=== PATIENT | female | born 1975 | race Caucasian/White ===

== ENCOUNTER 2023-04-20 07:28 | Outpatient (REF) | payer OTHER, SELFPAY ==
[2023-04-25 05:42] LABS: Vitamin B1 27 nmol/L (8-30)
== END 2023-04-20 07:29 | disposition home or self-care (01) ==
LOC: HO.LAB 07:28
PROVIDERS: Visit Provider Nurse Practitioner Family
DX: Z13.29 Encounter for screening for other suspected endocrine disorder (principal); Z13.21 Encounter for screening for nutritional disorder; Z13.220 Encounter for screening for lipoid disorders; E53.9 Vitamin B deficiency, unspecified; D50.9 Iron deficiency anemia, unspecified; E11.9 Type 2 diabetes mellitus without complications; I10 Essential (primary) hypertension
CPT/HCPCS: 36415; 80053; 80061; 82306; 82607; 83036; 83540; 84425; 84443; 85025

== ENCOUNTER 2023-08-03 07:49 | Outpatient (REF) | payer OTHER, SELFPAY ==
[2023-08-03 09:06] LABS: Alanine Aminotransferase 20 U/L (0-31); Alkaline Phosphatase 68 U/L (39-117); Anion Gap 15 (12-20); Aspartate Amino Transferase 15 U/L (5-31); Bilirubin Total 0.4 mg/dL (0.0-1.0); Blood Urea Nitrogen 11 mg/dL (9-16); Calcium 9.5 mg/dL (8.4-10.2); Carbon Dioxide 26 mmol/L (22-29); Chloride 102 mmol/L (96-108); Cholesterol 189 mg/dL (<200); Estimated Glomerular Filt Rate > 60; Glucose Fasting 90 mg/dL (60-99); HDL Cholesterol 45 mg/dL (>40); LDL Cholesterol Calculated 124 mg/dL (<100); Potassium 3.8 mmol/L (3.3-5.1); Sodium 139 mmol/L (135-145); Total Protein 7.7 g/dL (6.5-8.0); Triglycerides 102 mg/dL (<150)
== END 2023-08-03 07:50 | disposition home or self-care (01) ==
LOC: HO.LAB 07:49
PROVIDERS: Visit Provider Nurse Practitioner Family
DX: E78.5 Hyperlipidemia, unspecified (principal); I10 Essential (primary) hypertension
CPT/HCPCS: 36415; 80053; 80061

== ENCOUNTER 2023-10-19 17:13 | Outpatient (AMB) | payer OTHER, SELFPAY ==
[2023-10-19 17:14] VITALS: BP 120/76; PULSE 94; O2SAT 96; BMI 43.2
--- NOTE | 2023-10-19 17:14 | A.OFFPC_ITS ---
Vital Signs 10/19/23 17:14 Height 4 ft 11 in Weight 214 lb 2 oz BMI 43.2 BP 120/76 Blood Pressure Location Lt brachial Position Sitting Pulse 94 Pulse Source Pulse Oximeter Pulse Oximetry (%) 96 Oxygen Delivery Method Room Air Intake Visit Reasons: physical exam; DM, anxiety,BILL Neurourologist Required: No Accompanied by: Self / Same As Patient Allergies Seasonal Allergies Allergy (Mild, Verified 10/19/23 17:42) Sneezing sertraline [From Zoloft] Allergy (Mild, Verified 10/19/23 17:42) Insomnia Medication List - Last Reconciled 10/19/23 by David Pinedo MD citalopram 40 mg PO DAILY dulaglutide (Trulicity) 1.5 mg (0.5 mL) subcut QWEEK famotidine 20 mg PO BID ferrous gluconate (Ferate) 240 mg PO DAILY hydrochlorothiazide 25 mg PO DAILY multivitamin 1 tab PO DAILY pravastatin 10 mg PO BEDTIME vitamin B complex (B Complex-Vitamin B12 tablet) 1 tab PO DAILY Tobacco use date assessed: 10/19/23 Dental Screening Dental Screen Date: 10/19/23 Did you have a dental visit in the last 12 months?: No Did you have a dental problem in the last 6 months where you did not have access to dental care?: No Was dental information given to patient?: Patient has dentist HPI physical exam; DM, anxiety,BILL HPI Details Patient comes in today for her annual physical examination and to establish care - is a new patient to the practice Her previous PCP was in [place] States that she currently feels okay except for some recurrent eye pain / discomfort lately Denies any blurring of vision States that she has not seen an eye doctor for any eye exam in a few years now even though she is a diabetic She denies any headaches or dizziness Denies any chest pains, no SOB No nausea/vomiting, no abdominal pain No change in bowel habits noted Denies any acute urinary symptoms Had her annual mammogram done at [facility] back on 10/28/2022 and she will be due for her annual mammogram in a couple of weeks Had her screening colonoscopy done back in September 2023 at [facility] - was reportedly told that her colonoscopy came out normal and she is recommended to get a repeat colonoscopy in 10 yrs [facility] Medical History (Updated 10/20/23 @ 02:53 by David Pinedo MD) Morbid obesity with BMI of 40.0-44.9, adult GERD without esophagitis Pure hypercholesterolemia Essential hypertension Diabetes mellitus Iron deficiency anemia Surgical History (Updated 10/19/23 @ 19:45 by David Pinedo MD) History of appendectomy Status post left foot surgery Hx of hernia repair History of partial hysterectomy (~2000) Family History Father COPD (chronic obstructive pulmonary disease) Mother Hyperthyroidism Alcohol abuse Social History Household Members: Spouse Housing: House Alcohol intake: current Alcohol intake frequency: holidays/special occasions only Alcohol type: beer and wine Patient Tobacco Use Status: Former Tobacco user e-Cigarette/Vaping Use: Never Used service: No Current occupational status: employed Current occupation: [employer] Current occupational exposures/hazards: No Cognitive needs: No Hearing needs: No Vision needs: Yes Questionnaire PHQ-9 Over the last 2 weeks, how often have you been bothered by any of the following problems? 1. Little interest or pleasure in doing things: not at all 2. Feeling down, depressed, or hopeless: not at all 3. Trouble falling or staying asleep, or sleeping too much: not at all 4. Feeling tired or having little energy: not at all 5. Poor appetite or overeating: not at all 6. Feeling bad about yourself - or that you are a failure or have let yourself or your family down: not at all 7. Trouble concentrating on things, such as reading the newspaper or watching television: not at all 8. Moving or speaking so slowly that other people could have noticed. Or the opposite - being so fidgety or restless that you have been moving around a lot more than usual: not at all 9. Thoughts that you would be better off or of hurting yourself in some way: not at all Total score: 0 Depression Screening Interpretation: Negative Depression Screening Done: Yes 93762 - PHQ-9 Billing: Yes Source: Developed by Drs. Cyril Cortes, Arabella Morin, Cedric Garcia and colleagues, with an educational dari from [employer]. Thrive Questionnaire Date Thrive assessed: 10/19/23 I am a: Patient What is your living situation today?: I have a steady place to live Within the past 12 months, did the food you bought not last and you didn't have the money to get more?: Never true Within the past 12 months, did you worry whether your food would run out before you got money to buy more?: Never true Do you have trouble paying for medicines?: No Do you have trouble getting transportation to medical appointments?: No Do you have trouble paying your heating and electricity bill?: No Do you have trouble taking care of your child, family member or friend?: No Do you have trouble with day-to-day activities such as bathing, preparing meals, shopping, managing finances, etc.?: No Are you currently unemployed and looking for a job?: No Are you interested in more education?: No Please select the resources that you would like help with: None Currently or been in a relationship where the following occur: no concerns reported AUDIT C Alcohol Use Questionnaire (AUDIT-C) 1. How often do you have a drink containing alcohol?: Never 3. How often do you have six or more drinks on one occasion?: Never Total Score: 0 Score Reviewed/Action Taken: Yes LETTY-7 AMB Questionnaire LETTY-7 Date LETTY - 7 assessed: 10/19/23 Feeling nervous, anxious, or on edge: 1 = Several days Not being able to stop or control worryin = More than half the days Worrying too much about different things: 3 = Nearly every day Trouble relaxin = Several days Being so restless that it is hard to sit still: 0 = Not at all Becoming easily annoyed or irritable: 0 = Not at all Feeling afraid as if something awful might happen: 0 = Not at all Total LETTY-7 score (0-4 normal; 5-9 mild; 10-14 moderate; 15-21 severe): 7 Source: Developed by Drs. Cyril Cortes, Arabella Morin, Cedric Garcia and colleagues, with an educational dari from [employer]. LETTY-7 Assessment Billing LETTY-7 Assessment Tool: LETTY-7 Assessment 35281 Review of Systems Const Denies chills, Denies fatigue, Denies fever(s), Denies headache(s) and Denies malaise Eyes Denies blurry vision, Denies change in vision, Denies irritation, Denies itchy eyes and Reports eye pain (on and off, in both eyes) ENT Denies dysphagia, Denies dizziness, Denies otalgia, Denies headache(s), Denies nasal congestion, Denies neck pain, Denies odynophagia, Denies sinus pain and Denies sore throat Card Denies chest pain, Denies rapid heart rate, Denies irregular heart rhythm, Den ies palpitations and Denies dyspnea Resp Denies chest congestion, Denies cough, Denies dyspnea and Denies wheezing GI Denies abdominal pain, Denies bloating, Denies constipation, Denies dysphagia, Denies heartburn, Denies diarrhea, Denies nausea, Denies odynophagia and Denies vomiting Denies hematuria, Denies urinary frequency, Denies dysuria, Denies urinary incontinence and Denies urinary urgency Musc Denies back pain, Denies arthralgias, Denies joint swelling, Denies muscle weakness and Denies neck pain Skin/Breast Denies breast pain, Denies breast mass, Denies change in pigmentation, Denies lesions, Denies rash and Denies unusual bruising Neuro Denies dizziness, Denies headache(s) and Denies paresthesias Psych Denies anxiety and Denies depression Endo Denies fatigue and Denies palpitations Lavell/Lymph Denies easy bruising Aller/Immun Denies itchy eyes and Denies wheezing Physical exam (Primary Care) Vital Signs: Last Vital Signs Pulse 94 10/19/23 17:14 BP 120/76 10/19/23 17:14 Pulse Ox 96 10/19/23 17:14 Oxygen Delivery Method Room Air 10/19/23 17:14 BMI result Body Mass Index 43.2 Tobacco/Smoking Status: Tobacco use Status Tobacco use date assessed 10/19/23 10/19/23 17:20 Patient Tobacco Use Status Former Tobacco user 10/19/23 17:20 e-Cigarette/Vaping Use Never Used 10/19/23 17:20 PHQ-9: PHQ-9 Score PHQ-9: Total score 0 10/19/23 19:47 Depression Screening Interpretation: Negative Thrive Assessment: Date of Thrive Assessment Date Thrive assessed 10/19/23 10/19/23 17:20 Currently or been in a relationship where the following occur: no concerns reported Const General: no acute distress, alert and awake Orientation/consciousness: patient oriented x3 HENMT Head: Yes normocephalic and Yes atraumatic Ears: external ears normal, TM's normal bilaterally and EAC's normal General nose exam: No nasal discharge present Face and sinus: Yes normal facial exam and Yes sinuses nontender Teeth and gingiva: dentition normal Throat: Yes posterior oropharynx normal and Yes tonsils normal (no TP congestion) Eyes Eyelids: Yes eyelids normal Conjunctivae: conjunctivae normal Pupils: Equal, round and reactive pupils present EOM: EOMs intact bilaterally Neck Neck: Yes no lymphadenopathy and Yes supple Thyroid: Thyroid normal Resp Auscultation: clear to auscultation bilaterally, no rales and no wheezes Cardio Rate: regular rate Rhythm: regular rhythm Heart sounds: no murmurs GI Palpation (GI): Soft to palpation, nontender and No hepatosplenomegaly present Auscultation: normal bowel sounds General: Yes no CVA tenderness Back/Spine/Pelvis Back: no CVA tenderness Thoracic/Lumbar Spine: thoracic and lumbar spine normal to inspection Skin Lesions: no lesions Rashes: no rashes Neuro General: patient oriented x3, moves all extremities, no focal motor deficits and CN's II-XI intact bilaterally Cranial nerves: Yes Equal, round and reactive pupils present Cognition (Neuro): normal cognition Gait exam (Neuro): Normal gait present Extrem General: Yes no clubbing, cyanosis or edema Assessment and Plan Assessment & Plan (1) Annual physical exam: Code(s): Z00.00 - Encounter for general adult medical examination without abnormal findings Plan: Results of her labs done over the past few months reviewed and discussed with patient She is up-to-date with her cancer screenings although her annual mammogram will be due again in a couple of weeks (2) Diabetes mellitus: Code(s): E11.9 - Type 2 diabetes mellitus without complications Qualifiers: Diabetes mellitus complication status: without complication Diabetes mellitus prison insulin use: without ocean transportation intermediary use Diabetes mellitus type: type 2 Qualified Code(s): E11.9 - Type 2 diabetes mellitus without complications Plan: Her HgbA1c was at 5.2% when last checked in April 2023 Reinforced diabetic diet Continue Trulicity 1.5 mg SQ once a week (3) Eye pain: Code(s): H57.10 - Ocular pain, unspecified eye Qualifiers: Laterality: unspecified laterality Qualified Code(s): H57.10 - Ocular pain, unspecified eye Plan: Due to her symptoms and with her being a diabetic, will refer her to ophthalmology for further evaluation and management AND for her diabetic eye mp zamudio (4) Pure hypercholesterolemia: Code(s): E78.00 - Pure hypercholesterolemia, unspecified Plan: Reinforced low cholesterol diet Continue Pravastatin 10 mg QD for now Will recheck her labs and fasting lipids in 3 months for follow up - is advised that her LDL should at least be <100 mg/dl and preferably be at 70 mg/dl or less due to her comorbidities and that we will need to increase the dose of her statin if her numbers do not improve significantly over the next few months Will recheck her fasting lipids in 3 months for follow up (5) Essential hypertension: Code(s): I10 - Essential (primary) hypertension Plan: Reinforced low sodium diet - goal is systolic BP of at least 120 mm or less Continue HCTZ 25 mg QD Will consider starting her on low dose BRANDON or ARB in the future if tolerated for renoprotection (6) DANILO on CPAP: Code(s): G47.33 - Obstructive sleep apnea (adult) (pediatric) Plan: States that her CPAP device is very old and worn out and will likely need to be replaced but [facility] is charging her for every single replacement parts when she orders them Reports that it has been over 10 years since she last had her sleep study done Will refer her to Sleep Medicine for follow up and further management (7) GERD without esophagitis: Code(s): K21.9 - Gastro-esophageal reflux disease without esophagitis Plan: Dietary restrictions reinforced Continue Famotidine 20 mg BID (8) Iron deficiency anemia: Code(s): D50.9 - Iron deficiency anemia, unspecified Qualifiers: Iron deficiency anemia type: unspecified iron deficiency Qualified Code(s): D50.9 - Iron deficiency anemia, unspecified Plan: Continue Ferrous gluconate 240 mg QD Will recheck her CBC in 3 months for follow up (9) Anxiety: Code(s): F41.9 - Anxiety disorder, unspecified Plan: Continue Citalopram 40 mg QD (10) Morbid obesity with BMI of 40.0-44.9, adult: Code(s): E66.01 - Morbid (severe) obesity due to excess calories; Z68.41 - Body mass index [BMI] 40.0-44.9, adult Plan: Reinforced diet/exercise as tolerated/lose weight Plan Follow up in 3 months Orders: Orders Complete Blood Count Auto Diff 3 Months I10 - Essential (primary) hypertension Comprehensive [place]. Panel Fast 3 Months E78.00 - Pure hypercholesterolemia, unspecified Microalbumin, Random (w Creat) 3 Months E11.9 - Type 2 diabetes mellitus without complications Lipid Panel 3 Months E78.00 - Pure hypercholesterolemia, unspecified TSH reflex Free T4 3 Months E78.00 - Pure hypercholesterolemia, unspecified Hemoglobin A1c 3 Months E11.9 - Type 2 diabetes mellitus without complications UA CC w/rflx Micro + Cult 3 Months R30.0 - Dysuria Vitamin D 25-OH Total 3 Months E55.9 - Vitamin D deficiency, unspecified IRON PROFILE 3 Months D50.9 - Iron deficiency anemia, unspecified Referrals Ophthalmology Referral E11.9 - Type 2 diabetes mellitus without complications Sleep Medicine Referral G47.33 - Obstructive sleep apnea (adult) (pediatric) Coding Level of Care Code New Pt Prev Care 40-64y(91122) Diagnoses Annual physical exam Z00.00 Type 2 diabetes mellitus without complication, without long-term current use of insulin E11.9 Diabetes mellitus complication status: without complication Diabetes mellitus ocean transportation intermediary insulin use: without prison use Diabetes mellitus type: type 2 Pain in eye, unspecified laterality H57.10 Laterality: unspecified laterality Pure hypercholesterolemia E78.00 Essential hypertension I10 DANILO on CPAP G47.33 GERD without esophagitis K21.9 Iron deficiency anemia, unspecified iron deficiency anemia type D50.9 Iron deficiency anemia type: unspecified iron deficiency Anxiety F41.9 Morbid obesity with BMI of 40.0-44.9, adult E66.01; Z68.41 Additional Codes LETTY-7 Assessment Billing - LETTY-7 Assessment Tool: LETTY-7 Assessment 46890 ([id number])
== END 2023-10-19 17:59 | disposition home or self-care (01) ==
LOC: HO.HMGH 17:13
PROVIDERS: PCP Internal Medicine; Visit Provider Internal Medicine
DX: Z00.00 Encounter for general adult medical examination without abnormal findings (principal); E11.9 Type 2 diabetes mellitus without complications; E66.01 Morbid (severe) obesity due to excess calories; Z68.41 Body mass index [BMI] 40.0-44.9, adult; I10 Essential (primary) hypertension; G47.33 Obstructive sleep apnea (adult) (pediatric); K21.9 Gastro-esophageal reflux disease without esophagitis; D50.9 Iron deficiency anemia, unspecified; F41.9 Anxiety disorder, unspecified
CPT/HCPCS: 99396

== ENCOUNTER 2023-10-26 08:28 | Outpatient (AMB) | payer OTHER, SELFPAY ==
--- NOTE | 2023-10-26 08:31 | A.OFFVIS_ITS ---
Intake Vital Signs 10/26/23 08:33 Height 4 ft 11 in Weight 218 lb BMI 44.0 BP 112/70 Blood Pressure Location Lt brachial Position Sitting Pulse 55 Pulse Source Pulse Oximeter Pulse Oximetry (%) 96 Oxygen Delivery Method Room Air Intake Visit Reasons: [id number] Intake Note: Patient presents for DANILO Allergies Seasonal Allergies Allergy (Mild, Verified 10/26/23 08:37) Sneezing sertraline [From Zoloft] Allergy (Mild, Verified 10/26/23 08:37) Insomnia HPI HPI Comments History of Present Illness Details 48 y/o female patient presents for new i n-person visit to manage sleep apnea. Pt reports that she was diagnosed with DANILO many years ago, and has been using CPAP. Her home care company is [employer]. She has been getting supplies regularly, but now she needs to pay for supplies. And her CPAP is more than 5 years old. She sleeps much better with CPAP, rested and daytime sleepiness has improved. Sleep questionnaire: Have you ever been diagnosed with a sleep disorder? DANILO. Have you ever had a sleep study in the past? Yes. Have you ever been treated for a sleep disorder? Yes, CPAP. Do you take medications for a sleep disorder? No. Do you snore? Yes, but CPAP helped to reduce with CPAP. Do you wake up gasping at night? No. Do you have episodes of apneas? Yes. If yes, are they witnessed? Yes. Do you have episodes of nocturnal chest pain or dyspnea? No. Do you have difficulty initiating sleep? Yes, sometimes. Do you have difficulty maintaining sleep? Yes, sometimes. Do you wake up tired? No. Do you have headaches upon awakening? No. Do you wake up with dry mouth or throat? Yes. Do you have GERD? No. Do you have nocturia? Yes, at least 3-4 times. Do you have nocturnal leg cramps? No. Do you have symptoms of restless legs? No. Do you act out your dreams? No. Sleep hygiene questionnaire: What is your usual sleep routine? Usual bedtime is at 11 pm ; Usual wake up time is at 6:40 am. Do you take naps? No. Is your sleep environment cool, dark, and quiet? Yes. Do you exercise? Yes, bike and walking. Do you take caffeine or other stimulants? Coffee in the morning. Do you use electronics in bed? Yes. What is your work schedule? 8 am to 8:30 pm. Hypersomnolence questionnaire: Do you have daytime tiredness or fatigue? Not that much. Do you easily fall asleep when inactive? No. Have you ever had episodes of sudden weakness? No. Have you ever had episodes of sudden weakness associated with strong emotions? No. PFSH Medical History (Updated 10/20/23 @ 02:53 by David Pinedo MD) Morbid obesity with BMI of 40.0-44.9, adult GERD without esophagitis Pure hypercholesterolemia Essential hypertension Diabetes mellitus Iron deficiency anemia Surgical History History of appendectomy Status post left foot surgery Hx of hernia repair History of partial hysterectomy (~2000) Family History Father COPD (chronic obstructive pulmonary disease) Mother Hyperthyroidism Alcohol abuse Social History Household Members: Spouse Housing: House Alcohol intake: current Alcohol intake frequency: holidays/special occasions only Alcohol type: beer and wine Patient Tobacco Use Status: Former Tobacco user e-Cigarette/Vaping Use: Never Used service: No Current occupational status: employed 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 Current occupational exposures/hazards: No Cognitive needs: No Hearing needs: No Vision needs: Yes Review of Systems Const All systems reviewed & are unremarkable except as noted in HPI and below Physical Exam Vital Signs: Last Vital Signs Pulse 55 10/26/23 08:33 BP 112/70 10/26/23 08:33 Pulse Ox 96 10/26/23 08:33 Oxygen Delivery Method Room Air 10/26/23 08:33 BMI result Body Mass Index 44.0 Const General: cooperative Nutritional Appearance: obese Orientation/consciousness: patient oriented x3 Neck Neck: Yes full ROM and Yes supple Resp Effort & Inspection: normal respiratory effort and able to speak in complete sentences Neuro General: patient oriented x3 Cognition (Neuro): normal cognition Gait exam (Neuro): Normal gait present Motor exam (neuro): 5/5 motor strength present throughout Psych Appearance: grossly normal Mental Status: mental status grossly normal Speech and movement: Normal speech and movement present Affect: normal affect Attitude: cooperative Assessment & Plan Assessment & Plan (1) DANILO on CPAP: Code(s): G47.33 - Obstructive sleep apnea (adult) (pediatric) Plan Pt is advised to undergo in lab sleep study to assess for sleep apnea. Will f/u with pt after study to discuss results and appropriate treatment options. Continue to use current CPAP until she gets new CPAP. Wt reduction advised. Pt to call with any worsening concerns or questions. Orders: Orders RT PSG in-lab sleep study Today E66.01 - Morbid (severe) obesity due to excess calories, G47.33 - Obstructive sleep apnea (adult) (pediatric), I10 - Essential (primary) hypertension, Z68.41 - Body mass index [BMI] 40.0-44.9, adult Coding Level of Care Code New Pt Level 3 (31383) Diagnoses DANILO on CPAP G47.33
[2023-10-26 08:33] VITALS: BP 112/70; PULSE 55; O2SAT 96; BMI 44.0
== END 2023-10-26 09:08 | disposition home or self-care (01) ==
PROVIDERS: PCP Internal Medicine; Visit Provider Nurse Practitioner Family
DX: G47.33 Obstructive sleep apnea (adult) (pediatric) (principal)
CPT/HCPCS: 99203

== ENCOUNTER → 2023-10-26 08:28 | Outpatient (BNVA) | payer OTHER, SELFPAY | PROVIDERS: PCP Internal Medicine; Visit Provider Nurse Practitioner Family | DX: G47.33 Obstructive sleep apnea (adult) (pediatric) (principal) | CPT/HCPCS: 99202 ==

== ENCOUNTER → 2023-11-12 20:30 | Outpatient (REF) | payer OTHER, SELFPAY | LOC: HO.SL 20:30 | PROVIDERS: PCP Internal Medicine; Visit Provider Nurse Practitioner Family | DX: G47.33 Obstructive sleep apnea (adult) (pediatric) (principal); E66.01 Morbid (severe) obesity due to excess calories; Z68.41 Body mass index [BMI] 40.0-44.9, adult | CPT/HCPCS: 95810 ==

== ENCOUNTER → 2023-11-13 00:06 | Outpatient (BNV) | payer OTHER, SELFPAY | PROVIDERS: PCP Internal Medicine; Visit Provider Internal Medicine | DX: G47.33 Obstructive sleep apnea (adult) (pediatric) (principal) | CPT/HCPCS: 95810 ==

== ENCOUNTER 2023-12-03 11:59 | Outpatient (AMB) | payer OTHER, SELFPAY ==
[2023-12-03 12:09] VITALS: BP 122/80; PULSE 80; TEMP 36.9; O2SAT 97; BMI 44.0
--- NOTE | 2023-12-03 12:09 | AM.OFFWIN_ITS ---
Intake Vital Signs 12/03/23 12:09 Height 4 ft 11 in Weight 218 lb BMI 44.0 BP 122/80 Blood Pressure Location Lt brachial Position Sitting Pulse 80 Pulse Source Pulse Oximeter Temp 98.4 F Temp Source Oral Pulse Oximetry (%) 97 Oxygen Delivery Method Room Air Intake Visit Reasons: EP dry cough back pain congestion Intake Note: pt is here for cough, congestion, back pain Patient Tobacco Use Status: Former Tobacco user Allergies Seasonal Allergies Allergy (Mild, Verified 12/03/23 12:09) Sneezing sertraline [From Zoloft] Allergy (Mild, Verified 12/03/23 12:09) Insomnia Do you need a note to return to daycare/school/sports/work: Yes HPI EP dry cough back pain congestion HPI Details This is a 48-year-old female patient who presents today with a 2 day history of cough, nasal congestion, and throat pain. States that her cough feels wet, however she can not bring anything up. Has been using [id number] Robitussin. Denies known exposure to sick contacts. COVID home test was negative. Denies fever or chills. Denies shortness of breath or GI symptoms. [facility] Medical History Morbid obesity with BMI of 40.0-44.9, adult GERD without esophagitis Pure hypercholesterolemia Essential hypertension Diabetes mellitus Iron deficiency anemia Surgical History History of appendectomy Status post left foot surgery Hx of hernia repair History of partial hysterectomy (~2000) Family History Father COPD (chronic obstructive pulmonary disease) Mother Hyperthyroidism Alcohol abuse Social History Household Members: Spouse Housing: House Alcohol intake: current Alcohol intake frequency: holidays/special occasions only Alcohol type: beer and wine Patient Tobacco Use Status: Former Tobacco user e-Cigarette/Vaping Use: Never Used service: No Current occupational status: employed 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 [employer] Current occupational exposures/hazards: No Cognitive needs: No Hearing needs: No Vision needs: Yes Review of Systems Const All systems reviewed & are unremarkable except as noted in HPI and below Physical Exam Vital Signs: Last Vital Signs Temp 98.4 F 12/03/23 12:09 Pulse 80 12/03/23 12:09 BP 122/80 12/03/23 12:09 Pulse Ox 97 12/03/23 12:09 Oxygen Delivery Method Room Air 12/03/23 12:09 BMI result Body Mass Index 44.0 Const General: cooperative and no acute distress HEENT Head: Yes normal to inspection Ears: hearing grossly normal bilaterally General nose exam: Normal external nose present and Normal nasal mucous membranes and turbinates present Face and sinus: Yes normal facial exam Throat: Yes posterior oropharynx abnormal (erythema) Neck Neck: Yes no lymphadenopathy Resp Effort & Inspection: normal respiratory effort Auscultation: clear to auscultation bilaterally Cardio Palpation: normal PMI Rate: regular rate Rhythm: regular rhythm Skin General skin exam: no rashes or lesions noted Extrem General: Yes capillary refill normal and Yes no clubbing, cyanosis or edema Psych Appearance: grossly normal Mental Status: mental status grossly normal Speech and movement: Normal speech and movement present Results AMB Rapid Strep AMB Rapid Strep Negative Last Edit by Jethro Hartmann CMA on 12/03/23 13 :01 Assessment & Plan Assessment & Plan (1) Upper respiratory infection: Code(s): J06.9 - Acute upper respiratory infection, unspecified Qualifiers: URI type: unspecified viral URI Qualified Code(s): J06.9 - Acute upper respiratory infection, unspecified Plan: Symptoms are consistent with viral illness. Rapid strep was negative. Covid/flu/RSV swab obtained and she will be notified of these results once they are available. Advised conservative treatment with adequate hydration and rest, may continue to take Tylenol [id number] for any pain/fever. I will prescribe benzonatate for the cough. We reviewed indications, use, possible side effects of this. If she does not improve with time and conservative measures, she can return to the clinic for further evaluation. She verbalizes understanding and agrees to plan. Orders: Orders AMB Rapid Strep Screen Today Z13.9 - Encounter for screening, unspecified SARS-CoV2/FLU/RSV Today J06.9 - Acute upper respiratory infection, unspecified Medications: New benzonatate 100 mg PO BID PRN 14 caps 0RF cough 7 days R05.9 - Cough, unspecified Coding Level of Care Code Est Pt Level 3 (33091) Diagnoses Viral upper respiratory tract infection J06.9 URI type: unspecified viral URI
== END 2023-12-03 13:08 | disposition home or self-care (01) ==
PROVIDERS: PCP Internal Medicine; Visit Provider Nurse Practitioner Family
DX: J06.9 Acute upper respiratory infection, unspecified (principal); J02.9 Acute pharyngitis, unspecified
CPT/HCPCS: 87880; 99213

== ENCOUNTER 2023-12-03 12:44 | Outpatient (REF) | payer OTHER, SELFPAY ==
[2023-12-03 17:39] LABS: Influenza A PCR POSITIVE (Negative); Influenza B PCR NEGATIVE (Negative); Resp Syncy Virus RNA Qual PCR NEGATIVE (Negative); SARS COV2 PCR INHOUSE NEGATIVE (Negative)
== END 2023-12-03 12:45 | disposition home or self-care (01) ==
LOC: HO.LAB 12:44
PROVIDERS: Visit Provider Nurse Practitioner Family
DX: Z11.52 Encounter for screening for COVID-19 (principal); Z20.822 Contact with and (suspected) exposure to COVID-19; J06.9 Acute upper respiratory infection, unspecified
CPT/HCPCS: 0241U

== ENCOUNTER 2024-01-25 16:50 | Outpatient (AMB) | payer OTHER, SELFPAY ==
--- NOTE | 2024-01-25 17:15 | MHC.PC.OV ---
Vital Signs 01/25/24 17:19 Height 4 ft 11 in Weight 211 lb BMI 42.6 BP 120/70 Blood Pressure Location Lt brachial Position Sitting Intake Visit Reasons: hyperlipidemia, DM, HTN Intake Note: Patient here for a follow up Hyperlipidemia, DM, HTN Fire Management Specialist Required: No Accompanied by: Spouse Allergies Seasonal Allergies Allergy (Mild, Verified 01/25/24 17:25) Sneezing sertraline [From Zoloft] Allergy (Mild, Verified 01/25/24 17:25) Insomnia Medication List - Last Reconciled 01/25/24 by David Pinedo MD citalopram 40 mg PO DAILY dulaglutide (Trulicity) 1.5 mg (0.5 mL) subcut QWEEK famotidine 20 mg PO BID ferrous gluconate (Ferate) 240 mg PO DAILY hydrochlorothiazide 25 mg PO DAILY multivitamin 1 tab PO DAILY oseltamivir 75 mg PO BID 5 days pravastatin 10 mg PO BEDTIME tirzepatide (Mounjaro) 5 mg (0.5 mL) subcut QWEEK vitamin B complex (B Complex-Vitamin B12 tablet) 1 tab PO DAILY Tobacco use date assessed: 10/19/23 Dental Screening Dental Screen Date: 10/19/23 HPI hyperlipidemia, DM, HTN HPI Details Patient comes in today for her follow up visit States that she feels okay States that she has been doing well on Mounjaro lately (was switched from Trulicity as it was not available at the pharmacy) although she appears to be breaking out in a mild transient rash wherever she injects herself with Mounjaro States though that she has lost more weight while on Mounjaro that she did before on Trulicity - will need her Mounjaro Rx refilled today She denies any headaches or dizziness Denies any chest pains, no SOB No nausea/vomiting, no abdominal pain No change in bowel habits noted She was not able to get her follow up labs done prior to her appointment today - states that she can go and get them done tomorrow morning [facility] Medical History (Updated 01/25/24 @ 19:34 by David Pinedo MD) Impaired fasting glucose Morbid obesity with BMI of 40.0-44.9, adult GERD without esophagitis Pure hypercholesterolemia Essential hypertension Diabetes mellitus Iron deficiency anemia Surgical History History of appendectomy Status post left foot surgery Hx of hernia repair History of partial hysterectomy (~2000) Family History Father COPD (chronic obstructive pulmonary disease) Mother Hyperthyroidism Alcohol abuse Social History Household Members: Spouse Housing: House Alcohol intake: current Alcohol intake frequency: holidays/special occasions only Alcohol type: beer and wine Patient Tobacco Use Status: Former Tobacco user e-Cigarette/Vaping Use: Never Used service: No Current occupational status: employed 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 Cyril Cortes, Arabella Morin, Cedric Garcia and colleagues, with an educational dari from [employer]. Review of Systems Const Denies chills, Denies fatigue, Denies fever(s) and Denies headache(s) ENT Denies dysphagia, Denies dizziness, Denies otalgia, Denies headache(s), Denies neck pain, Denies odynophagia and Denies sore throat Card Denies chest pain, Denies rapid heart rate, Denies irregular heart rhythm, Denies palpitations and Denies dyspnea Resp Denies chest congestion, Denies cough, Denies dyspnea and Denies wheezing GI Denies abdominal pain, Denies constipation, Denies dysphagia, Denies heartburn, Denies diarrhea, Denies nausea, Denies odynophagia and Denies vomiting Denies hematuria, Denies urinary frequency, Denies dysuria and Denies urinary incontinence Musc Denies back pain, Denies arthralgias and Denies neck pain Skin/Breast Denies rash Neuro Denies dizziness, Denies headache(s) and Denies paresthesias Psych Denies anxiety and Denies depression Endo Denies fatigue and Denies palpitations Lavell/Lymph Denies easy bruising Aller/Immun Denies wheezing Physical exam (Primary Care) Vital Signs: Last Vital Signs BP 120/70 01/25/24 17:19 BMI result Body Mass Index 42.6 Tobacco/Smoking Status: Tobacco use Status Tobacco use date assessed 10/19/23 01/25/24 17:15 Patient Tobacco Use Status Former Tobacco user 01/25/24 17:15 e-Cigarette/Vaping Use Never Used 01/25/24 17:15 Thrive Assessment: Date of Thrive Assessment Date Thrive assessed 10/19/23 01/25/24 17:15 Const General: no acute distress and alert HENMT Ears: TM's normal bilaterally and EAC's normal Throat: Yes posterior oropharynx normal and Yes tonsils normal (no TP congestion) Neck Neck: Yes no lymphadenopathy and Yes supple Thyroid: Thyroid normal Resp Auscultation: clear to auscultation bilaterally, no rales and no wheezes Cardio Rate: regular rate Rhythm: regular rhythm Heart sounds: no murmurs GI Palpation (GI): Soft to palpation and nontender Auscultation: normal bowel sounds General: Yes no CVA tenderness Back/Spine/Pelvis Back: no CVA tenderness Skin Rashes: no rashes Extrem General: Yes no clubbing, cyanosis or edema Results AMB Hemoglobin A1c AMB Hemoglobin A1c 5.7 % Last Edit by BLAKE Alonso on 01/25/24 17:25 Results Reviewed Results Reviewed: Laboratory Last Values Hgb A1c (Clinic) 5.7 % (4.0-6.0) 01/25/24 17:16 Assessment and Plan Assessment & Plan (1) Impaired fasting glucose: Code(s): R73.01 - Impaired fasting glucose Plan: In-office HgbA1c done today is at 5.7%; HgbA1c was at 5.2% when last checked in April 2023 Reinforced low calorie/low carb diet She has been on Trulicity 1.5 mg SQ once a week (started by her previous PCP) but has not been able to get her Rx lately due to unavailability She was switched alternatively over to Mounjaro 5 mg SQ once a week a few weeks ago - states that she has been doing okay and has actually lost more weight on Mounjaro than while she was on Trulicity although she seems to be breaking out in a mild transient rash wherever she would inject hersekf with Mounjaro but she would like to stay on the Rx for now (Rx refilled, per request) (2) Pure hypercholesterolemia: Code(s): E78.00 - Pure hypercholesterolemia, unspecified Plan: Patient is advised to get her follow up labs done [facility] - states that she will try to get them done tomorrow morning Reinforced low cholesterol diet - goal is LDL cholesterol of at least <100 mg/dl and preferably < 70 mg/dl due to her comorbidities Continue Pravastatin 10 mg QD for now Will recheck her labs and fasting lipids again in 4 months for follow up (3) Essential hypertension: Code(s): I10 - Essential (primary) hypertension Plan: Reinforced low sodium diet - goal is systolic BP of at least 120 mm or less Continue HCTZ 25 mg QD (4) DANILO on CPAP: Code(s): G47.33 - Obstructive sleep apnea (adult) (pediatric) Plan: States that her CPAP device is very old and worn out and will likely need to be replaced but [facility] is charging her for every single replacement parts when she orders them Reports that it has been over 10 years since she last had her sleep study done We referred her previously to Sleep Medicine for follow up and further management of these issues (5) GERD without esophagitis: Code(s): K21.9 - Gastro-esophageal reflux disease without esophagitis Plan: Dietary restrictions reinforced Continue Famotidine 20 mg BID (6) Iron deficiency anemia: Code(s): D50.9 - Iron deficiency anemia, unspecified Qualifiers: Iron deficiency anemia type: unspecified iron deficiency Qualified Code(s): D50.9 - Iron deficiency anemia, unspecified Plan: Continue Ferrous gluconate 240 mg QD Will recheck her CBC in 3 months for follow up (7) Anxiety: Code(s): F41.9 - Anxiety disorder, unspecified Plan: Continue Citalopram 40 mg QD (8) Morbid obesity with BMI of 40.0-44.9, adult: Code(s): E66.01 - Morbid (severe) obesity due to excess calories; Z68.41 - Body mass index [BMI] 40.0-44.9, adult Plan: Reinforced diet/exercise as tolerated/lose weight Plan Follow up in 4 months Orders: Orders Lipid Panel 4 Months E78.00 - Pure hypercholesterolemia, unspecified TSH reflex Free T4 4 Months E78.00 - Pure hypercholesterolemia, unspecified AMB Hemoglobin A1c Today E11.9 - Type 2 diabetes mellitus without complications Comprehensive [place]. Panel Fast 4 Months E78.00 - Pure hypercholesterolemia, unspecified Complete Blood Count Auto Diff 4 Months D64.9 - Anemia, unspecified UA CC w/rflx Micro + Cult 4 Months R30.0 - Dysuria Vitamin D 25-OH Total 4 Months E55.9 - Vitamin D deficiency, unspecified Medications: Refilled tirzepatide (Mounjaro) 5 mg (0.5 mL) subcut QWEEK 2 mL 3RF E11.9 - Type 2 diabetes mellitus without complications Discontinued dulaglutide (Trulicity) Discontinued Reason: Insurance Denied 1.5 mg (0.5 mL) subcut QWEEK 2 mL 0RF E11.9 - Type 2 diabetes mellitus without complications Coding Level of Care Code Est Pt Level 4 (57523) Diagnoses Impaired fasting glucose R73.01 Pure hypercholesterolemia E78.00 Essential hypertension I10 DANILO on CPAP G47.33 GERD without esophagitis K21.9 Iron deficiency anemia, unspecified iron deficiency anemia type D50.9 Iron deficiency anemia type: unspecified iron deficiency Anxiety F41.9 Morbid obesity with BMI of 40.0-44.9, adult E66.01; Z68.41
[2024-01-25 17:19] VITALS: BP 120/70; BMI 42.6
== END 2024-01-25 17:49 | disposition home or self-care (01) ==
PROVIDERS: PCP Internal Medicine; Visit Provider Internal Medicine
DX: R73.01 Impaired fasting glucose (principal); E66.01 Morbid (severe) obesity due to excess calories; Z68.41 Body mass index [BMI] 40.0-44.9, adult; E11.9 Type 2 diabetes mellitus without complications; E78.00 Pure hypercholesterolemia, unspecified; I10 Essential (primary) hypertension; G47.33 Obstructive sleep apnea (adult) (pediatric); K21.9 Gastro-esophageal reflux disease without esophagitis; D50.9 Iron deficiency anemia, unspecified; F41.9 Anxiety disorder, unspecified
CPT/HCPCS: 83036; 99214

== ENCOUNTER 2024-01-26 07:52 | Outpatient (REF) | payer OTHER, SELFPAY ==
[2024-01-26 08:16] LABS: MANUAL DIFF FLAG NO
[2024-01-26 09:06] LABS: Appearance Urine Cloudy; Color Urine Yellow; Glucose Urine UA Negative (Negative); Leukocyte Esterase Urine Negative (Negative); Nitrite Urine Negative (Negative); Urine Blood Negative (Negative); Urine Ketones Negative (Negative); Urine Protein Negative (Neg-Trace)
[2024-01-26 09:07] LABS: Basophils Absolute Auto 0.1 X10*3/uL (0.0-0.2); Basophils Percent Auto 0.9 % (0-2); Eosinophils Absolute Auto 0.4 X10*3/uL (0.0-0.4); Eosinophils Percent Auto 3.4 % (0-4); Hematocrit 36.8 % (37.0-47.0); Hemoglobin 12.5 g/dl (12.0-16.0); Imm Gran Abs Auto 0.03 X10*3/uL (0.00-0.03); Imm Gran Pct Auto 0.3 % (0.0-0.4); Lymphocytes Absolute Auto 3.3 X10*3/uL (1.2-4.9); Mean Corpuscular Hemoglobin 29.5 pg (27.0-33.0); Mean Corpuscular Volume 86.8 fL (80.0-98.0); Mean Platelet Volume 9.7 fL (9.4-12.3); Monocytes Absolute Auto 0.6 X10*3/uL (0.1-1.2); Monocytes Percent Auto 5.3 % (2-11); Neutrophils Absolute Auto 7.2 x10*3/uL (2.0-8.3); Neutrophils Percent Auto 62.1 % (45-73); Platelet Count 335 X10*3/uL (160-400); Red Blood Count 4.24 X10*6/uL (4.20-5.50); Red Cell Distribution Width 13.5 % (11.0-16.0); White Blood Count 11.6 X10*3/uL (4.8-10.8)
[2024-01-26 09:09] LABS: Estimated Average Glucose 111 mg/dL; Hemoglobin A1c % 5.5 % (<6.0)
[2024-01-26 09:53] LABS: Creatinine Urine 122.23 mg/dL; Microalbum/Creatinine Ratio Ur 6.5 ug/mg cr (<30)
[2024-01-26 10:11] LABS: Alanine Aminotransferase 17 U/L (0-31); Alkaline Phosphatase 68 U/L (39-117); Anion Gap 12 (12-20); Aspartate Amino Transferase 15 U/L (5-31); Bilirubin Total 0.4 mg/dL (0.0-1.0); Blood Urea Nitrogen 14 mg/dL (9-16); Calcium 9.1 mg/dL (8.4-10.2); Carbon Dioxide 26 mmol/L (22-29); Chloride 102 mmol/L (96-108); Cholesterol 178 mg/dL (<200); Estimated Glomerular Filt Rate > 60; Glucose Fasting 94 mg/dL (60-99); HDL Cholesterol 46 mg/dL (>40); Iron 73 mcg/dL (30-160); LDL Cholesterol Calculated 107 mg/dL (<100); Percent Iron Saturation 32 % (15-50); Potassium 3.3 mmol/L (3.3-5.1); Sodium 137 mmol/L (135-145); Total Iron Binding Capacity 225 mcg/dL (228-428); Total Protein 7.4 g/dL (6.5-8.0); Triglycerides 129 mg/dL (<150); Unsaturated Iron Binding 152 ug/dL
[2024-01-26 10:18] LABS: Vitamin D 25-OH Total 33.1 ng/mL (>30)
== END 2024-01-26 07:53 | disposition home or self-care (01) ==
LOC: HO.LAB 07:52
PROVIDERS: PCP Internal Medicine; Visit Provider Internal Medicine
DX: E78.00 Pure hypercholesterolemia, unspecified (principal); E11.9 Type 2 diabetes mellitus without complications; R30.0 Dysuria; E55.9 Vitamin D deficiency, unspecified; D50.9 Iron deficiency anemia, unspecified; I10 Essential (primary) hypertension
CPT/HCPCS: 36415; 80053; 80061; 81003; 82043; 82306; 82570; 83036; 83540; 84443; 85025

== ENCOUNTER 2024-07-19 07:37 | Outpatient (REF) | payer OTHER, SELFPAY ==
[2024-07-19 07:54] LABS: MANUAL DIFF FLAG NO
[2024-07-19 08:27] LABS: Basophils Absolute Auto 0.1 X10*3/uL (0.0-0.2); Basophils Percent Auto 0.7 % (0-2); Eosinophils Absolute Auto 0.2 X10*3/uL (0.0-0.4); Eosinophils Percent Auto 1.9 % (0-4); Hematocrit 37.3 % (37.0-47.0); Hemoglobin 12.8 g/dl (12.0-16.0); Imm Gran Abs Auto 0.03 X10*3/uL (0.00-0.03); Imm Gran Pct Auto 0.3 % (0.0-0.4); Lymphocytes Absolute Auto 3.5 X10*3/uL (1.2-4.9); Lymphocytes Percent Auto 29.9 % (20-40); Mean Corpuscular HGB Conc 34.3 g/dl (31.0-35.0); Mean Corpuscular Hemoglobin 29.8 pg (27.0-33.0); Mean Corpuscular Volume 86.9 fL (80.0-98.0); Mean Platelet Volume 9.3 fL (9.4-12.3); Monocytes Absolute Auto 0.6 X10*3/uL (0.1-1.2); Monocytes Percent Auto 5.1 % (2-11); Neutrophils Absolute Auto 7.2 x10*3/uL (2.0-8.3); Neutrophils Percent Auto 62.1 % (45-73); Platelet Count 344 X10*3/uL (160-400); Red Blood Count 4.29 X10*6/uL (4.20-5.50); Red Cell Distribution Width 13.4 % (11.0-16.0); White Blood Count 11.5 X10*3/uL (4.8-10.8)
[2024-07-19 08:30] LABS: Appearance Urine Cloudy; Color Urine Yellow; Glucose Urine UA Negative (Negative); Leukocyte Esterase Urine Negative (Negative); Nitrite Urine Negative (Negative); Urine Blood Negative (Negative); Urine Ketones Negative (Negative); Urine Protein Negative (Neg-Trace)
[2024-07-19 09:10] LABS: Alanine Aminotransferase 14 U/L (0-31); Alkaline Phosphatase 65 U/L (39-117); Anion Gap 13 (12-20); Aspartate Amino Transferase 12 U/L (5-31); Bilirubin Total 0.3 mg/dL (0.0-1.0); Blood Urea Nitrogen 13 mg/dL (9-16); Calcium 9.1 mg/dL (8.4-10.2); Carbon Dioxide 27 mmol/L (22-29); Chloride 103 mmol/L (96-108); Cholesterol 193 mg/dL (<200); Estimated Glomerular Filt Rate > 60; Glucose Fasting 93 mg/dL (60-99); HDL Cholesterol 55 mg/dL (>40); LDL Cholesterol Calculated 116 mg/dL (<100); Potassium 3.6 mmol/L (3.3-5.1); Sodium 139 mmol/L (135-145); Total Protein 7.2 g/dL (6.5-8.0); Triglycerides 113 mg/dL (<150)
[2024-07-19 09:27] LABS: TSH reflex Free T4 1.95 uIU/mL (0.32-4.0); Vitamin D 25-OH Total 38.4 ng/mL (>30)
== END 2024-07-19 07:38 | disposition home or self-care (01) ==
LOC: HO.LAB 07:37
PROVIDERS: PCP Internal Medicine; Visit Provider Internal Medicine
DX: E78.00 Pure hypercholesterolemia, unspecified (principal); D64.9 Anemia, unspecified; R30.0 Dysuria; E55.9 Vitamin D deficiency, unspecified
CPT/HCPCS: 36415; 80053; 80061; 81003; 82306; 84443; 85025

== ENCOUNTER 2024-08-15 10:36 | Outpatient (AMB) | payer OTHER, SELFPAY ==
[2024-08-15 10:59] VITALS: BP 110/68; PULSE 60; O2SAT 97; BMI 40.6
--- NOTE | 2024-08-15 10:59 | MHC.PC.OV ---
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 Required: No Accompanied by: Self / Same As Patient Allergies Seasonal Allergies Allergy (Mild, Verified 08/15/24 11:30) Sneezing sertraline [From Zoloft] Allergy (Mild, Verified 08/15/24 11:30) Insomnia Medication List - Last Reconciled 08/15/24 by David Pinedo MD citalopram 40 mg PO DAILY famotidine 20 mg PO BID ferrous gluconate (Ferate) 240 mg PO DAILY hydrochlorothiazide 25 mg PO DAILY 30 days multivitamin 1 tab PO DAILY pravastatin 10 mg PO BEDTIME tirzepatide 10 mg (0.5 mL) subcut QWEEK 4 weeks vitamin B complex (B Complex-Vitamin B12 tablet) 1 tab PO DAILY Tobacco use date assessed: 08/15/24 Dental Screening Dental Screen Date: 08/15/24 Did you have a dental visit in the last 12 months?: No Did you have a dental problem in the last 6 months where you did not have access to dental care?: No Was dental information given to patient?: Patient has dentist HPI hyperlipidemia, IFG HPI Details Patient comes in today for her follow up visit States that she has been experiencing increasing pain in both of her knees lately, especially in her right knee States that she's had her knee pains for a while now but feels that they have been getting worse lately - thinks that she may have arthritis of her knees She relates that she has fallen a few times recently (reportedly keeps tripping on something) on her knees, which has made her knees feel worse States that she feels okay otherwise She denies any headaches or dizziness Denies any chest pains, no increased SOB No nausea/vomiting, no abdominal pain No change in bowel habits noted She had her follow up labs done a few weeks ago - to discuss her results She would also like to get her flu shot today [facility] Medical History (Updated 08/15/24 @ 11:53 by David Pinedo MD) Bilateral knee pain Impaired fasting glucose Morbid obesity with BMI of 40.0-44.9, adult GERD without esophagitis Pure hypercholesterolemia Essential hypertension Diabetes mellitus Iron deficiency anemia Surgical History History of appendectomy Status post left foot surgery Hx of hernia repair History of partial hysterectomy (~2000) Family History Father COPD (chronic obstructive pulmonary disease) Mother Hyperthyroidism Alcohol abuse Social History Household Members: Spouse Housing: House Alcohol intake: current Alcohol intake frequency: holidays/special occasions only Alcohol type: beer and wine Patient Tobacco Use Status: Former Tobacco user e-Cigarette/Vaping Use: Never Used service: No Current occupational status: employed 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 1. Little interest or pleasure in doing things: not at all 2. Feeling down, depressed, or hopeless: not at all 3. Trouble falling or staying asleep, or sleeping too much: not at all 4. Feeling tired or having little energy: not at all 5. Poor appetite or overeating: not at all 6. Feeling bad about yourself - or that you are a failure or have let yourself or your family down: not at all 7. Trouble concentrating on things, such as reading the newspaper or watching television: not at all 8. Moving or speaking so slowly that other people could have noticed. Or the opposite - being so fidgety or restless that you have been moving around a lot more than usual: not at all 9. Thoughts that you would be better off or of hurting yourself in some way: not at all Total score: 0 Depression Screening Interpretation: Negative Depression Screening Done: Yes 92600 - PHQ-9 Billing: Yes Source: Developed by Drs. Cyril Cortes, Arabella Morin, Cedric Garcia and colleagues, with an educational dari from [employer]. Thrive Questionnaire Date Thrive assessed: 08/15/24 I am a: Patient What is your living situation today?: I have a steady place to live Within the past 12 months, did the food you bought not last and you didn't have the money to get more?: Never true Within the past 12 months, did you worry whether your food would run out before you got money to buy more?: Never true Do you have trouble paying for medicines?: No Do you have trouble getting transportation to medical appointments?: No Do you have trouble paying your heating and electricity bill?: No Do you have trouble taking care of your child, family member or friend?: No Do you have trouble with day-to-day activities such as bathing, preparing meals, shopping, managing finances, etc.?: No Are you currently unemployed and looking for a job?: No Are you interested in more education?: No Please select the resources that you would like help with: None Currently or been in a relationship where the following occur: No concerns reported THRIVE Score: 0 AUDIT C Alcohol Use Questionnaire (AUDIT-C) 1. How often do you have a drink containing alcohol?: Never 3. How often do you have six or more drinks on one occasion?: Never Total Score: 0 Score Reviewed/Action Taken: Yes LETTY-7 AMB Questionnaire LETTY-7 Date LETTY - 7 assessed: 08/15/24 Feeling nervous, anxious, or on edge: 0 = Not at all Not being able to stop or control worryin = Not at all Worrying too much about different things: 0 = Not at all Trouble relaxin = Not at all Being so restless that it is hard to sit still: 0 = Not at all Becoming easily annoyed or irritable: 0 = Not at all Feeling afraid as if something awful might happen: 0 = Not at all Total LETTY-7 score (0-4 normal; 5-9 mild; 10-14 moderate; 15-21 severe): 0 Source: Developed by Drs. Cyril Cortes, Arabella Morin, Cedric Garcia and colleagues, with an educational dari from [employer]. Review of Systems Const Denies chills, Denies fatigue, Denies fever(s) and Denies headache(s) ENT Denies dysphagia, Denies dizziness, Denies otalgia, Denies headache(s), Denies neck pain, Denies odynophagia and Denies sore throat Card Denies chest pain, Denies rapid heart rate, Denies irregular heart rhythm, Denies palpitations and Denies dyspnea Resp Denies chest congestion, Denies cough, Denies dyspnea and Denies wheezing GI Denies abdominal pain, Denies constipation, Denies dysphagia, Denies heartburn, Denies diarrhea, Denies nausea, Denies odynophagia and Denies vomiting Denies hematuria, Denies urinary frequency, Denies dysuria and Denies urinary incontinence Musc Denies back pain, Reports arthralgias (in both knees, increasing lately; R>L) and Denies neck pain Skin/Breast Denies rash Neuro Denies dizziness, Denies headache(s) and Denies paresthesias Psych Denies anxiety and Denies depression Endo Denies fatigue and Denies palpitations Lavell/Lymph Denies easy bruising Aller/Immun Denies wheezing Physical exam (Primary Care) Vital Signs: Last Vital Signs Pulse 60 08/15/24 10:59 BP 110/68 08/15/24 10:59 Pulse Ox 97 08/15/24 10:59 Oxygen Delivery Method Room Air 08/15/24 10:59 BMI result Body Mass Index 40.6 Tobacco/Smoking Status: Tobacco use Status Tobacco use date assessed 08/15/24 08/15/24 11:05 Patient Tobacco Use Status Former Tobacco user 08/15/24 11:05 e-Cigarette/Vaping Use Never Used 08/15/24 11:05 PHQ-9: PHQ-9 Score PHQ-9: Total score 0 08/15/24 11:36 Depression Screening Interpretation: Negative Thrive Assessment: Date of Thrive Assessment Date Thrive assessed 08/15/24 08/15/24 11:05 Currently or been in a relationship where the following occur: No concerns reported Const General: no acute distress and alert HENMT Ears: TM's normal bilaterally and EAC's normal Throat: Yes posterior oropharynx normal and Yes tonsils normal (no TP congestion) Neck Neck: Yes no lymphadenopathy and Yes supple Thyroid: Thyroid normal Resp Auscultation: clear to auscultation bilaterally, no rales and no wheezes Cardio Rate: regular rate Rhythm: regular rhythm Heart sounds: no murmurs GI Palpation (GI): Soft to palpation and nontender Auscultation: normal bowel sounds General: Yes no CVA tenderness Back/Spine/Pelvis Back: no CVA tenderness Skin Rashes: no rashes Extrem General: Yes no clubbing, cyanosis or edema Right lower extremity: knee Details: tenderness Location: of the pre-patellar area and of the infrapatellar area; no swelling Left lower extremity: knee Details: tenderness Location: of the pre-patellar area and of the infrapatellar area; no swelling Office Procedures Flu Questionnaire Does the patient have a severe egg allergy?: No Does the patient have severe life threatening allergies?: No Does the patient have a fever or illness today?: No Has the patient ever had Guillain-Beckwourth Syndrome?: No Has the patient ever had any past reaction to a flu shot?: No Immunizations Fluarix Triv 9503-2759 (PF) 45 mcg (15 mcg x 3)/0.5 mL IM syringe Performing Provider: David Pinedo MD Performing Location: [facility] Administered by: BLAKE Wong on 08/15/24 11:48 Dose Route Admin Location Dispensed Lot Number Expiration Date [facility] 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 0.5 mL IM Left Deltoid 0.5 mL [id number] 04/10/25 [id number] [employer] VIS Given Date VIS Provided VIS Publication Date 08/15/24 Single Vaccine 21 Eligibility Eligibility Date Funding Source Not [facility] Eligible 08/15/24 Private Results Reviewed Results Reviewed: Laboratory Tests 04/20/23 08/03/23 07/19/24 07:42 07:58 07:45 WBC Hgb Hct Plt Count Sodium 139 Potassium 3.8 Creatinine 0.66 Estimated GFR > 60 Fasting Glucose 90 Hemoglobin A1c % 5.2 Calcium 9.5 Iron 54 TIBC 220 L % Saturation 25 AST 15 ALT 20 Triglycerides 102 Cholesterol 189 LDL Cholesterol, Calc 124 H HDL Cholesterol 45 Vitamin B1 27 Vitamin B12 689 25-OH Vitamin D Total 41.7 TSH 2.35 Ur Specific [place] 1.020 Urine Protein Negative Urine Glucose (UA) Negative Urine Blood Negative Urine Nitrite Negative Ur Leukocyte Esterase Negative 07/19/24 07:48 WBC 11.5 H Hgb 12.8 Hct 37.3 Plt Count 344 Sodium 139 Potassium 3.6 Creatinine 0.65 Estimated GFR > 60 Fasting Glucose 93 Hemoglobin A1c % Calcium 9.1 Iron TIBC % Saturation AST 12 ALT 14 Triglycerides 113 Cholesterol 193 LDL Cholesterol, Calc 116 H HDL Cholesterol 55 Vitamin B1 Vitamin B12 25-OH Vitamin D Total 38.4 TSH 1.95 Ur Specific [place] Urine Protein Urine Glucose (UA) Urine Blood Urine Nitrite Ur Leukocyte Esterase Coding Level of Care Code Est Pt Level 4 (68922) Diagnoses Pure hypercholesterolemia E78.00 Impaired fasting glucose R73.01 Essential hypertension I10 DANILO on CPAP G47.33 GERD without esophagitis K21.9 Iron deficiency anemia, unspecified iron deficiency anemia type D50.9 Iron deficiency anemia type: unspecified iron deficiency Pain in both knees, unspecified chronicity M25.561; M25.562 Chronicity: unspecified Anxiety F41.9 Morbid obesity with BMI of 40.0-44.9, adult E66.01; Z68.41 Assessment & Plan Assessment & Plan (1) Pure hypercholesterolemia: Code(s): E78.00 - Pure hypercholesterolemia, unspecified Category: Medical Plan: Results of her labs done a few weeks ago reviewed and discussed with patient - she is advised that her cholesterol levels have increased slightly from previous Reinforced low cholesterol diet - goal is LDL cholesterol of at least <100 mg/dl and preferably < 70 mg/dl due to her comorbidities Continue Pravastatin 10 mg QD for now but advised that we may need to increase/adjust her dose if her numbers do not improve over the next few months Will recheck her labs and fasting lipids in 4 months for follow up (2) Impaired fasting glucose: Code(s): R73.01 - Impaired fasting glucose Category: Medical Plan: Her in-office HgbA1c was at 5.7% a few months ago; HgbA1c was at 5.2% back in April 2023 Reinforced low calorie/low carb diet She is currently on Mounjaro 5 mg SQ once a week and seems to be doing well on the medication with no apparent side effects - to continue on current Rx for now She was previously on Trulicity 1.5 mg SQ once a week but was able to get it for months due to its unavailability at the pharmacy (3) Essential hypertension: Code(s): I10 - Essential (primary) hypertension Category: Medical Plan: Reinforced low sodium diet - goal is systolic BP of at least 120 mm or less Continue HCTZ 25 mg QD (4) DANILO on CPAP: Code(s): G47.33 - Obstructive sleep apnea (adult) (pediatric) Category: Medical Plan: She was previously referred to Sleep Medicine for reassessment as she needed to get a new CPAP device as her old unit is worn down Follow up with Sleep Medicine as scheduled (5) GERD without esophagitis: Code(s): K21.9 - Gastro-esophageal reflux disease without esophagitis Category: Medical Plan: Dietary restrictions reinforced Continue Famotidine 20 mg BID (6) Iron deficiency anemia: Code(s): D50.9 - Iron deficiency anemia, unspecified Category: Medical Qualifiers: Iron deficiency anemia type: unspecified iron deficiency Qualified Code(s): D50.9 - Iron deficiency anemia, unspecified Plan: Corrected Continue Ferrous gluconate 240 mg QD Will recheck her CBC in 4 months for follow up (7) Bilateral knee pain: Code(s): M25.561 - Pain in right knee; M25.562 - Pain in left knee Category: Medical Qualifiers: Chronicity: unspecified Qualified Code(s): M25.561 - Pain in right knee; M25.562 - Pain in left knee Plan: Will send her for x-rays of both knees for further evaluation (8) Anxiety: Code(s): F41.9 - Anxiety disorder, unspecified Category: Medical Plan: Continue Citalopram 40 mg QD (9) Morbid obesity with BMI of 40.0-44.9, adult: Code(s): E66.01 - Morbid (severe) obesity due to excess calories; Z68.41 - Body mass index [BMI] 40.0-44.9, adult Category: Medical Plan: Reinforced diet/exercise as tolerated/lose weight She appears to have lost about 10 pounds again since her last visit, likely a result or effect of her Mounjaro Plan As requested, flu vaccine given to the patient today Follow up in 4 months Orders: Orders XR knee LT 4V Today M25.562 - Pain in left knee XR knee RT 4V Today M25.561 - Pain in right knee Complete Blood Count Auto Diff 4 Months D64.9 - Anemia, unspecified TSH reflex Free T4 4 Months E78.00 - Pure hypercholesterolemia, unspecified Comprehensive Jarrell. Panel Fast 4 Months E78.00 - Pure hypercholesterolemia, unspecified Lipid Panel 4 Months E78.00 - Pure hypercholesterolemia, unspecified Influenza [id number] Immunization Today Z23 - Encounter for immunization Hemoglobin A1c 4 Months R73.01 - Impaired fasting glucose UA CC w/rflx Micro + Cult 4 Months R30.0 - Dysuria Vitamin D 25-OH Total 4 Months E55.9 - Vitamin D deficiency, unspecified
== END 2024-08-15 11:48 | disposition home or self-care (01) ==
LOC: HO.HMCH 10:37
PROVIDERS: PCP Internal Medicine; Visit Provider Internal Medicine
DX: E78.00 Pure hypercholesterolemia, unspecified (principal); R73.01 Impaired fasting glucose; E66.01 Morbid (severe) obesity due to excess calories; Z68.41 Body mass index [BMI] 40.0-44.9, adult; I10 Essential (primary) hypertension; G47.33 Obstructive sleep apnea (adult) (pediatric); K21.9 Gastro-esophageal reflux disease without esophagitis; D50.9 Iron deficiency anemia, unspecified; M25.561 Pain in right knee; M25.562 Pain in left knee; F41.9 Anxiety disorder, unspecified

== ENCOUNTER → 2024-08-15 10:36 | Outpatient (BNVA) | payer OTHER, SELFPAY | PROVIDERS: PCP Internal Medicine; Visit Provider Internal Medicine | DX: Z23 Encounter for immunization (principal); R73.01 Impaired fasting glucose; E78.00 Pure hypercholesterolemia, unspecified; I10 Essential (primary) hypertension; G47.33 Obstructive sleep apnea (adult) (pediatric); K21.9 Gastro-esophageal reflux disease without esophagitis; D50.9 Iron deficiency anemia, unspecified; M25.561 Pain in right knee; M25.562 Pain in left knee; F41.9 Anxiety disorder, unspecified; E66.01 Morbid (severe) obesity due to excess calories; Z68.41 Body mass index [BMI] 40.0-44.9, adult; Z71.3 Dietary counseling and surveillance | CPT/HCPCS: 90471; 90656; 99212 ==

== ENCOUNTER 2024-12-29 12:36 | Outpatient (REF) | payer OTHER, SELFPAY ==
--- NOTE | ~2024-12-29 | XR_ITS ---
EXAMINATION: XR CERVICAL SPINE CLINICAL INFORMATION: M54.2 - Cervicalgia COMPARISON: None available. TECHNIQUE: 4 views of the cervical spine, were obtained. FINDINGS: The vertebral alignment is normal. No intrinsic bony abnormality. The disc heights and neural foramina are well maintained. The endplates and posterior elements are normal. No fracture or subluxation. There is mild narrowing of right C5-6 neural foramina from facet joint arthropathy and/or spurring. The prevertebral and paravertebral soft tissues are normal. XR/XR cervical spine 4V IMPRESSION: Mild to moderate narrowing of right C5-6 neural foramina from facet joint arthropathy and/ or spurring Electronically signed by: Faisal Baxter MD 12/29/2024 01:53 PM EDT
--- OUTSIDE RECORDS SUMMARY | 2024-12-29 15:30 | XMS_ITS | Clinical Summary ---
Author Organization [address] [facility] Address [address] [place] [address] Phone Care Team Providers Care Medical Collections Representative Name Role Phone David iPnedo MD Primary Care Provider Encounters Date Type Department Care Team Description 11/24/2024 3:15 PM EST Consult Orthopedic Surgery [facility] [address] [phone] Dedrick Bland, DPM Plantar fascial [...] Final Result from Last 3 Months Insurance [facility] MEDICAID - [place] Care Teams Medical Collections Representative Relationship Specialty Start Date End Date David Pinedo MD [address] [place] [address] [address] YULY Osorio PCP - General Internal Medicine 09/28/24
--- OUTSIDE RECORDS SUMMARY | 2024-12-29 15:30 | XMS_ITS | Data Portability ---
Author Organization [facility], , [facility] Address [address] [place] [address] Care Team Providers Care Library Services Assistant Name Role Phone MERRICK RAYO OTHER RUSTY ABBOTT Primary Care Provide r WON ESPARZA Primary Care Provider [phone] ZARIA LEONE Bartenders Unavailable Assessment No assessment recorded. Plan of Treatment Reminders Order Date Submit Date Provider Last Modified By Organization Details Last Modified Time Details Appointments None recorded. Lab TSH, serum or plasma 2015 016 [id number] [facility], [address] [place] [address], [address], 6 04:09:36 BMP, serum or plasma 2015 016 [id number] [facility], [address] [place] [address], [address], 6 04:04:49 Referral None recorded. Procedures None recorded. Surgeries None recorded. Imaging None recorded. Medication Orders famotidine 20 mg tablet 2015 016 [id number], [address] [place], [address], 6 14:24:02 Patient TargetsNo targets recorded. Patient Instructions Encounter Date Encounter Id Patient Instructions Last Modified By Organization Details Last Modified Time 02/11/2016 [id number] Well Visit, Ages 18 to 65: Care Instructions [email or web address] Not available 02/11/2016 17:36:29 With the omeprazole,, wean off it to every other day, while on the famotidine. after 2 wks see if can stop the omeprazole.. REturn in 3 months- Have a plan for volunteer work with or without Rene.? Hopreully more active, less eating, less weight. Good luck with the feet inserts for incereasing exercise. Throid checked and normal 10 months ago. carmelina Not available 02/11/2016 14:24:03 Counseling done {{# Patient not ready to quit Contemplatin g quitting Tapering Cigarettes signed up for support prescript ion for stop smoking medication given}} {{# Patient not ready to quit Contemplatin g quitting Tapering Cigarettes signed up for support prescript ion for stop smoking medication given}} Goal for follow up visit {{# adding exercise regular meals stress management improv ing sleep [facility]}} {{# adding exercise regular meals stress management improv ing sleep therapist [facility]}} {{# adding exercise regular meals stress management improv ing sleep therapist i [facility]}}My Health To Do List {{# go to The Other Guys or call si gn up for shahab text 2 quit or other stop smoking shahab contact [employer]}} {{# go to [employer] Other Gu[employer] or call si gn up for shahab text 2 quit or other stop smoking shahab contact [employer]}} {{# go to [employer] Other Gu[employer] or call si gn up for shahab text 2 quit or other stop smoking shahab contact [employer]}} [email or web address] Not available 02/11/2016 13:51:19 04/16/2016 [id number] how to read a food label to limit sodium: care instructions [id number] [id number] Not available 09/27/2016 04:02:42 low sodium diet (2,000 milligram): care instructions [id number] Not available 09/27/2016 04:02:32 05/19/2016 [id number] More fruits and vegetables Aim for 5-9 /day. Blueberries. Fruit sald check sugar fasting given the weight gain. [facility] Not available 05/19/2016 11:37:48 08/25/2016 [id number] Lost weight. Discussed low carb diet. wt watchers, con't exercise. HIgher protein, vegetables. F/U 3 months [facility] Not available 08/25/2016 14:01:05 10/29/2016 [id number] This looks likea cold. Rest, stress reduction,Reduced dairy may reduce congestion in some people. Call in a week or so if it looks like the cold has invaded the sinuses and wont leave ( more than 3-5 days), or you have fever that persists for a few days. discussed Eustacian tube issue. [facility] Not available 10/29/2016 11:33:57 Reason for Referral None Reported. Results Created Date Observation Date Name Description Value Unit Range Abnormal Flag Note LastModifiedBy Organization Detail LastModifiedTime 02/04/20 16 02/04/2016 CBC WBC 12.1 K/? ? ?L 4.0-10 .0 high Not Available [address], [address], 02/04/2016 14:59:42 02/04/20 16 02/04/2016 CBC RBC 4.28 M/? ? ?L 3.93-5 .22 Not Available [address], [address], 02/04/2016 14:59:42 02/04/20 16 02/04/2016 CBC HGB 11.9 g/dL 11.2-1 5.7 Not Available [address], [address], 02/04/2016 14:59:42 02/04/20 16 02/04/2016 CBC HCT 36.1 % 34.1-4 4.9 Not Available [address], [address], 02/04/2016 14:59:42 02/04/20 16 02/04/2016 CBC MCV 84.3 ? ? ?L 79.4-9 4.8 Not Available [address], [address], 02/04/2016 14:59:42 02/04/20 16 02/04/2016 CBC MCH 27.8 pg 25.6-3 2.2 Not Available [address], [address], 02/04/2016 14:59:42 02/04/20 16 02/04/2016 CBC MCHC 33.0 g/dL 32.2-3 5.5 Not Available [address], [address], 02/04/2016 14:59:42 02/04/20 16 02/04/2016 CBC plt 389.0 K/? ? ?L 182.0- 369.0 high Not Available [address], [address], 02/04/2016 14:59:42 02/04/20 16 02/04/2016 CBC MPV 10.1 9.4-12 .3 Not Available [address], [address], 02/04/2016 14:59:42 02/04/20 16 02/04/2016 CBC neut% 70.4 % 34.0-7 1.1 Not Available [address], [address], 02/04/2016 14:59:42 02/04/20 16 02/04/2016 CBC neut# 8.5 1.6-6. 1 high Not Available [address], [address], 02/04/2016 14:59:42 02/04/20 16 02/04/2016 CBC lymph % 22.4 % 19.3-5 1.7 Not Available [address], [address], 02/04/2016 14:59:42 02/04/20 16 02/04/2016 CBC lymph # 2.7 K/? ? ?L 1.2-3. 7 Not Available [address] [place], [address], 02/04/2016 14:59:42 02/04/20 16 02/04/2016 CBC mono% 5.0 % 4.7-12 .5 Not Available [address], [address], 02/04/2016 14:59:42 02/04/20 16 02/04/2016 CBC mono# 0.6 0.2-0. 6 high Not Available [address], [address], 02/04/2016 14:59:42 02/04/20 16 02/04/2016 CBC eo% 1.7 % 0.7-5. 8 Not Available [address], [address], 02/04/2016 14:59:42 02/04/20 16 02/04/2016 CBC eo# 0.2 0.0-0. 4 Not Available [address], [address], 02/04/2016 14:59:42 02/04/20 16 02/04/2016 CBC baso% 0.5 % 0.1-1. 2 Not Available [address], [address], 02/04/2016 14:59:42 02/04/20 16 02/04/2016 CBC baso# 0.1 0.0-0. 1 high Not Available [address], [address], 02/04/2016 14:59:42 02/04/20 16 02/04/2016 CBC RDW-CV 15.1 % 11.7-1 4.4 high Not Available [address], [address], 02/04/2016 14:59:42 02/04/20 16 02/04/2016 lipid panel , serum cholesterol 228 mg/dL <200 mg/dl Calderon able 200-2 39 mg/dl Jana gamingine High >240 mg/dl High Not Available [address], [address], 02/04/2016 16:13:55 02/04/20 16 02/04/2016 lipid panel , serum triglyceride s 88 mg/dL <150 mg/dL Chaya l 150-1 99 mg/dL Borde rline High 200-4 99 mg/dL High >500 mg/dL Very High Not Available [address], [address], 02/04/2016 16:13:55 02/04/20 16 02/04/2016 lipid panel , serum direct HDL 49 mg/dL Not Available [address], [address], 02/04/2016 16:13:55 02/04/20 16 02/04/2016 LDL, direc t, serum direct LDL 168 mg/dL RISK CATEG ORY LDL GOAL _ CHD or CHD Risk Equiv alent s <100 mg/dl (10-y ear risk >20%) 2+ Risk Facto rs <130 mg/dl (10-y ear risk <= 20%) 0-1 Risk Facto r? <160 mg/dl ? Almos t all peopl e with 0-1 risk facto r have a 10 year risk <10%, thus 10 year risk asses ment in peopl e with 0-1 risk facto r is not neces noemí. Not Available [address], [address], 02/04/2016 16:13:56 08/20/20 16 08/20/2016 BMP, serum or plasm a glucose 81 mg/dL 70-100 Not Available [address], [address], 08/20/2016 11:39:55 08/20/20 16 08/20/2016 BMP, serum or plasm a BUN 11 mg/dL 7-18 Not Available [address], [address], 08/20/2016 11:39:55 08/20/20 16 08/20/2016 BMP, serum or plasm a creatinine 0.5 mg/dL 0.8-1. 3 low Not Available [address], [address], 08/20/2016 11:39:55 08/20/20 16 08/20/2016 BMP, serum or plasm a B/C 22.0 ratio Not Available [address], [address], 08/20/2016 11:39:55 08/20/20 16 08/20/2016 BMP, serum or plasm a GFR -non 151.6 mL/mi n Recom priti d GFR by the Natio nal Kidne y Found ation >60 mL/mi n/1.7 3m2 - Chaya l <60 mL/mi n/1.7 3m2 - Chron ic Kidne y Disea se <15 mL/mi n/1.7 3m2 - Kidne y Failu re Not Available [address], [address], 08/20/2016 11:39:55 08/20/20 16 08/20/2016 BMP, serum or plasm a GFR - if 174.3 mL/mi n For Afric an Ameri can patie nts: Resul ts Multi plied by 1.21 Not Available [address], [address], 08/20/2016 11:39:55 08/20/20 16 08/20/2016 BMP, serum or plasm a sodium 139 mmol/ L 136-14 5 Not Available [address], [address], 08/20/2016 11:39:55 08/20/20 16 08/20/2016 BMP, serum or plasm a potassium 4.4 mmol/ L 3.5-5. 1 Not Available [address], [address], 08/20/2016 11:39:55 08/20/20 16 08/20/2016 BMP, serum or plasm a chloride 101 mmol/ L 96-107 Not Available [address], [address], 08/20/2016 11:39:55 08/20/20 16 08/20/2016 BMP, serum or plasm a anion gap 10.3 5.0-15 .0 Not Available [address], [address], 08/20/2016 11:39:55 08/20/20 16 08/20/2016 BMP, serum or plasm a CO2 28 mmol/ L 21-32 Not Available [address], [address], 08/20/2016 11:39:55 08/20/20 16 08/20/2016 BMP, serum or plasm a calcium 8.9 mg/dL 8.5-10 .3 Not Available [address], [address], 08/20/2016 11:39:55 08/20/20 16 08/26/2016 TSH, serum or plasm a TSH 1.83 uIU/m L 0.50-6 .00 The Ameri can Colle ge of Endoc rinol ogy and Ameri can Thyro id Assoc iatio n recom mend goal TSH value s betwe en 0.4-4 .0 mIU/m L. Not Available [address], [address], 08/26/2016 10:40:35 Result Notes None recorded. Problems Name Problem SNOMED Code Status Onset Date Resolution Date Notes Provider Name and Address Organization Details Recorded Time Common cold 43842443 Completed 01/24/2015 Andre Kumar DPM [address] [place] [address] [place], [address] [place] [address] 6 10:57:11 Impacted cerumen 13798381 Completed 01/24/2015 Andre Kumar DPM [address] [place], [address], [facility] 6 10:57:11 Essential hypertensio n 87093135 Completed 08/03/2015 Andre Kumar DPM [address] [place], [address], [facility] 6 10:57:11 Hearing loss 00309381 Active 2014 Andre Kumar DPM [address] [place], [address], [facility] 6 10:57:11 Female pelvic inflammator y disease 583347035 Completed 200005/06/2013 Andre Kumar DPM [address] [place], [address], [facility] 6 10:57:11 Open wound of finger 178179612 Completed 200005/06/2013 Andre Kumar DPM [address] [place], [address], [facility] 6 10:57:11 Vitamin K deficiency 45463179 Completed 200005/06/2013 Andre Kumar DPM [address] [place], [address], [facility] 6 10:57:11 Acute cystitis 83555214 Completed 200105/06/2013 Andre Kumar DPM [address] [place], [address], [facility] 6 10:57:11 Neck pain 24194937 Completed 200105/06/2013 Andre Kumar DPM [address] [place], [address], [facility] 6 10:57:11 Influenza 8298157 Completed 05/06/2013 Andre Kumar DPM [address] [place], [address], [facility] 6 10:57:11 Left lower quadrant pain 644814140 Completed 200605/06/2013 Andre Kumar DPM [address] [place], [address], [facility] 6 10:57:11 Allergic rhinitis 01701836 Active 2006 Andre Kumar DPM [address] [place], [address], [facility] 6 10:57:11 Complicatio n of medical care 57615758 Completed 200805/06/2013 Andre Kumar DPM [address] [place], [address], [facility] 6 10:57:11 Acute suppurative otitis media without spontaneous rupture of ear drum 59403435 Completed 200605/06/2013 Andre Kumar DPM [address] [place], [address], [facility] 6 10:57:11 Sciatica 85374197 Active 2003 Andre Kumar DPM [address] [place], [address], [facility] 6 10:57:11 Hypermetrop ia 29071880 Active 2008 Andre Kumar DPM [address] [place], [address], [facility] 6 10:57:11 Acute conjunctivi tis 36323720 Completed 200105/06/2013 Andre Kumar DPM [address] [place], [address], [facility] 6 10:57:11 Acute maxillary sinusitis 57292019 Completed 200105/06/2013 Andre Kumar DPM [address] [place], [address], [facility] 6 10:57:11 Sprain of knee and leg Completed 200305/06/2013 Andre Kumar DPM [address] [place], [address], [facility] 6 10:57:11 Backache 169773596 Completed 200108/31/2013 Andre Kumar DPM [address] [place], [address], [facility] 6 10:57:11 Acute bronchitis 38193752 Completed 200605/06/2013 Andre Kumar DPM [address] [place], [address], [facility] 6 10:57:11 Cyst of ovary 65444620 Completed 200805/06/2013 Andre Kumar DPM [address] [place], [address], [facility] 6 10:57:11 Malaise and fatigue 297747733 Completed 200105/06/2013 Andre Kumar DPM [address] [place], [address], [facility] 6 10:57:11 Left upper quadrant pain 011735753 Completed 200805/06/2013 Andre Kumar DPM [address] [place], [address], [facility] 6 10:57:11 Headache 40560636 Completed 200105/06/2013 Andre Kumar DPM [address] [place], [address], [facility] 6 10:57:11 Cough 73900058 Completed 200505/06/2013 Andre Kumar DPM [address] [place], [address], [facility] 6 10:57:11 Right lower quadrant pain 612355421 Completed 200205/06/2013 Andre Kumar DPM [address] [place], [address], [facility] 6 10:57:11 Astigmatism 23001630 Completed 200806/07/2014 Andre Kumar DPM [address] [place], [address], [facility] 6 10:57:11 Tobacco user 697800485 Active 2007 Andre Kumar DPM [address] [place], [address], [facility] 6 10:57:11 Impacted cerumen 57989315 Completed 200605/06/2013 Andre Kumar DPM [address] [place], [address], [facility] 6 10:57:11 Joint pain in ankle and foot Completed 05/06/2013 Andre Kumar DPM [address] [place], [address], [facility] 6 10:57:11 Acute swimmer's ear Completed 200405/06/2013 Andre Kumar DPM [address] [place], [address], [facility] 6 10:57:11 Primary malignant neoplasm of oral cavity 505265927 Completed 200105/06/2013 Andre Kumar DPM [address] [place], [address], [facility] 6 10:57:11 Acute upper respiratory infection 47666367 Completed 05/06/2013 Andre Kumar DPM [address] [place], [address], [facility] 6 10:57:11 Common cold 92847424 Completed 200105/06/2013 Andre Kumar DPM [address] [place], [address], [facility] 6 10:57:11 Abdominal pain 72405292 Completed 200605/06/2013 Andre Kumar DPM [address] [place], [address], [facility] 6 10:57:11 On examination - a rash Completed 200005/06/2013 Andre Kumar DPM [address] [place], [address], [facility] 6 10:57:11 Chronic pain 84836075 Completed 06/07/2014 Andre Kumar DPM [address] [place], [address], [facility] 6 10:57:11 Disorder of lung 61154609 Completed 200605/06/2013 Andre Kumar DPM [address] [place], [address], [facility] 6 10:57:11 Female genital organ symptoms 385857082 Completed 200205/06/2013 Andre Kumar DPM [address] [place], [address], [facility] 6 10:57:11 Low back pain 228835602 Completed 200105/06/2013 Andre Kumar DPM [address] [place], [address], [facility] 6 10:57:11 Asthma 904309510 Active 2007 (rare issue since radha matthews). Andre Kumar DPM [address] [place], [address], [facility] 6 10:57:11 Viral upper respiratory tract infection 942731886 Completed 200705/06/2013 Andre Kumar DPM [address] [place], [address], [facility] 6 10:57:11 Vaginitis and vulvovagini tis Completed 200605/06/2013 Andre Kumar DPM [address] [place], [address], [facility] 6 10:57:11 Problem Notes None recorded. Procedures Surgical History Date Name Laterality Status Provider Name and Address Organization Details Recorded Time 02/11/20 16 Asthma Control Test (12 + years old) completed Ramila Rubio [facility] 02/11/2016 13:51:20 08/03/20 15 Asthma Control Test (12 + years old) completed Kayy Killian [facility] 08/03/2015 08:18:50 01/25/20 15 Smoking cessation counseling completed Won Esparza MD [address] [place] [address], [address], [facility] 01/24/2015 13:03:31 01/25/20 15 Asthma Control Test (12 + years old) completed Kayy Killian [facility] 01/24/2015 11:51:50 06/07/20 14 Smoking cessation counseling completed Kayy Killian [facility] 06/07/2014 11:35:02 01/10/20 14 Cerumen Removal completed Mara Ramos [facility] 01/09/2014 11:43:43 08/05/20 13 Smoking cessation counseling completed Won Esparza MD [address] [place] [address], [address], [facility] 08/06/2013 15:59:58 05/06/20 13 Smoking cessation counseling completed Won Esparza MD [address] [place] [address], [address], [facility] 05/06/2013 10:59:48 09/27/20 12 Asthma Control Test (12 + years old) completed Ivy Mcintyre [facility] 09/27/2012 11:26:38 11/26/19 12 Smoking cessation counseling completed Pearl Yepez ASSET SPECIALIST [facility] 11/26/2011 09:10:21 04/28/20 11 Cerumen Removal completed Janie Powell LPN [facility] 04/28/2011 10:15:17 01/18/20 10 Treatment and Advice completed Dedrick Malik [facility] 01/17/2010 10:28:51 04/12/20 09 Treatment and Advice completed Lynsey Balbuena, PT [address] [place], [address], [facility] 04/12/2009 14:20:11 04/02/20 09 Treatment and Advice completed Lynsey Balbuena, PT [address] [place], [address], [facility] 04/02/2009 15:02:05 Total Hysterectomy completed Not Available [facility] 08/28/2011 06:06:16 Hernia Repair completed Not Available [facility] 08/28/2011 06:06:16 Other (specify) completed Not Available [facility] 08/28/2011 06:06:16 Imaging Results None recorded. Procedure Notes None recorded. Medical Equipment None Reported. Allergies Allergen ID Allergen Name Allergen Category Reaction Reaction Severity Criticality Documentation Date Start Date Code Code System Note Provider Name and Address Organization Details Recorded Time 155547 Zoloft medicatio n Not available Not available Not available 04/06/2015 44171 RxNorm insom quin. Won Esparza MD [address] [place], [address], [facility] 16:00:55 Medications Name Sig Start Date Stop Date Status Note LastModified by Organization Details LastModified Time prednison e 10 mg tablet Four tablets for 4 days, 3 tablets for 3 days, two tablets for two days, one tablet for one day 2010 active Not Available Not Available Not Avai lable naproxen 375 mg tablet TAKE 1 TABLET BY MOUTH TWICE A DAY active Not Available Not Available No t Available trazodone 50 mg tablet TAKE 1 TABLET BY MOUTH EVERY DAY NEEDED active Not Available Not Available No t Available citalopra m 10 mg tablet TAKE 1 TABLET BY MOUTH EVERY DAY active Not Available Not Available No t Available hydrocodo ne 5 mg-acetam inophen 325 mg tablet Take 1 tablet every day by oral route in the evening as needed for 28 days. for 28 days. 02/21 completed Not Available Not Available Not Available sertralin e 100 mg tablet TAKE 1/2 TABLET BY MOUTH EVERY DAY FOR 1 WEEK THEN INCREASE TO 1 TAB DAILY active Not Available Not Available No t Available permethri n 5 % topical cream apply then rinse after 10 min active Not Available Not Available No t Available Roxicet 5 mg-325 mg tablet Take 1 tablet as needed by oral route at bedtime. 2008 active Not Available Not Available Not Avai lable amoxicill in 500 mg tablet Take 1 tablet every 8 hours by oral route for 10 days. 10/05 completed Not Available Not Available Not Available amoxicill in 875 mg tablet Take 1 tablet every 12 hours by oral route for 7 days. 01/09 completed Not Available Not Available Not Available citalopra m 20 mg tablet active Not Available Not Available Not Available famotidin e 20 mg tablet TAKE 1 TABLET TWICE A DAY 2016 active Not Available Not Available Not Avai lable Claritin- D 24 Hour 10 mg-240 mg tablet,ex tended release 2007 active Take 1.00 tabs daily Not Available Not Available Not Available ranitidin e 150 mg tablet Take 1 tablet twice a day by oral route for 30 days. active Not Available Not Available No t Available lisinopri l 10 mg tablet active Not Available Not Available Not Available Anaprox DS 550 mg tablet Take 1 tablet every 12 hours by oral route as needed for 30 days. 2009 active Not Available Not Available Not Avai lable Aerochamb er with Flowsigna l 2007 active Take 1.00 ea as directed Not Available Not Available Not Available diclofena c potassium 50 mg tablet TAKE 1 TABLET BY MOUTH 3 TIMES A DAY WITH MEALS active not required . Not Available Not Available Not Available omeprazol e 20 mg capsule,d elayed release TAKE ONE CAPSULE BY MOUTH EVERY DAY 02/19 completed Not Available Not Available Not Available hydrocodo ne 5 mg-acetam inophen 500 mg tablet Take 1 tablet every day by oral route in the evening as needed for 28 days. 11/29 completed NOT AVAILABL E-DOSAGE CHANGED BY JF Not Available Not Available Not Available codeine 10 mg-guaife nesin 100 mg/5 mL oral liquid Take 10 mL every 4 hours by oral route. 2010 active Not Available Not Available Not Avai lable lisinopri l 5 mg tablet TAKE 1 TABLET BY MOUTH EVERY DAY active quit smoking and BP lower Not Available Not Available Not Available gabapenti n 100 mg capsule Take 1 cap on day 1; take 1 cap bid on day 2; take 1 cap tid on day 3 and then take 1 cap tid daily 2009 active Not Available Not Available Not Avai lable lorazepam 1 mg tablet Take 1 tablet(s ) daily as needed. Max 5 days / week. active Not Available Not Available No t Available piroxicam 20 mg capsule Take 1 capsule every day by oral route for 30 days. 2009 active Not Available Not Available Not Avai lable fluticaso ne propionat e 50 mcg/actua tion nasal spray,kirsten pension INHALE 1 SPRAY IN EACH NOSTRIL ONCE DAILY active Not Available Not Available No t Available loratadin e 10 mg tablet Take 1 tablet every day by oral route. 2009 active Not Available Not Available Not Avai lable naproxen 500 mg tablet Take 1 tablet twice a day by oral route with meals. 2008 active Not Available Not Available Not Avai lable amoxicill in 875 mg-potass ium clavulana te 125 mg tablet active Not Available Not Available Not Available Flexeril 10 mg tablet Take 1 tablet 3 times a day by oral route. 2008 active Not Available Not Available Not Avai lable DentaGel 1.1 % 05/19 completed Not Available Not Available Not Available Darvocet A500 100 mg-500 mg tablet Take 1 tablet as needed by oral route at bedtime. 2009 active NO MORE REFILLS, WILL SEE PAIN MGT-SCRI PT CHANGED PER KL TO DARVOCET N 100. Not Available Not Available Not Available Flovent HFA 110 mcg/actua tion aerosol inhaler Inhale 2 puffs twice a day by inhalati on route. active Rare use Not Available Not Available No t Available chlorhexi dine gluconate 0.12 % mouthwash 05/19 completed Not Available Not Available Not Available Darvocet- N 100 active TAKE 1 TAB PRN AT BEDTIME Not Available Not Available Not Available ProAir HFA 90 mcg/actua tion aerosol inhaler INHALE 2 PUFFS EVERY 4 HOURS NEEDED active Not Available Not Available No t Available Afluria 5138-6612 (PF) 45 mcg (15 mcg x 3)/0.5 mL intramusc ular syringe TO BE ADMINIST ERED BY [employer] FOR IMMUNIZA TION active Not Available Not Available No t Available Fluarix Quad (PF) 60 mcg (15 mcg x 4)/0.5 mL IM syringe TO BE ADMINIST ERED BY PHARMACI ST FOR IMMUNIZA TION 08/25 completed Not Available Not Available Not Available Vitals Date Recorded Body height Body weight Body mass index (BMI) Heart rate Body temperature Systolic blood pressure Diastolic blood pressure Provider Name and Address Organization Details Last Updated DateTime 7 149.86 cm 77402.1 4 g 41.4 kg/m2 84 /min 98.7 [degF] 132 mm[Hg] 84 mm[Hg] Ramila [facility] 7 11:16:04 Date Recorded Body mass index (BMI) Body height Heart rate Body weight Systolic blood pressure Diastolic blood pressure Provider Name and Address Organization Details Last Updated DateTime 6 40.1 kg/m2 149.86 cm 84 /min 85975.0 96503 g 124 mm[Hg] 64 mm[Hg] Ramila [facility] 6 13:57:14 Date Recorded Body height Body weight Body mass index (BMI) Body temperature Heart rate Systolic blood pressure Diastolic blood pressure Provider Name and Address Organization Details Last Updated DateTime 6 149.86 cm 10679.8 4 g 41.2 kg/m2 97.9 [degF] 64 /min 102 mm[Hg] 70 mm[Hg] Kayy Killian [facility] 6 10:21:35 Date Recorded Body height Body weight Body mass index (BMI) Heart rate Systolic blood pressure Diastolic blood pressure Provider Name and Address Organization Details Last Updated DateTime 6 149.86 cm 72772.4 4 g 41.4 kg/m2 64 /min 106 mm[Hg] 62 mm[Hg] Daniela Penaloza LPN [facility] 6 11:17:16 Date Recorded Body height Body weight Body mass index (BMI) Heart rate Systolic blood pressure Diastolic blood pressure Provider Name and Address Organization Details Last Updated DateTime 6 149.86 cm 50770.6 6 g 40.8 kg/m2 78 /min 122 mm[Hg] 68 mm[Hg] Ramila [facility] 6 13:33:05 Social History Question Answer Notes LastModified by Organizat ion Details LastModified Time Tobacco Smoking Status Former Smoker Quit 7/9/15. And also quit E-cigarett es. Won Esparza MD [address] [place] [address], [id number], [facility] 05/11/2015 08:17:01 Do You Have An Advance Directive? No [email or web address] Information not available 09/27/2012 What Is Your Level Of Alcohol Consumption? Occasional Information not available 01/24/2015 Do You Wear A Helmet When Biking? Yes Information not available 01/24/2015 How Much Tobacco Do You Chew? None Information not available 03/30/2015 What Type Of Diet Are You Following? REGULAR [email or web address] Information not available 02/27/2012 Which Illicit Or Recreational Drugs Have You Used? 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 1-5yearssincel astcigarette Information not available 03/30/2015 How Many Days In The Past Year Have You Had A Heavy Drinking Consumption (4+ Female, 5+ Male)? 0 2 Drinks A Month ( Wine ) Information not available 01/24/2015 Are There Any Guns Present In Your Home? No Information not available 01/24/2015 Live Alone Or With Others? With Others Parents eoles Information not available 04/28/2011 CSRP - Narcotics No Hold Per Weaning Off Them Rosalva C [email or web address] Information not available 03/20/2014 CSRP Contract Signed And Discussed Yes 10/13/10, 10/15/11 Information not available 08/28/2011 Patient Has Health Care Proxy Signed And In Chart Yes Adair [email or web address] Information not available 09/27/2012 Marital Status 12/17/2014. IMANI López Since 01/2015 Information not available 01/24/2015 Mosquito Repellent Used Routinely Yes Information not available 01/24/2015 How Many Children Do You Have? 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 10-19packyears Pack Years 20 Information not available 03/30/2015 Seat Belts Used Routinely Yes Information not available 01/24/2015 Smoke Alarm In Home Yes Information not available 01/24/2015 General Stress Level Low Information not available 01/24/2015 Do You Use Sunscreen Routinely? Yes Information not available 01/24/2015 Sex: Unknown Functional Status None recorded. Mental Status None recorded. Family History Relationship Description Onset Age of this Age Resolved Age Notes LastModified by Organization Details LastModified Time Daughter Problem neurof ibroma tois- pt's husban d too) jerskine Not available 02/07/2016 10:57:11 Mother Hypertensive disorder jerskine Not available 2015 10:57:11 Father Emphysema jerskine Not availabl e 02/07/2016 10:57:11 Paternal Uncle Myocardial infarction jerskine Not available 02/06 10:57:11 Medical History Condition Response ENT Y Asthma Y Chronic Back Pain Y Gynecological HistoryNo gynecological history recorded. Obstetrics History GPAL:G 0 P 0 0 0 0 Immunizations Vaccine Type Date Status Note Provider Nam e and Address Organization Details Recorded Time Influenza, split virus, trivalent, preservative 1 completed Not Available [facility] 10/29/2019 02:30:28 Td(adult) unspecified formulation 4 completed Not Available [facility] 08/27/2011 05:21:07 Influenza, split virus, trivalent, preservative 2 completed Not Available [facility] 10/29/2019 02:18:35 Influenza, split virus, trivalent, PF 3 completed Not Available [facility] 10/29/2019 02:18:59 Tdap 5 completed Not Available [facility] 10/29/2019 02:27:41 Influenza, split virus, quadrivalent, PF 5 completed Not Available [facility] 10/29/2019 02:25:32 influenza, unspecified formulation 4 completed Chloe Hector MA [facility] 07/23/2014 09:41:49 influenza, intradermal, quadrivalent, preservative free 6 completed Not Available [facility] 11/12/2019 02:10:41 Influenza, split virus, quadrivalent, PF 7 completed Not Available [facility] 11/12/2019 02:10:42 influenza, unspecified formulation 7 completed Radha Ye CMA [facility] 07/27/2017 08:09:30 Influenza, split virus, trivalent, preservative 0 completed Not Available [facility] 10/29/2019 02:25:07 Past Encounters Encounter ID Performer Location Encounter Start Date Encounter Closed Date Diagnosis/Indication Diagnosis SNOMED-CT Code Diagnosis ICD10 Code Diagnosis Note [id number] , [facility], OFFICE [address] [place] [address] 11/10/2000 12:00:00 11/01/2008 02:02:[id number] [facility], OFFICE [address] [place] [address] 01/19/2001 11:45:00 11/01/2008 02:02:[id number] [facility], OFFICE [address] [place] [address] 6 01/21/2001 13:45:00 11/01/2008 02:02:29 [id number] , [facility], [address]ICE [address] [place] [address] 02/25/2001 12:15:00 11/01/2008 02:02:29 [id number] [facility] [address] [place] [address] 03/06/2001 09:30:00 11/01/2008 02:02:[id number] [facility], OFFICE [address] [place] [address] 04/21/2001 11:30:00 11/01/2008 02:02:29 [id number] , [facility], OFF[address] [place] [address] 06/11/2001 09:30:00 11/01/2008 02:02:29 [id number] , [facility], OFFICE [address] [place] [address] 6 07/08/2001 11:30:00 11/01/2008 02:02:[id number] [facility], OFFICE [address] [place] [address] 09/07/2001 13:45:00 11/01/2008 02:02:29 [id number] , [facility], OFFICE [address] [facility] [place] [address] 6 10/20/2001 11:45:00 11/01/2008 02:02:29 [id number] Radiology , [facility] [address] [place] [address] 6 10/20/2001 12:15:00 11/01/2008 02:02:29 [id number] Radiology , [facility] [address] [place] [address] 10/20/2001 00:00:00 11/01/2008 02:02:29 [id number] FP, [facility], OFFICE [address] [facility] [place] [address] 6 10/26/2001 10:30:00 11/01/2008 02:02:29 [id number] , [facility], OFFICE [address] [facility] [place] [address] 6 11/24/2001 14:30:00 11/01/2008 02:02:29 [id number] , [facility], OFFICE [address] [facility] [place] [address] 6 12/11/2001 10:15:00 11/01/2008 02:02:29 [id number] FP, [facility], OFFICE [address] [place] [address] 01/10/2002 17:45:00 11/01/2008 02:02:29 [id number] FP, [facility], OFFICE [address] [facility] [place] [address] 6 02/09/2002 14:00:00 11/01/2008 02:02:29 [id number] , [facility], OFFICE [address] [place] [address] 02/16/2002 15:30:00 11/01/2008 02:02:29 [id number] LAB - [facility] [address] [place] [address] 6 02/17/2002 10:30:00 11/01/2008 02:02:29 [id number] FP, [facility], OFFICE [address] [facility] [place] [address] 6 03/20/2002 09:20:12 11/01/2008 02:02:29 [id number] , [facility], OFFICE [address] [facility] [place] [address] 6 05/10/2002 10:44:03 11/01/2008 02:02:29 [id number] FP, [facility], OFFICE [address] [facility] [place] [address] 6 06/22/2002 13:36:02 11/01/2008 02:02:29 [id number] [facility], [address] [address] [place] [address] 07/15/2002 15:34:23 11/01/2008 02:02:29 [id number] [facility], OFFICE [address] [facility] [address] 08/03/2002 15:48:38 11/01/2008 02:02:29 [id number] FP, [facility], OFFICE [address] [facility] [address] 6 02/20/2003 15:30:27 11/01/2008 02:02:29 [id number] [facility], OFFICE [address] [facility] [address] 07/01/2003 10:30:06 07/02/2003 09:28:04 [id number] Radiology , [facility] [address] [facility] [place] [address] 07/03/2003 13:18:29 07/03/2003 14:52:36 [id number] Radiology , [facility] [address] [place] [address] 07/03/2003 00:00:00 11/01/2008 02:02:29 [id number] [facility], OFFICE [address] [facility] [place] [address] 12/28/2003 09:31:06 12/28/2003 11:14:35 [id number] FP, [facility], OFFICE [address] [facility] [place] [address] 04/01/2004 13:22:06 04/09/2004 11:16:30 [id number] FP, [facility], OFFICE [address] [facility] [place] [address] 04/10/2004 11:10:03 04/11/2004 10:43:33 [id number] FP, [facility], OFFICE [address] [facility] [address] 07/15/2004 14:30:03 07/16/2004 10:05:29 [id number] FP, [facility], OFFICE [address] [facility] [address] 08/26/2004 08:59:23 08/26/2004 13:57:08 [id number] [facility] - [facility] 70 [facility] [place] [address] 08/26/2004 16:50:34 08/26/2004 16:50:57 [id number] , [facility], OFFICE [address] [place] [address] 05/10/2005 14:40:19 05/11/2005 08:52:10 [id number] , [facility], OFFICE [address] [facility] [address] 6 11/11/2005 09:43:44 11/11/2005 13:58:16 [id number] FP, [facility], OFFICE [address] [facility] [address] 6 06/22/2006 11:28:40 06/23/2006 09:25:57 [id number] Radiology , [facility] 70 [facility] [place] [address] 6 06/23/2006 12:30:17 11/01/2008 02:02:29 [id number] Radiology , [facility] 70 [facility] [place] [address] 06/23/2006 00:00:00 11/01/2008 02:02:29 [id number] LAB - [facility] 70 [facility] [place] [address] 6 06/23/2006 07:59:06 06/23/2006 07:59:17 [id number] Radiology , [facility] 70 [facility] [place] [address] 10/07/2006 10:48:38 10/08/2006 09:15:07 [id number] Radiology , [facility] 70 [facility] [place] [address] 10/07/2006 00:00:00 11/01/2008 02:02:29 [id number] , [facility], OFFICE [address] [facility] [place] [address] 10/07/2006 09:54:58 10/08/2006 11:47:09 [id number] , [facility], OFFICE [address] [facility] [address] 10/19/2006 09:07:23 10/19/2006 13:25:46 [id number] Radiology , [facility] 70 [facility] [place] [address] 10/19/2006 09:27:54 10/20/2006 09:16:07 [id number] Radiology , [facility] 70 [facility] [place] [address] 6 10/19/2006 00:00:00 11/01/2008 02:02:29 [id number] FP, [facility], OFFICE [address] [facility] [place] [address] 6 11/26/2006 10:37:23 11/26/2006 15:34:46 [id number] LAB - [facility] [address] [place] [address] 12/09/2006 00:00:00 11/01/2008 02:02:[id number] [facility], OFFICE [address] [place] 6 02/23/2007 10:03:37 02/23/2007 15:14:00 [id number] FP, [facility], OFFICE [address] [place] 6 04/16/2007 13:32:24 04/19/2007 09:16:30 [id number] FP, [facility], OFFICE [address] [place] 6 04/28/2007 09:45:20 04/28/2007 16:26:[id number] [facility], OFFICE [address] [place] [address] 6 05/07/2007 16:15:27 05/10/2007 08:38:[id number] [facility], OFFICE [address] [place] [address] 6 05/15/2007 09:44:43 05/15/2007 11:23:[id number] [facility], OFF[address] [place] [address] 6 05/16/2007 09:43:50 05/17/2007 08:54:[id number] [facility], OFFICE [address] [place] [address] 6 05/17/2007 14:17:08 05/17/2007 16:42:58 [id number] FP, [facility], OFFICE [address] [place] [address] 05/25/2007 15:09:36 05/26/2007 11:39:22 [id number] FP, [facility], OFF[address] [place] [address] 6 08/12/2007 09:08:42 11/01/2008 02:02:29 [id number] FP, [facility], OFF[address] [place] [address] 6 09/08/2007 10:08:25 11/01/2008 02:02:29 [id number] FP [facility], OFFICE [address] [place] [address] 6 09/10/2007 09:33:48 11/01/2008 02:02:29 [id number] LAB - [facility] [address] [place] [address] 6 09/08/2007 11:00:17 09/08/2007 11:00:30 [id number] LAB - [facility] [address] [place] [address] 6 09/10/2007 10:34:47 09/10/2007 10:34:55 [id number] Radiology , [facility] [address] [place] [address] 6 09/14/2007 14:53:32 09/15/2007 09:44:39 [id number] Radiology , [facility] [address] [place] [address] 6 09/14/2007 00:00:00 11/01/2008 02:02:29 [id number] FP, [facility], OFFICE [address] [facility] [address] 09/16/2007 10:59:41 11/01/2008 02:02:29 [id number] FP, [facility], OFFICE [address] [facility] [place] [address] 6 11/23/2007 13:17:25 11/01/2008 02:02:29 [id number] FP, [facility], OFFICE [address] [facility] [place] [address] 6 02/17/2008 09:16:22 11/01/2008 02:02:29 [id number] Radiology , [facility] [address] [place] [address] 6 02/22/2008 12:08:25 02/23/2008 09:21:01 [id number] Radiology , [facility] 70 [facility] [place] [address] 02/22/2008 00:00:00 11/01/2008 02:02:29 [id number] FP, [facility], OFFICE [address] [facility] [place] [address] 02/22/2008 11:29:00 11/01/2008 02:02:29 [id number] FP, [facility], OFFICE [address] [facility] [place] [address] 6 05/29/2008 14:29:45 11/01/2008 02:02:29 [id number] FP, [facility], OFFICE [address] [facility] [place] [address] 6 08/16/2008 15:26:31 11/01/2008 02:02:29 [id number] FP[facility] [address] 09/19/2008 13:35:57 11/01/2008 02:02:29 [id number] , [facility], OFFICE 70 [facility] [place] 6 01/12/2009 09:37:03 01/16/2009 15:25:36 [id number] Radiology , [facility] 70 [facility] [place] [address] 01/16/2009 13:43:27 01/18/2009 12:33:30 [id number] , [facility], OFFICE [address] [facility] [place] 6 03/28/2009 10:11:31 03/29/2009 16:05:46 [id number] [address], [address] 04/02/2009 14:14:00 04/03/2009 10:46:29 [id number] Physical Therapy, [address] [place] [address] 04/12/2009 13:29:56 04/16/2009 08:54:[id number] [facility] OFFICE [address] [facility] [address] 05/03/2009 16:26:40 05/07/2009 12:13:00 [id number] [address] Therapy, [address] 6 05/07/2009 12:17:56 05/08/2009 08:40:19 [id number] Radiology , [address] [place] [address] 6 05/24/2009 10:20:23 05/30/2009 10:11:29 [id number] Eye Care, [address] [place] [address] 6 01/10/2009 15:09:04 01/10/2009 16:00:01 [id number] LAB - [address] [place] [address] 6 01/12/2009 10:03:01 01/12/2009 10:03:12 [id number] Radiology , [address] [place] [address] 6 01/16/2009 00:00:00 08/09/2009 02:00:52 [id number] Eye Care, [address] [place] [address] 6 02/16/2009 09:47:41 02/16/2009 11:40:56 [id number] Radiology , [facility] [address] [place] [address] 6 05/24/2009 00:00:00 08/09/2009 02:00:52 [id number] , [facility], OFF[facility] [address] [facility] [place] [address] 11/08/2009 08:56:32 11/14/2009 11:22:25 [id number] Physical Therapy, [facility] [address] [facility] [place] [address] 11/13/2009 09:52:24 11/15/2009 13:44:30 [id number] , [facility], OFFICE [address] [facility] [place] [address] 11/13/2009 10:48:52 11/16/2009 15:16:08 [id number] Radiology , [facility] [address] [facility] [place] [address] 11/13/2009 11:18:47 11/14/2009 11:25:48 [id number] Radiology , [facility] [address] [facility] [place] [place] [address] 11/13/2009 11:47:42 11/14/2009 11:25:55 [id number] Physical Therapy, [facility] [address] [facility] [place] [address] 12/12/2009 09:00:11 12/12/2009 16:16:18 [id number] KENNETH QuiñonezND) HERMES [facility], OFFICE [address] [facility] [place] [place] [address] 12/14/2009 09:24:38 12/19/2009 10:35:44 [id number] Physical Therapy, [facility] [address] [place] [address] 12/21/2009 12:04:46 12/21/2009 15:59:09 [id number] Physical Therapy, [facility] [address] [place] [facility] [place] [address] 12/25/2009 10:20:17 12/25/2009 13:56:49 [id number] KENNETH QuiñonezND) HERMES, [facility], OFFICE [address] [facility] [place] [place] [address] 01/02/2010 16:03:12 2010 14:59:46 [id number] Physical Therapy, [facility] [address] [place] [place] [address] 01/17/2010 10:01:36 01/21/2010 10:12:29 [id number] Won Esparza MD , [facility], OFFICE [address] [place] [address] 01/22/2010 15:10:58 01/24/2010 15:53:38 [id number] MD HERMES Nathan, [facility], OFFICE [address] [place] [address] 6 04/05/2010 09:26:46 04/10/2010 12:40:18 [id number] Won Esparza MD , [facility], OFFICE [address] [place] [address] 6 07/17/2010 09:01:19 07/22/2010 15:44:14 [id number] [facility], OFFICE [address] [place] [address] 6 09/25/2010 08:34:53 09/26/2010 15:33:00 [id number] MD HERMES Nathan, [facility], OFFICE [address] [place] [address] 6 10/21/2010 09:04:15 10/24/2010 14:30:09 [id number] [facility], OFFICE [address] [place] [address] 6 01/22/2011 09:27:16 01/27/2011 15:49:18 [id number] [facility], OFFICE [address] [place] [address] 6 04/28/2011 09:33:10 04/28/2011 10:13:33 [id number] [facility], OFFICE [address] [place] [address] 6 05/28/2011 09:48:29 05/28/2011 10:45:49 [id number] [facility], OFFICE [address] [place] [address] 6 07/16/2011 08:46:11 07/17/2011 10:17:24 [id number] , [facility], OFFICE [address] [place] [address] 6 08/27/2011 11:31:28 08/27/2011 12:05:55 [id number] Radiology , C [address] [place] [place] [address] 6 10/23/2011 16:07:50 10/24/2011 13:32:09 [id number] , [facility], OFFICE [address] [place] [address] 6 10/23/2011 16:12:58 10/23/2011 17:08:57 [id number] , [facility], OFFICE [address] [place] [address] 6 11/26/2011 08:57:18 11/26/2011 09:46:07 [id number] , [facility], OFFICE [address] [place] [address] 6 01/03/2012 10:56:59 01/07/2012 10:36:10 [id number] , [facility], OFFICE [address] [place] [address] 6 01/06/2012 18:26:13 01/07/2012 15:27:21 [id number] , [facility], OFFICE [address] [place] [address] 6 02/27/2012 09:31:18 02/27/2012 10:08:06 [id number] MD HERMES Nathan, [facility], OFFICE [address] [place] [place] [address] 6 06/28/2012 10:43:15 06/28/2012 11:22:19 [id number] Won Esparza MD , [facility], OFFICE [address] [place] [place] [address] 6 09/27/2012 11:12:51 09/27/2012 12:00:23 [id number] Won Esparza MD , [facility], OFFICE [address] [place] [place] [address] 6 12/27/2012 09:56:50 12/27/2012 10:48:21 [id number] Brooke Iqbal , [facility], OFFICE [address] [place] [address] 6 05/06/2013 10:26:35 05/06/2013 11:05:09 [id number] Heidi Daughertycherlloyd jack FP, C, OFFICE [address] [place] [address] 6 08/05/2013 10:59:17 08/05/2013 11:40:38 Chronic pain [id number] Influenza vaccine needed [id number] 106 Tobacco user [id number] Won Esparza MD FP, C, OFFICE [address] [place] [address] 6 11/09/2013 11:37:49 11/09/2013 12:26:13 Low back pain [id number] Essential hypertension [id number] Manuela Muhammad NP FP, C, OFFICE [address] [place] [address] 6 01/09/2014 10:59:30 01/09/2014 11:35:07 Common cold 04611217 Impacted cerumen 46062313 [id number] Won Esparza MD FP, C, OFFICE [address] [place] [address] 6 02/06/2014 11:39:14 02/06/2014 12:32:33 Chronic pain 91476176 Essential hypertension 80182508 [id number] Won Esparza MD FP, C, OFFICE [address] [place] [address] 6 03/08/2014 10:41:53 03/08/2014 11:21:05 Essential hypertension 56075862 Tobacco user [id number] Low back pain 156472926 [id number] Priscilla Rios FP, C, OFFICE [address] [place] [address] 6 06/07/2014 11:26:18 06/07/2014 12:10:22 Asthma 613305190 Essential hypertension 36527067 Tobacco user [id number] Rusty Jade MD FP, C, OFFICE [address] [place] [address] [phone] 10/03/2014 11:43:29 10/03/2014 12:17:44 Upper respiratory infection [id number] MD HERMES Nathan, [facility], OFFICE [address] [place] [address] [phone] 01/24/2015 11:14:01 01/24/2015 12:54:45 Intrinsic asthma [id number] INTERMITTE NT Asthma- Based on history, physical assessment and peak flow the patients asthma is in control. Will continue the present medication s and follow-up in 6 months. The asthma action plan has been discussed. The patient verbalizes understand ing medication use.. The patient is in agreement with this plan. Counseling [id number] Adult [facility] th examination [id number] see Risk Assessment and Lifestyle Change Counseling section above Insomnia [id number] Nicotine dependence [id number] MD HERMES Nathan, [facility], OFFICE [address] [place] [address] [id number] 02/09/2015 11:02:36 02/09/2015 12:18:17 Tight chest [id number] Dizziness and giddiness [id number] Gastroesop hageal reflux disease [id number] MD HERMES Nathan, [facility], OFFICE [address] [place] [address] [phone] 02/14/2015 08:12:16 02/14/2015 09:01:11 Allergic rhinitis 56593732 Insomnia [id number] Asthma [id number] MD HERMES Nathan, [facility], OFFICE [address] [place] [address] [id number] 02/28/2015 13:21:55 02/28/2015 14:53:27 Administration of diphtheria, pertussis, and tetanus vaccine [id number] Neck pain [id number] MD HERMES Nathan, [facility], OFFICE [address] [place] [address] [phone] 02/28/2015 14:05:38 02/28/2015 14:30:22 Asthma [id number] HERMES [facility], OFFICE [address] [place] [address] [phone] 6 03/30/2015 11:47:25 03/30/2015 12:34:16 Neck pain 25187489 Sweating [id number] Insomnia [id number] Won Esparza MD , [facility], OFFICE [address] [place] [phone] 6 04/06/2015 15:18:30 04/06/2015 16:07:52 Anxiety 88096108 Bereavement [id number] Gastroesop hageal reflux disease [id number] , [facility], OFFICE [address] [place] [address] [phone] 6 04/11/2015 16:58:42 04/11/2015 17:50:55 Increased frequency of urination 159157492 some hematuria, no sign of infection. get retested at [facility] 04/23 Allergic rhinitis 77665029 Upper resp iratory infection [id number] Manju Boyd , [facility], OFFICE [address] [place] [address] [phone] 6 05/11/2015 07:53:28 05/11/2015 10:47:13 Anxiety 30745858 Blood in urine 14608796 Eruption [id number] Won Esparza MD , [facility], OFFICE [address] [place] [address] [phone] 6 08/03/2015 08:05:40 08/03/2015 08:49:48 Intrinsic asthma [id number] J45.20 INTERMITTE NT Asthma- Based on history, physical assessment and peak flow the patients asthma is in control. Will continue the present medication s and follow-up in 6 months. The asthma action plan has been discussed. The patient verbalizes understand ing medication use.. The patient is in agreement with this plan. Active or passive immunization [id number] Z23 [id number] Won Esparza MD , [facility], OFFICE [address] [place] [address] [phone] 6 01/21/2016 14:23:18 01/21/2016 15:04:17 Acute upper respiratory infection 13790075 J06.9 Malaise 811263633 R53.81 Foot pain 53914432 M79.6 73 [id number] Andre Kumar DPM Podiatry, [address] [phone] 6 02/07/2016 10:28:06 02/07/2016 10:53:47 Acquired cavus deformity of foot 17678322 M21.6X9 [id number] Kimberlee Frederick , [facility], OFFICE [address] [place] [address] [phone] 6 02/11/2016 13:31:02 02/11/2016 14:26:14 Adult health examination 749620648 Z00.00 see Risk Assessment and Lifestyle Change Counseling section above Counseling 565100227 Z71 .9 Gastroesop hageal reflux disease 871456525 K21.9 Morbid obesity 920098978 E66.01 Sweating 323882884 R61 [id number] Catherine Galaviz MD , [facility], OFFICE [address] [place] [address] [phone] 6 04/16/2016 10:03:42 04/16/2016 11:04:49 Idiopathic edema 32290475 R60.9 You have foot swelling of unknown cause. The medical name for this is idiopathic edema. The treatment is to lower your sodium and salt intake. Basically sodium and salt are the same thing. I have asked the bowling or skating front desk clerk to print out some informatio n for you and I have also given you a list of some of the keys to lowering your salt.I talked about a type of seasoning without salt called Mrs. Swain. I also Gave you a written list of some of the high salt foods which are Seneg[place]e food, pizza, hot dogs, kielbasa, salami, most deli meats, ketchup, pickles, chips, puerto rican fries. Leg elevation can also help the swelling. Vit B complex 50 mg a day also may help the swelling. You should see Dr. Esparza in May for follow-up of your lipids (cholester ol) your leg swelling, and your acid reflux. [id number] Won Esparza MD , [facility], OFFICE [address] [place] [address] 05/19/2016 10:56:43 05/19/2016 11:39:36 Gastroesophageal reflux disease 572532326 K21.9 Morbid obesity 763459830 E66.01 [id number] [facility], OFFICE [address] [place] [address] 08/25/2016 13:00:41 08/25/2016 14:03:51 Fatigue 27559868 R53.83 Morbid obesity 867075696 E66.01 [id number] Won Esparza MD , [facility], OFFICE [address] [place] [address] 10/29/2016 10:55:48 10/29/2016 12:47:35 Acute upper respiratory infection 70197188 J06.9 Educated patient that URI is a viral illness of the upper airways. It is not bacterial and does not benefit from antibiotic s. Dysfunctio n of eustachian tube 42865309 H69.93 Health Concerns Section Related Observation LastModified by Organization Detai ls LastModified Time None Recorded Concern Status LastModified by Organization Details LastModified Time None Recorded Advance Directives Directive N: Payers Encounter Date Sequence Insurance Name Policy Number Policy Kimball Covered Member ID Kimball Member ID Guarantor Name 02/11/2016 1 [facility] NET PLAN (MEDICAID HMO) [id number] Kenyetta Rosalesura [id number] Kenyetta Bruce 04/16/2016 1 [facility] [employer] NET PLAN (MEDICAID HMO) [id number] Kenyetta Elizondo Batura [id number] Kenyetta Bruce 05/19/2016 1 [facility] NET PLAN (MEDICAID HMO) [id number] Kenyetta Elizondo Batura [id number] Kenyetta Bruce 08/25/2016 1 [facility] NET PLAN (MEDICAID HMO) [id number] Kenyetta Elizondo Batura [id number] Kenyetta Bruce 10/29/2016 1 [facility] [employer] NET PLAN (MEDICAID HMO) [id number] Kenyetta Rosalesura [id number] Kenyetta Bruce Notes Date Note Type Note Provider Name and Address Organization Details Recorded Time 02/11/2016 text/html DTR Julieta has 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 Eats a lot of junk food eunice at night. Won Esparza MD [address] [place] [address], [phone], [facility] 02/11/2016 14:24:31 02/11/2016 text/html Physical Exam/FemaleReported bypatient.Notes:Here for physical. lisa 12/2014, , has new S.O.- Rene. Also, wants to lose weight.Risk Assessment and Lifestyle Change Counseling-female 40-49Reported bypatient.Coronary Artery Disease Risk Assessment:No Family history of coronary artery disease; Regular exercise program; Eats a diet low in fats and high in fiber; No personal history of hypertension; Lipids in good range; No personal history of diabetes; No use of tobacco; No history of peripheral vascular disease, AAA, or carotid disease; No personal history of coronary artery disease Breast Cancer Risk Assessment:No family history of breast cancer; No history of breast cancer or dcis; No history of female hormone exposure Colon Cancer Risk Assessment:No family history of colon polyps or cancer; No history of adenomatous colon polyps Cervical Cancer Risk Assessment:No abnormal pap smears; No evidence of HPV infection; Monogamous Lung Cancer Risk Assessment:Has used cigarettes; No asbestos exposure Fracture Risk Assessment:No unexplained fracture; No falls; No use of corticosteroids; No anti-seizure medication; Has adequate calcium intake; Taking Vitamin D supplement; No chronic use of proton pump inhibitors;Uses proton pump inhibitors on a chronic basis Risk for Sexually Transmitted Disease Assessment:No history of sexually transmitted disease; Monogamous relationship Cognitive/Behavioral Risk Assessment:No history of depression; No family history of depression; see phq-9=4 Safety Risk Assessment:Uses helmet for high velocity activities; Uses seat belts; No evidence of abuse/neglecta/VMG-Ast hmaReported bypatient.Duration:chr onic Compliance:compliant with rescue medications; compliant with maintenance medications Self Care:has aerochamber Associated Symptoms:no fever; no fatigue; no irritability; no cough; normal appetite; no changes in productivity Won Esparza MD [address] [place] [address], [phone], [facility] 02/11/2016 14:24:31 04/16/2016 text/html This 41-year-old woman is in because of worsening of foot edema which is a long-standing problem. She could not recall how long she has had this problem. It sounds like more than a year. She made this appointment because now the feet hurt when she walks and also when she presses on the tops. She said the pain with walking is felt on the tops of the feet. She had a physical in February with her PCP, Dr. Esparza. At that time lung and heart exam were normal. She denies chest pain or shortness of breath. She does not watch her salt intake. Catherine Galaviz MD [address] [place] [address], [phone], [facility] 04/16/2016 11:13:09 05/19/2016 text/html For f/u weight. and GERD. famotidine, Eats chips late night. walking alot. Does not each much for lunch or breakfast. but trying to eat eggs. Won Esparza MD [address] [place] [address], [phone], [facility] 05/19/2016 11:38:08 08/25/2016 text/html For f/u weight. and GERD. famotidine, Eats chips late night. walking alot. Does not each much for lunch or breakfast. but trying to eat eggs. . Tossed salads. Doing better w/ portion control. Eating lots of carbs. Doing treadmil 30 min and 30 of the bike. and does this each 2x/d- about 2.5 hours. Won Esparza MD [address] [place] [address], [phone], [facility] 08/25/2016 14:01:21 10/29/2016 text/html VMG URI Flu like SymptomsReported bypatient.Severity:Sym ptoms are persisting Associated Symptoms:No fever/chills; Good oral intake; No sweats; No difficulty swallowing; No swollen glands; No chest pain with deep breath; No abdominal pain; No nausea; No vomiting; No diarrhea; No rash;Headache;Purulent Nasal Discharge;Left maxillary sinus pressure;Right maxillary sinus pressure;frontal sinus pressure;Cough productive of yellow-green, thick sputum;Ear fullness right;Ear pain right;Sore throat; using brayan pot without much benefit Context:No foreign travel; Non-smoker; Sick contacts at homeNotes:Dtr woke up w/ same a day earlier. pt using Netti pot and pseudofed Has had bilat PE tubes Won Esparza MD [address] [place] [address], [phone], [facility] 10/29/2016 11:35:57 OBGyn Episode No OBEpisode recorded.
== END 2024-12-29 12:37 | disposition home or self-care (01) ==
LOC: HO.HMGCX 12:36
PROVIDERS: PCP Internal Medicine; Visit Provider Physician Assistant
DX: M54.2 Cervicalgia (principal)
CPT/HCPCS: 72050

== ENCOUNTER 2024-12-29 12:36 | Outpatient (AMB) | payer OTHER, SELFPAY ==
[2024-12-29 12:43] VITALS: BP 142/100; PULSE 68; O2SAT 97; BMI 43.0
--- NOTE | 2024-12-29 12:43 | MHC.OFFWIV ---
Intake Vital Signs 12/29/24 12:43 Height 4 ft 11 in Weight 213 lb BMI 43.0 BP 142/100 H Blood Pressure Location Lt brachial Position Sitting Pulse 68 Pulse Source Pulse Oximeter Pulse Oximetry (%) 97 Oxygen Delivery Method Room Air Intake Visit Reasons: EP-body ache Intake Note: Patient here for body pain but mainly neck pain that has been present for almost 1 month. Patient Tobacco Use Status: Former Tobacco user Allergies Seasonal Allergies Allergy (Mild, Verified 12/29/24 12:49) Sneezing sertraline [From Zoloft] Allergy (Mild, Verified 12/29/24 12:49) Insomnia Do you need a note to return to daycare/school/sports/work: No HPI HPI Comments History of Present Illness Details HPI Patient is a 49-year-old female complaining of 1 month of worsening body aches. She said most of the pain is in her neck and goes down both sides of her neck and into her arms. She denies any tick bites or being in any areas where tics are currently active. She does take 15 mg of meloxicam nightly for her plantar fasciitis, she states this is helping her foot but it is not helping the rest of her body aches. She denies any fevers chills cough congestion or other upper respiratory type symptoms. She tells me she did have a pinched nerve in her neck. Physical Exam General: Cooperative, healthy appearing, comfortable and no acute distress Orientation/consciousness: Patient oriented x3 Limitations: No limitations Head: Normal to inspection Ears: Hearing grossly normal Nose: Normal external nose present Face and sinus: Normal facial exam Eyes: Appearance normal, both eyes and all related structures Neck: tender to palpation cervical paraspinous muscles, see below Skin: No rashes or lesions noted Neuro: Patient oriented x3 Extremities: Normal to inspection and Yes no clubbing, cyanosis or edema [facility] Medical History (Updated 12/29/24 @ 12:58 by Pearl Hernandez PA-C) Bilateral knee pain Impaired fasting glucose Morbid obesity with BMI of 40.0-44.9, adult GERD without esophagitis Pure hypercholesterolemia Essential hypertension Diabetes mellitus Iron deficiency anemia Surgical History History of appendectomy Status post left foot surgery Hx of hernia repair History of partial hysterectomy (~2000) Family History Father COPD (chronic obstructive pulmonary disease) Mother Hyperthyroidism Alcohol abuse Social History Household Members: Spouse Housing: House Alcohol intake: current Alcohol intake frequency: holidays/special occasions only Alcohol type: beer and wine Patient Tobacco Use Status: Former Tobacco user e-Cigarette/Vaping Use: Never Used service: No Current occupational status: employed 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 Current occupational exposures/hazards: No Cognitive needs: No Hearing needs: No Vision needs: Yes Physical Exam Vital Signs: Last Vital Signs Pulse 68 12/29/24 12:43 BP 142/100 H 12/29/24 12:43 Pulse Ox 97 12/29/24 12:43 Oxygen Delivery Method Room Air 12/29/24 12:43 BMI result Body Mass Index 43.0 Back/Spine/Pelvis Cervical Spine: cervical ROM normal, cervical muscular tenderness (bilat), pain with cervical ROM, No cervical spasm and No Cervical spine tenderness Thoracic/Lumbar Spine: thoracic and lumbar spine normal to inspection, No thoracic spinal tenderness and No lumbar spinal tenderness Assessment & Plan Assessment & Plan (1) Neck pain, acute: Code(s): M54.2 - Cervicalgia Plan: Plan to perform X-ray to evaluate for any acute pathological changes. If results are unremarkable, refer to physical therapy for further management. Continue analgesic therapy with Tylenol. Patient was informed and verbally consented to the use of an ambient scribe for clinic note documentation during this visit Orders: Orders XR cervical spine min 6V Today M54.2 - Cervicalgia Coding Level of Care Code Est Pt Level 4 (92420) Diagnoses Neck pain, acute M54.2
--- OUTSIDE RECORDS SUMMARY | 2024-12-29 14:57 | XMS_ITS | Clinical Summary ---
Author Organization [address] [facility] Address [address] [place] [address] Phone Care Team Providers Care Snuff Box Finisher Name Role Phone David Pinedo MD Primary Care Provider Encounters Date Type Department Care Team Description 11/24/2024 3:15 PM EST Consult Orthopedic Surgery [facility] [address] [id number] Dedrick Bland, DPM Plantar fascial fibromatosis (Primary Dx); Achilles tendinitis, left leg; Tendonitis, Achilles, right; Dermatophytosis of nail; Pain in toe of right foot; Pain in toe of left foot; Difficulty walking from Last 3 Months Social History Tobacco Use Types Packs/Day Years Used Date Smoking Tobacco: Never Assessed Comments Unknown Sex and Gender Information Value Date Recorded Sex Assigned at Not on file Legal Sex Female 1:23 PM EST Gender Identity Not on file Sexual Orientation Not on file Last Filed Vital Signs Vital Sign Reading Time Taken Comments Blood Pressure - - Pulse - - Temperature - - Respiratory Rate - - Oxygen Saturation - - Inhaled Oxygen Concentration - - Weight - - Height 149.9 cm (4' 11 ) 11/24/2024 3:05 PM EST Body Mass Index - - Plan of Treatment Health Maintenance Due Date Last Done Comments Hepatitis B Vaccines (1 of 3 - 19+ 3-dose series) 1993 Cervical Cancer Screening: Pap Smear 1995 Pneumococcal Vaccine: 50+ Years (2 of 2 - PCV) 01/05/2024 09/08/2018 Zoster Vaccines (1 of 2) 01/05/2024 COVID-19 Vaccine ( - season) 2024 09/10/2021, 12/01/2020, 11/10/2020 Colorectal Cancer Screening: Colonoscopy 09/28/2024 Depression Screening 09/28/2024 HIV Screening 09/28/2024 Lung Cancer Screening (Low Dose CT) 09/28/2024 Social Influencers of Health Screening 09/28/2024 Breast Cancer Screening 10/28/2024 10/28/2022 Hypertension/CHF/CAD Annual BMP Blood Test 11/24/2024 10/08/2022, 12/12/2021, 04/01/2021, Additional history exists Cholesterol Screening (Lipid Panel) 06/20/2027 06/20/2022 DTaP,Tdap,and Td Vaccines (5 - Td or Tdap) 10/20/2034 10/20/2024, 09/08/2018, 02/28/2015, Additional history exists Pneumococcal Vaccine: Pediatrics (0 to 5 Years) and At-Risk Patients (6 to 64 Years) Aged Out 09/08/2018 No longer eligible based on patient's age to complete this topic Hepatitis C Screening Completed 04/01/2021 Influenza Vaccine Completed 08/15/2024, , 08/26/2022, Additional history exists HIB Vaccines Aged Out No longer eligi ble based on patient's age to complete this topic HPV Vaccines Aged Out No longer eligi ble based on patient's age to complete this topic Hepatitis A Vaccines Aged Out No long er eligible based on patient's age to complete this topic IPV Vaccines Aged Out No longer eligi ble based on patient's age to complete this topic MMR Vaccines Aged Out No longer eligi ble based on patient's age to complete this topic Meningococcal ACWY Vaccine Aged Out N o longer eligible based on patient's age to complete this topic Meningococcal B Vacine Aged Out No lo nger eligible based on patient's age to complete this topic RSV Immunization Patients Under 20 months Aged Out No longer eligible based on patient's age to complete this topic Varicella Vaccines Aged Out No longer eligible based on patient's age to complete this topic Procedures Procedure Name Priority Date/Time Associated Diagnosis Comments INJECTION TENDON OR LIGAMENT Routine 11/24/2024 3:15 PM EST Plantar fascial fibromatosis from Last 3 Months Results * Injection tendon or ligament (11/24/2024 3:15 PM EST) Narrative Dedrick Bland DPM - 11/24/2024 3:15 PM EST Dedrick Bland DPM ? 11/24/2024 ??4:08 PM Injection tendon or ligament Indications: pain Details: 25 G needle Medications: 0.5 mL lidocaine (PF) 1 %; 20 mg triamcinolone acetonide 40 mg/mL Informed Consent: ??Site: ??Foot ligament tendon Dedrick Bland DPM IN CLINIC/BEDSIDE ORDERAB LES Final Result from Last 3 Months Insurance [facility] MEDICAID - [place] Care Teams Snuff Box Finisher Relationship Specialty Start Date End Date David Pinedo MD [address] [place] [address] [address] YULY Osorio PCP - General Internal Medicine 09/28/24
--- OUTSIDE RECORDS SUMMARY | 2024-12-29 14:57 | XMS_ITS | Continuity of Care Document ---
Author Organization [facility] Address [address] [place] [address]- Care Team Providers Care Manager Safe Name Role Phone Not on Staff, PCP Primary Care Physician Unavail able Encounter [facility] Date(s): 10/31/24 - 11/30/24 [facility] [address] [place] [address]- Attending Physician: Leesa Lagunas Admitting Physician: Admpaco Ar8 Referring Physician: Admtr Ar8 Encounter Type: Triage Patient Care team information Care Team Personnel Name: Not on Staff, PCP Position: S Physician (General Medicine) Member Role: PCP Care Team Related Persons Name: KALEN GUILLEN Insurance Providers Guarantor name: NA Health Plan Information #: 1 Payer: NA Member Number: NA Policy Number: NA Group Number: NA
== END 2024-12-29 14:01 | disposition home or self-care (01) ==
PROVIDERS: PCP Internal Medicine; Visit Provider Physician Assistant
DX: M54.2 Cervicalgia (principal)

== ENCOUNTER → 2024-12-29 13:14 | Outpatient (BNV) | payer OTHER, SELFPAY | PROVIDERS: PCP Internal Medicine; Visit Provider Radiology Diagnostic Radiology | DX: M54.2 Cervicalgia (principal) | CPT/HCPCS: 72050 ==

== ENCOUNTER 2025-01-26 13:13 | Outpatient (REF) | payer OTHER, SELFPAY ==
--- NOTE | ~2025-01-26 | XR_ITS ---
EXAMINATION: XR KNEE AP STANDING CLINICAL INFORMATION: M25.562 - Pain in left knee COMPARISON: None available. TECHNIQUE: AP bilateral standing view of the knees was obtained. FINDINGS: Sclerosis of the articular surface of the medial tibial plateau, bilaterally. Asymmetric joint space narrowing involving mostly the medial compartment. No acute cortical disruption or malalignment. No suprapatellar bursa joint effusion. Well-corticated calcifications in the popliteal regions, bilaterally. No subcutaneous emphysema. No lytic or blastic lesions. XR/XR knee standing BI IMPRESSION: Mild to moderate medial compartment osteoarthrosis, both knees. Electronically signed by: Serjio Menendez MD 01/27/2025 08:06 AM EDT
--- NOTE | ~2025-01-26 | XR_ITS ---
EXAMINATION: X-RAY LUMBAR SPINE 4 VIEWS.. CLINICAL INFORMATION: Spondylosis without myelopathy or radiculopathy, lumbar region. TECHNIQUE: AP, lateral and oblique views, lumbar spine. COMPARISON: None FINDINGS: Multilevel marginal osteophyte formation and syndesmophyte formation, endplate sclerosis subchondral cyst formation and decreased intervertebral disc throughout the lower thoracic and lumbar spine. There is likely Castellvi type I sacralization. No acute cortical disruption or gross malalignment. There is a prominent right transverse process of L5 articulating to S1. Mild levoconvex curvature of the lumbar spine which could be positional. Metallic coil seen in a circumferential fashion overlapping the lower lumbar upper sacral region and likely in the periumbilical/abdominal wall. Degenerative changes in the symphysis pubis. XR/XR lumbar spine 4V min IMPRESSION: Multilevel thoracolumbar spondylosis without acute fracture or listhesis. Electronically signed by: Serjio Menendez MD 01/27/2025 08:09 AM EDT
--- OUTSIDE RECORDS SUMMARY | 2025-01-26 17:05 | XMS_ITS | Clinical Summary ---
Author Organization 175 [facility] Address [address] [place] [address] Phone Care Team Providers Care White Lead Filterer Name Role Phone David Pinedo MD Primary Care Provider Encounters Date Type Department Care Team Description 11/24/2024 3:15 PM EST Consult Orthopedic Surgery [facility] [address] [phone] Dedrick Bland, DPM Plantar fascial [...] Final Result from Last 3 Months Insurance [facility] MEDICAID - [place] Care Teams White Lead Filterer Relationship Specialty Start Date End Date David Pinedo MD [address] [place] [address] [address] YULY Osorio PCP - General Internal Medicine 09/28/24
--- OUTSIDE RECORDS SUMMARY | 2025-01-26 17:06 | XMS_ITS | Data Portability ---
Author Organization [facility], , [facility] Address [address] [place] [address] Care Team Providers Care [facility] Coder Name Role Phone MERRICK RAYO OTHER RUSTY ABBOTT Primary Care Provide r WON ESPARZA Primary Care Provider ZARIA LEONE Cert Occupational Therapy Asst Unavailable Assessment No assessment recorded. Plan of Treatment Reminders Order Date Submit Date Provider Last Modified By Organization Details Last Modified Time Details Appointments None recorded. Lab TSH, serum or plasma 2015 016 [id number] [facility], [address] [place] [address], [address], 6 04:09:36 BMP, serum or plasma 2015 016 [id number] [facility], [address] [place] [address], [address], 6 04:04:49 Referral None recorded. Procedures None recorded. Surgeries None recorded. Imaging None recorded. Medication Orders famotidine 20 mg tablet 2015 [address] [id number], [address] [place], [address], 6 14:24:02 Patient TargetsNo targets recorded. 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 [facility]}} {{# adding exercise regular meals stress management improv ing sleep therapist i [facility]}}My Health To Do List {{# go to [place] Emergency Registry or call si gn up for shahab text 2 quit or other stop smoking shahab contact [facility].gov}} {{# go to [place] Emergency Registry or call si gn up for shahab text 2 quit or other stop smoking shahab contact [facility].gov}} {{# go to [place] Emergency Registry or call si gn up for shahab text 2 quit or other stop smoking shahab contact [facility].gov}} [email or web address] Not available 02/11/2016 13:51:19 04/16/2016 [id number] how to read a food label to limit sodium: care instructions [id number] Not available 09/27/2016 04:02:42 low sodium diet (2,000 milligram): care instructions Not available 09/27/2016 04:02:32 05/19/2016 [id number] More fruits and vegetables Aim for 5-9 /day. Blueberries. Fruit sald check sugar fasting given the weight gain. [facility] Not available 05/19/2016 11:37:48 08/25/2016 [id number] Lost weight. Discussed low carb diet. wt watchers, con't exercise. HIgher protein, vegetables. F/U 3 months [facility] Not available 08/25/2016 14:01:05 10/29/2016 [id number] This looks likea cold. Rest, stress reduction,Reduced dairy may reduce congestion in some people. Call in a week or so if it looks like the cold has invaded the sinuses and wont leave ( more than 3-5 days), or you have fever that persists for a few days. discussed Eustacian tube issue. [facility] Not available 10/29/2016 11:33:57 Reason for Referral None Reported. Results Created Date Observation Date Name Description Value Unit Range Abnormal Flag Note LastModifiedBy Organization Detail LastModifiedTime 02/04/20 16 02/04/2016 CBC WBC 12.1 K/? ? ?L 4.0-10 .0 high Not Available [address], [address], 02/04/2016 14:59:42 02/04/20 16 02/04/2016 CBC RBC 4.28 M/? ? ?L 3.93-5 .22 Not Available [address], [address], 02/04/2016 14:59:42 02/04/20 16 02/04/2016 CBC HGB 11.9 g/dL 11.2-1 5.7 Not Available [address], [address], 02/04/2016 14:59:42 02/04/20 16 02/04/2016 CBC HCT 36.1 % 34.1-4 4.9 Not Available [address], [address], 02/04/2016 14:59:42 02/04/20 16 02/04/2016 CBC MCV 84.3 ? ? ?L 79.4-9 4.8 Not Available [address], [address], 02/04/2016 14:59:42 02/04/20 16 02/04/2016 CBC MCH 27.8 pg 25.6-3 2.2 Not Available [address], [address], 02/04/2016 14:59:42 02/04/20 16 02/04/2016 CBC MCHC 33.0 g/dL 32.2-3 5.5 Not Available [address], [address], 02/04/2016 14:59:42 02/04/20 16 02/04/2016 CBC plt 389.0 K/? ? ?L 182.0- 369.0 high Not Available [address], [address], 02/04/2016 14:59:42 02/04/20 16 02/04/2016 CBC MPV 10.1 9.4-12 .3 Not Available [address], [address], 02/04/2016 14:59:42 02/04/20 16 02/04/2016 CBC neut% 70.4 % 34.0-7 1.1 Not Available [address], [address], 02/04/2016 14:59:42 02/04/20 16 02/04/2016 CBC neut# 8.5 1.6-6. 1 high Not Available [address], [address], 02/04/2016 14:59:42 02/04/20 16 02/04/2016 CBC lymph % 22.4 % 19.3-5 1.7 Not Available [address], [address], 02/04/2016 14:59:42 02/04/20 16 02/04/2016 CBC lymph # 2.7 K/? ? ?L 1.2-3. 7 Not Available [address] [place], [address], 02/04/2016 14:59:42 02/04/20 16 02/04/2016 CBC mono% 5.0 % 4.7-12 .5 Not Available [address], [address], 02/04/2016 14:59:42 02/04/20 16 02/04/2016 CBC mono# 0.6 0.2-0. 6 high Not Available [address], [address], 02/04/2016 14:59:42 02/04/20 16 02/04/2016 CBC eo% 1.7 % 0.7-5. 8 Not Available [address], [address], 02/04/2016 14:59:42 02/04/20 16 02/04/2016 CBC eo# 0.2 0.0-0. 4 Not Available [address], [address], 02/04/2016 14:59:42 02/04/20 16 02/04/2016 CBC baso% 0.5 % 0.1-1. 2 Not Available [address], [address], 02/04/2016 14:59:42 02/04/20 16 02/04/2016 CBC baso# 0.1 0.0-0. 1 high Not Available [address], [address], 02/04/2016 14:59:42 02/04/20 16 02/04/2016 CBC RDW-CV 15.1 % 11.7-1 4.4 high Not Available [address], [address], 02/04/2016 14:59:42 02/04/20 16 02/04/2016 lipid panel , serum cholesterol 228 mg/dL <200 mg/dl Calderon able 200-2 39 mg/dl Jana gamingine High >240 mg/dl High Not Available [address], [address], 02/04/2016 16:13:55 02/04/20 16 02/04/2016 lipid panel , serum triglyceride s 88 mg/dL <150 mg/dL Chaya l 150-1 99 mg/dL Borde rline High 200-4 99 mg/dL High >500 mg/dL Very High Not Available [address], [address], 02/04/2016 16:13:55 02/04/20 16 02/04/2016 lipid panel , serum direct HDL 49 mg/dL Not Available [address], [address], 02/04/2016 16:13:55 02/04/20 16 02/04/2016 LDL, direc [...] r is not neces noemí. Not Available [address], [address], 02/04/2016 16:13:56 08/20/20 16 08/20/2016 BMP, serum or plasm a glucose 81 mg/dL 70-100 Not Available [address], [address], 08/20/2016 11:39:55 08/20/20 16 08/20/2016 BMP, serum or plasm a BUN 11 mg/dL 7-18 Not Available [address], [address], 08/20/2016 11:39:55 08/20/20 16 08/20/2016 BMP, serum or plasm a creatinine 0.5 mg/dL 0.8-1. 3 low Not Available [address], [address], 08/20/2016 11:39:55 08/20/20 16 08/20/2016 BMP, serum or plasm a B/C 22.0 ratio Not Available [address], [address], 08/20/2016 11:39:55 08/20/20 16 08/20/2016 BMP, serum or plasm a GFR -non 151.6 mL/mi n Recom priti d GFR by the Natio nal Kidne y Found ation >60 mL/mi n/1.7 3m2 - Chaya l <60 mL/mi n/1.7 3m2 - Chron ic Kidne y Disea se <15 mL/mi n/1.7 3m2 - Kidne y Failu re Not Available [address], [address], 08/20/2016 11:39:55 08/20/20 16 08/20/2016 BMP, serum or plasm a GFR - if 174.3 mL/mi n For Afric an Ameri can patie nts: Resul ts Multi plied by 1.21 Not Available [address], [address], 08/20/2016 11:39:55 08/20/20 16 08/20/2016 BMP, serum or plasm a sodium 139 mmol/ L 136-14 5 Not Available [address], [address], 08/20/2016 11:39:55 08/20/20 16 08/20/2016 BMP, serum or plasm a potassium 4.4 mmol/ L 3.5-5. 1 Not Available [address], [address], 08/20/2016 11:39:55 08/20/20 16 08/20/2016 BMP, serum or plasm a chloride 101 mmol/ L 96-107 Not Available [address], [address], 08/20/2016 11:39:55 08/20/20 16 08/20/2016 BMP, serum or plasm a anion gap 10.3 5.0-15 .0 Not Available [address], [address], 08/20/2016 11:39:55 08/20/20 16 08/20/2016 BMP, serum or plasm a CO2 28 mmol/ L 21-32 Not Available [address], [address], 08/20/2016 11:39:55 08/20/20 16 08/20/2016 BMP, serum or plasm a calcium 8.9 mg/dL 8.5-10 .3 Not Available [address], [address], 08/20/2016 11:39:55 08/20/20 16 08/26/2016 TSH, serum or plasm a TSH 1.83 uIU/m L 0.50-6 .00 The Ameri can Colle ge of Endoc rinol ogy and Ameri can Thyro id Assoc iatio n recom mend goal TSH value s betwe en 0.4-4 .0 mIU/m L. Not Available [address], [address], 08/26/2016 10:40:35 Result Notes None recorded. Problems Name Problem SNOMED Code Status Onset Date Resolution Date Notes Provider Name and Address Organization Details Recorded Time Common cold 16360645 Completed 01/24/2015 Andre Kumar DPM [address] [place] [address] [place], [address] [place] [address] 6 10:57:11 Impacted cerumen 75124976 Completed 01/24/2015 Andre Kumar DPM [address] [place], [address], [facility] 6 10:57:11 Essential hypertensio n 39534363 Completed 08/03/2015 Andre Kumar DPM [address] [place], [address], [facility] 6 10:57:11 Hearing loss 15917493 Active 2014 Andre Kumar DPM [address] [place], [address], [facility] 6 10:57:11 Female pelvic inflammator y disease 526012065 Completed 200005/06/2013 Andre Kumar DPM [address] [place], [address], [facility] 6 10:57:11 Open wound of finger 201191010 Completed 200005/06/2013 Andre Kumar DPM [address] [place], [address], [facility] 6 10:57:11 Vitamin K deficiency 27736979 Completed 200005/06/2013 Andre Kumar DPM [address] [place], [address], [facility] 6 10:57:11 Acute cystitis 24354352 Completed 200105/06/2013 Andre Kumar DPM [address] [place], [address], [facility] 6 10:57:11 Neck pain 73943407 Completed 200105/06/2013 Andre Kumar DPM [address] [place], [address], [facility] 6 10:57:11 Influenza 9608460 Completed 05/06/2013 Andre Kumar DPM [address] [place], [address], [facility] 6 10:57:11 Left lower quadrant pain 210866037 Completed 200605/06/2013 Andre Kumar DPM [address] [place], [address], [facility] 6 10:57:11 Allergic rhinitis 32276704 Active 2006 Andre Kumar DPM [address] [place], [address], [facility] 6 10:57:11 Complicatio n of medical care 19368708 Completed 200805/06/2013 Andre Kumar DPM [address] [place], [address], [facility] 6 10:57:11 Acute suppurative otitis media without spontaneous rupture of ear drum 56627344 Completed 200605/06/2013 Andre Kumar DPM [address] [place], [address], [facility] 6 10:57:11 Sciatica 35558006 Active 2003 Andre Kumar DPM [address] [place], [address], [facility] 6 10:57:11 Hypermetrop ia 61625173 Active 2008 Andre Kumar DPM [address] [place], [address], [facility] 6 10:57:11 Acute conjunctivi tis 62452690 Completed 200105/06/2013 Andre Kumar DPM [address] [place], [address], [facility] 6 10:57:11 Acute maxillary sinusitis 27231396 Completed 200105/06/2013 Andre Kumar DPM [address] [place], [address], [facility] 6 10:57:11 Sprain of knee and leg Completed 200305/06/2013 Andre Kumar DPM [address] [place], [address], [facility] 6 10:57:11 Backache 964872770 Completed 200108/31/2013 Andre Kumar DPM [address] [place], [address], [facility] 6 10:57:11 Acute bronchitis 01085918 Completed 200605/06/2013 Andre Kumar DPM [address] [place], [address], [facility] 6 10:57:11 Cyst of ovary 53955060 Completed 200805/06/2013 Andre Kumar DPM [address] [place], [address], [facility] 6 10:57:11 Malaise and fatigue 344311307 Completed 200105/06/2013 Andre Kumar DPM [address] [place], [address], [facility] 6 10:57:11 Left upper quadrant pain 580502197 Completed 200805/06/2013 Andre Kumar DPM [address] [place], [address], [facility] 6 10:57:11 Headache 96779928 Completed 200105/06/2013 Andre Kumar DPM [address] [place], [address], [facility] 6 10:57:11 Cough 57915198 Completed 200505/06/2013 Andre Kumar DPM [address] [place], [address], [facility] 6 10:57:11 Right lower quadrant pain 576590618 Completed 200205/06/2013 Andre Kumar DPM [address] [place], [address], [facility] 6 10:57:11 Astigmatism 34412365 Completed 200806/07/2014 Andre Kumar DPM [address] [place], [address], [facility] 6 10:57:11 Tobacco user 951016730 Active 2007 Andre Kumar DPM [address] [place], [address], [facility] 6 10:57:11 Impacted cerumen 04854234 Completed 200605/06/2013 Andre Kumar DPM [address] [place], [address], [facility] 6 10:57:11 Joint pain in ankle and foot Completed 05/06/2013 Andre Kumar DPM [address] [place], [address], [facility] 6 10:57:11 Acute swimmer's ear Completed 200405/06/2013 Andre Kumar DPM [address] [place], [address], [facility] 6 10:57:11 Primary malignant neoplasm of oral cavity 047521956 Completed 200105/06/2013 Andre Kumar DPM [address] [place], [address], [facility] 6 10:57:11 Acute upper respiratory infection 22889832 Completed 05/06/2013 Andre Kumar DPM [address] [place], [address], [facility] 6 10:57:11 Common cold 39081150 Completed 200105/06/2013 Andre Kumar DPM [address] [place], [address], [facility] 6 10:57:11 Abdominal pain 76754406 Completed 200605/06/2013 Andre Kumar DPM [address] [place], [address], [facility] 6 10:57:11 On examination - a rash Completed 200005/06/2013 Andre Kumar DPM [address] [place], [address], [facility] 6 10:57:11 Chronic pain 00831514 Completed 06/07/2014 Andre Kumar DPM [address] [place], [address], [facility] 6 10:57:11 Disorder of lung 99125690 Completed 200605/06/2013 Andre Kumar DPM [address] [place], [address], [facility] 6 10:57:11 Female genital organ symptoms 685013440 Completed 200205/06/2013 Andre Kumar DPM [address] [place], [address], [facility] 6 10:57:11 Low back pain 374248530 Completed 200105/06/2013 Andre Kumar DPM [address] [place], [address], [facility] 6 10:57:11 Asthma 595338669 Active 2007 (rare issue since radha mathtews). Andre Kumar DPM [address] [place], [address], [facility] 6 10:57:11 Viral upper respiratory tract infection 138661832 Completed 200705/06/2013 Andre Kumar DPM [address] [place], [address], [facility] 6 10:57:11 Vaginitis and vulvovagini tis Completed 200605/06/2013 Andre Kumar DPM [address] [place], [address], [facility] 6 10:57:11 Problem Notes None recorded. Procedures Surgical History Date Name Laterality Status Provider Name and Address Organization Details Recorded Time 02/11/20 16 Asthma Control Test (12 + years old) completed Ramila Rubio [facility] 02/11/2016 13:51:20 08/03/20 15 Asthma Control Test (12 + years old) completed Kayy Killian [facility] 08/03/2015 08:18:50 01/25/20 15 Smoking cessation counseling completed Won Esparza MD [address] [place] [address], [address], [facility] 01/24/2015 13:03:31 01/25/20 15 Asthma Control Test (12 + years old) completed Kayy Killian [facility] 01/24/2015 11:51:50 06/07/20 14 Smoking cessation counseling completed Kayy Killian [facility] 06/07/2014 11:35:02 01/10/20 14 Cerumen Removal completed Mara Ramos [facility] 01/09/2014 11:43:43 08/05/20 13 Smoking cessation counseling completed Won Esparza MD [address] [place] [address], [address], [facility] 08/06/2013 15:59:58 05/06/20 13 Smoking cessation counseling completed Won Esparza MD [address] [place] [address], [address], [facility] 05/06/2013 10:59:48 09/27/20 12 Asthma Control Test (12 + years old) completed Ivy Mcintyre [facility] 09/27/2012 11:26:38 11/26/19 12 Smoking cessation counseling completed Pearl Yepez STOCK TRACER [facility] 11/26/2011 09:10:21 04/28/20 11 Cerumen Removal completed Janie Powell LPN [facility] 04/28/2011 10:15:17 01/18/20 10 Treatment and Advice completed Dedrick Malik [facility] 01/17/2010 10:28:51 04/12/20 09 Treatment and Advice completed Lynsey Balbuena, PT [address] [place], [address], [facility] 04/12/2009 14:20:11 04/02/20 09 Treatment and Advice completed Lynsey Balbuena, PT [address] [place], [address], [facility] 04/02/2009 15:02:05 Total Hysterectomy completed Not Available [...] Name and Address Organization Details Recorded Time 789856 Zoloft medicatio n Not available Not available Not available 04/06/2015 46678 RxNorm insom quin. Won Esparza MD [address] [place], [address], [facility] 16:00:55 Medications Name Sig Start Date Stop [...] Available Not Available No t Available Afluria 9867-4337 (PF) 45 mcg (15 mcg x 3)/0.5 mL intramusc ular syringe TO BE ADMINIST ERED BY [employer] FOR IMMUNIZA TION active Not Available Not [...] Details Last Updated DateTime 7 149.86 cm 64086.1 4 g 41.4 kg/m2 84 /min 98.7 [degF] 132 mm[Hg] 84 mm[Hg] Ramila [facility] 7 11:16:04 Date Recorded Body mass index (BMI) Body height Heart rate Body weight Systolic blood pressure Diastolic blood pressure Provider Name and Address Organization Details Last Updated DateTime 6 40.1 kg/m2 149.86 cm 84 /min 33098.0 58997 g 124 mm[Hg] 64 mm[Hg] Ramila [facility] 6 13:57:14 Date Recorded Body height Body weight Body mass index (BMI) Body temperature Heart rate Systolic blood pressure Diastolic blood pressure Provider Name and Address Organization Details Last Updated DateTime 6 149.86 cm 49859.8 4 g 41.2 kg/m2 97.9 [degF] 64 /min 102 mm[Hg] 70 mm[Hg] Kayy Killian [facility] 6 10:21:35 Date Recorded Body height Body weight Body mass index (BMI) Heart rate Systolic blood pressure Diastolic blood pressure Provider Name and Address Organization Details Last Updated DateTime 6 149.86 cm 15998.4 4 g 41.4 kg/m2 64 /min 106 mm[Hg] 62 mm[Hg] Daniela Penaloza LPN [facility] 6 11:17:16 Date Recorded Body height Body weight Body mass index (BMI) Heart rate Systolic blood pressure Diastolic blood pressure Provider Name and Address Organization Details Last Updated DateTime 6 149.86 cm 39479.6 6 g 40.8 kg/m2 78 /min 122 mm[Hg] 68 mm[Hg] Ramila [facility] 6 13:33:05 Social History Question Answer Notes LastModified by Organizat ion Details LastModified Time Tobacco Smoking Status Former Smoker Quit 7/9/15. And also quit E-cigarett es. Won Esparza MD [address] [place] [address], [address], [facility] 05/11/2015 08:17:01 Do You Have An Advance Directive? No [email or web address] Information not available 09/27/2012 What Is Your Level Of Alcohol Consumption? Occasional Information not available 01/24/2015 Do You Wear A Helmet When Biking? Yes Information not available 01/24/2015 How Much Tobacco Do You Chew? None Information not available 03/30/2015 What Type Of Diet Are You Following? REGULAR [email or web address] Information not available 02/27/2012 Which Illicit Or Recreational Drugs Have You Used? 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[employer] Information not available 01/22/2011 When [...] Hold Per Weaning Off Them Rosalva C [email or web address] Information not available 03/20/2014 CSRP Contract Signed [...] virus, trivalent, preservative 1 completed Not Available [facility] 10/29/2019 02:30:28 Td(adult) unspecified formulation 4 completed Not Available [facility] 08/27/2011 05:21:07 Influenza, split virus, trivalent, preservative 2 completed Not Available [facility] 10/29/2019 02:18:35 Influenza, split virus, trivalent, PF 3 completed Not Available [facility] 10/29/2019 02:18:59 Tdap 5 completed Not Available [facility] 10/29/2019 02:27:41 Influenza, split virus, quadrivalent, PF 5 completed Not Available [facility] 10/29/2019 02:25:32 influenza, unspecified formulation 4 completed Chloe Hector MA [facility] 07/23/2014 09:41:49 influenza, intradermal, quadrivalent, preservative free 6 completed Not Available [facility] 11/12/2019 02:10:41 Influenza, split virus, quadrivalent, PF 7 completed Not Available [facility] 11/12/2019 02:10:42 influenza, unspecified formulation 7 completed Radha Ye CMA [facility] 07/27/2017 08:09:30 Influenza, split virus, trivalent, preservative 0 completed Not Available [facility] 10/29/2019 02:25:07 Past Encounters Encounter ID Performer Location Encounter Start Date Encounter Closed Date Diagnosis/Indication Diagnosis SNOMED-CT Code Diagnosis ICD10 Code Diagnosis Note [id number] , [facility], OFFICE [address] [place] [address] 11/10/2000 12:00:00 11/01/2008 02:02:29 [id number] [facility], OFFICE [address] [place] [address] 01/19/2001 11:45:00 11/01/2008 02:02:29 [id number] [facility], OFFICE [address] [place] [address] 01/21/2001 13:45:00 11/01/2008 02:02:29 [id number] , [facility], OFFICE [address] [place] [address] 02/25/2001 12:15:00 11/01/2008 02:02:29 [id number] [facility] [address] [place] [address] 03/06/2001 09:30:00 11/01/2008 02:02:29 [id number] [facility], OFFICE [address] [place] [address] 04/21/2001 11:30:00 11/01/2008 02:02:29 [id number] , [facility], OFFICE [address] [place] [address] 06/11/2001 09:30:00 11/01/2008 02:02:29 [id number] , [facility], OFFICE [address] [place] [address] 07/08/2001 11:30:00 11/01/2008 02:02:29 [id number] [facility], OFFICE [address] [place] [address] 09/07/2001 13:45:00 11/01/2008 02:02:29 [id number] , [facility], OFFICE [address] [facility] [place] [address] 10/20/2001 11:45:00 11/01/2008 02:02:29 [id number] Radiology , [facility] [address] [facility] [place] [address] 10/20/2001 12:15:00 11/01/2008 02:02:29 [id number] Radiology , [facility] [address] [facility] [place] [address] 10/20/2001 00:00:00 11/01/2008 02:02:29 [id number] FP, [facility], OFFICE [address] [facility] [place] [address] 10/26/2001 10:30:00 11/01/2008 02:02:29 [id number] , [facility], OFFICE [address] [facility] [place] [address] 11/24/2001 14:30:00 11/01/2008 02:02:29 [id number] , [facility], OFFICE [address] [facility] [place] [address] 12/11/2001 10:15:00 11/01/2008 02:02:29 [id number] FP, [facility], OFFICE [address] [place] [address] 01/10/2002 17:45:00 11/01/2008 02:02:29 [id number] FP, [facility], OFFICE [address] [facility] [place] [address] 02/09/2002 14:00:00 11/01/2008 02:02:29 [id number] , [facility], OFFICE 70 [place] [address] 6 02/16/2002 15:30:00 11/01/2008 02:02:29 [id number] LAB - [facility] [address] [place] [address] 6 02/17/2002 10:30:00 11/01/2008 02:02:29 [id number] FP, [facility], OFFICE 70 [facility] [place] [address] 6 03/20/2002 09:20:12 11/01/2008 02:02:29 [id number] , [facility], OFFICE 70 [facility] [place] [place] [address] 6 05/10/2002 10:44:03 11/01/2008 02:02:29 [id number] FP, [facility], OFFICE 70 [facility] [place] [address] 6 06/22/2002 13:36:02 11/01/2008 02:02:29 [id number] [facility], OFFICE [address] [place] [address] 6 07/15/2002 15:34:23 11/01/2008 02:02:29 [id number] [facility], OFFICE 70 [facility] [place] [address] 6 08/03/2002 15:48:38 11/01/2008 02:02:29 [id number] FP, [facility], OFFICE [address] [facility] [place] [address] 6 02/20/2003 15:30:27 11/01/2008 02:02:29 [id number] FPONOF[facility], OFFICE 70 [facility] [place] [address] 6 07/01/2003 10:30:06 07/02/2003 09:28:04 [id number] Radiology , [facility] [place] [address] 07/03/2003 13:18:29 07/03/2003 14:52:36 [id number] Radiology , [facility] [address] [place] [address] 07/03/2003 00:00:00 11/01/2008 02:02:29 [id number] FPONOF[facility], OFFICE 70 [facility] [address] 6 12/28/2003 09:31:06 12/28/2003 11:14:35 [id number] FP, [facility], OFFICE [address] [facility] [place] [address] 6 04/01/2004 13:22:06 04/09/2004 11:16:30 [id number] FP, [facility], OFFICE [address] [facility] [place] [address] 6 04/10/2004 11:10:03 04/11/2004 10:43:33 [id number] FP, [facility], OFFICE [address] [facility] [place] [address] 6 07/15/2004 14:30:03 07/16/2004 10:05:29 [id number] FP, ALC, OFFICE [address] [facility] [place] [address] 6 08/26/2004 08:59:23 08/26/2004 13:57:08 [id number] [facility] 70 [facility] [place] [address] 6 08/26/2004 16:50:34 08/26/2004 16:50:57 [id number] , [facility], OFFICE [address] [place] [address] 6 05/10/2005 14:40:19 05/11/2005 08:52:10 [id number] , [facility], OFFICE [address] [facility] [place] [address] 6 11/11/2005 09:43:44 11/11/2005 13:58:16 [id number] FP, [facility], OFFICE [address] [facility] [place] [address] 6 06/22/2006 11:28:40 06/23/2006 09:25:57 [id number] Radiology , [facility] 70 [facility] [place] [address] 6 06/23/2006 12:30:17 11/01/2008 02:02:29 [id number] Radiology , [facility] 70 [facility] [place] [address] 6 06/23/2006 00:00:00 11/01/2008 02:02:29 [id number] LAB - [facility] 70 [facility] [place] [address] 6 06/23/2006 07:59:06 06/23/2006 07:59:17 [id number] Radiology , [facility] 70 [facility] [place] [address] 6 10/07/2006 10:48:38 10/08/2006 09:15:07 [id number] Radiology , [facility] 70 [facility] [place] [address] 10/07/2006 00:00:00 11/01/2008 02:02:29 [id number] , [facility], OFFICE 70 [facility] [place] [address] 6 10/07/2006 09:54:58 10/08/2006 11:47:09 [id number] , [facility], OFFICE [address] [facility] [place] [address] 6 10/19/2006 09:07:23 10/19/2006 13:25:46 [id number] Radiology , [facility] 70 [facility] [place] [address] 6 10/19/2006 09:27:54 10/20/2006 09:16:07 [id number] Radiology , [facility] 70 [facility] [place] [address] 10/19/2006 00:00:00 11/01/2008 02:02:29 [id number] FP, [facility], OFFICE [address] [facility] [place] [address] 6 11/26/2006 10:37:23 11/26/2006 15:34:46 [id number] LAB - [facility] [address] [place] [address] 6 12/09/2006 00:00:00 11/01/2008 02:02:29 [id number] FP [facility], OFFICE 70 [place] 6 02/23/2007 10:03:37 02/23/2007 15:14:00 [id number] FP, [facility], OFFICE 70 [place] 6 04/16/2007 13:32:24 04/19/2007 09:16:30 [id number] FP, [facility], OFFICE 70 [place] 6 04/28/2007 09:45:20 04/28/2007 16:26:10 [id number] HERMES [facility], OFFICE [address] [place] [address] 6 05/07/2007 16:15:27 05/10/2007 08:38:26 [id number] FP [facility], OFFICE [address] [place] [address] 6 05/15/2007 09:44:43 05/15/2007 11:23:32 [id number] FP [facility], OFFICE [address] [place] [address] 6 05/16/2007 09:43:50 05/17/2007 08:54:13 [id number] HERMES [facility], OFFICE [address] [place] [address] 6 05/17/2007 14:17:08 05/17/2007 16:42:58 [id number] FP, [facility], OFFICE [address] [place] [address] 6 05/25/2007 15:09:36 05/26/2007 11:39:22 [id number] FP, ALC, OFFICE [address] [place] [address] 6 08/12/2007 09:08:42 11/01/2008 02:02:29 [id number] FP, ALC, OFFICE [address] [place] [address] 6 09/08/2007 10:08:25 11/01/2008 02:02:29 [id number] FP ALC, OFFICE [address] [place] [address] 6 09/10/2007 09:33:48 11/01/2008 02:02:29 [id number] LAB - [facility] [address] [place] [address] 6 09/08/2007 11:00:17 09/08/2007 11:00:30 [id number] LAB - [facility] [address] [place] [address] 6 09/10/2007 10:34:47 09/10/2007 10:34:55 [id number] Radiology , [facility] [address] [place] [address] 6 09/14/2007 14:53:32 09/15/2007 09:44:39 [id number] Radiology , [facility] [address] [place] [address] 6 09/14/2007 00:00:00 11/01/2008 02:02:29 [id number] FP, [facility], OFFICE [address] [facility] [place] [address] 6 09/16/2007 10:59:41 11/01/2008 02:02:29 [id number] FP, [facility], OFFICE [address] [facility] [address] 6 11/23/2007 13:17:25 11/01/2008 02:02:29 [id number] FP, [facility], OFFICE [address] [facility] [place] [address] 6 02/17/2008 09:16:22 11/01/2008 02:02:29 [id number] Radiology , [facility] [address] [place] [address] 6 02/22/2008 12:08:25 02/23/2008 09:21:01 [id number] Radiology , [facility] 70 [facility] [place] [address] 6 02/22/2008 00:00:00 11/01/2008 02:02:29 [id number] FP, [facility], OFFICE [address] [facility] [place] [address] 6 02/22/2008 11:29:00 11/01/2008 02:02:29 [id number] FP, [facility], OFFICE [address] [facility] [place] [address] 6 05/29/2008 14:29:45 11/01/2008 02:02:29 [id number] FP, ALC, OFFICE 70 [facility] [place] [address] 6 08/16/2008 15:26:31 11/01/2008 02:02:29 [id number] FP, [facility], [facility] [address] 6 09/19/2008 13:35:57 11/01/2008 02:02:29 [id number] , [facility], OFFICE 70 [facility] [place] 6 01/12/2009 09:37:03 01/16/2009 15:25:36 [id number] Radiology , [facility] 70 [facility] [place] [address] 6 01/16/2009 13:43:27 01/18/2009 12:33:30 [id number] , [facility], OFFICE 70 [facility] [place] 6 03/28/2009 10:11:31 03/29/2009 16:05:46 [id number] [address] Therapy, [address] 04/02/2009 14:14:00 04/03/2009 10:46:29 [id number] Physical Therapy, [address] [place] [address] 6 04/12/2009 13:29:56 04/16/2009 08:54:42 [id number] [facility] OFFICE [facility] [address] 6 05/03/2009 16:26:40 05/07/2009 12:13:00 [id number] [address] Therapy, [address] 6 05/07/2009 12:17:56 05/08/2009 08:40:19 [id number] Radiology , [address] [place] [address] 6 05/24/2009 10:20:23 05/30/2009 10:11:29 [id number] Eye Care, [address] [place] [address] 6 01/10/2009 15:09:04 01/10/2009 16:00:01 [id number] LAB - [address] [place] [address] 6 01/12/2009 10:03:01 01/12/2009 10:03:12 [id number] Radiology , [address] [place] [address] 6 01/16/2009 00:00:00 08/09/2009 02:00:52 [id number] Eye Care, [address] [place] [address] 6 02/16/2009 09:47:41 02/16/2009 11:40:56 [id number] Radiology , [facility] 70 [place] [address] 6 05/24/2009 00:00:00 08/09/2009 02:00:[id number] , [facility], OFFICE [address] [facility] [place] [address] 11/08/2009 08:56:32 11/14/2009 11:22:25 [id number] Physical Therapy, [facility] [address] [place] [address] 6 11/13/2009 09:52:24 11/15/2009 13:44:30 [id number] , [facility], OFFICE [address] [place] [address] 6 11/13/2009 10:48:52 11/16/2009 15:16:08 [id number] Radiology , [facility] [address] [place] [address] 6 11/13/2009 11:18:47 11/14/2009 11:25:48 [id number] Radiology , [facility] [address] [place] [address] 6 11/13/2009 11:47:42 11/14/2009 11:25:55 [id number] Physical Therapy, [facility] [address] [place] [address] 6 12/12/2009 09:00:11 12/12/2009 16:16:18 [id number] KENNETH QuiñonezNY) HERMES [facility], OFFICE [address] [place] [address] 6 12/14/2009 09:24:38 12/19/2009 10:35:44 [id number] Physical Therapy, [facility] [address] [place] [address] 6 12/21/2009 12:04:46 12/21/2009 15:59:09 [id number] Physical Therapy, [facility] [address] [place] [address] 6 12/25/2009 10:20:17 12/25/2009 13:56:49 [id number] KENNETH QuiñonezNY) HERMES, [facility], OFFICE [address] [place] [address] 6 01/02/2010 16:03:12 2010 14:59:46 [id number] Physical Therapy, [facility] [address] [place] [address] 6 01/17/2010 10:01:36 01/21/2010 10:12:29 [id number] Won Esparza MD , [facility], OFFICE [address] [place] [address] 6 01/22/2010 15:10:58 01/24/2010 15:53:38 [id number] MD HERMES Nathan, [facility], OFFICE [address] [place] [address] 6 04/05/2010 09:26:46 04/10/2010 12:40:18 [id number] Won Esparza MD , [facility], OFFICE [address] [place] [address] 6 07/17/2010 09:01:19 07/22/2010 15:44:[id number] [facility], OFFICE [address] [place] [address] 6 09/25/2010 08:34:53 09/26/2010 15:33:00 [id number] MD HERMES Nathan, [facility], OFFICE [address] [place] [address] 6 10/21/2010 09:04:15 10/24/2010 14:30:[id number] [facility], OFFICE [address] [place] [address] 6 01/22/2011 09:27:16 01/27/2011 15:49:[id number] [facility], OFFICE [address] [place] [address] 6 04/28/2011 09:33:10 04/28/2011 10:13:[id number] [facility], OFFICE [address] [place] [address] 6 05/28/2011 09:48:29 05/28/2011 10:45:[id number] [facility], OFFICE [address] [place] [address] 6 07/16/2011 08:46:11 07/17/2011 10:17:24 [id number] , [facility], OFFICE [address] [place] [address] 6 08/27/2011 11:31:28 08/27/2011 12:05:55 [id number] Radiology , C [address] [place] [address] 6 10/23/2011 16:07:50 10/24/2011 13:32:09 [id number] , [facility], OFFICE [address] [place] [address] 6 10/23/2011 16:12:58 10/23/2011 17:08:57 [id number] , [facility], OFFICE [address] [place] [address] 6 11/26/2011 08:57:18 11/26/2011 09:46:07 [id number] , [facility], OFFICE [address] [place] [address] 6 01/03/2012 10:56:59 01/07/2012 10:36:10 [id number] , [facility], OFFICE [address] [place] [address] 6 01/06/2012 18:26:13 01/07/2012 15:27:21 [id number] , [facility], OFFICE [address] [place] [address] 6 02/27/2012 09:31:18 02/27/2012 10:08:06 [id number] MD HERMES Nathan, [facility], OFFICE [address] [place] [address] 6 06/28/2012 10:43:15 06/28/2012 11:22:19 [id number] Won Esparza MD , [facility], OFFICE [address] [place] [address] 6 09/27/2012 11:12:51 09/27/2012 12:00:23 [id number] Won Esparza MD , [facility], OFFICE [address] [place] [address] 6 12/27/2012 09:56:50 12/27/2012 10:48:21 [id number] Brooke Iqbal , [facility], OFFICE [address] [place] [address] 6 05/06/2013 10:26:35 05/06/2013 11:05:09 [id number] Heidi Daughertycherlloyd jack FP, C, OFFICE [address] [place] [address] 6 08/05/2013 10:59:17 08/05/2013 11:40:38 Chronic pain 41996132 Influenza vaccine needed [id number] 106 Tobacco user 758080749 [id number] Won Esparza MD FP, C, OFFICE [address] [place] [address] 6 11/09/2013 11:37:49 11/09/2013 12:26:13 Low back pain 180997511 Essential hypertension 93463387 [id number] Manuela Muhammad NP FP, C, OFFICE [address] [place] [address] 6 01/09/2014 10:59:30 01/09/2014 11:35:07 Common cold 57432508 Impacted cerumen 58617743 [id number] Won Esparza MD FP, C, OFFICE [address] [place] [address] 6 02/06/2014 11:39:14 02/06/2014 12:32:33 Chronic pain 83671052 Essential hypertension 83543911 [id number] Won Esparza MD FP, C, OFFICE [address] [place] [address] 6 03/08/2014 10:41:53 03/08/2014 11:21:05 Essential hypertension 84363135 Tobacco user 999360744 Low back pain 518863644 [id number] Priscilla Rios FP, C, OFFICE [address] [place] [address] 6 06/07/2014 11:26:18 06/07/2014 12:10:22 Asthma 907404636 Essential hypertension 89234075 Tobacco user 014229133 [id number] Rusty Jade MD FP, C, OFFICE [address] [place] [address] 6 10/03/2014 11:43:29 10/03/2014 12:17:44 Upper respiratory infection 82108535 [id number] MD HERMES Nathan, [facility], OFFICE [address] [place] [address] 6 01/24/2015 11:14:01 01/24/2015 12:54:45 Intrinsic asthma 488230909 INTERMITTE NT Asthma- Based on history, physical assessment and peak flow the patients asthma is in control. Will continue the present medication s and follow-up in 6 months. The asthma action plan has been discussed. The patient verbalizes understand ing medication use.. The patient is in agreement with this plan. Counseling [id number] Adult [facility] th examination [id number] see Risk Assessment and Lifestyle Change Counseling section above Insomnia 660276961 Nicotine dependence 76646419 [id number] MD HERMES Nathan, [facility], OFFICE [address] [place] [address] 6 02/09/2015 11:02:36 02/09/2015 12:18:17 Tight chest 03907172 Dizziness and giddiness 406532879 Gastroesop hageal reflux disease 682627100 [id number] MD HERMES Nathan, [facility], OFFICE [address] [place] [address] 6 02/14/2015 08:12:16 02/14/2015 09:01:11 Allergic rhinitis 69519397 Insomnia 924854124 Asthma 144469273 [id number] MD HERMES Nathan, [facility], OFFICE [address] [place] [address] 6 02/28/2015 13:21:55 02/28/2015 14:53:27 Administration of diphtheria, pertussis, and tetanus vaccine 502847028 Neck pain 61215029 [id number] MD HERMES Nathan, [facility], OFFICE [address] [place] [address] 6 02/28/2015 14:05:38 02/28/2015 14:30:22 Asthma 607972765 [id number] HERMES [facility], OFFICE [address] [place] [address] 6 03/30/2015 11:47:25 03/30/2015 12:34:16 Neck pain 79267119 Sweating 749560725 Insomnia 142536116 [id number] Won Esparza MD , [facility], OFFICE [address] [place] [address] 6 04/06/2015 15:18:30 04/06/2015 16:07:52 Anxiety 12911393 Bereavement 87414761 Gastroesop hageal reflux disease 002641974 [id number] , [facility], OFFICE [address] [place] [address] 6 04/11/2015 16:58:42 04/11/2015 17:50:55 Increased frequency of urination 733710911 some hematuria, no sign of infection. get retested at ENROLLED NURSE apt 04/23 Allergic rhinitis 62512338 Upper resp iratory infection 63027679 [id number] Manju Boyd , [facility], OFFICE [address] [place] [address] 6 05/11/2015 07:53:28 05/11/2015 10:47:13 Anxiety 58635595 Blood in urine 27214833 Eruption 485118862 [id number] Won Esparza MD , [facility], OFFICE [address] [place] [address] 6 08/03/2015 08:05:40 08/03/2015 08:49:48 Intrinsic asthma 856614491 J45.20 INTERMITTE NT Asthma- Based on history, physical assessment and peak flow the patients asthma is in control. Will continue the present medication s and follow-up in 6 months. The asthma action plan has been discussed. The patient verbalizes understand ing medication use.. The patient is in agreement with this plan. Active or passive immunization 045228355 Z23 [id number] Won Esparza MD , [facility], OFFICE [address] [place] [address] 6 01/21/2016 14:23:18 01/21/2016 15:04:17 Acute upper respiratory infection 38473239 J06.9 Malaise 120114898 R53.81 Foot pain 21137801 M79.6 73 [id number] Andre Kumar DPM Podiatry, [address] [address] 6 02/07/2016 10:28:06 02/07/2016 10:53:47 Acquired cavus deformity of foot 84607011 M21.6X9 [id number] Kimberlee Frederick , [facility], OFFICE [address] [place] [address] 6 02/11/2016 13:31:02 02/11/2016 14:26:14 Adult health examination 618067928 Z00.00 see Risk Assessment and Lifestyle Change Counseling section above Counseling 226285951 Z71 .9 Gastroesop hageal reflux disease 061391462 K21.9 Morbid obesity 694251467 E66.01 Sweating 234372724 R61 [id number] Catherine Galaviz MD , [facility], OFFICE [address] [place] [address] 6 04/16/2016 10:03:42 04/16/2016 11:04:49 Idiopathic edema 26621287 R60.9 You have foot swelling of unknown cause. The medical name for this is idiopathic edema. The treatment is to lower your sodium and salt intake. Basically sodium and salt are the same thing. I have asked the director of front office to print out some informatio n for you and I have also given you a list of some of the keys to lowering your salt.I talked about a type of seasoning without salt called Mrs. Swain. I also Gave you a written list of some of the high salt foods which are Malawian food, pizza, hot dogs, kielbasa, salami, most deli meats, ketchup, pickles, chips, belarusian fries. Leg elevation can also help the swelling. Vit B complex 50 mg a day also may help the swelling. You should see Dr. Esparza in May for follow-up of your lipids (cholester ol) your leg swelling, and your acid reflux. [id number] Won Esparza MD , [facility], OFFICE [address] [place] [address] 05/19/2016 10:56:43 05/19/2016 11:39:36 Gastroesophageal reflux disease 635928658 K21.9 Morbid obesity 213914610 E66.[id number] [facility], OFFICE [address] [place] [address] 6 08/25/2016 13:00:41 08/25/2016 14:03:51 Fatigue 42301747 R53.83 Morbid obesity 326528412 E66.01 [id number] Won Esparza MD , [facility], OFFICE [address] [place] [address] 6 10/29/2016 10:55:48 10/29/2016 12:47:35 Acute upper respiratory infection 90280537 J06.9 Educated patient that URI is a viral illness of the upper airways. It is not bacterial and does not benefit from antibiotic s. Dysfunctio n of eustachian tube 86629618 H69.93 Health Concerns Section Related Observation LastModified by Organization Detai ls LastModified Time None Recorded Concern Status LastModified by Organization Details LastModified Time None Recorded Advance Directives Directive N: Payers Encounter Date Sequence Insurance Name Policy Number Policy Kimball Covered Member ID Kimball Member ID Guarantor Name 02/11/2016 1 [facility] (MEDICAID HMO) [id number] Kenyetta Rosalesura [id number] Kenyetta Brcue 04/16/2016 1 [employer] [facility] [employer] (MEDICAID HMO) [id number] Kenyetta Elizondo Batura [id number] Kenyetta Bruce 05/19/2016 1 [employer] [facility] [employer] (MEDICAID HMO) [id number] Kenyetta Elizondo Batura [id number] Kenyetta Bruce 08/25/2016 1 [employer] [facility] [employer] (MEDICAID HMO) [id number] Kenyetta Elizondo Batura [id number] Kenyetta Bruce 10/29/2016 1 [facility] [employer] (MEDICAID HMO) [id number] Kenyetta Rosalesura [id number] Kenyetta Bruce Notes Date Note Type Note Provider Name and Address Organization Details Recorded Time 02/11/2016 text/html DTR Julieta has 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 Eats a lot of junk food eunice at night. Won Esparza MD [address] [place] [address], [phone], [facility] 02/11/2016 14:24:31 02/11/2016 text/html Physical Exam/FemaleReported bypatient.Notes:Here [...] no changes in productivity Won Esparza MD [address] [place] [address], [phone], [facility] [place] 02/11/2016 14:24:31 04/16/2016 text/html This 41-year-old woman [...] watch her salt intake. Catherine Galaviz MD [address] [place] [address], [phone], [facility] [place] 04/16/2016 11:13:09 05/19/2016 text/html For f/u weight. and GERD. famotidine, Eats chips late night. walking alot. Does not each much for lunch or breakfast. but trying to eat eggs. Won Esparza MD [address] [place] [address], [phone], [facility] [place] 05/19/2016 11:38:08 08/25/2016 text/html For f/u weight. and GERD. famotidine, Eats chips late night. walking alot. Does not each much for lunch or breakfast. but trying to eat eggs. . Tossed salads. Doing better w/ portion control. Eating lots of carbs. Doing treadmil 30 min and 30 of the bike. and does this each 2x/d- about 2.5 hours. Won Esparza MD [address] [place] [address], [phone], [facility] [place] 08/25/2016 14:01:21 10/29/2016 text/html [facility]G URI Flu [...] had bilat PE tubes Won Esparza MD [address] [place] [address], [phone], [facility] [place] 10/29/2016 11:35:57 OBGyn Episode No OBEpisode recorded.
== END 2025-01-26 13:14 | disposition home or self-care (01) ==
LOC: HO.XRAY 13:13
PROVIDERS: Absent Provider Internal Medicine; PCP Internal Medicine; Referring Provider Internal Medicine; Visit Provider Anesthesiology
DX: M47.816 Spondylosis without myelopathy or radiculopathy, lumbar region (principal)
CPT/HCPCS: 72110; 73565

== ENCOUNTER 2025-01-26 13:13 | Outpatient (AMB) | payer OTHER, SELFPAY ==
--- NOTE | 2025-01-26 13:17 | A.OFFVIS_ITS ---
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 She reports that she started to feel this pain in October of 2024. She somehow relates her pain to the medication mountjaro she was taking to treat her diabetes. She reports that her pain is preventing her from sleep normally she can not do activ ities of daily living, she is able to take care of herself and she is able to function normally. She is working full-time. She is self mobile. Weather changes in movements aggravate her pain. Heat applications and oral medications make her pain better. She was placed on tramadol by her primary care physician however she is also on antidepressant SSRI and the tramadol was stopped. In terms of tissue damage he reports her pain as pinching, cramping, crushing, dull, sore, hurting, aching, heavy, tiring, exhausting, spreading, radiating, piercing, tight, squeezing, tearing, burning, aching, pins and needle sensation. She had an x-ray of the cervical spine but Nevro x-ray of the lumbar spine she never had physical therapy [facility] chiropractic manipulation [facility] occupational therapy. No acupuncture. She received steroid injection in her foot by test examiner and this injection was working for her for 6 months. Her past medical history significant for headaches anemia obesity diabetes arthritis and ovarian cysts. Her past surgical history negative. Social history working full-time. Denies smoking cigarettes denies drinking alcohol drinks soda denies recreational drugs. [facility] Medical History (Updated 01/26/25 @ 13:58 by Devendra Sosa MD) Bilateral knee pain Impaired fasting glucose Morbid obesity with BMI of 40.0-44.9, adult GERD without esophagitis Pure hypercholesterolemia Essential hypertension Diabetes mellitus Iron deficiency anemia Surgical History History of appendectomy Status post left foot surgery Hx of hernia repair History of partial hysterectomy (~2000) Family History Father COPD (chronic obstructive pulmonary disease) Mother Hyperthyroidism Alcohol abuse Social History Household Members: Spouse Housing: House Alcohol intake: current Alcohol intake frequency: holidays/special occasions only Alcohol type: beer and wine Patient Tobacco Use Status: Former Tobacco user e-Cigarette/Vaping Use: Never Used service: No Current occupational status: employed Current occupation: [employer] Current occupational exposures/hazards: No Cognitive needs: No Hearing needs: No Vision needs: Yes Review of Systems Const All systems reviewed & are unremarkable except as noted in HPI and below ENT Reports Normal hearing present Neuro Reports Normal hearing present, Denies Abnormal speech present and Denies Sensory deficit (Neuro) Physical Exam Vital Signs: Last Vital Signs Pulse 71 01/26/25 13:24 BP 193/93 H 01/26/25 13:24 Pulse Ox 97 01/26/25 13:24 Oxygen Delivery Method Room Air 01/26/25 13:24 BMI result Body Mass Index 43.5 Const General: no acute distress, alert and Physically active Nutritional Appearance: obese morbidly obese Orientation/consciousness: patient oriented x3 Limitations: no limitations Eyes General: appearance normal, both eyes and all related structures Pupils: Equal, round and reactive pupils present EOM: EOMs intact bilaterally Neck Other: Limited range of motion of the neck movements. Flexing forward does not aggravate her pain but flexing back backwards make her pain more severe. Chest Chest palpation & inspection: normal inspection of the chest Resp Effort & Inspection: normal respiratory effort, able to speak in complete sentences, normal respiratory pattern, no audible wheezes and no cough Cardio Jugular venous distension: no JVD GI Inspection: Yes normal to inspection Back/Spine/Pelvis Other: Able to stand on bilateral tiptoes in bilateral heels without difficulty. The gait is unaffected. There is severe tenderness on palpation in the paraspinal spinal region most lower portion of the lumbar spine. Riley test is negative bilaterally. Loading test is positive bilaterally. Valsalva maneuver does not aggravate her pain. Neuro General: patient oriented x3 and gait normal Cranial nerves: Yes CN's II-XII intact bilaterally, Yes Equal, round and reactive pupils present, Yes Normal hearing present and Yes Ability to bilaterally elevate shoulders present Speech: No Abnormal speech present Gait exam (Neuro): Normal gait present Motor exam (neuro): 5/5 motor strength present throughout Sensory Exam: No Sensory deficit (Neuro) Extrem General: No pedal edema Psych Speech and movement: Normal speech and movement present Affect: normal affect Attitude: cooperative Thought process: Normal thought process present Thought content: Normal thought content present Insight: Good insight present (Psych) Judgement: Good judgement present (Psych) Assessment & Plan Assessment & Plan (1) Spondylosis of lumbar region without myelopathy or radiculopathy: Code(s): M47.816 - Spondylosis without myelopathy or radiculopathy, lumbar region Category: Medical Plan This patient never had physical therapy and I will send her for physical therapy for spondylosis of lumbar spine. I also will schedule her for x-ray of the lumbar spine four views. To help her pain in the lower back I will prescribe her baclofen 10 mg t.i.d.. I will see this patient in 6 weeks when she will complete her physical therapy. Orders: Orders XR lumbar spine 4V min Today M47.816 - Spondylosis without myelopathy or radiculopathy, lumbar region PT Evaluation and Treatment Today M47.816 - Spondylosis without myelopathy or radiculopathy, lumbar region Medications: New baclofen 10 mg PO TID 30 days 90 tabs 6RF Coding Level of Care Code New Pt Level 3 (90923) Diagnoses Spondylosis of lumbar region without myelopathy or radiculopathy M47.816
[2025-01-26 13:24] VITALS: BP 193/93; PULSE 71; O2SAT 97; BMI 43.5
--- OUTSIDE RECORDS SUMMARY | 2025-01-26 16:12 | XMS_ITS | Clinical Summary ---
Author Organization [address] [facility] Address [address] [place] [address] Phone Care Team Providers Care Mixing Place Supervisor Name Role Phone David Pinedo MD Primary Care Provider Encounters Date Type Department Care Team Description 11/24/2024 3:15 PM EST Consult Orthopedic Surgery [facility] [address] [phone] Dedrick Bland, DPM Plantar fascial [...] age to complete this topic Meningococcal B Vaccine Aged Out No l onger eligible based on patient's age to complete [...] Final Result from Last 3 Months Insurance [facility] MEDICAID - [place] Care Teams Mixing Place Supervisor Relationship Specialty Start Date End Date David Pinedo MD [address] [place] [address] [address] YULY Osorio PCP - General Internal Medicine 09/28/24
== END 2025-01-26 13:48 | disposition home or self-care (01) ==
LOC: HO.PMC 13:13
PROVIDERS: PCP Internal Medicine; Referring Provider Internal Medicine; Visit Provider Anesthesiology
DX: M47.816 Spondylosis without myelopathy or radiculopathy, lumbar region (principal)
CPT/HCPCS: 99203

== ENCOUNTER → 2025-01-26 14:07 | Outpatient (BNV) | payer OTHER, SELFPAY | PROVIDERS: Absent Provider Internal Medicine; PCP Internal Medicine; Referring Provider Internal Medicine; Visit Provider Radiology Diagnostic Radiology | DX: M47.816 Spondylosis without myelopathy or radiculopathy, lumbar region (principal); M25.562 Pain in left knee; M17.0 Bilateral primary osteoarthritis of knee | CPT/HCPCS: 72110; 73565 ==

== ENCOUNTER 2025-01-30 07:51 | Outpatient (REF) | payer OTHER, SELFPAY ==
--- OUTSIDE RECORDS SUMMARY | 2025-01-30 07:55 | XMS_ITS | Clinical Summary ---
Author Organization [address] [facility] Address [address] [place] [address] Phone Care Team Providers Care Construction Project Administrator Name Role Phone David Pinedo MD Primary Care Provider [phone] Encounters Date Type Department Care Team Description 11/24/2024 3:15 PM EST Consult Orthopedic Surgery [facility] [address] [address] Dedrick Bland, DPM Plantar fascial [...] Final Result from Last 3 Months Insurance [facility] MEDICAID - [place] Care Teams Construction Project Administrator Relationship Specialty Start Date End Date David Pinedo MD [address] [place] [address] [address] YULY Osorio PCP - General Internal Medicine 09/28/24
[2025-01-30 08:12] LABS: MANUAL DIFF FLAG NO
[2025-01-30 08:24] LABS: Basophils Absolute Auto 0.1 X10*3/uL (0.0-0.2); Basophils Percent Auto 0.9 % (0-2); Eosinophils Absolute Auto 0.3 X10*3/uL (0.0-0.4); Eosinophils Percent Auto 2.4 % (0-4); Hematocrit 36.5 % (37.0-47.0); Hemoglobin 12.1 g/dl (12.0-16.0); Imm Gran Abs Auto 0.05 X10*3/uL (0.00-0.03); Imm Gran Pct Auto 0.5 % (0.0-0.4); Lymphocytes Absolute Auto 2.8 X10*3/uL (1.2-4.9); Lymphocytes Percent Auto 26.6 % (20-40); Mean Corpuscular HGB Conc 33.2 g/dl (31.0-35.0); Mean Corpuscular Hemoglobin 29.2 pg (27.0-33.0); Mean Corpuscular Volume 88.2 fL (80.0-98.0); Mean Platelet Volume 9.4 fL (9.4-12.3); Monocytes Absolute Auto 0.7 X10*3/uL (0.1-1.2); Monocytes Percent Auto 6.9 % (2-11); Neutrophils Absolute Auto 6.6 x10*3/uL (2.0-8.3); Neutrophils Percent Auto 62.7 % (45-73); Platelet Count 327 X10*3/uL (160-400); Red Blood Count 4.14 X10*6/uL (4.20-5.50); Red Cell Distribution Width 13.8 % (11.0-16.0); White Blood Count 10.5 X10*3/uL (4.8-10.8)
[2025-01-30 08:39] LABS: Appearance Urine Clear; Color Urine Yellow; Glucose Urine UA Negative (Negative); Leukocyte Esterase Urine Negative (Negative); Nitrite Urine Negative (Negative); PH 6.5 (5.0-9.0); Specific Gravity - Urine 1.025 (1.005-1.025); Urine Blood Negative (Negative); Urine Ketones Negative (Negative); Urine Protein Trace mg/dL (Neg-Trace)
[2025-01-30 08:44] LABS: Estimated Average Glucose 111 mg/dL; Hemoglobin A1C 118.2258 umol/L; Hemoglobin A1c % 5.5 % (<6.0); Total Hemoglobin (HGBA1C) 3197.4054 umol/L
[2025-01-30 09:07] LABS: Alanine Aminotransferase 18 U/L (0-31); Alkaline Phosphatase 63 U/L (39-117); Anion Gap 13 (12-20); Aspartate Amino Transferase 19 U/L (5-31); Bilirubin Total 0.4 mg/dL (0.0-1.0); Blood Urea Nitrogen 13 mg/dL (9-16); Calcium 9.1 mg/dL (8.4-10.2); Carbon Dioxide 26 mmol/L (22-29); Chloride 106 mmol/L (96-108); Cholesterol 195 mg/dL (<200); Estimated Glomerular Filt Rate > 60; Glucose Fasting 106 mg/dL (60-99); HDL Cholesterol 55 mg/dL (>40); LDL Cholesterol Calculated 125 mg/dL (<100); Potassium 3.7 mmol/L (3.3-5.1); Sodium 141 mmol/L (135-145); Total Protein 7.1 g/dL (6.5-8.0); Triglycerides 76 mg/dL (<150)
[2025-01-30 09:27] LABS: Vitamin D 25-OH Total 33.8 ng/mL (>30)
== END 2025-01-30 07:52 | disposition home or self-care (01) ==
LOC: HO.LAB 07:51
PROVIDERS: PCP Internal Medicine; Visit Provider Internal Medicine
DX: D64.9 Anemia, unspecified (principal); E55.9 Vitamin D deficiency, unspecified; E78.00 Pure hypercholesterolemia, unspecified; R73.01 Impaired fasting glucose; R30.0 Dysuria
CPT/HCPCS: 36415; 80053; 80061; 81003; 82306; 83036; 84443; 85025

== ENCOUNTER 2025-02-20 13:04 | Outpatient (AMB) | payer OTHER, SELFPAY ==
[2025-02-20 13:22] VITALS: BP 126/82; PULSE 67; O2SAT 96; BMI 43.7
--- NOTE | 2025-02-20 13:22 | A.OFFPC_ITS ---
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 Required: No Accompanied by: Self / Same As Patient Allergies Seasonal Allergies Allergy (Mild, Verified 02/20/25 13:58) Sneezing sertraline [From Zoloft] Allergy (Mild, Verified 02/20/25 13:58) Insomnia tramadol Adverse Reaction (Intermediate, Verified 02/20/25 14:04) made blood pressure go up very high Medication List - Last Reconciled 02/20/25 by David Pinedo MD baclofen 10 mg PO TID 30 days citalopram 40 mg PO DAILY famotidine 20 mg PO BID ferrous gluconate (Ferate) 240 mg PO DAILY hydrochlorothiazide 25 mg PO DAILY meloxicam 15 mg PO DAILY multivitamin 1 tab PO DAILY pravastatin 10 mg PO BEDTIME tramadol 50 mg PO BEDTIME PRN vitamin B complex (B Complex-Vitamin B12 tablet) 1 tab PO DAILY Tobacco use date assessed: 02/20/25 Dental Screening Dental Screen Date: 02/20/25 Did you have a dental visit in the last 12 months?: No Did you have a dental problem in the last 6 months where you did not have access to dental care?: No Was dental information given to patient?: Patient has dentist HPI follow up HPI Details Patient comes in today for her follow up visit States that she feels okay She denies any headaches or dizziness Denies any chest pains, no shortness of breath No nausea/vomiting, no abdominal pain No change in bowel habits noted She had her follow up labs done about 2 to 3 weeks ago - to discuss her results [facility] Medical History Bilateral knee pain Impaired fasting glucose Morbid obesity with BMI of 40.0-44.9, adult GERD without esophagitis Pure hypercholesterolemia Essential hypertension Diabetes mellitus Iron deficiency anemia Surgical History History of appendectomy Status post left foot surgery Hx of hernia repair History of partial hysterectomy (~2000) Family History Father COPD (chronic obstructive pulmonary disease) Mother Hyperthyroidism Alcohol abuse Social History Household Members: Spouse Housing: House Alcohol intake: current Alcohol intake frequency: holidays/special occasions only Alcohol type: beer and wine Patient Tobacco Use Status: Former Tobacco user e-Cigarette/Vaping Use: Never Used service: No Current occupational status: employed 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 1. Little interest or pleasure in doing things: not at all 2. Feeling down, depressed, or hopeless: not at all 3. Trouble falling or staying asleep, or sleeping too much: not at all 4. Feeling tired or having little energy: not at all 5. Poor appetite or overeating: not at all 6. Feeling bad about yourself - or that you are a failure or have let yourself or your family down: not at all 7. Trouble concentrating on things, such as reading the newspaper or watching television: not at all 8. Moving or speaking so slowly that other people could have noticed. Or the opposite - being so fidgety or restless that you have been moving around a lot more than usual: not at all 9. Thoughts that you would be better off or of hurting yourself in some way: not at all Total score: 0 Depression Screening Interpretation: Negative Depression Screening Done: Yes 49250 - PHQ-9 Billing: Yes Source: Developed by Drs. Cyril Cortes, Arabella Morin, Cedric Garcia and colleagues, with an educational dari from [employer]. Thrive Questionnaire Date Thrive assessed: 02/20/25 I am a: Patient What is your living situation today?: I have a steady place to live Within the past 12 months, did the food you bought not last and you didn't have the money to get more?: Never true Within the past 12 months, did you worry whether your food would run out before you got money to buy more?: Never true Do you have trouble paying for medicines?: No Do you have trouble getting transportation to medical appointments?: No Do you have trouble paying your heating and electricity bill?: No Do you have trouble taking care of your child, family member or friend?: No Do you have trouble with day-to-day activities such as bathing, preparing meals, shopping, managing finances, etc.?: No Are you currently unemployed and looking for a job?: No Are you interested in more education?: No Please select the resources that you would like help with: None Currently or been in a relationship where the following occur: No concerns reported THRIVE Score: 0 AUDIT C Alcohol Use Questionnaire (AUDIT-C) 1. How often do you have a drink containing alcohol?: Monthly or less 2. How many drinks containing alcohol do you have on a typical day when you are drinking?: 1 or 2 3. How often do you have six or more drinks on one occasion?: Never Total Score: 1 Score Reviewed/Action Taken: Yes LETTY-7 AMB Questionnaire LETTY-7 Date LETTY - 7 assessed: 02/20/25 Feeling nervous, anxious, or on edge: 1 = Several days Not being able to stop or control worryin = Not at all Worrying too much about different things: 0 = Not at all Trouble relaxin = Not at all Being so restless that it is hard to sit still: 0 = Not at all Becoming easily annoyed or irritable: 0 = Not at all Feeling afraid as if something awful might happen: 0 = Not at all Total LETTY-7 score (0-4 normal; 5-9 mild; 10-14 moderate; 15-21 severe): 1 Source: Developed by Drs. Cyril Cortes, Arabella Morin, Cedric Garcia and colleagues, with an educational dari from [employer]. Review of Systems Const Denies chills, Denies fatigue, Denies fever(s) and Denies headache(s) ENT Denies dysphagia, Denies dizziness, Denies otalgia, Denies headache(s), Denies neck pain, Denies odynophagia and Denies sore throat Card Denies chest pain, Denies rapid heart rate, Denies irregular heart rhythm, Denies palpitations and Denies dyspnea Resp Denies chest congestion, Denies cough, Denies dyspnea and Denies wheezing GI Denies abdominal pain, Denies constipation, Denies dysphagia, Denies heartburn, Denies diarrhea, Denies nausea, Denies odynophagia and Denies vomiting Denies hematuria, Denies urinary frequency, Denies dysuria and Denies urinary incontinence Musc Reports back pain (on and off, chronic), Reports arthralgias (in both knees, increasing lately; R>L) and Denies neck pain Skin/Breast Denies rash Neuro Denies dizziness, Denies headache(s) and Denies paresthesias Psych Denies anxiety and Denies depression Endo Denies fatigue and Denies palpitations Lavell/Lymph Denies easy bruising Aller/Immun Denies wheezing Physical exam (Primary Care) Vital Signs: Last Vital Signs Pulse 67 02/20/25 13:22 BP 126/82 02/20/25 13:22 Pulse Ox 96 02/20/25 13:22 Oxygen Delivery Method Room Air 02/20/25 13:22 BMI result Body Mass Index 43.7 Tobacco/Smoking Status: Tobacco use Status Tobacco use date assessed 02/20/25 02/20/25 13:27 Patient Tobacco Use Status Former Tobacco user 02/20/25 13:27 e-Cigarette/Vaping Use Never Used 02/20/25 13:27 PHQ-9: PHQ-9 Score PHQ-9: Total score 0 02/27/25 05:00 Depression Screening Interpretation: Negative Thrive Assessment: Date of Thrive Assessment Date Thrive assessed 02/20/25 02/20/25 13:27 Currently or been in a relationship where the following occur: No concerns reported Const General: no acute distress and alert HENMT Ears: TM's normal bilaterally and EAC's normal Throat: Yes posterior oropharynx normal and Yes tonsils normal (no TP congestion) Neck Neck: Yes supple and No lymphadenopathy Thyroid: Thyroid normal Resp Auscultation: clear to auscultation bilaterally, no rales and no wheezes Cardio Rate: regular rate Rhythm: regular rhythm Heart sounds: no murmurs GI Palpation (GI): Soft to palpation and nontender Auscultation: normal bowel sounds General: Yes no CVA tenderness Back/Spine/Pelvis Back: no CVA tenderness Thoracic/Lumbar Spine: lumbar spinal tenderness Skin Rashes: no rashes Extrem General: Yes no clubbing, cyanosis or edema Right lower extremity: knee Details: tenderness Location: of the pre-patellar area and of the infrapatellar area; no swelling Left lower extremity: knee Details: tenderness Location: of the pre-patellar area and of the infrapatellar area; no swelling Results Reviewed Results Reviewed: Laboratory Tests 01/30/25 01/30/25 08:11 08:15 WBC 10.5 Hgb 12.1 Hct 36.5 L Plt Count 327 Sodium 141 Potassium 3.7 Creatinine 0.60 Estimated GFR > 60 Fasting Glucose 106 H Hemoglobin A1c % 5.5 Calcium 9.1 AST 19 ALT 18 Triglycerides 76 Cholesterol 195 LDL Cholesterol, Calc 125 H HDL Cholesterol 55 25-OH Vitamin D Total 33.8 TSH 1.90 Ur Specific [place] 1.025 Urine Protein Trace Urine Glucose (UA) Negative Urine Blood Negative Urine Nitrite Negative Ur Leukocyte Esterase Negative Coding Level of Care Code Est Pt Level 4 (28826) Complex EM visit Add On G2211 Diagnoses Pure hypercholesterolemia E78.00 Impaired fasting glucose R73.01 Essential hypertension I10 DANILO on CPAP G47.33 GERD without esophagitis K21.9 Iron deficiency anemia, unspecified iron deficiency anemia type D50.9 Iron deficiency anemia type: unspecified iron deficiency Pain in both knees, unspecified chronicity M25.561; M25.562 Chronicity: unspecified Anxiety F41.9 Morbid obesity with BMI of 40.0-44.9, adult E66.01; Z68.41 Additional Codes PHQ-9 - 98812 - PHQ-9 Billing: Yes ([id number]) Assessment & Plan Assessment & Plan (1) Pure hypercholesterolemia: Code(s): E78.00 - Pure hypercholesterolemia, unspecified Category: Medical Plan: Results of her labs done about 2 to 3 weeks ago reviewed and discussed with patient - she is advised that her cholesterol levels have increased again slightly from previous Reinforced low cholesterol diet - goal is LDL cholesterol of at least <100 mg/dl and preferably < 70 mg/dl due to her comorbidities Continue Pravastatin 10 mg QD for now but advised that we may need to increase/adjust her dose if her numbers do not improve over the next few months Will recheck her labs and fasting lipids in 4 months for follow up (2) Impaired fasting glucose: Code(s): R73.01 - Impaired fasting glucose Category: Medical Plan: Her in-office HgbA1c was at 5.7% a few months ago; HgbA1c was at 5.2% back in April 2023 - was at 5.5% on her recent labs Reinforced low calorie/low carb diet She is currently on Mounjaro 5 mg SQ once a week and seems to be doing well on the medication with no apparent side effects - to continue on current Rx for now She was previously on Trulicity 1.5 mg SQ once a week but was able to get it for months due to its unavailability at the pharmacy (3) Essential hypertension: Code(s): I10 - Essential (primary) hypertension Category: Medical Plan: Reinforced low sodium diet - goal is systolic BP of at least 120 mm or less Continue HCTZ 25 mg QD (4) DANILO on CPAP: Code(s): G47.33 - Obstructive sleep apnea (adult) (pediatric) Category: Medical Plan: She was previously referred to Sleep Medicine for reassessment as she needed to get a new CPAP device as her old unit is worn down Follow up with Sleep Medicine as scheduled (5) GERD without esophagitis: Code(s): K21.9 - Gastro-esophageal reflux disease without esophagitis Category: Medical Plan: Dietary restrictions reinforced Continue Famotidine 20 mg BID (6) Iron deficiency anemia: Code(s): D50.9 - Iron deficiency anemia, unspecified Category: Medical Qualifiers: Iron deficiency anemia type: unspecified iron deficiency Qualified Code(s): D50.9 - Iron deficiency anemia, unspecified Plan: Corrected Continue Ferrous gluconate 240 mg QD Will recheck her CBC in 4 months for follow up (7) Bilateral knee pain: Code(s): M25.561 - Pain in right knee; M25.562 - Pain in left knee Category: Medical Qualifiers: Chronicity: unspecified Qualified Code(s): M25.561 - Pain in right knee; M25.562 - Pain in left knee Plan: X-rays of both knees done last month revealed (+) mild to moderate medial compartment osteoarthrosis in both knees Follow up with orthopedics as scheduled (8) Anxiety: Code(s): F41.9 - Anxiety disorder, unspecified Category: Medical Plan: Continue Citalopram 40 mg QD (9) Morbid obesity with BMI of 40.0-44.9, adult: Code(s): E66.01 - Morbid (severe) obesity due to excess calories; Z68.41 - Body mass index [BMI] 40.0-44.9, adult Category: Medical Plan: Reinforced diet/exercise as tolerated/lose weight Plan Follow up in 4 months Orders: Orders Complete Blood Count Auto Diff 4 Months D64.9 - Anemia, unspecified UA CC w/rflx Micro + Cult 4 Months R30.0 - Dysuria Comprehensive [place]. Panel Fast 4 Months E78.00 - Pure hypercholesterolemia, unspecified Lipid Panel 4 Months E78.00 - Pure hypercholesterolemia, unspecified TSH reflex Free T4 4 Months E78.00 - Pure hypercholesterolemia, unspecified Vitamin D 25-OH Total 4 Months E55.9 - Vitamin D deficiency, unspecified Hemoglobin A1c 4 Months R73.01 - Impaired fasting glucose
--- OUTSIDE RECORDS SUMMARY | 2025-02-20 13:23 | XMS_ITS | Data Portability ---
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 Plan of Treatment Reminders Order Date Submit Date Provider Last Modified By Organization Details Last Modified Time Details Appointments None recorded. Lab TSH, serum or plasma 2015 016 [id number] [facility], [address] [place] [address], [address], 6 04:09:36 BMP, serum or plasma 2015 016 [id number] [facility], [address] [place] [address], [address], 6 04:04:49 Referral None recorded. Procedures None recorded. Surgeries None recorded. Imaging None recorded. Medication Orders famotidine 20 mg tablet 2015 016 [facility][id number], [address] [place], [address], 6 14:24:02 Patient TargetsNo targets recorded. Patient Instructions Encounter Date Encounter Id Patient Instructions Last Modified By Organization Details Last Modified Time 02/11/2016 [id number] Well Visit, Ages 18 to 65: Care [...] management improv ing sleep [facility] {{# adding exercise regular meals stress management improv ing sleep therapist [facility]}} {{# adding exercise regular meals stress management improv ing sleep therapist i [employer] [facility]}}My Health To Do List {{# go to [employer] or call si gn up for shahab text 2 quit or other stop smoking shahab contact [place] [employer]}} {{# go to [employer] or call si gn up for shahab text 2 quit or other stop smoking shahab contact [place] [employer]}} {{# go to [employer] or call si gn up for shahab text 2 quit or other stop smoking shahab contact [place] [employer]}} Not available 02/11/2016 13:51:19 04/16/2016 [id number] how to read a food label to limit sodium: care instructions [id number] Not available 09/27/2016 04:02:42 low sodium diet (2,000 milligram): care instructions Not available 09/27/2016 04:02:32 05/19/2016 [id number] More fruits and vegetables Aim for 5-9 /day. Blueberries. Fruit sald check sugar fasting given the weight gain. [facility] Not available 05/19/2016 11:37:48 08/25/2016 [id number] Lost weight. Discussed low carb diet. wt watchers, con't exercise. HIgher protein, vegetables. F/U 3 months [facility] Not available 08/25/2016 14:01:05 10/29/2016 [id number] This looks likea cold. Rest, stress reduction,Reduced dairy may reduce congestion in some people. Call in a week or so if it looks like the cold has invaded the sinuses and wont leave ( more than 3-5 days), or you have fever that persists for a few days. discussed Eustacian tube issue. [facility] Not available 10/29/2016 11:33:57 Reason for Referral None Reported. Results Created Date Observation Date Name Description Value Unit Range Abnormal Flag Note LastModifiedBy Organization Detail LastModifiedTime 02/04/20 16 02/04/2016 CBC WBC 12.1 K/? ? ?L 4.0-10 .0 high Not Available [address], [address], 02/04/2016 14:59:42 02/04/20 16 02/04/2016 CBC RBC 4.28 M/? ? ?L 3.93-5 .22 Not Available [address], [address], 02/04/2016 14:59:42 02/04/20 16 02/04/2016 CBC HGB 11.9 g/dL 11.2-1 5.7 Not Available [address], [address], 02/04/2016 14:59:42 02/04/20 16 02/04/2016 CBC HCT 36.1 % 34.1-4 4.9 Not Available [address], [address], 02/04/2016 14:59:42 02/04/20 16 02/04/2016 CBC MCV 84.3 ? ? ?L 79.4-9 4.8 Not Available [address], [address], 02/04/2016 14:59:42 02/04/20 16 02/04/2016 CBC MCH 27.8 pg 25.6-3 2.2 Not Available [address], [address], 02/04/2016 14:59:42 02/04/20 16 02/04/2016 CBC MCHC 33.0 g/dL 32.2-3 5.5 Not Available [address], [address], 02/04/2016 14:59:42 02/04/20 16 02/04/2016 CBC plt 389.0 K/? ? ?L 182.0- 369.0 high Not Available [address], [address], 02/04/2016 14:59:42 02/04/20 16 02/04/2016 CBC MPV 10.1 9.4-12 .3 Not Available [address], [address], 02/04/2016 14:59:42 02/04/20 16 02/04/2016 CBC neut% 70.4 % 34.0-7 1.1 Not Available [address], [address], 02/04/2016 14:59:42 02/04/20 16 02/04/2016 CBC neut# 8.5 1.6-6. 1 high Not Available [address], [address], 02/04/2016 14:59:42 02/04/20 16 02/04/2016 CBC lymph % 22.4 % 19.3-5 1.7 Not Available [address], [address], 02/04/2016 14:59:42 02/04/20 16 02/04/2016 CBC lymph # 2.7 K/? ? ?L 1.2-3. 7 Not Available [address] [place], [address], 02/04/2016 14:59:42 02/04/20 16 02/04/2016 CBC mono% 5.0 % 4.7-12 .5 Not Available [address], [address], 02/04/2016 14:59:42 02/04/20 16 02/04/2016 CBC mono# 0.6 0.2-0. 6 high Not Available [address], [address], 02/04/2016 14:59:42 02/04/20 16 02/04/2016 CBC eo% 1.7 % 0.7-5. 8 Not Available [address], [address], 02/04/2016 14:59:42 02/04/20 16 02/04/2016 CBC eo# 0.2 0.0-0. 4 Not Available [address], [address], 02/04/2016 14:59:42 02/04/20 16 02/04/2016 CBC baso% 0.5 % 0.1-1. 2 Not Available [address], [address], 02/04/2016 14:59:42 02/04/20 16 02/04/2016 CBC baso# 0.1 0.0-0. 1 high Not Available [address], [address], 02/04/2016 14:59:42 02/04/20 16 02/04/2016 CBC RDW-CV 15.1 % 11.7-1 4.4 high Not Available [address], [address], 02/04/2016 14:59:42 02/04/20 16 02/04/2016 lipid panel , serum cholesterol 228 mg/dL <200 mg/dl Calderon able 200-2 39 mg/dl Jana gamingine High >240 mg/dl High Not Available [address], [address], 02/04/2016 16:13:55 02/04/20 16 02/04/2016 lipid panel , serum triglyceride s 88 mg/dL <150 mg/dL Chaya l 150-1 99 mg/dL Borde rline High 200-4 99 mg/dL High >500 mg/dL Very High Not Available [address], [address], 02/04/2016 16:13:55 02/04/20 16 02/04/2016 lipid panel , serum direct HDL 49 mg/dL Not Available [address], [address], 02/04/2016 16:13:55 02/04/20 16 02/04/2016 LDL, direc [...] r is not neces noemí. Not Available [address], [address], 02/04/2016 16:13:56 08/20/20 16 08/20/2016 BMP, serum or plasm a glucose 81 mg/dL 70-100 Not Available [address], [address], 08/20/2016 11:39:55 08/20/20 16 08/20/2016 BMP, serum or plasm a BUN 11 mg/dL 7-18 Not Available [address], [address], 08/20/2016 11:39:55 08/20/20 16 08/20/2016 BMP, serum or plasm a creatinine 0.5 mg/dL 0.8-1. 3 low Not Available [address], [address], 08/20/2016 11:39:55 08/20/20 16 08/20/2016 BMP, serum or plasm a B/C 22.0 ratio Not Available [address], [address], 08/20/2016 11:39:55 08/20/20 16 08/20/2016 BMP, serum or plasm a GFR -non 151.6 mL/mi n Recom priti d GFR by the Natio nal Kidne y Found ation >60 mL/mi n/1.7 3m2 - Chaya l <60 mL/mi n/1.7 3m2 - Chron ic Kidne y Disea se <15 mL/mi n/1.7 3m2 - Kidne y Failu re Not Available [address], [address], 08/20/2016 11:39:55 08/20/20 16 08/20/2016 BMP, serum or plasm a GFR - if 174.3 mL/mi n For Afric an Ameri can patie nts: Resul ts Multi plied by 1.21 Not Available [address], [address], 08/20/2016 11:39:55 08/20/20 16 08/20/2016 BMP, serum or plasm a sodium 139 mmol/ L 136-14 5 Not Available [address], [address], 08/20/2016 11:39:55 08/20/20 16 08/20/2016 BMP, serum or plasm a potassium 4.4 mmol/ L 3.5-5. 1 Not Available [address], [address], 08/20/2016 11:39:55 08/20/20 16 08/20/2016 BMP, serum or plasm a chloride 101 mmol/ L 96-107 Not Available [address], [address], 08/20/2016 11:39:55 08/20/20 16 08/20/2016 BMP, serum or plasm a anion gap 10.3 5.0-15 .0 Not Available [address], [address], 08/20/2016 11:39:55 08/20/20 16 08/20/2016 BMP, serum or plasm a CO2 28 mmol/ L 21-32 Not Available [address], [address], 08/20/2016 11:39:55 08/20/20 16 08/20/2016 BMP, serum or plasm a calcium 8.9 mg/dL 8.5-10 .3 Not Available [address], [address], 08/20/2016 11:39:55 08/20/20 16 08/26/2016 TSH, serum or plasm a TSH 1.83 uIU/m L 0.50-6 .00 The Ameri can Colle ge of Endoc rinol ogy and Ameri can Thyro id Assoc iatio n recom mend goal TSH value s betwe en 0.4-4 .0 mIU/m L. Not Available [address], [address], 08/26/2016 10:40:35 Result Notes None recorded. Problems Name Problem SNOMED Code Status Onset Date Resolution Date Notes Provider Name and Address Organization Details Recorded Time Common cold 50296571 Completed 01/24/2015 Andre Kumar DPM [address] [place] [address] [place], [address] [place] [address] 6 10:57:11 Impacted cerumen 56023217 Completed 01/24/2015 Andre Kumar DPM [address] [place], [address], [facility] 6 10:57:11 Essential hypertensio n 14056114 Completed 08/03/2015 Andre Kumar DPM [address] [place], [address], [facility] 6 10:57:11 Hearing loss 75158132 Active 2014 Andre Kumar DPM [address] [place], [address], [facility] 6 10:57:11 Female pelvic inflammator y disease 210260121 Completed 200005/06/2013 Andre Kumar DPM [address] [place], [address], [facility] 6 10:57:11 Open wound of finger 558301440 Completed 200005/06/2013 Andre Kumar DPM [address] [place], [address], [facility] 6 10:57:11 Vitamin K deficiency 41775744 Completed 200005/06/2013 Andre Kumar DPM [address] [place], [address], [facility] 6 10:57:11 Acute cystitis 88713201 Completed 200105/06/2013 Andre Kumar DPM [address] [place], [address], [facility] 6 10:57:11 Neck pain 10155380 Completed 200105/06/2013 Andre Kumar DPM [address] [place], [address], [facility] 6 10:57:11 Influenza 7237126 Completed 05/06/2013 Andre Kumar DPM [address] [place], [address], [facility] 6 10:57:11 Left lower quadrant pain 811325386 Completed 200605/06/2013 Andre Kumar DPM [address] [place], [address], [facility] 6 10:57:11 Allergic rhinitis 99111066 Active 2006 Andre Kumar DPM [address] [place], [address], [facility] 6 10:57:11 Complicatio n of medical care 30181202 Completed 200805/06/2013 Andre Kumar DPM [address] [place], [address], [facility] 6 10:57:11 Acute suppurative otitis media without spontaneous rupture of ear drum 06988694 Completed 200605/06/2013 Andre Kumar DPM [address] [place], [address], [facility] 6 10:57:11 Sciatica 18492728 Active 2003 Andre Kumar DPM [address] [place], [address], [facility] 6 10:57:11 Hypermetrop ia 01255099 Active 2008 Andre Kumar DPM [address] [place], [address], [facility] 6 10:57:11 Acute conjunctivi tis 22359117 Completed 200105/06/2013 Andre Kumar DPM [address] [place], [address], [facility] 6 10:57:11 Acute maxillary sinusitis 84298984 Completed 200105/06/2013 Andre Kumar DPM [address] [place], [address], [facility] 6 10:57:11 Sprain of knee and leg Completed 200305/06/2013 Andre Kumar DPM [address] [place], [address], [facility] 6 10:57:11 Backache 313541240 Completed 200108/31/2013 Andre Kumar DPM [address] [place], [address], [facility] 6 10:57:11 Acute bronchitis 14358330 Completed 200605/06/2013 Andre Kumar DPM [address] [place], [address], [facility] 6 10:57:11 Cyst of ovary 11945593 Completed 200805/06/2013 Andre Kumar DPM [address] [place], [address], [facility] 6 10:57:11 Malaise and fatigue 462124571 Completed 200105/06/2013 Andre Kumar DPM [address] [place], [address], [facility] 6 10:57:11 Left upper quadrant pain 833608356 Completed 200805/06/2013 Andre Kumar DPM [address] [place], [address], [facility] 6 10:57:11 Headache 37342565 Completed 200105/06/2013 Andre Kumar DPM [address] [place], [address], [facility] 6 10:57:11 Cough 81565611 Completed 200505/06/2013 Andre Kumar DPM [address] [place], [address], [facility] 6 10:57:11 Right lower quadrant pain 310257182 Completed 200205/06/2013 Andre Kumar DPM [address] [place], [address], [facility] 6 10:57:11 Astigmatism 88353449 Completed 200806/07/2014 Andre Kumar DPM [address] [place], [address], [facility] 6 10:57:11 Tobacco user 245536095 Active 2007 Andre Kumar DPM [address] [place], [address], [facility] 6 10:57:11 Impacted cerumen 31244590 Completed 200605/06/2013 Andre Kumar DPM [address] [place], [address], [facility] 6 10:57:11 Joint pain in ankle and foot Completed 05/06/2013 Andre Kumar DPM [address] [place], [address], [facility] 6 10:57:11 Acute swimmer's ear Completed 200405/06/2013 Andre Kumar DPM [address] [place], [address], [facility] 6 10:57:11 Primary malignant neoplasm of oral cavity 816523425 Completed 200105/06/2013 Andre Kumar DPM [address] [place], [address], [facility] 6 10:57:11 Acute upper respiratory infection 35997292 Completed 05/06/2013 Andre Kumar DPM [address] [place], [address], [facility] 6 10:57:11 Common cold 41103642 Completed 200105/06/2013 Andre Kumar DPM [address] [place], [address], [facility] 6 10:57:11 Abdominal pain 11151160 Completed 200605/06/2013 Andre Kumar DPM [address] [place], [address], [facility] 6 10:57:11 On examination - a rash Completed 200005/06/2013 Andre Kumar DPM [address] [place], [address], [facility] 6 10:57:11 Chronic pain 54129172 Completed 06/07/2014 Andre Kumar DPM [address] [place], [address], [facility] 6 10:57:11 Disorder of lung 56573955 Completed 200605/06/2013 Andre Kumar DPM [address] [place], [address], [facility] 6 10:57:11 Female genital organ symptoms 364590645 Completed 200205/06/2013 Andre Kumar DPM [address] [place], [address], [facility] 6 10:57:11 Low back pain 503957203 Completed 200105/06/2013 Andre Kumar DPM [address] [place], [address], [facility] 6 10:57:11 Asthma 902535551 Active 2007 (rare issue since radha matthews). Andre Kumar DPM [address] [place], [address], [facility] 6 10:57:11 Viral upper respiratory tract infection 078125729 Completed 200705/06/2013 Andre Kumar DPM [address] [place], [address], [facility] 6 10:57:11 Vaginitis and vulvovagini tis Completed 200605/06/2013 Andre Kumar DPM [address] [place], [address], [facility] 6 10:57:11 Problem Notes None recorded. Procedures Surgical History Date Name Laterality Status Provider Name and Address Organization Details Recorded Time 02/11/20 16 Asthma Control Test (12 + years old) completed Ramila Rubio [facility] 02/11/2016 13:51:20 08/03/20 15 Asthma Control Test (12 + years old) completed Kayy Killian [facility] 08/03/2015 08:18:50 01/25/20 15 Smoking cessation counseling completed Won Esparza MD [address] [place] [address], [address], [facility] 01/24/2015 13:03:31 01/25/20 15 Asthma Control Test (12 + years old) completed Kayy Killian [facility] 01/24/2015 11:51:50 06/07/20 14 Smoking cessation counseling completed Kayy Killian [facility] 06/07/2014 11:35:02 01/10/20 14 Cerumen Removal completed Mara Ramos [facility] 01/09/2014 11:43:43 08/05/20 13 Smoking cessation counseling completed Won Esparza MD [address] [place] [address], [address], [facility] 08/06/2013 15:59:58 05/06/20 13 Smoking cessation counseling completed Won Espraza MD [address] [place] [address], [address], [facility] 05/06/2013 10:59:48 09/27/20 12 Asthma Control Test (12 + years old) completed Ivy Mcintyre [facility] 09/27/2012 11:26:38 11/26/19 12 Smoking cessation counseling completed Pearl Yepez ACADEMIC SERVICES COORDINATOR [facility] 11/26/2011 09:10:21 04/28/20 11 Cerumen Removal completed Janie Powell LPN [facility] 04/28/2011 10:15:17 01/18/20 10 Treatment and Advice completed Dedrick Malik [facility] 01/17/2010 10:28:51 04/12/20 09 Treatment and Advice completed Lynsey Balbuena, PT [address] [place], [address], [facility] 04/12/2009 14:20:11 04/02/20 09 Treatment and Advice completed Lynsey Balbuena, PT [address] [place], [address], [facility] 04/02/2009 15:02:05 Total Hysterectomy completed Not Available [...] Name and Address Organization Details Recorded Time 432192 Zoloft medicatio n Not available Not available Not available 04/06/2015 17604 RxNorm insom quin. Won Esparza MD [address] [place], [address], [facility] 16:00:55 Medications Name Sig Start Date Stop [...] Available Not Available No t Available Afluria 3253-0498 (PF) 45 mcg (15 mcg x 3)/0.5 mL intramusc ular syringe TO BE ADMINIST ERED BY [employer] FOR IMMUNIZA TION active Not Available Not [...] Details Last Updated DateTime 7 149.86 cm 27141.1 4 g 41.4 kg/m2 84 /min 98.7 [degF] 132 mm[Hg] 84 mm[Hg] Ramila [facility] 7 11:16:04 Date Recorded Body mass index (BMI) Body height Heart rate Body weight Systolic blood pressure Diastolic blood pressure Provider Name and Address Organization Details Last Updated DateTime 6 40.1 kg/m2 149.86 cm 84 /min 92566.0 45467 g 124 mm[Hg] 64 mm[Hg] Ramila [facility] 6 13:57:14 Date Recorded Body height Body weight Body mass index (BMI) Body temperature Heart rate Systolic blood pressure Diastolic blood pressure Provider Name and Address Organization Details Last Updated DateTime 6 149.86 cm 20834.8 4 g 41.2 kg/m2 97.9 [degF] 64 /min 102 mm[Hg] 70 mm[Hg] Kayy Killian [facility] 6 10:21:35 Date Recorded Body height Body weight Body mass index (BMI) Heart rate Systolic blood pressure Diastolic blood pressure Provider Name and Address Organization Details Last Updated DateTime 6 149.86 cm 62061.4 4 g 41.4 kg/m2 64 /min 106 mm[Hg] 62 mm[Hg] Daniela Penaloza LPN [facility] 6 11:17:16 Date Recorded Body height Body weight Body mass index (BMI) Heart rate Systolic blood pressure Diastolic blood pressure Provider Name and Address Organization Details Last Updated DateTime 6 149.86 cm 73901.6 6 g 40.8 kg/m2 78 /min 122 mm[Hg] 68 mm[Hg] Ramila [facility] 6 13:33:05 Social History Question Answer Notes LastModified by Organizat ion Details LastModified Time Tobacco Smoking Status Former Smoker Quit 7/9/15. And also quit E-cigarette s. Won Esparza MD [address] [place] [address], [address], [facility] 05/11/2015 08:17:01 Do You Have An Advance Directive? No [email or web address] Information not available 09/27/2012 Do You Wear A Helmet When Biking? Yes Information not available 01/24/2015 How Much Tobacco Do You Chew? None Information not available 03/30/2015 What Type Of Diet Are You Following? REGULAR [email or web address] Information not available 02/27/2012 Which Illicit Or Recreational Drugs Have You Used? 0 Information not available 03/30/2015 When Did You Quit Smoking? 1-5yearssin celastcigar ette Information not available 03/30/2015 How Many Days [...] Hold Per Weaning Off Them Rosalva C Information not available 03/20/2014 CSRP Contract Signed And Discussed Yes 10/13/10, 10/15/11 Information not available 08/28/2011 Patient Has Health Care Proxy Signed And In Chart Yes Adair [email or web address] Information not available 09/27/2012 Marital Status 12/17/2014. IMANI López Since 01/2015 [email or web address] Information not available 01/24/2015 Mosquito Repellent Used Routinely Yes Information not available 01/24/2015 How Many Children Do You Have? 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 10-19packye ars Pack Years 20 Information not available 03/30/2015 Seat Belts Used Routinely Yes Information not available 01/24/2015 Smoke Alarm In Home Yes Information not available 01/24/2015 General Stress Level Low Information not available 01/24/2015 Do You Use Sunscreen Routinely? Yes Information not available 01/24/2015 Sex: Unknown Functional Status Question Answer Note LastModified by Organizat ion Details LastModified Time What is your level of alcohol consumption? 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 Family History Relationship [...] virus, trivalent, preservative 1 completed Not Available [facility] 10/29/2019 02:30:28 Td(adult) unspecified formulation 4 completed Not Available [facility] 08/27/2011 05:21:07 Influenza, split virus, trivalent, preservative 2 completed Not Available [facility] 10/29/2019 02:18:35 Influenza, split virus, trivalent, PF 3 completed Not Available [facility] 10/29/2019 02:18:59 Tdap 5 completed Not Available [facility] 10/29/2019 02:27:41 Influenza, split virus, quadrivalent, PF 5 completed Not Available [facility] 10/29/2019 02:25:32 influenza, unspecified formulation 4 [facility] 07/[facility] 09:41:49 influenza, intradermal, quadrivalent, preservative free 6 completed Not Available [facility] 11/12/2019 02:10:41 Influenza, split virus, quadrivalent, PF 7 completed Not Available [facility] 11/12/2019 02:10:42 influenza, unspecified formulation 7 completed RAMOS Mendez, [facility] 07/27/2017 08:09:30 Influenza, split virus, trivalent, preservative 0 completed Not Available [facility] 10/29/2019 02:25:07 Past Encounters Encounter ID Performer Location Encounter Start Date Encounter Closed Date Diagnosis/Indication Diagnosis SNOMED-CT Code Diagnosis ICD10 Code Diagnosis Note [id number] TRISTIAN Childress , [facility], [address] [place] [address] 11/10/2000 12:00:00 11/01/2008 02:02:29 [id number] FP TREATMENT NURSE [facility], [facility], [address] [place] [address] 01/19/2001 11:45:00 11/01/2008 02:02:29 [id number] FP TREATMENT NURSE [facility], [facility], [address] [place] [address] 01/21/2001 13:45:00 11/01/2008 02:02:29 [id number] TRISTIAN Childress , [facility], [address] [place] [address] 02/25/2001 12:15:00 11/01/2008 02:02:29 [id number] Sumaya Kaye MD [facility] [address] [place] [address] 03/06/2001 09:30:00 11/01/2008 02:02:29 [id number] TRISTIAN Childress, [facility], [address] [place] [address] 04/21/2001 11:30:00 11/01/2008 02:02:29 [id number] FP TREATMENT NURSE [facility], [facility], [address] [place] [address] 06/11/2001 09:30:00 11/01/2008 02:02:29 [id number] Bambi Saleh NP , [facility], [address] [place] [address] 07/08/2001 11:30:00 11/01/2008 02:02:29 [id number] FP TREATMENT NURSE [facility] FP, [facility], [address] [place] [address] 09/07/2001 13:45:00 11/01/2008 02:02:29 [id number] Bambi Saleh NP FP, [facility], [address] [place] [address] 6 10/20/2001 11:45:00 11/01/2008 02:02:29 [id number] [facility] RADIOLOG[facility] [employer] [facility] , [facility] [address] [place] [address] 10/20/2001 12:15:00 11/01/2008 02:02:29 [id number] [facility] [employer] , [facility] [address] [place] [address] 6 10/20/2001 00:00:00 11/01/2008 02:02:29 [id number] TRISTIAN Leavitt FP, [facility], OFFICE [address] [place] [address] 6 10/26/2001 10:30:00 11/01/2008 02:02:29 [id number] FP TREATMENT NURSE [facility] FP, [facility], [address] [place] [address] 6 11/24/2001 14:30:00 11/01/2008 02:02:29 [id number] Torin Langley MD FP, [facility], [address] [place] [address] 6 12/11/2001 10:15:00 11/01/2008 02:02:29 [id number] Radha Ferraro MD , [facility], [address] [place] [address] 6 01/10/2002 17:45:00 11/01/2008 02:02:29 [id number] Bambi Saleh NP FP, [facility], [address]ICE [address] [place] [address] 6 02/09/2002 14:00:00 11/01/2008 02:02:29 [id number] FP TREATMENT NURSE [facility] FP, [facility], [address] [place] [address] 6 02/16/2002 15:30:00 11/01/2008 02:02:29 [id number] [facility] - [facility] [address] [place] [address] 6 02/17/2002 10:30:00 11/01/2008 02:02:29 [id number] Misha Solano FP, [facility], OFFICE [address] [place] [address] 6 03/20/2002 09:20:12 11/01/2008 02:02:29 [id number] FP TREATMENT NURSE [facility] FP, [facility], [address] [place] [address] 6 05/10/2002 10:44:03 11/01/2008 02:02:29 [id number] Misha Solano FP, [facility], [address] [place] [address] 6 06/22/2002 13:36:02 11/01/2008 02:02:29 [id number] Radha Quarles NP , [facility], [address]ICE [address] [place] [address] 6 07/15/2002 15:34:23 11/01/2008 02:02:29 [id number] FP TREATMENT NURSE [facility] FP, [facility], [address] [place] [address] 6 08/03/2002 15:48:38 11/01/2008 02:02:29 [id number] Bambi Saleh NP FP, [facility], [address]ICE [address] [place] [address] 6 02/20/2003 15:30:27 11/01/2008 02:02:29 [id number] Sumaya Kaye MD , [facility], [address]ICE [address] [place] [address] 6 07/01/2003 10:30:06 07/02/2003 09:28:04 [id number] Vinnie Monaco MD Radiology , [address] [address] 07/03/2003 13:18:29 07/03/2003 14:52:36 [id number] [facility] Technolog[facility] st Radiology , [address] [address] 07/03/2003 00:00:00 11/01/2008 02:02:29 [id number] ANAHI Egan, [facility], OFFICE [address] [place] [address] 6 12/28/2003 09:31:06 12/28/2003 11:14:35 [id number] Bambi Saleh NP FP, [facility], [address] [place] [address] 6 04/01/2004 13:22:06 04/09/2004 11:16:30 [id number] Bambi Saleh NP FP, [facility], [address] [place] [address] 6 04/10/2004 11:10:03 04/11/2004 10:43:33 [id number] Bambi Saleh NP FP, [facility], [address] [place] [address] 6 07/15/2004 14:30:03 07/16/2004 10:05:29 [id number] Bambi Saleh NP FP, [facility], [address]ICE [address] [place] [address] 6 08/26/2004 08:59:23 08/26/2004 13:57:08 [id number] [facility] - [address] [address] 08/26/2004 16:50:34 08/26/2004 16:50:57 [id number] Dontrell Lyons MD , [facility], [address]ICE [address] [place] [address] 6 05/10/2005 14:40:19 05/11/2005 08:52:10 [id number] TRISTIAN Childress, [facility], [address] [place] [address] 6 11/11/2005 09:43:44 11/11/2005 13:58:16 [id number] TRISTIAN Childress, [facility], [address]ICE [address] [place] [address] 6 06/22/2006 11:28:40 06/23/2006 09:25:57 [id number] [facility] ASSISTANT CONSTRUCTION SUPERINTENDENT Radiology , [address] [address] 6 06/23/2006 12:30:17 11/01/2008 02:02:29 [id number] [facility] ASSISTANT CONSTRUCTION SUPERINTENDENT Radiology , [address] [address] 6 06/23/2006 00:00:00 11/01/2008 02:02:29 [id number] [facility] [employer] [facility] - [address] [address] 6 06/23/2006 07:59:06 06/23/2006 07:59:17 [id number] [facility] RADI[facility] Radiology , [facility] [address] [place] [address] 6 10/07/2006 10:48:38 10/08/2006 09:15:07 [id number] [facility] [address] [address] 6 10/07/2006 00:00:00 11/01/2008 02:02:29 [id number] TRISTIAN Childress, [facility], OFFICE [address] [place] [address] 6 10/07/2006 09:54:58 10/08/2006 11:47:09 [id number] Radha Quarles NP FP, [facility], [address]ICE [address] [place] [address] 6 10/19/2006 09:07:23 10/19/2006 13:25:46 [id number] [facility] [address] [address] 6 10/19/2006 09:27:54 10/20/2006 09:16:07 [id number] [facility] RADI[facility] [address] [address] 6 10/19/2006 00:00:00 11/01/2008 02:02:29 [id number] Bambi Saleh NP FP, [facility], [address]ICE [address] [place] [address] 6 11/26/2006 10:37:23 11/26/2006 15:34:46 [id number] [facility] - [address] [address] 6 12/09/2006 00:00:00 11/01/2008 02:02:29 [id number] TRISTIAN Childress, [facility], OFFICE [address] [place] [address] 6 02/23/2007 10:03:37 02/23/2007 15:14:00 [id number] TRISTIAN Childress, [facility], [address]ICE [address] [place] [address] 6 04/16/2007 13:32:24 04/19/2007 09:16:30 [id number] TRISTIAN Childress, [facility], [address]ICE [address] [place] [address] 6 04/28/2007 09:45:20 04/28/2007 16:26:10 [id number] MD HERMES Bustos, [facility], [address]ICE [address] [place] [address] 6 05/07/2007 16:15:27 05/10/2007 08:38:26 [id number] MD HERMES Silver, [facility], [address]ICE [address] [place] [address] 6 05/15/2007 09:44:43 05/15/2007 11:23:32 [id number] MD HERMES Hsieh, [facility], [address]ICE [address] [place] [address] 6 05/16/2007 09:43:50 05/17/2007 08:54:13 [id number] Bambi Saleh NP , [facility], [address] [place] [address] 6 05/17/2007 14:17:08 05/17/2007 16:42:58 [id number] TRISTIAN Leavitt, [facility], [address]ICE [address] [place] [address] 6 05/25/2007 15:09:36 05/26/2007 11:39:22 [id number] TRISTIAN Leavitt, [facility], [address]ICE [address] [place] [address] 6 08/12/2007 09:08:42 11/01/2008 02:02:29 [id number] Radha Ferraro MD , [facility], [address] [place] [address] 6 09/08/2007 10:08:25 11/01/2008 02:02:29 [id number] Aubrey Torres MD , [facility], [address]ICE [address] [place] [address] 6 09/10/2007 09:33:48 11/01/2008 02:02:29 [id number] [facility] - [address] [address] 6 09/08/2007 11:00:17 09/08/2007 11:00:30 [id number] [facility] - [address] [address] 6 09/10/2007 10:34:47 09/10/2007 10:34:55 [id number] [facility] ASSISTANT CONSTRUCTION SUPERINTENDENT Radiology , [facility] [address] [place] [address] 6 09/14/2007 14:53:32 09/15/2007 09:44:39 [id number] [facility] ASSISTANT CONSTRUCTION SUPERINTENDENT Radiology , [facility] [address] [place] [address] 6 09/14/2007 00:00:00 11/01/2008 02:02:29 [id number] MD HERMES Yee, [facility], [address]ICE [address] [place] [address] 6 09/16/2007 10:59:41 11/01/2008 02:02:29 [id number] ANAHI Doshi, [facility], [address] [place] [address] 6 11/23/2007 13:17:25 11/01/2008 02:02:29 [id number] ANAHI Deutsch, [facility], [address]ICE [address] [place] [address] 6 02/17/2008 09:16:22 11/01/2008 02:02:29 [id number] [facility] , [facility] [address] [place] [address] 02/22/2008 12:08:25 02/23/2008 09:21:01 [id number] [facility] RAD[facility] , [facility] [address] [place] [address] 6 02/22/2008 00:00:00 11/01/2008 02:02:29 [id number] ANAHI Deutsch, [facility], [address]ICE [address] [place] [address] 6 02/22/2008 11:29:00 11/01/2008 02:02:29 [id number] ANAHI Deutsch, [facility], [address] [place] [address] 6 05/29/2008 14:29:45 11/01/2008 02:02:29 [id number] ANAHI Shaikh, [facility], [address] [place] [address] 6 08/16/2008 15:26:31 11/01/2008 02:02:29 [id number] ANAHI Deutsch, [facility], [address] [place] [address] 6 09/19/2008 13:35:57 11/01/2008 02:02:29 [id number] ANAHI Egan, [facility], [address] [place] [address] 6 01/12/2009 09:37:03 01/16/2009 15:25:36 [id number] [facility] ASSISTANT CONSTRUCTION SUPERINTENDENT Radiology , [address] [address] 01/16/2009 13:43:27 01/18/2009 12:33:30 [id number] Bambi Saleh NP FP, [facility], [address]ICE [address] [place] [address] 6 03/28/2009 10:11:31 03/29/2009 16:05:46 [id number] Lynsey hall, PT Physical Therapy, [address] [address] 04/02/2009 14:14:00 04/03/2009 10:46:29 [id number] Lynsey hall, PT Physical Therapy, [address] [address] 6 04/12/2009 13:29:56 04/16/2009 08:54:42 [id number] ANAHI Egan, [facility], [address]ICE [address] [place] [address] 6 05/03/2009 16:26:40 05/07/2009 12:13:00 [id number] Lynsey hall, PT Physical Therapy, [address] [address] 6 05/07/2009 12:17:56 05/08/2009 08:40:19 [id number] [facility] ASSISTANT CONSTRUCTION SUPERINTENDENT Radiology , [address] [address] 6 05/24/2009 10:20:23 05/30/2009 10:11:29 [id number] [facility], [address] [address] 6 01/10/2009 15:09:04 01/10/2009 16:00:01 [id number] [facility] - [address] [address] 01/12/2009 10:03:01 01/12/2009 10:03:12 [id number] [facility] ASSISTANT CONSTRUCTION SUPERINTENDENT Radiology , [address] [address] 6 01/16/2009 00:00:00 08/09/2009 02:00:52 [id number] [facility], [address] [address] 02/16/2009 09:47:41 02/16/2009 11:40:56 [id number] [facility] ASSISTANT CONSTRUCTION SUPERINTENDENT Radiology , [facility] [address] [place] [address] 6 05/24/2009 00:00:00 08/09/2009 02:00:52 [id number] Rusty Jade MD , [facility], OFFICE [address] [place] [facility] [place] [address] 11/08/2009 08:56:32 11/14/2009 11:22:25 [id number] Thomas Malik, CHIKAT Physical Therapy, [facility] [address] [place] [place] [facility] [place] [address] 6 11/13/2009 09:52:24 11/15/2009 13:44:30 [id number] Rusty Jade MD , [facility], OFFICE [address] [place] [facility] [place] [address] 11/13/2009 10:48:52 11/16/2009 15:16:08 [id number] [facility] SUPERINTENDENT PRESSURE Radiology , [facility] [address] [place] [facility] [place] [address] 6 11/13/2009 11:18:47 11/14/2009 11:25:48 [id number] [facility] SUPERINTENDENT PRESSURE Radiology , [facility] [address] [place] [facility] [place] [address] 11/13/2009 11:47:42 11/14/2009 11:25:55 [id number] CHIKA GuidoT Physical Therapy, [facility] [address] [facility] [place] [address] 6 12/12/2009 09:00:11 12/12/2009 16:16:18 [id number] Won Esparza MD , [facility], OFFICE [address] [place] [facility] [place] [address] 6 12/14/2009 09:24:38 12/19/2009 10:35:44 [id number] CHIKA GuidoT Physical Therapy, [facility] [address] [place] [facility] [place] [address] 6 12/21/2009 12:04:46 12/21/2009 15:59:09 [id number] CHIKA GuidoT Physical Therapy, [facility] [address] [place] [facility] [place] [address] 6 12/25/2009 10:20:17 12/25/2009 13:56:49 [id number] Won Esparza MD FP, [facility], OFFICE [address] [facility] [place] [address] 6 01/02/2010 16:03:12 2010 14:59:46 [id number] Thomas Malik, DPT Physical Therapy, [facility] [address] [place] [facility] [place] [address] 6 01/17/2010 10:01:36 01/21/2010 10:12:29 [id number] Won Esparza MD FP, [facility], OFFICE [address] [facility] [place] [address] 01/22/2010 15:10:58 01/24/2010 15:53:38 [id number] MD HERMES Nathan, [facility], OFFICE [address] [place] [address] 6 04/05/2010 09:26:46 04/10/2010 12:40:18 [id number] Won Esparza MD FP, [facility], OFFICE [address] [place] [facility] [place] [address] 6 07/17/2010 09:01:19 07/22/2010 15:44:14 [id number] Kayy Mcdaniel NP FP, [facility], OFFICE [address] [facility] [place] [address] 6 09/25/2010 08:34:53 09/26/2010 15:33:00 [id number] Won Esparza MD FP, [facility], OFFICE [address] [place] [place] [facility] [place] [address] 6 10/21/2010 09:04:15 10/24/2010 14:30:09 [id number] MD HERMES Nathan, [facility], OFFICE [address] [facility] [place] [address] 6 01/22/2011 09:27:16 01/27/2011 15:49:18 [id number] Loly MIRZA, [facility], OFFICE [address] [facility] [place] [address] 6 04/28/2011 09:33:10 04/28/2011 10:13:33 [id number] Won Esparza MD , [facility], OFFICE [address] [facility] [place] [facility] [place] [address] 6 05/28/2011 09:48:29 05/28/2011 10:45:49 [id number] [facility] FP, [facility], OFFICE [address] [facility] [place] [facility] [place] [address] 07/16/2011 08:46:11 07/17/2011 10:17:24 [id number] Won Esparza MD , [facility], OFFICE [address] [facility] [place] [facility] [place] [address] 6 08/27/2011 11:31:28 08/27/2011 12:05:55 [id number] [facility] Radiology , [facility] [address] [facility] [place] [facility] [place] [address] 6 10/23/2011 16:07:50 10/24/2011 13:32:09 [id number] BLAYNE Mora , [facility], OFFICE [address] [place] [place] [facility] [place] [address] 6 10/23/2011 16:12:58 10/23/2011 17:08:57 [id number] Won Esparza MD , [facility], OFFICE [address] [facility] [place] [facility] [place] [address] 6 11/26/2011 08:57:18 11/26/2011 09:46:07 [id number] Manju Barajas NP FP, [facility], [address] [place] [address] 6 01/03/2012 10:56:59 01/07/2012 10:36:10 [id number] Won Esparza MD , [facility], OFFICE [address] [facility] [place] [facility] [place] [address] 01/06/2012 18:26:13 01/07/2012 15:27:21 [id number] Won Esparza MD , [facility], OFFICE [address] [facility] [place] [address] 6 02/27/2012 09:31:18 02/27/2012 10:08:06 [id number] Won Esparza MD , [facility], [address] [place] [address] 6 06/28/2012 10:43:15 06/28/2012 11:22:19 [id number] Won Esparza MD FP, [facility], OFFICE [address] [place] [address] 6 09/27/2012 11:12:51 09/27/2012 12:00:23 [id number] MD HERMES Nathan, C, OFFICE [address] [place] [address] 6 12/27/2012 09:56:50 12/27/2012 10:48:21 [id number] MD HERMES Nathan, C, OFFICE [address] [place] [address] 6 05/06/2013 10:26:35 05/06/2013 11:05:09 [id number] MD HERMES Nathan, [facility], OFFICE [address] [place] [address] 6 08/05/2013 10:59:17 08/05/2013 11:40:38 Chronic pain 03115825 Influenza vaccine needed [id number] 106 Tobacco user 001216268 [id number] MD HERMES Nathan, C, OFFICE [address] [place] [address] 6 11/09/2013 11:37:49 11/09/2013 12:26:13 Low back pain 791118694 Essential hypertension 22520376 [id number] MD HERMES Landry, [facility], OFFICE [address] [place] [address] 6 01/09/2014 10:59:30 01/09/2014 11:35:07 Common cold 01594493 Impacted cerumen 38858674 [id number] MD HERMES Nathan, C, OFFICE [address] [place] [address] 6 02/06/2014 11:39:14 02/06/2014 12:32:33 Chronic pain 63669278 Essential hypertension 52862572 [id number] MD HERMES Nathan, [facility], OFFICE [address] [place] [address] 6 03/08/2014 10:41:53 03/08/2014 11:21:05 Essential hypertension 95101810 Tobacco user [id number] Low back pain 022862232 [id number] MD HERMES Nathan, [facility], OFFICE [address] [place] [address] 6 06/07/2014 11:26:18 06/07/2014 12:10:22 Asthma 902862877 Essential hypertension 25028759 Tobacco user [id number] MD HERMES Landry, [facility], OFFICE [address] [place] [address] 6 10/03/2014 11:43:29 10/03/2014 12:17:44 Upper respiratory infection 24338442 [id number] MD HERMES Nathan, [facility], OFFICE [address] [place] [address] 6 01/24/2015 11:14:01 01/24/2015 12:54:45 Intrinsic asthma 757524170 INTERMITTE NT Asthma- Based on history, physical assessment and peak flow the patients asthma is in control. Will continue the present medication s and follow-up in 6 months. The asthma action plan has been discussed. The patient verbalizes understand ing medication use.. The patient is in agreement with this plan. Counseling [id number] [facility] th examination 606094837 see Risk Assessment and Lifestyle Change Counseling section above Insomnia 367204808 Nicotine dependence 62514871 [id number] MD HERMES Nathan, [facility], OFFICE [address] [place] [address] 6 02/09/2015 11:02:36 02/09/2015 12:18:17 Tight chest 56501357 Dizziness and giddiness 459816724 Gastroesop hageal reflux disease 342342157 [id number] MD HERMES Nathan, [facility], OFFICE [address] [place] [address] 6 02/14/2015 08:12:16 02/14/2015 09:01:11 Allergic rhinitis 96524330 Insomnia 840693336 Asthma 202242866 [id number] MD HERMES Nathan, [facility], OFFICE [address] [place] [address] 6 02/28/2015 13:21:55 02/28/2015 14:53:27 Administration of diphtheria, pertussis, and tetanus vaccine 205576384 Neck pain 00837530 [id number] Won Esparza MD , [facility], OFFICE [address] [place] [address] 6 02/28/2015 14:05:38 02/28/2015 14:30:22 Asthma 513120092 [id number] MD HERMES Nathan, [facility], OFFICE [address] [place] [address] 6 03/30/2015 11:47:25 03/30/2015 12:34:16 Neck pain 86192378 Sweating 214019635 Insomnia 191590621 [id number] MD HERMES Nathan, [facility], OFFICE [address] [place] [address] 6 04/06/2015 15:18:30 04/06/2015 16:07:52 Anxiety 02578273 Bereavement 91012713 Gastroesop hageal reflux disease 213639450 [id number] MD HERMES Nathan, [facility], OFFICE [address] [place] [address] 6 04/11/2015 16:58:42 04/11/2015 17:50:55 Increased frequency of urination 369837425 some hematuria, no sign of infection. get retested at [facility] apt 04/23 Allergic rhinitis 16520474 Upper resp iratory infection 11998378 [id number] Won Esparza MD , [facility], OFFICE [address] [place] [address] 6 05/11/2015 07:53:28 05/11/2015 10:47:13 Anxiety 64892726 Blood in urine 10059256 Eruption 095830326 [id number] MD HERMES Nathan, [facility], OFFICE [address] [place] [address] 6 08/03/2015 08:05:40 08/03/2015 08:49:48 Intrinsic asthma 769220168 J45.20 INTERMITTE NT Asthma- Based on history, physical assessment and peak flow the patients asthma is in control. Will continue the present medication s and follow-up in 6 months. The asthma action plan has been discussed. The patient verbalizes understand ing medication use.. The patient is in agreement with this plan. Active or passive immunization 582511470 Z23 [id number] Won Esparza MD , [facility], OFFICE [address] [place] [address] 6 01/21/2016 14:23:18 01/21/2016 15:04:17 Acute upper respiratory infection 59731456 J06.9 Malaise 476478141 R53.81 Foot pain 76713582 M79.6 73 [id number] Andre Kumar DPM Podiatry, [address] [address] 6 02/07/2016 10:28:06 02/07/2016 10:53:47 Acquired cavus deformity of foot 81019475 M21.6X9 [id number] Won Esparza MD , [facility], OFFICE [address] [place] [address] 6 02/11/2016 13:31:02 02/11/2016 14:26:14 Adult health examination 063925475 Z00.00 see Risk Assessment and Lifestyle Change Counseling section above Counseling 060146859 Z71 .9 Gastroesop hageal reflux disease 325305352 K21.9 Morbid obesity 039166444 E66.01 Sweating 802012233 R61 [id number] Catherine Galaviz MD , [facility], OFFICE [address] [place] [address] 6 04/16/2016 10:03:42 04/16/2016 11:04:49 Idiopathic edema 04538464 R60.9 You have foot swelling of unknown cause. The medical name for this is idiopathic edema. The treatment is to lower your sodium and salt intake. Basically sodium and salt are the same thing. I have asked the front man to print out some informatio n for you and I have also given you a list of some of the keys to lowering your salt.I talked about a type of seasoning without salt called Mrs. Swain. I also Gave you a written list of some of the high salt foods which are [place] food, pizza, hot dogs, kielbasa, salami, most deli meats, ketchup, pickles, chips, paraguayan fries. Leg elevation can also help the swelling. Vit B complex 50 mg a day also may help the swelling. You should see Dr. Esparza in May for follow-up of your lipids (cholester ol) your leg swelling, and your acid reflux. [id number] Won Esparza MD , [facility], OFFICE [address] [place] [address] 6 05/19/2016 10:56:43 05/19/2016 11:39:36 Gastroesophageal reflux disease 993344615 K21.9 Morbid obesity 734713682 E66.01 [id number] Won Esparza MD , [facility], OFFICE [address] [place] [address] 6 08/25/2016 13:00:41 08/25/2016 14:03:51 Fatigue 39594075 R53.83 Morbid obesity 148620430 E66.01 [id number] Won Esparza MD , [facility], OFFICE [address] [place] [address] 6 10/29/2016 10:55:48 10/29/2016 12:47:35 Acute upper respiratory infection 62470407 J06.9 Educated patient that URI is a viral illness of the upper airways. It is not bacterial and does not benefit from antibiotic s. Dysfunctio n of eustachian tube 84022792 H69.93 Health Concerns Section Related Observation LastModified by Organization Detai ls LastModified Time None Recorded Concern Status LastModified by Organization Details LastModified Time None Recorded Advance Directives Directive N: Payers Encounter Date Sequence Insurance Name Policy Number Policy Kimball Covered Member ID Kimball Member ID Guarantor Name 02/11/2016 1 [facility] PL[facility] (MEDICAID HMO) [id number] Kenyetta Bruce [id number] Kenyetta Bruce 04/16/2016 1 [facility] PLAN (MEDICAID HMO) [id number] Kenyetta Bruce [id number] Kenyetta Bruce 05/19/2016 1 [facility] PL[facility] (MEDICAID HMO) [id number] Kenyetta Bruce [id number] Kenyetta Bruce 08/25/2016 1 [facility] (MEDICAID HMO) [id number] Kenyetta Elizondo Teo [id number] Kenyetta A Teo 10/29/2016 1 [facility] (MEDICAID HMO) [id number] Kenyetta Elizondo Teo [id number] Kenyetta A Teo Notes Date Note Type Note Provider Name and Address Organization Details Recorded Time 02/11/2016 text/html DTR Julieta has 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 Eats a lot of junk food eunice at night. Won Esparza MD [address] [place] [address], [phone], [facility] 02/11/2016 14:24:31 02/11/2016 text/html Physical Exam/FemaleReported bypatient.Notes:Here [...] no changes in productivity Won Esparza MD [address] [place] [address], [phone], [facility] 02/11/2016 14:24:31 04/16/2016 text/html This 41-year-old woman [...] watch her salt intake. Catherine Galaviz MD [address] [place] [address], [phone], [facility] 04/16/2016 11:13:09 05/19/2016 text/html For f/u weight. and GERD. famotidine, Eats chips late night. walking alot. Does not each much for lunch or breakfast. but trying to eat eggs. Won Esparza MD [address] [place] [address], [phone], [facility] 05/19/2016 11:38:08 08/25/2016 text/html For f/u weight. and GERD. famotidine, Eats chips late night. walking alot. Does not each much for lunch or breakfast. but trying to eat eggs. . Tossed salads. Doing better w/ portion control. Eating lots of carbs. Doing treadmil 30 min and 30 of the bike. and does this each 2x/d- about 2.5 hours. Won Esparza MD [address] [place] [address], [phone], [facility] 08/25/2016 14:01:21 10/29/2016 text/html VMG URI Flu [...] had bilat PE tubes Won Esparza MD [address] [place] [address], [phone], [facility] 10/29/2016 11:35:57 OBGyn Episode No OBEpisode recorded.
== END 2025-02-20 15:06 | disposition home or self-care (01) ==
LOC: HO.HMCH 13:05
PROVIDERS: PCP Internal Medicine; Visit Provider Internal Medicine
DX: E78.00 Pure hypercholesterolemia, unspecified (principal); R73.01 Impaired fasting glucose; E66.01 Morbid (severe) obesity due to excess calories; Z68.41 Body mass index [BMI] 40.0-44.9, adult; I10 Essential (primary) hypertension; G47.33 Obstructive sleep apnea (adult) (pediatric); K21.9 Gastro-esophageal reflux disease without esophagitis; D50.9 Iron deficiency anemia, unspecified; M25.561 Pain in right knee; M25.562 Pain in left knee; F41.9 Anxiety disorder, unspecified

== ENCOUNTER → 2025-02-20 13:04 | Outpatient (BNVA) | payer OTHER, SELFPAY | PROVIDERS: PCP Internal Medicine; Visit Provider Internal Medicine | DX: E78.00 Pure hypercholesterolemia, unspecified (principal); R73.01 Impaired fasting glucose; I10 Essential (primary) hypertension; G47.33 Obstructive sleep apnea (adult) (pediatric); K21.9 Gastro-esophageal reflux disease without esophagitis; D50.9 Iron deficiency anemia, unspecified; M25.561 Pain in right knee; M25.562 Pain in left knee; F41.9 Anxiety disorder, unspecified; E66.01 Morbid (severe) obesity due to excess calories; Z68.41 Body mass index [BMI] 40.0-44.9, adult; Z79.899 Other long term (current) drug therapy | CPT/HCPCS: 96127 ==

== ENCOUNTER 2025-03-30 12:55 | Outpatient (AMB) | payer OTHER, SELFPAY ==
--- NOTE | 2025-03-30 13:03 | A.OFFVIS_ITS ---
Vital Signs 03/30/25 13:05 Weight 219 lb BP 142/63 H Blood Pressure Location Lt brachial Position Sitting Respiration 18 Pulse 96 Pulse Source Pulse Oximeter Pulse Oximetry (%) 97 Oxygen Delivery Method Room Air Intake Visit Reasons: Follow up after PT being started Card Filer Required: No Allergies Seasonal Allergies Allergy (Mild, Verified 03/30/25 13:06) Sneezing sertraline (From Zoloft) Allergy (Mild, Verified 03/30/25 13:06) Insomnia tramadol Adverse Reaction (Intermediate, Verified 03/30/25 13:06) made blood pressure go up very high HPI Comments Details: Kenyetta is back in my office after she started physical therapy. She reported minimal improvement of physical therapy, she reports that baclofen helps her to tolerate her pain better. She reports that in combination with Tylenol it gives her anxiety and agitation. I told her not to take Tylenol and instead of Tylenol to take ibuprofen. Alternatively she is prescribed with meloxicam can take meloxicam. I will increase the dose of the baclofen to 20 mg t.i.d., I also offered this patient to perform diagnostic medial branch block L2, L3, L4 bilateral she has significant L5 sacralization that is why I do not believe that dorsal ramus L5 could be effectively addressed with the injection. With good results of the medial branch blocks sprint PNS versus RFA could be offered to the patient. Prior: very pleasant 50 years old female who presents in my office with complains on multiple pain generators including pain in the lower back pain in the lower neck and pain in bilateral shoulders and bilateral arms. Pain started October of 2024. She somehow relates her pain to the medication mountjaro she was taking to treat her diabetes. The pain of this patient is mostly axial without radiation into bilateral lower extremities. The pain of this patient is most likely facetogenic in nature. See physical exam as below. [facility] Medical History Bilateral knee pain Impaired fasting glucose Morbid obesity with BMI of 40.0-44.9, adult GERD without esophagitis Pure hypercholesterolemia Essential hypertension Diabetes mellitus Iron deficiency anemia Surgical History History of appendectomy Status post left foot surgery Hx of hernia repair History of partial hysterectomy (~2000) Family History Father COPD (chronic obstructive pulmonary disease) Mother Hyperthyroidism Alcohol abuse Social History Household Members: Spouse Housing: House Alcohol intake: current Alcohol intake frequency: holidays/special occasions only Alcohol type: beer and wine Patient Tobacco Use Status: Former Tobacco user e-Cigarette/Vaping Use: Never Used service: No Current occupational status: employed 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 Current occupational exposures/hazards: No Cognitive needs: No Hearing needs: No Vision needs: Yes Review of Systems Const All systems reviewed & are unremarkable except as noted in HPI and below ENT Reports Normal hearing present Neuro Reports Normal hearing present, Denies Abnormal speech present and Denies Sensory deficit (Neuro) Physical Exam Vital Signs: Last Vital Signs Pulse 96 03/30/25 13:05 Resp 18 03/30/25 13:05 BP 142/63 H 03/30/25 13:05 Pulse Ox 97 03/30/25 13:05 Oxygen Delivery Method Room Air 03/30/25 13:05 Const General: no acute distress, alert and Physically active Nutritional Appearance: obese morbidly obese Orientation/consciousness: patient oriented x3 Limitations: no limitations Eyes General: appearance normal, both eyes and all related structures Pupils: Equal, round and reactive pupils present EOM: EOMs intact bilaterally Neck Other: Limited range of motion of the neck movements. Flexing forward does not aggravate her pain but flexing back backwards make her pain more severe. Chest Chest palpation & inspection: normal inspection of the chest Resp Effort & Inspection: normal respiratory effort, able to speak in complete sentences, normal respiratory pattern, no audible wheezes and no cough Cardio Jugular venous distension: no JVD GI Inspection: Yes normal to inspection Back/Spine/Pelvis Other: Able to stand on bilateral tiptoes in bilateral heels without difficulty. The gait is unaffected. There is severe tenderness on palpation in the paraspinal spinal region most lower portion of the lumbar spine. Riley test is negative bilaterally. Loading test is positive bilaterally. Valsalva maneuver does not aggravate her pain. Neuro General: patient oriented x3 and gait normal Cranial nerves: Yes CN's II-XII intact bilaterally, Yes Equal, round and reactive pupils present, Yes Normal hearing present and Yes Ability to bilaterally elevate shoulders present Speech: No Abnormal speech present Gait exam (Neuro): Normal gait present Motor exam (neuro): 5/5 motor strength present throughout Sensory Exam: No Sensory deficit (Neuro) Extrem General: No pedal edema Psych Speech and movement: Normal speech and movement present Affect: normal affect Attitude: cooperative Thought process: Normal thought process present Thought content: Normal thought content present Insight: Good insight present (Psych) Judgement: Good judgement present (Psych) Assessment & Plan Assessment & Plan (1) Spondylosis of lumbar region without myelopathy or radiculopathy: Code(s): M47.816 - Spondylosis without myelopathy or radiculopathy, lumbar region Category: Medical Plan The patient received minimal help from physical therapy. She also reported minimal help from baclofen. I increase the dose of the baclofen to 20 mg. On the x-ray there is very advanced spondylosis. I offered her diagnostic medial branch block L2, L3, L4 bilaterally. I will see this patient in the office after the injection. Medications: New baclofen 20 mg PO TID PRN 90 tabs 8RF Muscular pain and spasticity 30 days Discontinued baclofen Discontinued Reason: Doctor's Order 10 mg PO TID 30 days 90 tabs 6RF Coding Level of Care Code Est Pt Level 3 (38214) Diagnoses Spondylosis of lumbar region without myelopathy or radiculopathy M47.816
[2025-03-30 13:05] VITALS: BP 142/63; PULSE 96; RESP 18; O2SAT 97
--- OUTSIDE RECORDS SUMMARY | 2025-03-30 14:02 | XMS_ITS | Clinical Summary ---
Author Organization [facility] Address [address] [place] [address] Phone Care Team Providers Care Biofuels Technology Manager Name Role Phone David Pinedo MD Primary Care Provider Social History Tobacco Use Types Packs/Day Years [...] (1 of 2) 01/05/2024 COVID-19 Vaccine ( season) 2024 09/10/2021, 12/01/2020, 11/10/2020 Colorectal Cancer [...] on patient's age to complete this topic Insurance [facility] MEDICAID - [place] Care Teams Biofuels Technology Manager Relationship Specialty Start Date End Date David Pinedo MD [address] [place] [address] [address] [place], [place] PCP - General Internal Medicine 09/28/24
== END 2025-03-30 13:14 | disposition home or self-care (01) ==
LOC: HO.PMC 12:55
PROVIDERS: PCP Internal Medicine; Visit Provider Anesthesiology
DX: M47.816 Spondylosis without myelopathy or radiculopathy, lumbar region (principal)
CPT/HCPCS: 99213

== ENCOUNTER 2025-04-03 11:35 | Outpatient (RCR) | payer OTHER, SELFPAY | END 2025-05-18 08:59 | disposition home or self-care (01) | LOC: HO.PT 11:35 | PROVIDERS: PCP Internal Medicine; Visit Provider Anesthesiology | DX: M47.812 Spondylosis without myelopathy or radiculopathy, cervical region (principal); M54.2 Cervicalgia | CPT/HCPCS: 97110; 97161; 97530; 97535 ==

== ENCOUNTER 2025-06-06 06:14 | Outpatient (REF) | payer OTHER, SELFPAY ==
--- OUTSIDE RECORDS SUMMARY | 2022-08-25 19:30 | XMS_ITS | Encounter Summary ---
Author Organization [facility] Address [facility] [employer] [address] [address] Phone Care Team Providers Care Environmental Laboratory Technician Name Role Phone PepitoMadonna sauceda Ban HAYES Primary Care Provider + [phone] David Cuellar MD Unavailable [phone] Encounter Details Date Type Department Care Team (Late st Contact Info) Description 08/25/2022 6:30 PM EST Hospital Encounter [facility] [address] [place] [address] Ronna Hawk CNP [address] [place] [address] [email or web address] Social History Tobacco Use Types Packs/Day Years [...] spine fracture or facet malalignment. Ronna Hawk PHOTO LAB MANAGER IMG XR SPINE Final Resul t documented in this encounter Visit Diagnoses Not on filedocumented in this encounter Additional Health Concerns Assessment Noted Time PHQ-2 Depression Total Score: 0 09/08/20 18 3:25 PM EST documented as of this encounter Care Teams Environmental Laboratory Technician Relationship Specialty Start Date End Date Madonna Beyer CNP [address] [place] [address] PCP - General 07/28/17 03/31/23 David Cuellar MD [address] [place] [address] Hematology and Oncology 09/22/18 documented as of this encounter Additional Source Comments The information contained in this document represents components of the legal health record. It is not the complete legal health record.[facility]
--- NOTE | ~2025-06-06 | FL_ITS ---
EXAMINATION: XR FLUOROSCOPY WITH IMAGES CLINICAL INFORMATION: Spondylosis without myelopathy or radiculopathy, lumbar region. Lumbar pain management. COMPARISON: 01/26/2025. TECHNIQUE: Fluoroscopy provided to: Dr. Sosa Fluoroscopy time: 0.7 minutes DAP: 0.299 mGycm2 Images: 12 FINDINGS: 12 fluoroscopic images obtained during lumbar pain management procedure. Please refer to the full operative report for details. FL/FL guidance in treatment room IMPRESSION: Fluoroscopic guidance. Electronically signed by: Calvin Sherman MD 06/06/2025 04:03 PM EDT
--- OUTSIDE RECORDS SUMMARY | 2025-06-06 06:17 | XMS_ITS | Encounter Summary ---
Author Organization [facility] Address [address] [place] [address] Phone Care Team Providers Care Load Planner Name Role Phone Valdo Reddy MD Unavailable Timothy Wyatt MD Unavailable Dane Davis MD Unavailable Enrrique Raza MD Unavailable [phone] Liliana Rikcs MD Unavailable [phone] Flaco Rebolledo MD Unavailable Madonna Beyer FLOUR MIXER HELPER Primary Care Provider [phone] Aubrey Delgado DO Unavailable David Cuellar MD Unavailable [phone] David Pinedo MD Primary Care Provider [phone] Encounter Details Date Type Department Care Team (Latest Contact Info) Description 01/17/2019 Transcribe Orders [address] [place] [address] Chu Henriquez MD, PhD [address] [place], [place] [id number] [email or web address] Disease of thyroid gland (Primary Dx) Social History Tobacco Use Types Packs/Day Years Used Date Smoking Tobacco: Former Smokeless Tobacco: Never Comments:quit 2014 Alcohol Use Standard Drinks/Week Comments Yes 0 (1 standard drink = 0.6 oz pur e alcohol) very occasional Comments Unknown Sex and Gender Information Value Date Recorded Sex Assigned at Female 12/07/2017 4:37 PM EST Legal Sex Female 9:31 PM EDT Gender Identity Female 10/19/2017 9:38 AM EST Sexual Orientation Not on file documented as of this encounter Plan of Treatment Not on file documented as of this encounter Results * TSH (01/17/2019 2:45 PM EDT) TSH 1.50 0.27 - 4.20 uIU/mL [facility] Blood 01/17/2019 2:45 PM EDT 01/17/2019 8:05 PM EDT Chu Henriquez MD, PhD LAB BLOOD ORDERABLES Fi nal Result Performing Organization Address [facility] de Phone Number [address] [address] * Free T4 (01/17/2019 2:45 PM EDT) FREE T4 0.9 0.9 - 1.7 ng/dL [facility] Blood 01/17/2019 2:45 PM EDT 01/17/2019 8:05 PM EDT Chu Henriquez MD, PhD LAB BLOOD ORDERABLES Fi nal Result Performing Organization Address [facility] Co de Phone Number [address] [address] documented in this encounter Visit Diagnoses Diagnosis Disease of thyroid gland- Primary Unspecified disorder of thyroid documented in this encounter Additional Health Concerns Infection Onset Date Last Indicated Resolved Time CoV-Exposed Comment:Recent close contact documented in the COVID-19 Amb Triage Form 10/16/2021 10/23/2021 11/06/2021 1:[address] Assessment Noted Time PHQ-2 Depression Total Score: 0 09/08/20 3:25 PM EST documented as of this encounter Care Teams Load Planner Relationship Specialty Start Date End Date Madonna Beyer, ABIGAIL [address] [address] PCP - General 07/28/17 03/31/23 David Pinedo MD [address] [place] [address] [address] PCP - General Internal Medicine 04/01/23 Valdo Reddy MD [address] [place] [address] [email or web address] Historical LMR Provider 07/27/17 10/19/21 Timothy Wyatt MD [address] [address] [email or web address] Historical LMR Provider 07/27/17 10/19/21 Dane aDvis MD [address] [address] Historical LMR Provider 07/27/17 10/19/21 Enrrique Raza MD [address] [address] Historical LMR Provider 07/27/17 10/19/21 Liliana Ricks MD [address] [place] [address] Historical LMR Provider 07/27/17 2 Flaco Rebolledo MD [address] [place] [address], [address] [place] [address] [email or web address] Historical LMR Provider 07/27/17 10/19/21 Aubrey Delgado DO [address] [place] [address] [address] [place] [address] [email or web address] Insurance Assigned Provider 08/14/18 02/15/20 David Cuellar MD [address] [place] [address] [email or web address] Hematology and Oncology 09/22/18 documented as of this encounter Additional Source Comments The information contained in this document represents components of the legal health record. It is not the complete legal health record.[facility]
--- OUTSIDE RECORDS SUMMARY | 2025-06-06 06:17 | XMS_ITS | Clinical Summary ---
Author Organization [facility] Address [address] [place] [address] Phone Care Team Providers Care Cloth Booker Name Role Phone David Pinedo MD Primary [...] 12/01/2020, 11/10/2020 Colorectal Cancer Screening: Colonoscopy 09/28/2024 HIV Screening 09/28/2024 Lung Cancer Screening (Low Dose CT) 09/28/2024 Social Influencers of Health Screening 09/28/2024 Depression Screening 10/12/2024 Breast Cancer Screening 10/28/2024 10/28/2022 Hypertension/CHF/CAD Annual BMP Blood Test 11/24/2024 10/08/2022, 12/12/2021, 04/01/2021, Additional history exists Influenza Vaccine (#1) 2025 4, 08/01/2023, 08/26/2022, Additional history exists Cholesterol Screening (Lipid Panel) 06/20/2027 06/20/2022 DTaP,Tdap,and Td Vaccines (5 - Td or Tdap) 10/20/2034 10/20/2024, 09/08/2018, 02/28/2015, Additional history exists Hepatitis C Screening Completed 04/01/2021 HIB Vaccines Aged Out No longer eligi [...] patient's age to complete this topic Insurance [facility] MEDICAID - [place] Care Teams Cloth Booker Relationship Specialty Start Date End Date David Pinedo MD [address] [place] [address] [place] [address] [place] PCP - General Internal Medicine 09/28/24
--- OUTSIDE RECORDS SUMMARY | 2025-06-06 06:17 | XMS_ITS | Encounter Summary ---
Author Organization [facility] Address [address] [place], [place] [phone] Phone Care Team Providers Care Firearms Specialist Name Role Phone Valdo Reddy MD Unavailable Timothy Wyatt MD Unavailable Dane Davis MD Unavailable Enrrique Raza MD Unavailable [phone] Liliana Ricks MD Unavailable [phone] Flaco Rebolledo MD Unavailable Madonna Beyer CNP Primary Care Provider [phone] Aubrey Delgado DO Unavailable David Cuellar MD Unavailable [phone] David Pinedo MD Primary Care Provider Encounter Details Date Type Department Care Team (Latest Contact Info) Description 06/29/2019 Transcribe Orders [facility] [address] [place] [address] David Cuellar MD [address] [place], [place] [phone] Screening for unspecified condition (Primary Dx) Social History Tobacco Use Types [...] Answer Date Recorded Are you interested in help w ith more adult education (for example, completing high school, GED, job training, learning the Belgian language, technical skills, or developing parenting skills)? No 02/17/2019 Are you concerned about learning? Not on file 02/17/2019 Not on file 02/17/2019 Not on file 02/17/2019 Food Answer Date Recorded Within the past [...] appointments or from getting medications? No 02/17/2019 Comments Unknown Sex and Gender Information Value Date Recorded Sex Assigned at Female 12/07/2017 4:37 PM EST Legal Sex Female 9:31 PM EDT Gender Identity Female 10/19/2017 9:38 AM EST Sexual Orientation Not on file documented as of this encounter Plan of Treatment Not on file documented as of this encounter Visit Diagnoses Diagnosis Screening for unspecified condition- Primary documented in this encounter Additional Health Concerns Infection Onset Date Last Indicated Resolved Time CoV-Exposed Comment:Recent close contact documented in the COVID-19 Amb Triage Form 10/16/2021 10/23/2021 11/06/2021 1:[address] Assessment Noted Time PHQ-2 Depression Total Score: 0 09/08/20 3:25 PM EST documented as of this encounter Care Teams Firearms Specialist Relationship Specialty Start Date End Date Madonna Beyer CNP [address] [place] [address], [address] [place] [address] PCP - General 07/28/17 03/31/23 David Pinedo MD [address] [place] [address] [address] PCP - General Internal Medicine 04/01/23 Valdo Reddy MD [address] [place] [address] [email or web address] Historical LMR Provider 07/27/17 10/19/21 Timothy Wyatt MD [address] [place] [address] Historical LMR Provider 07/27/17 10/19/21 Dane Davis MD [address] [place] [address] Historical LMR Provider 07/27/17 10/19/21 Enrrique Raza MD [address] [place] [address], [address] [place] [address] Historical LMR Provider 07/27/17 10/19/21 Liliana Ricks MD [address] [place] [address] Historical LMR Provider 07/27/17 2 Flaco Rebolledo MD [address] [place] [address] [email or web address] Historical LMR Provider 07/27/17 10/19/21 Aubrey Delgado DO [address] [place] [address] [address] [place] [address] [email or web address] Insurance Assigned Provider 08/14/18 02/15/20 David Cuellar MD [address] [place] [address] [email or web address] Hematology and Oncology 09/22/18 documented as of this encounter Additional Source Comments The information contained in this document represents components of the legal health record. It is not the complete legal health record.[facility]
--- OUTSIDE RECORDS SUMMARY | 2025-06-06 06:17 | XMS_ITS | Encounter Summary ---
Author Organization [facility] Address [address] [place] [address] Phone Care Team Providers Care Database Modeler Name Role Phone Madonna Beyer Ban HAYES Primary Care Provider [phone] David Cuellar MD Unavailable [phone] David Pinedo MD Primary Care Provider [phone] Encounter Details Date Type Department Care Team (Late st Contact Info) Description 10/08/2022 Procedure Pass [facility], [address] [phone] Social History Tobacco Use Types Packs/Day Years Used Date Smoking Tobacco: Former Cigarettes 1 30.5 0 07/01/1987 - 12/28/2017 Smokeless Tobacco: Never Comments:quit 2014 Alcohol Use [...] high school, GED, job training, learning the [place] language, technical skills, or developing parenting skills)? [...] or from getting medications? No 02/17/2019 Comments No Sex and Gender Information Value Date Recorded Sex Assigned at Female 12/07/2017 4:37 PM EST Legal Sex Female 9:31 PM EDT Gender Identity Female 10/19/2017 9:38 AM EST Sexual Orientation Not on file documented as of this encounter Plan of Treatment Not on file documented as of this encounter Visit Diagnoses Not on filedocumented in this encounter Additional Health Concerns Assessment Noted Time PHQ-2 Depression Total Score: 0 09/08/20 18 3:25 PM EST documented as of this encounter Care Teams Database Modeler Relationship Specialty Start Date End Date Madonna Beyer CNP [address] [place] [address], [address] [place] [address] [email or web address] PCP - General 07/28/17 03/31/23 David Pinedo MD [address] [place] [address] [place] [address] PCP - General Internal Medicine 04/01/23 David Cuellar MD [address] [place] [address] [email or web address] Hematology and Oncology 09/22/18 documented as of this encounter Additional Source Comments The information contained in this document represents components of the legal health record. It is not the complete legal health record.[facility]
--- OUTSIDE RECORDS SUMMARY | 2025-06-06 06:17 | XMS_ITS | Encounter Summary ---
Author Organization [facility] Address [address] [place] [address] Phone Care Team Providers Care Career Development Coordinator Name Role Phone David Cuellar MD Unavailable [phone] David Pinedo MD Primary Care Provider [phone] Encounter Details Date Type Department Care Team (Late st Contact Info) Description 04/01/2023 Procedure Pass [facility] Endoscopy Admitting Dept Virtual Department [address] [place] [address] Social History Tobacco Use Types Packs/Day Years [...] Noted Time PHQ-2 Depression Total Score: 0 01/02/20 23 2:07 PM EDT documented as of this encounter Care Teams Career Development Coordinator Relationship Specialty Start Date End Date David Pinedo MD [address] [place] [address] Dr Cantrell [address] [place] [address] PCP - General Internal Medicine 04/01/23 David Cuellar MD [address] [place] [address] Hematology and Oncology 09/22/18 documented as of this encounter Additional Source Comments The information contained in this document represents components of the legal health record. It is not the complete legal health record.[facility]
--- OUTSIDE RECORDS SUMMARY | 2025-06-06 06:17 | XMS_ITS | Clinical Summary ---
Author Organization [facility] Address [address] [place] [id number] Phone Care Team Providers Care Nurse Orthopaedic Name Role Phone David Cuellar MD Unavailable [phone] Emmanuel Casanova MD Primary Care Provider [phone] Allergies Active Allergy Reactions Criticality Noted Date Comments Sertraline 08/25/2017 Medications MULTIVIT WITH MINERALS/LUTEIN (MULTIVITAMIN 50 PLUS ORAL) Active b complex vitamins capsule Take 1 capsule by mouth daily. Active iron bis-gly/FA/C/B12 /Ca/succ (IRON-150 ORAL) Take by mouth. Active TRULICITY 1.5 mg/0.5 mL subcutaneous injectionIndicat ions:Medication refill INJECT 0.5 ML (1.5 MG TOTAL) UNDER THE SKIN EVERY 7 DAYS 2 mL 3 12/12/19 23 Active Additional Information Patient not taking.Reported on 04/05/2024 citalopram (CELEXA) 40 MG tabletIndication s:Anxiety Take 1 tablet (40 mg total) by mouth daily. 90 tablet 3 01/02/20 23 Active ascorbic acid, vitamin C, (VITAMIN C) 500 mg Chew Take 500 mg by mouth daily. Active hydroCHLOROthiaz deo (HYDRODIURIL) 25 MG tabletIndication s:Essential hypertension TAKE 1 TABLET BY MOUTH EVERY DAY 90 tablet 3 07/08/20 23 Active famotidine (PEPCID) 20 MG tabletIndication s:Gastroesophage al reflux disease TAKE 1 TABLET BY MOUTH 2 TIMES A DAY BEFORE MEALS. 180 tablet 2 07/28/20 23 Active MOUNJARO 10 mg/0.5 mL PnIj INJECT ONE PEN (=10MG) SUBCUTANEOUSLY ONCE A WEEK DIRECTED 03/22/20 24 Active pravastatin (PRAVACHOL) 10 MG tablet take 1 tablet by mouth everyday at bedtime 09/29/20 24 Active Active Problems Patient Care Coordination No te Formatting of this note migh t be different from the original. Height 150.2cm no shoes 06/30/19 Problem Noted Date Diagnosed Date Microhematuria 09/28/2019 Overview (09/29/2019): On urine dip. Micro UA negative for blood Assessment & Plan (09/28/2019 4:38 PM EST): Trace blood on UA. Urine sent for micro UA & sediment Seasonal allergies 12/28/2018 Assessment & Plan (12/28/2018 1:51 PM EDT): Kenyetta was diagnosed with seasonal allergies today and I advised that she take a daily Claritin, once a day. She also was given guidance regarding warm salt water gargles at home TID as needed. She will call if her symptoms do not improve or gets worse. She understands and agrees. Prediabetes 10/27/2018 Assessment & Plan (01/01/2023 2:55 PM EDT): She has lost about 10 pounds since starting GLP-1 receptor agonist in 2020. Her A1cs have improved. She does feel Trulicity helps with her appetite control and she will continue this medication Assessment & Plan (10/08/2022 7:13 PM EST): Reinforced importance of dietary changes. Encouraged her to increase cardiovascular exercise. Continue current regimen. Assessment & Plan (06/19/2022 2:42 PM EDT): She will continue Trulicity. I emphasized the importance of carbohydrate portion control Assessment & Plan (03/20/2022 7:50 PM EDT): She is tolerating Trulicity very well but she has not found it to be effective in curbing her appetite. We talked about some strategies to reduce portion size We will increase Trulicity dose. Possible side effects reviewed. Assessment & Plan (11/14/2021 8:17 PM EST): Continue trulicity, encouraged to continue exercise efforts & follow sugar free, low carbohydrate diet Assessment & Plan (07/02/2021 3:45 AM EDT): Continue trulicity Assessment & Plan (04/01/2021 9:54 PM EDT): Stop metformin due to diarrhea. Start Bydrueon for Pre-DM & obesity Assessment & Plan (10/10/2020 2:51 PM EST): Bothered by diarrhea due to metformin- change to regular metformin & break in half. Take 250 mg daily w food. If tolerates that well she will increase to 250 mg BID w food. Assessment & Plan (07/09/2020 7:17 PM EDT): Her A1c continues to trend up. She will start Metformin XR. 500 mg QD Discussed dietary changes & weight loss & encouraged to continue exercise Assessment & Plan (06/29/2019 12:14 PM EDT): Encouraged her to focus on lifestyle changes, stop eating Cerna's & FU with DM educator Edema of both legs 04/05/2018 Assessment & Plan (04/01/2021 9:55 PM EDT): She is working on obesity. May want to get leg wraps instead of stockings. Assessment & Plan (03/28/2020 5:23 PM EDT): I wrote her a prescription for compression stockings. I recommend she put these on every morning. I recommend low-sodium diet. Recommend she continue efforts at weight loss. Assessment & Plan (09/08/2018 8:43 PM EST): Given new prescription for compression stockings 20-30 mmHg. Recommend low-salt diet and weight loss Assessment & Plan (04/20/2018 1:12 PM EDT): She was given a prescription for compression stockings and instructed how to use these. She will continue low-dose hydrochlorothiazide and monitor for signs and symptoms of hypotension. Assessment & Plan (04/05/2018 11:03 AM EDT): Gifty presents with worsening lower leg swelling and she was advised to start on a diuretic today. She was agreeable to this. She will go for the above BNP lab work and I will update her with the results. I reviewed her most recent lab work from earlier this month and this is reassuring. Shew ill see her provider back in 2 weeks for a review. Anemia 08/27/2017 Assessment & Plan (09/08/2018 8:44 PM EST): Unknown etiology. Following with hematology. Anxiety 08/27/2017 Assessment & Plan (01/01/2023 2:52 PM EDT): Continue citalopram Assessment & Plan (10/08/2022 7:13 PM EST): Well-controlled. Continue citalopram Assessment & Plan (11/14/2021 8:17 PM EST): Doing well on celexa Assessment & Plan (10/10/2020 2:53 PM EST): stable Assessment & Plan (03/13/2020 4:10 PM EDT): Continue celexa 40 mg Urged daily exercise for mental & CV health Assessment & Plan (02/14/2020 3:13 PM EDT): Given validations & offered support. Reviewed coping strategies for anxiety. Increase celexa to 40 mg. FU telemed 4 weeks, sooner if issues. Assessment & Plan (01/13/2020 3:01 PM EDT): Continue celexa Assessment & Plan (06/29/2019 12:13 PM EDT): stable Assessment & Plan (09/08/2018 8:43 PM EST): Stable. Continue Celexa. Assessment & Plan (01/06/2018 1:24 PM EDT): Stable. Continue current dose Celexa Assessment & Plan (08/27/2017 1:28 PM EST): Discussed relaxation / CBT techniques for anxiety. Continue celexa. Essential hypertension 08/27/2017 Assessment & Plan (01/01/2023 2:52 PM EDT): Continue HCTZ. Heart healthy lifestyle encouraged Assessment & Plan (10/08/2022 7:13 PM EST): BP initially elevated today. Better on recheck. Continue current regimen. Diet and exercise discussed. Follow-up in 3 months. Assessment & Plan (06/19/2022 2:42 PM EDT): Well-controlled Assessment & Plan (03/20/2022 7:49 PM EDT): Well-controlled Assessment & Plan (11/14/2021 8:16 PM EST): Well controlled Assessment & Plan (07/02/2021 3:44 AM EDT): Low today. Asymptomatic. Recheck next visit, if low will decrease HCTZ dose Assessment & Plan (04/01/2021 9:51 PM EDT): Well controlled Assessment & Plan (10/10/2020 2:52 PM EST): stable Assessment & Plan (07/09/2020 3:41 PM EDT): Well controlled Assessment & Plan (03/28/2020 5:23 PM EDT): Her blood pressure is very good in office on 25 mg of hydrochlorothiazide. I recommend she get an automatic arm cuff for home, these are more reliable than the wrist cuffs. I recommend low-sodium diet, rich in fruits and vegetables, food sources of potassium. I recommend she continue biking, aim for daily exercise. Assessment & Plan (03/13/2020 4:10 PM EDT): She's not sure her home cuff is accurate. She will come for OV in 2-4 weeks for HTN FU She will continue HCTZ Assessment & Plan (01/13/2020 3:02 PM EDT): Continue current regimen. Will get labs this summer. Assessment & Plan (09/28/2019 2:55 PM EST): Well controlled Assessment & Plan (06/29/2019 12:13 PM EDT): stable Assessment & Plan (09/08/2018 8:43 PM EST): She will continue HCTZ. Low-salt diet recommended. Discussed exercise and dietary change. Referred to registered nurse surgical services Assessment & Plan (04/05/2018 11:01 AM EDT): Kenyetta Bruce has hypertension and she is taking the above medication as directed without any side effects. her blood pressure is within normal limits and stable. she will follow up as directed. Assessment & Plan (03/23/2018 1:56 PM EDT): Her blood pressures have been low enough that would like to try stopping her low-dose lisinopril. She will check BP at home several times before her next visit with me in 3 months. Assessment & Plan (01/06/2018 1:23 PM EDT): Continue lisinopril, exercise encouraged. She will get CMP with her next set of labs for hematology Right knee pain 08/27/2017 Overview (07/09/2020): Intermittent. Aggravated by exercise. No swelling Assessment & Plan (07/02/2021 3:46 AM EDT): Reviewed stretching before & after exercise Assessment & Plan (07/09/2020 3:40 PM EDT): C/w Patellofemoral syndrome. Declines PT referral. Given home exercises. Leukocytosis 08/27/2017 Overview (08/27/2017): Following w heme. negative for BCR ABL translocation, smear appears normal without morphologic abnormalities, CMP is normal but her sedimentation rate is markedly elevated at 107. Assessment & Plan (06/29/2019 12:13 PM EDT): Stable, following w heme Assessment & Plan (08/27/2017 1:30 PM EST): Following w hematology, this is still being worked Up. Class 3 severe obesity due t o excess calories without serious comorbidity with body mass index (BMI) of 45.0 to 49.9 in adult 08/27/2017 Assessment & Plan (10/08/2022 7:15 PM EST): Has not lost weight so far on 1.5 mg Trulicity, but has had difficulty making dietary changes. She continues to work on this and was encouraged to increase exercise. Follow-up in 3 months Assessment & Plan (03/20/2022 7:51 PM EDT): We discussed some of the behavioral aspects of overeating today. Encouragement was given. She is interested in trying higher dose of Trulicity. Possible side effects reviewed. Assessment & Plan (07/02/2021 3:45 AM EDT): Congratulated on wt loss progress Assessment & Plan (04/01/2021 9:53 PM EDT): We discussed importance of dietary change. She is congraulaed on exercise behavior change She is interested in bariatric options. Referred. We will also change her from Metformin to a GLP-1 A for her pre-DM as these can help w weight loss Assessment & Plan (09/08/2018 8:47 PM EST): Referred to registered nurse surgical services. Today we did discuss bariatric medicine but she is not interested at this time Assessment & Plan (04/05/2018 11:01 AM EDT): Rohit is obese with a BMI of 44.2 and she was advised to improve his diet and exercise. She was agreeable to this. DANILO (obstructive sleep apnea) 08/27/2017 Overview (01/15/2018): Sleep study 2018. On CPAP at 10cm H2O Assessment & Plan (01/13/2020 3:02 PM EDT): Continue cpap Assessment & Plan (03/23/2018 1:57 PM EDT): Continue CPAP Gastroesophageal reflux disease without esophagi tis 08/27/2017 Assessment & Plan (08/27/2017 1:29 PM EST): Discussed trial of restarting omeprazole, but she's going to continue H2 rose mary & use tums as needed & FU w me in 1 month. Resolved Problems Problem Noted Date Diagnosed Date Resolved Date Left lower quadrant abdominal pain 06/29/2019 07/02/2021 Assessment & Plan (06/29/2019 12:14 PM EDT): CT ordered. Will try to get her old colonoscopy records. Acute left-sided low back pa in without sciatica 06/29/2019 07/02/2021 Assessment & Plan (06/29/2019 12:15 PM EDT): R/o Gi etiology. Kidney stones less likely. Certainly could be muscular. If CT normal will refer for PT Impacted cerumen of left ear 12/28/2018 10/09/2020 Assessment & Plan (12/28/2018 1:44 PM EDT): Kenyetta Power presents for a cerumen impaction of her left ear. she was agreeable to a flush and this was flushed out without any complications. she will call if there is any other issues. she understands and agrees. Paresthesias 10/27/2018 07/02/2021 Overview (01/02/2019): Negative EMG 12/2018 Chest pain 08/27/2017 04/05/2018 Overview (08/27/2017): Neg ETT 2014, neg nuclear 12/2016 Assessment & Plan (08/27/2017 1:28 PM EST): Had neg cardiac w/u. Recent scenarios sound like anxiety. Chest pain may also be due to GERD. Otalgia of both ears 08/27/2017 022 Overview (08/27/2017): fibrotic TMs. ?Chronic perforation of r TM. Hx tympanostomies Immunizations Immunization Administration Dates Next Due COVID-19 (Pre-08/03) Pfizer Vaccine, mRNA, PF 09/10/2021,12/01/2020,11/10/2020 INFLUENZA, SPLIT VIRUS, TRIVALENT PF 08/15/2024, 08/05/2013 INFLUENZA, SPLIT VIRUS, TRIV ALENT W/ PRESERVATIVE IM 08/12/2016,06/28/2012,07/16/2011,07/17 Influenza Quadrivalent MDCK Preservative Free IM 08/26/2022 Influenza Quadrivalent Prese rvative Free IM 07/01/2021,07/09/2020,08/08/2018,07/13,07/29/2016,08/03/2015 Influenza Recombinant Jesus valent Preservative Free IM 06/29/2019 Influenza, Unspecified Formulation 07/20/2014 Pneumococcal polysaccharide PPSV23 09/08/2018 Td, unspecified formulation 08/26/2004 Tdap 10/20/2024,09/08/2018,02/28/2015 Family History Medical History Relation Comments Hearing loss Brother Anxiety disorder Daughter 1 Asthma Daughter 1 Anxiety disorder Daughter 2 Hypothyroidism Daughter 2 Neurofibromatosis Daughter 2 Scoliosis Daughter 2 Emphysema Father Hypothyroidism Mother Osteoarthritis Mother Relation Status Comments Brother Daughter 1 Alive Daughter 2 Alive Father Mother Social History Tobacco Use Types Packs/Day Years Used Date Smoking Tobacco: Former Cigarettes 1 27.5 0 07/01/1987 - 12/28/2014 Smokeless Tobacco: Never Tobacco Cessation:Counseling Given: Not Answered Comments:quit 2014 Alcohol Use Standard Drinks/Week Comments [...] AM EST Sexual Orientation Not on file Last Filed Vital Signs Vital Sign Reading Time Taken Comments Blood Pressure 118/73 10/20/2024 12:11 PM EST Pulse 64 10/20/2024 12:11 PM EST Temperature 36.6 C (97.9 F) 10/20/2024 12:11 PM EST Respiratory Rate 17 10/20/2024 12:11 PM EST Oxygen Saturation 98% 10/20/2024 12:11 PM EST Inhaled Oxygen Concentration - - Weight 90.7 kg (200 lb) 04/05/2024 10:27 AM EDT Height 149.9 cm (4' 11 ) 04/05/2024 10:27 AM EDT Body Mass Index 40.4 04/05/2024 10:27 AM EDT Plan of Treatment Health Maintenance Due Date Last Done Comments COLOGUARD 2019 FIT TEST 2019 FOBT 2019 SIGMOIDOSCOPY 2019 VIRTUAL COLONOSCOPY 2019 POTASSIUM LEVEL 10/08/2023 10/08/2022, 090 06/2022, 12/12/2021, Additional history exists MAMMOGRAM 10/28/2023 10/28/2022, 06/20/2014 DEPRESSION SCREENING 01/02/2024 01/01/2023 LUNG CANCER SCREENING (LDCT Only) 01/05/2024 PNEUMOCOCCAL VACCINES (50+ years) (2 of 2 - PCV) 01/05/2024 09/08/2018 ZOSTER VACCINES (1 of 2) 01/05/2024 COVID-19 VACCINE (4 - season) 2024 09/10/2021, 12/01/2020, 11/10/2020 BLOOD PRESSURE 04/19/2025 10/20/2024 SCREENING FOR DIABETES 10/08/2025 10/08/2022, 2021 LIPID PANEL 06/20/2027 06/20/2022, 100 06/2021, 09/23/2018, Additional history exists SMOKING STATUS SCREENING (Every 5 Years) 10/20/2029 10/20/2024 COLONOSCOPY 04/01/2033 04/01/2023 COLORECTAL CANCER SCREENING 04/01/2033 Adult Td,Tdap Booster 10/20/2034 10/20/2024 , 09/08/2018, 02/28/2015, Additional history exists HIV ONE-TIME SCREENING (18-65 YEARS) Completed 09/28/2019 HEPATITIS C SCREENING Completed 04/01/2021 HEPATITIS A VACCINES Aged Out No long er eligible based on patient's age to complete this topic HIB VACCINES Aged Out No longer eligi ble based on patient's age to complete this topic MENINGOCOCCAL VACCINES (ACWY) Aged Out No longer eligible based on patient's age to complete this topic MENINGOCOCCAL VACCINES (B) Aged Out N o longer eligible based on patient's age to complete this topic Medical Devices Implanted Type Area Salesperson [employer] Device Identifier Shelf Expiration Date Model / Serial / Lot Left Foot Procedures Procedure Name Priority Date/Time Associated Diagnosis Comments ENDOSCOPY, COLON 04/01/2023 9:24 AM EDT BI MAMMOGRAM SCREENING WITH TOMOSYNTHESIS WITH CAD (BILATERAL) Routine 10/28/2022 1:24 PM EST Encounter for screening mammogram for malignant neoplasm of breast COMPREHENSIVE METABOLIC PANEL Routine 10/08/2022 3:10 PM EST Essential hypertension LIPID PANEL Routine 06/20/2022 7:49 AM EDT Prediabetes HEPATITIS C ANTIBODY, QUALITATIVE Routine 04/01/2021 4:01 PM EDT Encounter for hepatitis C screening test for low risk patient from Last 3 Months or Most Recently Relevant to Health Maintenance Results * ENDOSCOPY, COLON (04/01/2023 9:24 AM EDT) Narrative Transcriptions Colt Thurston MD - 04/01/2023 9:24 AM EDT [facility] Patient Name: Kenyetta Power Attending MD:: COLT THURSTON MD, Procedure Date: 04/01/2023 9:24 AM Date of : 1975 Age: 48 Admit Type: Outpatient Gender: Female Room: [place] [address] Referring MD: EMMANUEL CASANOVA MD Exam Type: Colonoscopy Indications: Screening for colorectal malignant neoplasm, Last colonoscopy: date unknown (unable to locate last colonoscopy report) Medications: Monitored Anesthesia Care Procedure: Informed consent was obtained from the patientafter discussion of the indications, limitations, alternatives, benefits, and risks of the procedure. Risks specifically discussed include but are not limited to medication reactions, missed lesions, bleeding, perforation, or the need for emergent surgery. Throughout the procedure, the patient's blood pressure, pulse, end-tidal CO2, and oxygensaturations were monitored continuously. The Olympus adult variable colonoscope [id number] #[id number] was introduced through the anus and advanced to the terminal ileum, with identification of theappendiceal orifice and IC valve. The colonoscopy was performed without difficulty. The patient tolerated the procedure well. The quality of the bowelpreparation was good. The terminal ileum, ileocecal valve, appendiceal orifice, and rectum werephotographed. Complications: No immediate complications. Estimated blood loss:None. Findings: The terminal ileum appeared normal. Examination of the right colon was repeated in retroflexion and again in NBI. Retroflexion wasalso performed in the rectum. Localized mild inflammation characterized byaltered vascularity, congestion (edema) and granularity was found in the ascending colon involving just a patchof about 2 cm. This was biopsied with a cold forcepsfor histology. The exam was otherwise without abnormality. Impression: - The examined portion of the ileum was normal. - Localized mild inflammation was found in the ascending colon. Biopsied. - The examination was otherwise normal. Recommendation: - Patient has a contact number available for emergencies. The signs and symptoms of potential delayed complications were discussed with thepatient. Return to normal activities tomorrow. Written discharge instructions were provided to thepatient. - Await pathology results. - Repeat colonoscopy in 10 years for screening purposes. Colt Thurston COLT THURSTON MD 04/01/2023 9:49:39 AM This report has been signed electronically. Number of Addenda: 0 Note Initiated On: 04/01/2023 9:24 AM Procedure Code(s): --- Professional --- 19630, Colonoscopy, flexible; with biopsy, single or multiple --- Technical --- 72876, Colonoscopy, flexible; with biopsy, single or multiple CPT copyright 2021 [employer]. All rights reserved. The codes documented in this report are preliminary and upon precision agronomist reviewmay be revised to meet current compliance requirements. Procedure Date: 04/01/2023 9:24:[address] [place] [id number] us Emmanuel Casanova MD GI PROCEDURE ORDERABLES F inal Result * BI MAMMOGRAM SCREENING WITH TOMOSYNTHESIS WITH CAD (BILATERAL) (10/28/2022 1:24 PM EST) Anatomical Region Laterality Modality Breast Left, Breast Right, Breast Bilateral Bila teral Mammography 10/30/2022 10:3 4 AM EST Impressions 10/30/2022 10:44 AM EST No findings suspicious for malignancy are identified. In the absence of a worrisome palpable abnormality, annual screening mammography is recommended. BI-RADS CATEGORY: 1 - Negative. DENSITY: There are scattered fibroglandular densities. Narrative 10/30/2022 10:44 AM EST AVAILABLE COMPARISON: 11/08/2015 and 06/19/2014 Bilateral 3-D tomosynthesis with 2-D reconstructions in the CC and MLO projection. Computer-aided detection system was utilized. No new mass, asymmetry, architectural distortion or suspicious calcifications have become apparent in either breast. Procedure Note Aubrey Braden MD - 10/30/2022 AVAILABLE COMPARISON: 11/08/2015 and 06/19/2014 Bilateral 3-D tomosynthesis with 2-D reconstructions in the CC and MLOprojection. Computer-aided detection system was utilized. No new mass, asymmetry, architectural distortion or suspiciouscalcifications have become apparent in either breast. IMPRESSION: No findings suspicious for malignancy are identified. In the absence of aworrisome palpable abnormality, annual screening mammography isrecommended. BI-RADS CATEGORY: 1 - Negative. DENSITY: There are scattered fibroglandular densities. Madonna Beyer PELLET POST INSPECTOR IMG MG EXAMS Final Resu lt * (ABNORMAL) Comprehensive metabolic panel (10/08/2022 3:10 PM EST) SODIUM 138 133 - 146 mmol/L [facility] POTASSIUM 3.4 3.3 - 5.1 mmol/L [facility] CHLORIDE 99 96 - 108 mmol/L [facility] CO2 29 21 - 35 mmol/L [facility] BUN 9 6 - 19 mg/dL [facility] CREATININE 0.40(L) 0.5 - 1.5 mg/dL [facility] GLUCOSE 112(H) 70 - 99 mg/dL [facility] ALBUMIN 4.2 3.9 - 4.8 g/dL [facility] TOTAL PROTEIN 7.5 6.5 - 8.0 g/dL [facility] CALCIUM 9.9 8.4 - 10.3 mg/dL [facility] ALKALINE PHOSPHATASE 72 39 - 117 U/L [facility] TOTAL BILIRUBIN <0.2 0.0 - 1.2 mg/dL [facility] AST 16 0 - 37 U/L [facility] ALT 13 0 - 40 U/L [facility] GLOBULIN 3.3 1 - 4.8 g/dL [facility] EGFR >120 >59 mL/min/1.7 3m2 [facility] Comment:Estimated glomerular filtration rate calculated using the CKD-EPI refit equation. ANION GAP 13 10 - 20 mmol/L [facility] Blood 10/08/2022 3:10 PM EST 10/08/2022 3:17 PM EST Madonna Beyer CNP LAB BLOOD ORDERABLES Final Result [facility] [address] [place] [address] * (ABNORMAL) Lipid panel (06/20/2022 7:49 AM EDT) HDL 50 mg/dL [facility] Comment: Interpretation <40 mg/dL: Low HDL cholesterol (major risk factor for CHD) Greater than or equal to 60 mg/dL: High HDL cholesterol ( negative risk factor for CHD) HDL - cholesterol is affected by a number of factors, e.g. smoking, excerise, hormones, sex and age. CHOLESTEROL 206 0 - 240 mg/dL [facility] TRIGLYCERIDES 103 30 - 160 mg/dL [facility] LDL 135(H) 50 - 129 mg/dL [facility] Comment: LDL levels in terms of risk for coronary heart disease: <100 mg/dL: Optimal 100-129 mg/dL: Near or above optimal 130-159 mg/dL: Borderline high 160-189 mg/dL: High >190 mg/dL: Very High CARDIAC RISK RATIO 4.1 3.3 - 4.4 C [facility] Blood 06/20/2022 7:49 AM EDT 06/20/2022 7:53 AM EDT [facility] Final Result Performing Organization Address [facility]/ZIP Co de Phone Number [address] [id number] * Hepatitis C antibody, qualitative (04/01/2021 4:01 PM EDT) HCV NON-REACTIV E NON-REACTI VE [facility] Blood 04/01/2021 4:01 PM EDT 04/01/2021 4:07 PM EDT [employer] [facility] LAB BLOOD ORDERABLES Final Result [address] [id number] from Last 3 Months or Most Recently Relevant to Health Maintenance Insurance ENSE NON NSPG PCP [employer] POS NON NSPG PCP [place] [employer] POS [employer] NON NSPG PCP S[employer] [address] [place], [place] [id number] NON NSPG PCP [employer] [address] [place], [place] [address]ENSE NON NSPG PCP [employer] NON NSPG PCP S[employer] NON NSPG PCP [employer] POS NON NSPG PCP [employer] Member Subscriber Plan / Payer (Ef fective 2020-Present) Name:Kenyetta Power Relation to Subscriber:Self Name:Kenyetta Power Payer ID:[id number] Type:[place] Address: [address] POS NON NSPG PCP [employer] Member Subscriber Plan / Payer (Ef fective 2020-Present) Name:Kenyetta Power Relation to Subscriber:Self Name:Kenyetta Power Payer ID:[id number] Type:O Address: [address] POS Care Teams Nurse Orthopaedic Relationship Specialty Start Date End Date Emmanuel Casanova MD [address] [place] [address] [place] [address] PCP - General Internal Medicine 04/01/23 David Cuellar MD [address] [place] [address] [email or web address] Hematology and Oncology 09/22/18 Additional Source Comments The information contained in this document represents components of the legal health record. It is not the complete legal health record.[facility]
== END 2025-06-06 06:15 | disposition home or self-care (01) ==
LOC: CF 06:14
PROVIDERS: Visit Provider Anesthesiology
DX: M47.816 Spondylosis without myelopathy or radiculopathy, lumbar region (principal)
CPT/HCPCS: 64493; 64494; J2003; J2795; Q9967

== ENCOUNTER 2025-06-06 13:46 | Outpatient (AMB) | payer OTHER, SELFPAY ==
--- OUTSIDE RECORDS SUMMARY | 2022-08-25 19:30 | XMS_ITS | Encounter Summary ---
Author Organization [facility] Address [facility] [employer] [address] [address] Phone Care Team Providers Care Small Products I Assembler Name Role Phone PepitoMadonna sauceda Ban HAYES Primary Care Provider + [phone] David Cuellar MD Unavailable [phone] Encounter Details Date Type Department Care Team (Late st Contact Info) Description 08/25/2022 6:30 PM EST Hospital Encounter [facility] [address] [place] [address] Ronna Hawk CNP [address] [place] [address] [email or web address] Social History Tobacco Use Types Packs/Day Years [...] spine fracture or facet malalignment. Ronna Hawk MONTESSORI TODDLER TEACHER IMG XR SPINE Final Resul t documented in this encounter Visit Diagnoses Not on filedocumented in this encounter Additional Health Concerns Assessment Noted Time PHQ-2 Depression Total Score: 0 09/08/20 18 3:25 PM EST documented as of this encounter Care Teams Small Products I Assembler Relationship Specialty Start Date End Date Madonna Beyer CNP [address] [place] [address] PCP - General 07/28/17 03/31/23 David Cuellar MD [address] [place] [address] Hematology and Oncology 09/22/18 documented as of this encounter Additional Source Comments The information contained in this document represents components of the legal health record. It is not the complete legal health record.[facility]
[2025-06-06 13:58] VITALS: BP 138/77; PULSE 71; RESP 20; O2SAT 98
--- NOTE | 2025-06-06 13:58 | MHC.OFFVIS ---
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 Required: No Allergies Seasonal Allergies Allergy (Mild, Verified 03/30/25 13:06) Sneezing sertraline (From Zoloft) Allergy (Mild, Verified 03/30/25 13:06) Insomnia tramadol Adverse Reaction (Intermediate, Verified 03/30/25 13:06) made blood pressure go up very high [facility] Medical History Bilateral knee pain Impaired fasting glucose Morbid obesity with BMI of 40.0-44.9, adult GERD without esophagitis Pure hypercholesterolemia Essential hypertension Diabetes mellitus Iron deficiency anemia Surgical History History of appendectomy Status post left foot surgery Hx of hernia repair History of partial hysterectomy (~2000) Family History Father COPD (chronic obstructive pulmonary disease) Mother Hyperthyroidism Alcohol abuse Social History Household Members: Spouse Housing: House Alcohol intake: current Alcohol intake frequency: holidays/special occasions only Alcohol type: beer and wine Patient Tobacco Use Status: Former Tobacco user e-Cigarette/Vaping Use: Never Used service: No Current occupational status: employed 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 ? ?Informed consent was explained to the patient. All questions were explained and? answered.? The patient was taken inside the operating room where she was positioned prone on the operating table. Time-out was performed delineating correct site, side, the nature of the procedure, patient's allergy, . All operating room staff was participating in OR time-out procedure. ? ? The lower back was prepped with ChloraPrep and draped with sterile towels.? C-arm was brought over the operating field and sq picture of L3-L4 and L5 vertebras were delineated on the screen.? Point of interest were delineated as confluence of superior articular process of L3-L4 and L 5 vertebra bilaterally with corresponding transverse processes.? The projection of the point of interest to the skin were injected with the small amount of local anesthetic lidocaine 2% mixed with ropivacaine 0.5% 1-1 approcimately 1 cc.? After that 22 gauge 3.5 inch spinal needle was driven sequentially to the points of interest in tunnel vision fashion. After needles gently contacted the bone at the point of interests the needle was injected with small amount of the contrast.? The injection of the contrast did not demonstrate any intravascular or intrathecal spread of the contrast.? After that injection of the? ropivacaine 0.5%-1cc was performed at each needle location. ?after that the needles were removed and Bandaids were applied. ? Upon completion of the injections? needle was? removed and sterile Band-Aids were applied.? The patient tolerated procedure very well. Orders: Orders FL guidance in treatment room Today M47.816 - Spondylosis without myelopathy or radiculopathy, lumbar region Coding Level of Care Code Procedure Only Diagnoses Spondylosis of lumbar region without myelopathy or radiculopathy M47.816
[2025-06-06 14:18] VITALS: BP 99/64; PULSE 54; RESP 18; O2SAT 99
--- OUTSIDE RECORDS SUMMARY | 2025-06-06 14:41 | XMS_ITS | Encounter Summary ---
Author Organization [facility] Address [address] [place] [address] Phone Care Team Providers Care Restaurant Supervisor Name Role Phone David Cuellar MD Unavailable [phone] David Pinedo MD Primary Care Provider [phone] Encounter Details Date Type Department Care Team (Late st Contact Info) Description 04/01/2023 Procedure Pass [facility] Endoscopy Admitting Dept Virtual Department [address] [place] [address] Social History Tobacco Use Types Packs/Day Years [...] documented as of this encounter Care Teams Restaurant Supervisor Relationship Specialty Start Date End Date David Pinedo MD [address] [place] [address] Dr Cantrell [address] [place] [address] PCP - General Internal Medicine 04/01/23 David Cuellar MD [address] [place] [address] Hematology and Oncology 09/22/18 documented as of this encounter Additional Source Comments The information contained in this document represents components of the legal health record. It is not the complete legal health record.[facility]
--- OUTSIDE RECORDS SUMMARY | 2025-06-06 14:41 | XMS_ITS | Encounter Summary ---
Author Organization [facility] Address [address] [place], [place] [phone] Phone Care Team Providers Care Trial Consultant Name Role Phone Valdo Reddy MD Unavailable Timothy Wyatt MD Unavailable Dane Davis MD Unavailable Enrrique Raza MD Unavailable [phone] Liliana Ricks MD Unavailable [phone] Flaco Rebolledo MD Unavailable Madonna Beyer CNP Primary Care Provider [phone] Aubrey Delgado DO Unavailable David Cuellar MD Unavailable [phone] David Pinedo MD Primary Care Provider Encounter Details Date Type Department Care Team (Latest Contact Info) Description 06/29/2019 Transcribe Orders [facility] Laboratory [address] [place] [address] David Cuellar MD [address] [place], [place] [id number] Screening for unspecified condition (Primary Dx) Social [...] high school, GED, job training, learning the Vincentian language, technical skills, or developing parenting skills)? [...] documented as of this encounter Care Teams Trial Consultant Relationship Specialty Start Date End Date Madonna Beyer CNP [address] [place] [address], [address] [place] [address] PCP - General 07/28/17 03/31/23 David Pinedo MD [address] [place] [address] [address] PCP - General Internal Medicine 04/01/23 Valdo Reddy MD 22 [place] [address] [email or web address] Historical LMR Provider 07/27/17 10/19/21 Timothy Wyatt MD [address] [place] [address] Historical LMR Provider 07/27/17 10/19/21 Dane Davis MD [address] [place] [address] Historical LMR Provider 07/27/17 10/19/21 Enrrique Raza MD [address] [place] [address], [address] [place] [address] Historical LMR Provider 07/27/17 10/19/21 Liliana Ricks MD [address] [place] [address] Historical LMR Provider 07/27/17 2 Flaco Rebolledo MD [address] [place] [address] [email or web address] Historical LMR Provider 07/27/17 10/19/21 Aubrey Delgado DO [address] [place] [address] 7 [place] [address] [email or web address] Insurance Assigned Provider 08/14/18 02/15/20 David Cuellar MD [address] [place] [address] [email or web address] Hematology and Oncology 09/22/18 documented as of this encounter Additional Source Comments The information contained in this document represents components of the legal health record. It is not the complete legal health record.[facility]
--- OUTSIDE RECORDS SUMMARY | 2025-06-06 14:41 | XMS_ITS | Clinical Summary ---
Author Organization [address] [facility] Address [address] [place] [address] Phone Care Team Providers Care Career Placement Services Counselor Name Role Phone David Pinedo MD Primary [...] patient's age to complete this topic Insurance [facility] [place] [address] [facility] MEDICAID - [place] Care Teams Career Placement Services Counselor Relationship Specialty Start Date End Date David Pinedo MD [address] [place] [address] [place] [address] [place] PCP - General Internal Medicine 09/28/24
--- OUTSIDE RECORDS SUMMARY | 2025-06-06 14:42 | XMS_ITS | Encounter Summary ---
Author Organization [facility] Address [address] [place] [address] Phone Care Team Providers Care Appraiser Auditor Name Role Phone Valdo Reddy MD Unavailable Timothy Wyatt MD Unavailable Dane Davis MD Unavailable Enrrique Raza MD Unavailable Liliana Ricks MD Unavailable [phone] Flaco Rebolledo MD Unavailable Madonna Beyer ACCOUNT MAINTENANCE REPRESENTATIVE Primary Care Provider [phone] Aubrey Delgado DO Unavailable David Cuellar MD Unavailable [phone] Davdi Pinedo MD Primary Care Provider [phone] Encounter Details Date Type Department Care Team (Latest Contact Info) Description 01/17/2019 Transcribe Orders [address] [place] [address] Chu Henriquez MD, PhD [address] [place], [place] [id number] [email or web address] Disease of thyroid gland (Primary Dx) [...] EDT) TSH 1.50 0.27 - 4.20 uIU/mL [facility] Blood 01/17/2019 2:45 PM EDT 01/17/2019 8:05 PM EDT Chu Henriquez MD, PhD LAB BLOOD ORDERABLES Fi nal Result Performing Organization Address [facility] de Phone Number [address] [address] * Free T4 (01/17/2019 2:45 PM EDT) FREE T4 0.9 0.9 - 1.7 ng/dL [facility] Blood 01/17/2019 2:45 PM EDT 01/17/2019 8:05 PM EDT Chu Henriquez MD, PhD LAB BLOOD ORDERABLES Fi nal Result Performing Organization Address [facility] Co de Phone Number [address] [address] documented in this encounter Visit Diagnoses Diagnosis [...] documented as of this encounter Care Teams Appraiser Auditor Relationship Specialty Start Date End Date Madonna Beyer, ABIGAIL [address] [address] PCP - General 07/28/17 03/31/23 David Pinedo MD [address] [place] [address] [address] PCP - General Internal Medicine 04/01/23 Valdo Reddy MD 22 [place] [address] [email or web address] Historical LMR Provider 07/27/17 10/19/21 Timothy Wyatt MD [address] [address] [email or web address] Historical LMR Provider 07/27/17 10/19/21 Dane Davis MD [address] [address] Historical LMR Provider 07/27/17 10/19/21 Enrrique Raza MD [address] [address] Historical LMR Provider 07/27/17 10/19/21 Liliana Ricks MD [address] [place] [address] Historical LMR Provider 07/27/17 2 Flaco Rebolledo MD [address] [place] [address], [address] [place] [address] [email or web address] Historical LMR Provider 07/27/17 10/19/21 Aubrey Delgado DO [address] [place] [address] [address] [place] [address] [email or web address] Insurance Assigned Provider 08/14/18 02/15/20 David Cuellar MD [address] [place] [address] [email or web address] Hematology and Oncology 09/22/18 documented as of this encounter Additional Source Comments The information contained in this document represents components of the legal health record. It is not the complete legal health record.[facility]
--- OUTSIDE RECORDS SUMMARY | 2025-06-06 14:42 | XMS_ITS | Clinical Summary ---
Author Organization [facility] Address [address] [place] [address] Phone Care Team Providers Care Piano Accompanist Name Role Phone David Cuellar MD Unavailable [phone] Emmanuel Casanova MD Primary Care Provider [phone] Allergies Active Allergy Reactions Criticality Noted Date [...] Discussed exercise and dietary change. Referred to elementary school counselor Assessment & Plan (04/05/2018 11:01 AM EDT): [...] Plan (09/08/2018 8:47 PM EST): Referred to elementary school counselor. Today we did discuss bariatric medicine but she is not interested at this time Assessment & Plan (04/05/2018 11:01 AM EDT): oRhit is obese with a BMI of 44.2 [...] this topic Medical Devices Implanted Type Area Hospice Care Transitions Coordinator Device Identifier Shelf Expiration Date Model / [...] Thurston MD - 04/01/2023 9:24 AM EDT [facility] Patient Name: Kenyetta Power Attending MD:: COLT THURSTON MD, Procedure Date: 04/01/2023 9:24 AM Date of : 1975 Age: 48 Admit Type: Outpatient Gender: Female Room: [place] [address] Referring MD: EMMANUEL CASANOVA MD Exam Type: [...] monitored continuously. The Olympus adult variable colonoscope [id number] #1 was introduced through the anus and [...] 9:24 AM Procedure Code(s): --- Professional --- 71050, Colonoscopy, flexible; with biopsy, single or multiple --- Technical --- 49716, Colonoscopy, flexible; with biopsy, single or multiple CPT copyright 2021 [employer]. All rights reserved. The codes documented in this report are preliminary and upon rubber press tender reviewmay be revised to meet current compliance requirements. Procedure Date: 04/01/2023 9:24:[address] [place] [address] us Emmanuel Casanova MD GI PROCEDURE ORDERABLES [...] There are scattered fibroglandular densities. Madonna Beyer MANAGER MARKET DEVELOPMENT IMG MG EXAMS Final Resu lt * (ABNORMAL) Comprehensive metabolic panel (10/08/2022 3:10 PM EST) SODIUM 138 133 - 146 mmol/L [facility] POTASSIUM 3.4 3.3 - 5.1 mmol/L [facility] CHLORIDE 99 96 - 108 mmol/L [facility] CO2 29 21 - 35 mmol/L [facility] BUN 9 6 - 19 mg/dL [facility] CREATININE 0.40(L) 0.5 - 1.5 mg/dL [facility] GLUCOSE 112(H) 70 - 99 mg/dL [facility] ALBUMIN 4.2 3.9 - 4.8 g/dL [facility] TOTAL PROTEIN 7.5 6.5 - 8.0 g/dL [facility] CALCIUM 9.9 8.4 - 10.3 mg/dL [facility] ALKALINE PHOSPHATASE 72 39 - 117 U/L [facility] TOTAL BILIRUBIN <0.2 0.0 - 1.2 mg/dL [facility] AST 16 0 - 37 U/L [facility] ALT 13 0 - 40 U/L [facility] GLOBULIN 3.3 1 - 4.8 g/dL [facility] EGFR >120 >59 mL/min/1.7 3m2 [facility] Comment:Estimated glomerular filtration rate calculated using the CKD-EPI refit equation. ANION GAP 13 10 - 20 mmol/L [facility] Blood 10/08/2022 3:10 PM EST 10/08/2022 3:17 PM EST Madonna Beyer CNP LAB BLOOD ORDERABLES Final Result [facility] [address] [place] [address] * (ABNORMAL) Lipid panel (06/20/2022 7:49 AM EDT) HDL 50 mg/dL [facility] Comment: Interpretation <40 mg/dL: Low HDL cholesterol (major risk factor for CHD) Greater than or equal to 60 mg/dL: High HDL cholesterol ( negative risk factor for CHD) HDL - cholesterol is affected by a number of factors, e.g. smoking, excerise, hormones, sex and age. CHOLESTEROL 206 0 - 240 mg/dL [facility] TRIGLYCERIDES 103 30 - 160 mg/dL [facility] LDL 135(H) 50 - 129 mg/dL [facility] Comment: LDL levels in terms of risk for coronary heart disease: <100 mg/dL: Optimal 100-129 mg/dL: Near or above optimal 130-159 mg/dL: Borderline high 160-189 mg/dL: High >190 mg/dL: Very High CARDIAC RISK RATIO 4.1 3.3 - 4.4 C [facility] Blood 06/20/2022 7:49 AM EDT 06/20/2022 7:53 AM EDT us Madonna [facility] LAB BLOOD ORDERABLES Final Result Performing Organization Address [facility]/ZIP Co de Phone Number [address] [address] * Hepatitis C antibody, qualitative (04/01/2021 4:01 PM EDT) HCV NON-REACTIV E NON-REACTI VE [facility] Blood 04/01/2021 4:01 PM EDT 04/01/2021 4:07 PM EDT [employer] [facility] LAB BLOOD ORDERABLES Final Result [address] [address] from Last 3 Months or Most Recently Relevant to Health Maintenance Insurance ENSE NON NSPG PCP [employer] POS NON NSPG PCP [employer] [employer] POS WELLSENSE NON NSPG PCP S[employer] [address] [place], [place] [address]ENSE NON NSPG PCP [employer] [address] [place], [place] [address]ENSE NON NSPG PCP [employer] NON NSPG PCP S[employer] NON NSPG PCP [employer] POS NON NSPG PCP [employer] Member Subscriber Plan / Payer (Ef fective 2020-Present) Name:Kenyetta Power Relation to Subscriber:Self Name:Kenyetta Power Payer ID:[id number] Type:ValetAnywhere Address: [address] POS NON NSPG PCP [employer] Member Subscriber Plan / Payer (Ef fective 2020-Present) Name:Kenyetta Power Relation to Subscriber:Self Name:Kenyetta Power Payer ID:[id number] Type:O Address: [address] POS Care Teams Piano Accompanist Relationship Specialty Start Date End Date Emmanuel Casanova MD [address] [place] [address] [place] [address] PCP - General Internal Medicine 04/01/23 David Cuellar MD [address] [place] [address] [email or web address] Hematology and Oncology 09/22/18 Additional Source Comments The information contained in this document represents components of the legal health record. It is not the complete legal health record.[facility]
--- OUTSIDE RECORDS SUMMARY | 2025-06-06 14:42 | XMS_ITS | Encounter Summary ---
Author Organization [facility] Address [address] [place] [address] Phone Care Team Providers Care Tester Printed Circuit Boards Name Role Phone Madonna Beyer Ban HAYES Primary Care Provider [phone] David Cuellar MD Unavailable [phone] David Pinedo MD Primary Care Provider [phone] Encounter Details Date Type Department Care Team (Late st Contact Info) Description 10/08/2022 Procedure Pass [facility], [address] [id number] Social History Tobacco Use Types Packs/Day Years [...] high school, GED, job training, learning the German language, technical skills, or developing parenting skills)? [...] documented as of this encounter Care Teams Tester Printed Circuit Boards Relationship Specialty Start Date End Date Madonna Beyer CNP [address] [place] [address], [address] [place] [address] [email or web address] PCP - General 07/28/17 03/31/23 David Pinedo MD [address] [place] [address] [place] [address] PCP - General Internal Medicine 04/01/23 David Cuellar MD [address] [place] [address] [email or web address] Hematology and Oncology 09/22/18 documented as of this encounter Additional Source Comments The information contained in this document represents components of the legal health record. It is not the complete legal health record.[facility]
== END 2025-06-06 14:27 | disposition home or self-care (01) ==
LOC: HO.PMCPRC 13:46
PROVIDERS: PCP Internal Medicine; Visit Provider Anesthesiology
DX: M47.816 Spondylosis without myelopathy or radiculopathy, lumbar region (principal)
CPT/HCPCS: 64493; 64494

== ENCOUNTER 2025-06-08 09:50 | Outpatient (AMB) | payer OTHER, SELFPAY ==
--- OUTSIDE RECORDS SUMMARY | 2022-08-25 19:30 | XMS_ITS | Encounter Summary ---
Author Organization [facility] Address [facility] [employer] [address] [address] Phone Care Team Providers Care Patient Registration Specialist Name Role Phone PepitoMadonna sauceda Ban HAYES Primary Care Provider + [phone] David Cuellar MD Unavailable [phone] Encounter Details Date Type Department Care Team (Late st Contact Info) Description 08/25/2022 6:30 PM EST Hospital Encounter [facility] [address] [place] [address] Ronna Hawk CNP [address] [place] [address] [email or web address] Social History Tobacco Use Types Packs/Day Years [...] spine fracture or facet malalignment. Ronna Hawk DENTAL SURGERY DOCTOR IMG XR SPINE Final Resul t documented in this encounter Visit Diagnoses Not on filedocumented in this encounter Additional Health Concerns Assessment Noted Time PHQ-2 Depression Total Score: 0 09/08/20 18 3:25 PM EST documented as of this encounter Care Teams Patient Registration Specialist Relationship Specialty Start Date End Date Madonna Beyer CNP [address] [place] [address] PCP - General 07/28/17 03/31/23 David Cuellar MD [address] [place] [address] Hematology and Oncology 09/22/18 documented as of this encounter Additional Source Comments The information contained in this document represents components of the legal health record. It is not the complete legal health record.[facility]
--- NOTE | 2025-06-08 10:15 | MHC.OFFVIS ---
Vital Signs 06/08/25 10:16 Weight 233 lb BP 163/75 H Blood Pressure Location Lt brachial Position Sitting Respiration 18 Pulse 78 Pulse Source Pulse Oximeter Pulse Oximetry (%) 98 Oxygen Delivery Method Room Air Intake Visit Reasons: S/P BILATERAL DIAGNOSTIC L2-L3-L4 MBB Bookkeeper Required: No Allergies Seasonal Allergies Allergy (Mild, Verified 06/08/25 10:15) Sneezing sertraline (From Zoloft) Allergy (Mild, Verified 06/08/25 10:15) Insomnia tramadol Adverse Reaction (Intermediate, Verified 06/08/25 10:15) made blood pressure go up very high HPI Comments Details: Kenyetta is back in my office after diagnostic medial branch block. She reports 4 hours of complete pain relief after the procedure. She reported 100% pain improvement after the medial branch block L2, L3, L4 bilateral. She reported that her pain at the 5th hour started to come back but was only 50% intense as it was before the injection. She still reports at this time 50% pain improvement. I believe we found pain generators of this patient. I offered this patient to perform sprint PNS procedure on her. She agreed to go for the procedure. We will do bilateral sprint at L4 lamina 2 weeks apart. Risks and benefits were explained to the patient. Recently completed physical therapy and reports minimal improvement of physical therapy, muscle relaxants and NSAIDs helps her pain minimally to moderately. Baclofen allows her to stay more active however pain still persists. Prior: very pleasant 50 years old female who presents in my office with complains on multiple pain generators including pain in the lower back pain in the lower neck and pain in bilateral shoulders and bilateral arms. Pain started October of 2024. She somehow relates her pain to the medication mountjaro she was taking to treat her diabetes. The pain of this patient is mostly axial without radiation into bilateral lower extremities. The pain of this patient is most likely facetogenic in nature. See physical exam as below. [facility] Medical History Bilateral knee pain Impaired fasting glucose Morbid obesity with BMI of 40.0-44.9, adult GERD without esophagitis Pure hypercholesterolemia Essential hypertension Diabetes mellitus Iron deficiency anemia Surgical History History of appendectomy Status post left foot surgery Hx of hernia repair History of partial hysterectomy (~2000) Family History Father COPD (chronic obstructive pulmonary disease) Mother Hyperthyroidism Alcohol abuse Social History Household Members: Spouse Housing: House Alcohol intake: current Alcohol intake frequency: holidays/special occasions only Alcohol type: beer and wine Patient Tobacco Use Status: Former Tobacco user e-Cigarette/Vaping Use: Never Used service: No Current occupational status: employed 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 Current occupational exposures/hazards: No Cognitive needs: No Hearing needs: No Vision needs: Yes Review of Systems Const All systems reviewed & are unremarkable except as noted in HPI and below ENT Reports Normal hearing present Neuro Reports Normal hearing present, Denies Abnormal speech present and Denies Sensory deficit (Neuro) Physical Exam Vital Signs: Last Vital Signs Pulse 78 06/08/25 10:16 Resp 18 06/08/25 10:16 BP 163/75 H 06/08/25 10:16 Pulse Ox 98 06/08/25 10:16 Oxygen Delivery Method Room Air 06/08/25 10:16 Const General: no acute distress, alert and Physically active Nutritional Appearance: obese morbidly obese Orientation/consciousness: patient oriented x3 Limitations: no limitations Eyes General: appearance normal, both eyes and all related structures Pupils: Equal, round and reactive pupils present EOM: EOMs intact bilaterally Neck Other: Limited range of motion of the neck movements. Flexing forward does not aggravate her pain but flexing back backwards make her pain more severe. Chest Chest palpation & inspection: normal inspection of the chest Resp Effort & Inspection: normal respiratory effort, able to speak in complete sentences, normal respiratory pattern, no audible wheezes and no cough Cardio Jugular venous distension: no JVD GI Inspection: Yes normal to inspection Back/Spine/Pelvis Other: Able to stand on bilateral tiptoes in bilateral heels without difficulty. The gait is unaffected. There is severe tenderness on palpation in the paraspinal spinal region most lower portion of the lumbar spine. Riley test is negative bilaterally. Loading test is positive bilaterally. Valsalva maneuver does not aggravate her pain. Neuro General: patient oriented x3 and gait normal Cranial nerves: Yes CN's II-XII intact bilaterally, Yes Equal, round and reactive pupils present, Yes Normal hearing present and Yes Ability to bilaterally elevate shoulders present Speech: No Abnormal speech present Gait exam (Neuro): Normal gait present Motor exam (neuro): 5/5 motor strength present throughout Sensory Exam: No Sensory deficit (Neuro) Extrem General: No pedal edema Psych Speech and movement: Normal speech and movement present Affect: normal affect Attitude: cooperative Thought process: Normal thought process present Thought content: Normal thought content present Insight: Good insight present (Psych) Judgement: Good judgement present (Psych) Assessment & Plan Assessment & Plan (1) Spondylosis of lumbar region without myelopathy or radiculopathy: Code(s): M47.816 - Spondylosis without myelopathy or radiculopathy, lumbar region Category: Medical Plan The patient received minimal help from physical therapy. She also reported minimal help from baclofen. I increase the dose of the baclofen to 20 mg. On the x-ray there is very advanced spondylosis. Diagnostic medial branch block L2-L3 L4 resulted in excellent pain improvement for 1st 5 hours. This is longevity of work of the local anesthetic ropivacaine. I will schedule her for sprint PNS bilateral L4 positioned 1st on the right and after that on the left. We had detailed conversation about the procedure risks and benefits were explained to the patient including risks of bleeding infection peripheral nerve damage spinal cord damage and headache. Patient Instructions: I here by testify that I spent 30 minutes in conversation with this patient as well as planning her care and organizing this note. Coding Level of Care Code Est Pt Level 4 (26727) Diagnoses Spondylosis of lumbar region without myelopathy or radiculopathy M47.816
[2025-06-08 10:16] VITALS: BP 163/75; PULSE 78; RESP 18; O2SAT 98
--- OUTSIDE RECORDS SUMMARY | 2025-06-08 10:59 | XMS_ITS | Clinical Summary ---
Author Organization [facility] Address [address] [place] [address] Phone Care Team Providers Care Culvert Installer Name Role Phone David Pinedo MD Primary Care Provider [phone] Social History Tobacco Use Types Packs/Day Years [...] patient's age to complete this topic Insurance [facility] MEDICAID - [place] Care Teams Culvert Installer Relationship Specialty Start Date End Date David Pinedo MD [address] [place] [address] [place] [address] [place] PCP - General Internal Medicine 09/28/24
--- OUTSIDE RECORDS SUMMARY | 2025-06-08 10:59 | XMS_ITS | Encounter Summary ---
Author Organization [facility] Address [address] [place], [place] [id number] Phone Care Team Providers Care Ip Architect Name Role Phone Valdo Reddy MD Unavailable Timothy Wyatt MD Unavailable Dane Davis MD Unavailable Enrrique Raza MD Unavailable Liliana Ricks MD Unavailable [phone] Flaco Rebolledo MD Unavailable [phone] Madonna Beyer CNP Primary Care Provider [phone] Aubrey Delgado DO Unavailable David Cuellar MD Unavailable [phone] David Pinedo MD Primary Care Provider Encounter Details Date Type Department Care Team (Latest Contact Info) Description 06/29/2019 Transcribe Orders [facility] [address] [place] [address] David Cuellar MD [address] [place], [place] [id number] Screening for unspecified condition (Primary Dx) Social [...] high school, GED, job training, learning the Maltese language, technical skills, or developing parenting skills)? [...] documented as of this encounter Care Teams Ip Architect Relationship Specialty Start Date End Date Madonna Beyer CNP [address] [place] [address], [address] [place] [address] PCP - General 07/28/17 03/31/23 David Pinedo MD [address] [place] [address] [address] PCP - General Internal Medicine 04/01/23 Valdo Reddy MD [address] [place] [address] [email or web address] Historical LMR Provider 07/27/17 10/19/21 Timothy Wyatt MD [address] [place] [address] Historical LMR Provider 07/27/17 10/19/21 Dane Davis MD [address] [place] [address] Historical LMR Provider 07/27/17 10/19/21 Enrrique Raza MD [address] [place] [address], [address] [place] [address] Historical LMR Provider 07/27/17 10/19/21 Liliana Ricks MD [address] [place] [address] Historical LMR Provider 07/27/17 2 Flaco Rebolledo MD [address] [place] [address] [email or web address] Historical LMR Provider 07/27/17 10/19/21 Aubrey Delgado DO [address] [place] [address] [address] [place] [address] [email or web address] Insurance Assigned Provider 08/14/18 02/15/20 David Cuellar MD [address] [place] [address] [email or web address] Hematology and Oncology 09/22/18 documented as of this encounter Additional Source Comments The information contained in this document represents components of the legal health record. It is not the complete legal health record.[facility]
--- OUTSIDE RECORDS SUMMARY | 2025-06-08 10:59 | XMS_ITS | Encounter Summary ---
Author Organization [facility] Address [address] [place] [address] Phone Care Team Providers Care Staple Laster Name Role Phone David Cuellar MD Unavailable [phone] David Pinedo MD Primary Care Provider [phone] Encounter Details Date Type Department Care Team (Late st Contact Info) Description 04/01/2023 Procedure Pass [facility]oscopy Admitting Dept Virtual Department [address] [place] [address] Social History Tobacco Use Types Packs/Day Years [...] documented as of this encounter Care Teams Staple Laster Relationship Specialty Start Date End Date David Pinedo MD [address] [place] [address] Dr Cantrell [address] [place] [address] PCP - General Internal Medicine 04/01/23 David Cuellar MD [address] [place] [address] Hematology and Oncology 09/22/18 documented as of this encounter Additional Source Comments The information contained in this document represents components of the legal health record. It is not the complete legal health record.[facility]
--- OUTSIDE RECORDS SUMMARY | 2025-06-08 11:00 | XMS_ITS | Encounter Summary ---
Author Organization [facility] Address [address] [place] [address] Phone Care Team Providers Care Nonprofit Financial Controller Name Role Phone Madonna Beyer Ban HAYES Primary Care Provider [phone] David Cuellar MD Unavailable [phone] David Pinedo MD Primary Care Provider [phone] Encounter Details Date Type Department Care Team (Late st Contact Info) Description 10/08/2022 Procedure Pass [facility], [address] [phone] Social History Tobacco Use Types Packs/Day Years [...] high school, GED, job training, learning the Norwegian language, technical skills, or developing parenting skills)? [...] documented as of this encounter Care Teams Nonprofit Financial Controller Relationship Specialty Start Date End Date Madonna Beyer CNP [address] [place] [address], [address] [place] [address] [email or web address] PCP - General 07/28/17 03/31/23 David Pinedo MD [address] [place] [address] [place] [address] PCP - General Internal Medicine 04/01/23 David Cuellar MD [address] [place] [address] [email or web address] Hematology and Oncology 09/22/18 documented as of this encounter Additional Source Comments The information contained in this document represents components of the legal health record. It is not the complete legal health record.[facility]
--- OUTSIDE RECORDS SUMMARY | 2025-06-08 11:00 | XMS_ITS | Clinical Summary ---
Author Organization [facility] Address [address] [place] [address] Phone Care Team Providers Care Fusion Analyst Name Role Phone David Cuellar MD Unavailable [phone] Emmanuel Casanova MD Primary Care Provider [phone] Allergies Active Allergy Reactions Criticality Noted Date [...] Discussed exercise and dietary change. Referred to patient safety manager Assessment & Plan (04/05/2018 11:01 AM EDT): [...] Plan (09/08/2018 8:47 PM EST): Referred to patient safety manager. Today we did discuss bariatric medicine but [...] this topic Medical Devices Implanted Type Area Utility Pipe Layer Device Identifier Shelf Expiration Date Model / [...] Thurston MD - 04/01/2023 9:24 AM EDT [facility] Patient Name: Kenyetta Power Attending MD:: COLT THURSTON MD, Procedure Date: 04/01/2023 9:24 AM Date of : 1975 Age: 48 Admit Type: Outpatient Gender: Female Room: [place] [address] Referring MD: EMMANUEL CASANOVA MD Exam Type: [...] monitored continuously. The Olympus adult variable colonoscope [id number] #[id number] was introduced through the anus and [...] 9:24 AM Procedure Code(s): --- Professional --- 24067, Colonoscopy, flexible; with biopsy, single or multiple --- Technical --- 55445, Colonoscopy, flexible; with biopsy, single or multiple CPT copyright 2021 [employer]. All rights reserved. The codes documented in this report are preliminary and upon professor of psychiatry reviewmay be revised to meet current compliance requirements. Procedure Date: 04/01/2023 9:24:[address] [place] [address] us Emmanuel Casanova MD GI PROCEDURE ORDERABLES [...] There are scattered fibroglandular densities. Madonna Beyer STRUCTURAL METAL FABRICATOR APPRENTICE IMG MG EXAMS Final Resu lt * (ABNORMAL) Comprehensive metabolic panel (10/08/2022 3:10 PM EST) SODIUM 138 133 - 146 mmol/L [facility] POTASSIUM 3.4 3.3 - 5.1 mmol/L [facility] CHLORIDE 99 96 - 108 mmol/L [facility] CO2 29 21 - 35 mmol/L [facility] BUN 9 6 - 19 mg/dL [facility] CREATININE 0.40(L) 0.5 - 1.5 mg/dL [facility] GLUCOSE 112(H) 70 - 99 mg/dL [facility] ALBUMIN 4.2 3.9 - 4.8 g/dL [facility] TOTAL PROTEIN 7.5 6.5 - 8.0 g/dL [facility] CALCIUM 9.9 8.4 - 10.3 mg/dL [facility] ALKALINE PHOSPHATASE 72 39 - 117 U/L [facility] TOTAL BILIRUBIN <0.2 0.0 - 1.2 mg/dL [facility] AST 16 0 - 37 U/L [facility] ALT 13 0 - 40 U/L [facility] GLOBULIN 3.3 1 - 4.8 g/dL [facility] EGFR >120 >59 mL/min/1.7 3m2 [facility] Comment:Estimated glomerular filtration rate calculated using the CKD-EPI refit equation. ANION GAP 13 10 - 20 mmol/L [facility] Blood 10/08/2022 3:10 PM EST 10/08/2022 3:17 PM EST Madonna Beyer CNP LAB BLOOD ORDERABLES Final Result [facility] [address] [place] [address] * (ABNORMAL) Lipid panel (06/20/2022 7:49 AM EDT) HDL 50 mg/dL [facility] Comment: Interpretation <40 mg/dL: Low HDL cholesterol (major risk factor for CHD) Greater than or equal to 60 mg/dL: High HDL cholesterol ( negative risk factor for CHD) HDL - cholesterol is affected by a number of factors, e.g. smoking, excerise, hormones, sex and age. CHOLESTEROL 206 0 - 240 mg/dL [facility] TRIGLYCERIDES 103 30 - 160 mg/dL [facility] LDL 135(H) 50 - 129 mg/dL [facility] Comment: LDL levels in terms of risk for coronary heart disease: <100 mg/dL: Optimal 100-129 mg/dL: Near or above optimal 130-159 mg/dL: Borderline high 160-189 mg/dL: High >190 mg/dL: Very High CARDIAC RISK RATIO 4.1 3.3 - 4.4 [facility] Blood 06/20/2022 7:49 AM EDT 06/20/2022 7:53 AM EDT us [facility] Final Result Performing Organization Address [facility]/ZIP Co de Phone Number [address] [address] * Hepatitis C antibody, qualitative (04/01/2021 4:01 PM EDT) HCV NON-REACTIV E NON-REACTI VE [facility] Blood 04/01/2021 4:01 PM EDT 04/01/2021 4:07 PM EDT [facility] LAB BLOOD ORDERABLES Final Result [address] [address] from Last 3 Months or Most Recently Relevant to Health Maintenance Insurance ENSE NON NSPG PCP [employer] POS NON NSPG PCP [employer] POS WELLSENSE NON NSPG PCP S[employer] [address] [place], [place] [address]ENSE NON NSPG PCP [employer] [address] [place], [place] [address]ENSE NON NSPG PCP [employer] NON NSPG PCP S[employer] NON NSPG PCP [employer] POS NON NSPG PCP [employer] Member Subscriber Plan / Payer (Ef fective 2020-Present) Name:Kenyetta Power Relation to Subscriber:Self Name:Kenyetta Power Payer ID:[id number] Type:LEYIO Address: [address] POS NON NSPG PCP [employer] Member Subscriber Plan / Payer (Ef fective 2020-Present) Name:Kenyetta Power Relation to Subscriber:Self Name:Kenyetta Power Payer ID:[id number] Type:O Address: [address] POS Care Teams Fusion Analyst Relationship Specialty Start Date End Date Emmanuel Casanova MD [address] [place] [address] [place] [address] PCP - General Internal Medicine 04/01/23 David Cuellar MD [address] [place] [address] [email or web address] Hematology and Oncology 09/22/18 Additional Source Comments The information contained in this document represents components of the legal health record. It is not the complete legal health record.[facility]
--- OUTSIDE RECORDS SUMMARY | 2025-06-08 11:00 | XMS_ITS | Encounter Summary ---
Author Organization [facility] Address [address] [place] [address] Phone Care Team Providers Care Varnish Filterer Name Role Phone Valdo Reddy MD Unavailable Timothy Wyatt MD Unavailable Dane Davis MD Unavailable [phone] Enrrique Raza MD Unavailable Liliana Ricks MD Unavailable [phone] Flaco Rebolledo MD Unavailable [phone] Madonna Beyer PIPE PRODUCTION WORKER Primary Care Provider [phone] Aubrey Delgado DO Unavailable David Cuellar MD Unavailable [phone] David Pinedo MD Primary Care Provider [phone] Encounter Details Date Type Department Care Team (Latest Contact Info) Description 01/17/2019 Transcribe Orders [address] [place] [address] Chu Henriquez MD, PhD [address] [place], [place] [id number] [email or web address] Disease of thyroid gland (Primary Dx) [...] EDT) TSH 1.50 0.27 - 4.20 uIU/mL [facility] Blood 01/17/2019 2:45 PM EDT 01/17/2019 8:05 PM EDT Chu Henriquez MD, PhD LAB BLOOD ORDERABLES Fi nal Result Performing Organization Address [facility] de Phone Number [address] [address] * Free T4 (01/17/2019 2:45 PM EDT) FREE T4 0.9 0.9 - 1.7 ng/dL [facility] Blood 01/17/2019 2:45 PM EDT 01/17/2019 8:05 PM EDT Chu Henriquez MD, PhD LAB BLOOD ORDERABLES Fi nal Result Performing Organization Address [facility] Co de Phone Number [address] [address] documented in this encounter Visit Diagnoses Diagnosis [...] documented as of this encounter Care Teams Varnish Filterer Relationship Specialty Start Date End Date Madonna Beyer, ABIGAIL [address] [address] PCP - General 07/28/17 03/31/23 David Pinedo MD [address] [place] [address] [address] PCP - General Internal Medicine 04/01/23 Valdo Reddy MD [address] [place] [address] [email or web address] Historical LMR Provider 07/27/17 10/19/21 Timothy Waytt MD [address] [address] [email or web address] Historical LMR Provider 07/27/17 10/19/21 Dane Davis MD [address] [address] Historical LMR Provider 07/27/17 10/19/21 Enrrique Raza MD [address] [address] Historical LMR Provider 07/27/17 10/19/21 Liliana Ricks MD [address] [place] [address] Historical LMR Provider 07/27/17 2 Flaco Rebolledo MD [address] [place] [address], [address] [place] [address] [email or web address] Historical LMR Provider 07/27/17 10/19/21 Aubrey Delgado DO [address] [place] [address] [address] [place] [address] [email or web address] Insurance Assigned Provider 08/14/18 02/15/20 David Cuellar MD [address] [place] [address] [email or web address] Hematology and Oncology 09/22/18 documented as of this encounter Additional Source Comments The information contained in this document represents components of the legal health record. It is not the complete legal health record.[facility]
== END 2025-06-08 10:45 | disposition home or self-care (01) ==
LOC: HO.PMC 09:51
PROVIDERS: PCP Internal Medicine; Visit Provider Anesthesiology
DX: M47.816 Spondylosis without myelopathy or radiculopathy, lumbar region (principal)
CPT/HCPCS: 99214

== ENCOUNTER 2025-06-15 13:04 | Outpatient (AMB) | payer OTHER, SELFPAY ==
--- OUTSIDE RECORDS SUMMARY | 2022-08-25 19:30 | XMS_ITS | Encounter Summary ---
Author Organization [facility] Address [facility] [employer] [address] [address] Phone Care Team Providers Care Mechanical Shovel Operator Name Role Phone PepitoMadonna sauceda Ban HAYES Primary Care Provider + [phone] David Cuellar MD Unavailable Encounter Details Date Type Department Care Team (Late st Contact Info) Description 08/25/2022 6:30 PM EST Hospital Encounter [facility] [address] [place] [address] Ronna Hawk CNP [address] [place] [address] [email or web address] Social History Tobacco Use Types Packs/Day Years [...] spine fracture or facet malalignment. Ronna Hawk NEWBORN PHOTOGRAPHER IMG XR SPINE Final Resul t documented in this encounter Visit Diagnoses Not on filedocumented in this encounter Additional Health Concerns Assessment Noted Time PHQ-2 Depression Total Score: 0 09/08/20 18 3:25 PM EST documented as of this encounter Care Teams Mechanical Shovel Operator Relationship Specialty Start Date End Date Madonna Beyer CNP [address] [place] [address] PCP - General 07/28/17 03/31/23 David Cuellar MD [address] [place] [address] Hematology and Oncology 09/22/18 documented as of this encounter Additional Source Comments The information contained in this document represents components of the legal health record. It is not the complete legal health record.[facility]
[2025-06-15 13:36] VITALS: BP 120/70; PULSE 73; O2SAT 97
--- NOTE | 2025-06-15 13:36 | MHC.OFFVIS ---
Vital Signs 06/15/25 13:36 Weight 230 lb BP 120/70 Blood Pressure Location Lt brachial Position Sitting Pulse 73 Pulse Source Pulse Oximeter Pulse Oximetry (%) 97 Oxygen Delivery Method Room Air Intake Visit Reasons: follow up Artist Relationship Manager Required: No Accompanied by: Self / Same As Patient Allergies Seasonal Allergies Allergy (Mild, Verified 06/15/25 13:38) Sneezing sertraline (From Zoloft) Allergy (Mild, Verified 06/15/25 13:38) Insomnia tramadol Adverse Reaction (Intermediate, Verified 06/15/25 13:38) made blood pressure go up very high Medication List - Last Reconciled 06/15/25 by Coleen Hall, BANG baclofen 20 mg PO TID PRN 30 days citalopram 40 mg PO DAILY famotidine 20 mg PO BID ferrous gluconate (Ferate) 240 mg PO DAILY hydrochlorothiazide 25 mg PO DAILY meloxicam 15 mg PO DAILY multivitamin 1 tab PO DAILY pravastatin 10 mg PO BEDTIME vitamin B complex (B Complex-Vitamin B12 tablet) 1 tab PO DAILY HPI Comments Details: 50-yr-old female presents for follow-up visit of sleep apnea. Pt reports she overall sleeps well and has refreshing sleep when she uses her CPAP. She brings her CPAP with her when she travels. Her CPAP machine is about 10 years old, and does not transmit data anymore. Patient is not sure what the setting of her current CPAP machine is. She wonders if she would be a candidate for Inspire, however her BMI is greater than 40 at this time. Patient states she would like to lose weight, as she feels that this would help decrease her overall joint and body pains, however her insurance stopped covering Mounjaro which was previously effective. Since the last visit, pt underwent 11/12/2023 In-lab PSG w/split night PAP titration study Baseline diagnostic portion of study revealed: AHI 30/hr, REM AHI n/a, w/ O2 raj 75 % w/ SpO2 < 88% x's min, and average SpO2 92 %; Periodic limb movement of sleep (PLMS) index: 18/hr; PLMS arousal index: 8/hr. Titration portion of study revealed: Optimization of breathing and hypoxemia and Periodic limb movement of sleep (PLMS) on CPAP 8 cm H2O. [facility] Medical History Bilateral knee pain Impaired fasting glucose Morbid obesity with BMI of 40.0-44.9, adult GERD without esophagitis Pure hypercholesterolemia Essential hypertension Diabetes mellitus Iron deficiency anemia Surgical History History of appendectomy Status post left foot surgery Hx of hernia repair History of partial hysterectomy (~2000) Family History Father COPD (chronic obstructive pulmonary disease) Mother Hyperthyroidism Alcohol abuse Social History Household Members: Spouse Housing: House Alcohol intake: current Alcohol intake frequency: holidays/special occasions only Alcohol type: beer and wine Patient Tobacco Use Status: Former Tobacco user e-Cigarette/Vaping Use: Never Used service: No Current occupational status: employed 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 Current occupational exposures/hazards: No Cognitive needs: No Hearing needs: No Vision needs: Yes Physical Exam Vital Signs: Last Vital Signs Pulse 73 06/15/25 13:36 BP 120/70 06/15/25 13:36 Pulse Ox 97 06/15/25 13:36 Oxygen Delivery Method Room Air 06/15/25 13:36 Const General: no acute distress Nutritional Appearance: obese Orientation/consciousness: patient oriented x3 Resp Effort & Inspection: normal respiratory effort and able to speak in complete sentences Neuro General: patient oriented x3 Gait exam (Neuro): Normal gait present Psych Mental Status: mental status grossly normal Speech and movement: Clear speech present Attitude: cooperative Assessment & Plan Assessment & Plan (1) Severe obstructive sleep apnea: Code(s): G47.33 - Obstructive sleep apnea (adult) (pediatric) Category: Medical (2) Morbid obesity with BMI of 40.0-44.9, adult: Code(s): E66.01 - Morbid (severe) obesity due to excess calories; Z68.41 - Body mass index [BMI] 40.0-44.9, adult Category: Medical Plan For DANILO: Discussed that there are several factors to consider to determine if a patient would be a good candidate for inspire therapy, and unfortunately at this time, patient would not be a candidate for a referral for inspire therapy, as she is generally using her CPAP and her BMI is greater than 40 at this time. Patient is motivated to lose weight, and is open to a referral to [facility] [place] to discuss weight loss treatment options. Inspire inclusion/exclusion criteria Patient's status Meets inclusion criteria Does not meet inclusion criteria Type of sleep apnea DANILO yes Severity of DANILO severe, AHI 30/hr yes BMI > 40 no Unable to use or get consistent benefit from CPAP patient finds it bothersome to manage and carry the CPAP with her possibly yes Upper airway compromise no yes Known presence of complete concentric collapse of the soft palate has not been assessed yet unknown at this time unknown at this time In the meantime, we will request pain new CPAP machine set to CPAP 8 cm H2O with remote monitoring capabilities, per the results of patient's last split night PAP titration study. For now, continue CPAP nightly > 4 hours, as pt continues to have good clinical effect from use. Clean CPAP machine and supplies routinely. Change CPAP supplies routinely. Use distilled water in CPAP water reservoir. Pt to contact us or respiratory company with any questions or concerns. Pt to follow-up in 6 months or sooner prn. Orders: Referrals Medical Weight Management Referral E66.01 - Morbid (severe) obesity due to excess calories, G47.33 - Obstructive sleep apnea (adult) (pediatric), Z68.41 - Body mass index [BMI] 40.0-44.9, adult Coding Level of Care Code Est Pt Level 3 (78065) Diagnoses Severe obstructive sleep apnea G47.33 Morbid obesity with BMI of 40.0-44.9, adult E66.01; Z68.41
--- OUTSIDE RECORDS SUMMARY | 2025-06-15 14:19 | XMS_ITS | Encounter Summary ---
Author Organization [facility] Address [address] [place] [address] Phone Care Team Providers Care Professional Services Consultant Name Role Phone David Cuellar MD Unavailable [phone] David Pinedo MD Primary Care Provider [phone] Encounter Details Date Type Department Care Team (Late st Contact Info) Description 04/01/2023 Procedure Pass [facility] Endoscopy Admitting Dept Virtual Department [address] [place] [address] Social History Tobacco Use Types Packs/Day Years [...] documented as of this encounter Care Teams Professional Services Consultant Relationship Specialty Start Date End Date David Pinedo MD [address] [place] [address] Dr Cantrell [address] [place] [address] PCP - General Internal Medicine 04/01/23 David Cuellar MD [address] [place] [address] Hematology and Oncology 09/22/18 documented as of this encounter Additional Source Comments The information contained in this document represents components of the legal health record. It is not the complete legal health record.[facility]
--- OUTSIDE RECORDS SUMMARY | 2025-06-15 14:19 | XMS_ITS | Encounter Summary ---
Author Organization [facility] Address [address] [place], [place] [id number] Phone Care Team Providers Care Shoe Puller Name Role Phone Valdo Reddy MD Unavailable Timothy Wyatt MD Unavailable Dane Dvais MD Unavailable [phone] Enrrique Raza MD Unavailable Liliana Ricks MD Unavailable [phone] Flaco Rebolledo MD Unavailable [phone] Madonna Beyer CNP Primary Care Provider [phone] Aubrey Delgado DO Unavailable David Cuellar MD Unavailable [phone] David Pinedo MD Primary Care Provider [phone] Encounter Details Date Type Department Care Team (Latest Contact Info) Description 06/29/2019 Transcribe Orders [facility] 30 [place] [address] David Cuellar MD 30 [place], [place] [id number] Screening for unspecified condition (Primary Dx) Social [...] high school, GED, job training, learning the Nigerien language, technical skills, or developing parenting skills)? [...] documented as of this encounter Care Teams Shoe Puller Relationship Specialty Start Date End Date Madonna Beyer CNP [address] [place] [address], [address] [place] [address] PCP - General 07/28/17 03/31/23 David Pinedo MD [address] [place] [address] [address] PCP - General Internal Medicine 04/01/23 Valdo Reddy MD 22 [place] [address] [email or web address] Historical LMR Provider 07/27/17 10/19/21 Timothy Wyatt MD [address] [place] [address] Historical LMR Provider 07/27/17 10/19/21 Dane Davis MD [address] [place] [address] Historical LMR Provider 07/27/17 10/19/21 Enrrique Raza MD [address] [place] [address], [address] [place] [address] Historical LMR Provider 07/27/17 10/19/21 Liliana Ricks MD [address] [place] [address] Historical LMR Provider 07/27/17 2 Flaco Rebolledo MD [address] [place] [address] [email or web address] Historical LMR Provider 07/27/17 10/19/21 Aubrey Delgado DO [address] [place] [address] 7 [place] [address] [email or web address] Insurance Assigned Provider 08/14/18 02/15/20 David Cuellar MD [address] [place] [address] [email or web address] Hematology and Oncology 09/22/18 documented as of this encounter Additional Source Comments The information contained in this document represents components of the legal health record. It is not the complete legal health record.[facility]
--- OUTSIDE RECORDS SUMMARY | 2025-06-15 14:19 | XMS_ITS | Encounter Summary ---
Author Organization [facility] Address [address] [place] [address] Phone Care Team Providers Care Black Ash Burner Operator Name Role Phone Valdo Reddy MD Unavailable Timothy Wyatt MD Unavailable Dane Davis MD Unavailable Enrrique Raza MD Unavailable Liliana Ricks MD Unavailable [phone] Flaco Rebolledo MD Unavailable Madonna Beyer BRANCH ACCOUNT MANAGER Primary Care Provider [phone] Aubrey Delgado DO Unavailable David Cuellar MD Unavailable [phone] David Pinedo MD Primary Care Provider [phone] Encounter Details Date Type Department Care Team (Latest Contact Info) Description 01/17/2019 Transcribe Orders [address] [place] [address] Chu Henriquez MD, PhD [address] [place], [place] [id number] [email or web address] Disease of thyroid gland (Primary Dx) [...] EDT) TSH 1.50 0.27 - 4.20 uIU/mL [facility] Blood 01/17/2019 2:45 PM EDT 01/17/2019 8:05 PM EDT hCu Henriquez MD, PhD LAB BLOOD ORDERABLES Fi nal Result Performing Organization Address [facility] de Phone Number [address] [address] * Free T4 (01/17/2019 2:45 PM EDT) FREE T4 0.9 0.9 - 1.7 ng/dL [facility] Blood 01/17/2019 2:45 PM EDT 01/17/2019 8:05 PM EDT Chu Henriquez MD, PhD LAB BLOOD ORDERABLES Fi nal Result Performing Organization Address [facility] Co de Phone Number [address] [address] documented in this encounter Visit Diagnoses Diagnosis [...] documented as of this encounter Care Teams Black Ash Burner Operator Relationship Specialty Start Date End Date Madonna Beyer, ABIGAIL [address] [address] PCP - General 07/28/17 03/31/23 David Pinedo MD [address] [place] [address] [address] PCP - General Internal Medicine 04/01/23 Valdo Reddy MD 22 [place] [address] [email or web address] Historical LMR Provider 07/27/17 10/19/21 Timothy Wyatt MD [address] [address] [email or web address] Historical LMR Provider 07/27/17 10/19/21 Dane Davis MD [address] [address] Historical LMR Provider 07/27/17 10/19/21 Enrrique Raza MD [address] [address] Historical LMR Provider 07/27/17 10/19/21 Liliana Ricks MD [address] [place] [address] Historical LMR Provider 07/27/17 2 Flaco Rebolledo MD [address] [place] [address], [address] [place] [address] [email or web address] Historical LMR Provider 07/27/17 10/19/21 Aubrey Delgado DO [address] [place] [address] [address] [place] [address] [email or web address] Insurance Assigned Provider 08/14/18 02/15/20 David Cuellar MD [address] [place] [address] [email or web address] Hematology and Oncology 09/22/18 documented as of this encounter Additional Source Comments The information contained in this document represents components of the legal health record. It is not the complete legal health record.[facility]
--- OUTSIDE RECORDS SUMMARY | 2025-06-15 14:19 | XMS_ITS | Clinical Summary ---
Author Organization [facility] Address [address] [place] [address] Phone Care Team Providers Care Extras Casting Director Name Role Phone David Pinedo MD Primary Care Provider [phone] Social History Tobacco Use Types Packs/Day Years [...] 09/08/2018 Zoster Vaccines (1 of 2) 01/05/2024 Colorectal Cancer Screening: Colonoscopy 09/28/2024 HIV Screening 09/28/2024 Lung Cancer Screening (Low Dose CT) 09/28/2024 Social Influencers of Health Screening 09/28/2024 Depression Screening 10/12/2024 Breast Cancer Screening 10/28/2024 10/28/2022 Hypertension/CHF/CAD Annual BMP Blood Test 11/24/2024 10/08/2022, 12/12/2021, 04/01/2021, Additional history exists COVID-19 Vaccine ( season) 2025 09/10/2021, 12/01/2020, 11/10/2020 Influenza Vaccine (#1) 2025 4, 08/01/2023, 08/26/2022, [...] patient's age to complete this topic Insurance [facility] MEDICAID - [place] Care Teams Extras Casting Director Relationship Specialty Start Date End Date David Pinedo MD [address] [place] [address] [place] [address] [place] PCP - General Internal Medicine 09/28/24
--- OUTSIDE RECORDS SUMMARY | 2025-06-15 14:19 | XMS_ITS | Clinical Summary ---
Author Organization [facility] Address [address] [place] [address] Phone Care Team Providers Care Plant Biology Professor Name Role Phone David Cuellar MD Unavailable [phone] Emmanuel Casanova MD Primary Care Provider [phone] Allergies Active Allergy Reactions Criticality Noted Date [...] Discussed exercise and dietary change. Referred to international editorial producer Assessment & Plan (04/05/2018 11:01 AM EDT): [...] Plan (09/08/2018 8:47 PM EST): Referred to international editorial producer. Today we did discuss bariatric medicine but [...] 09/08/2018 ZOSTER VACCINES (1 of 2) 01/05/2024 BLOOD PRESSURE 04/19/2025 10/20/2024 INFLUENZA VACCINE (#1) 2025 , 08/26/2022, 07/01/2021, Additional history exists COVID-19 VACCINE (4 - 2024- season) 2025 09/10/2021, 12/01/2020, 11/10/2020 SCREENING FOR DIABETES 10/08/2025 10/08/2022, 2021 LIPID [...] this topic Medical Devices Implanted Type Area [employer] Natural [employer] Officer Device Identifier Shelf Expiration Date Model / [...] Thurston MD - 04/01/2023 9:24 AM EDT [facility] Patient Name: eKnyetta Muñozdisha Attending MD:: COLT THURSTON MD, Procedure Date: 04/01/2023 9:24 AM Date of : 1975 Age: 48 Admit Type: Outpatient Gender: Female Room: [facility] 05 Referring MD: EMMANUEL CASANOVA MD Exam Type: [...] monitored continuously. The Olympus adult variable colonoscope [id number] #1 was introduced through the anus and [...] 9:24 AM Procedure Code(s): --- Professional --- 19464, Colonoscopy, flexible; with biopsy, single or multiple --- Technical --- 26300, Colonoscopy, flexible; with biopsy, single or multiple CPT copyright 2021 [employer]. All rights reserved. The codes documented in this report are preliminary and upon junk dealer reviewmay be revised to meet current compliance requirements. Procedure Date: 04/01/2023 9:24:[address] [place] [address] Emmanuel Casanova MD GI PROCEDURE ORDERABLES F [...] There are scattered fibroglandular densities. Madonna Beyer CNP IMG MG EXAMS Final Resu lt * (ABNORMAL) Comprehensive metabolic panel (10/08/2022 3:10 PM EST) SODIUM 138 133 - 146 mmol/L [facility] POTASSIUM 3.4 3.3 - 5.1 mmol/L [facility] CHLORIDE 99 96 - 108 mmol/L [facility] CO2 29 21 - 35 mmol/L [facility] BUN 9 6 - 19 mg/dL [facility] CREATININE 0.40(L) 0.5 - 1.5 mg/dL [facility] GLUCOSE 112(H) 70 - 99 mg/dL [facility] ALBUMIN 4.2 3.9 - 4.8 g/dL [facility] TOTAL PROTEIN 7.5 6.5 - 8.0 g/dL [facility] CALCIUM 9.9 8.4 - 10.3 mg/dL [facility] ALKALINE PHOSPHATASE 72 39 - 117 U/L [facility] TOTAL BILIRUBIN <0.2 0.0 - 1.2 mg/dL [facility] AST 16 0 - 37 U/L [facility] ALT 13 0 - 40 U/L [facility] GLOBULIN 3.3 1 - 4.8 g/dL [facility] EGFR >120 >59 mL/min/1.7 3m2 [facility] Comment:Estimated glomerular filtration rate calculated using the CKD-EPI refit equation. ANION GAP 13 10 - 20 mmol/L [facility] Blood 10/08/2022 3:10 PM EST 10/08/2022 3:17 PM EST Madonna Beyer CNP LAB BLOOD ORDERABLES Final Result [address] [address] * (ABNORMAL) Lipid panel (06/20/2022 7:49 AM EDT) HDL 50 mg/dL [facility] Comment: Interpretation <40 mg/dL: Low HDL cholesterol (major risk factor for CHD) Greater than or equal to 60 mg/dL: High HDL cholesterol ( negative risk factor for CHD) HDL - cholesterol is affected by a number of factors, e.g. smoking, excerise, hormones, sex and age. CHOLESTEROL 206 0 - 240 mg/dL [facility] TRIGLYCERIDES 103 30 - 160 mg/dL [facility] LDL 135(H) 50 - 129 mg/dL [facility] Comment: LDL levels in terms of risk for coronary heart disease: <100 mg/dL: Optimal 100-129 mg/dL: Near or above optimal 130-159 mg/dL: Borderline high 160-189 mg/dL: High >190 mg/dL: Very High CARDIAC RISK RATIO 4.1 3.3 - 4.4 C [facility] Blood 06/20/2022 7:49 AM EDT 06/20/2022 7:53 AM EDT Madonna Cevallos [facility] LAB BLOOD ORDERABLES Final Result Performing Organization Address [facility] Co de Phone Number [address] [address] * Hepatitis C antibody, qualitative (04/01/2021 4:01 PM EDT) HCV NON-REACTIV E NON-REACTI VE [facility] Blood 04/01/2021 4:01 PM EDT 04/01/2021 4:07 PM EDT [facility] BLOOD ORDERABLES Final Result Performing Organization Address [facility] Co de Phone Number [address] [address] from Last 3 Months or Most Recently Relevant to Health Maintenance Insurance NON NSPG PCP [employer] POS NON NSPG PCP [employer] POS WELL[employer] NON NSPG PCP [employer] WELL[employer] NON NSPG PCP [employer] WE[employer] NON NSPG PCP S[employer] POS NON NSPG PCP [employer] [address] [place] [address] NON NSPG PCP S[employer] POS NON NSPG PCP [employer] Member Subscriber Plan / Payer (Ef fective 2020-Present) Name:Kenyetta Power Relation to Subscriber:Self Name:Kenyetta Power Payer ID:[id number] Type:[employer] Address: [address] [address] [address] NON NSPG PCP [employer] POS Care Teams Plant Biology Professor Relationship Specialty Start Date End Date Emmanuel Casanova MD [address] [place] [address] PCP - General Internal Medicine 04/01/23 David Cuellar MD [address] [place] [address] Hematology and Oncology 09/22/18 Additional Source Comments The information contained in this document represents components of the legal health record. It is not the complete legal health record.[facility]
--- OUTSIDE RECORDS SUMMARY | 2025-06-15 14:19 | XMS_ITS | Encounter Summary ---
Author Organization [facility] Address [address] [place] [address] Phone Care Team Providers Care Shipwright Name Role Phone Madonna Beyer Ban HAYES Primary Care Provider [phone] David Cuellar MD Unavailable [phone] David Pinedo MD Primary Care Provider [phone] Encounter Details Date Type Department Care Team (Late st Contact Info) Description 10/08/2022 Procedure Pass [facility], [address] [id number] Social History Tobacco Use Types Packs/Day Years [...] high school, GED, job training, learning the Macanese language, technical skills, or developing parenting skills)? [...] documented as of this encounter Care Teams Shipwright Relationship Specialty Start Date End Date Madonna Beyer CNP [address] [place] [address], [address] [place] [address] [email or web address] PCP - General 07/28/17 03/31/23 David Pinedo MD [address] [place] [address] [place] [address] PCP - General Internal Medicine 04/01/23 David Cuellar MD [address] [place] [address] [email or web address] Hematology and Oncology 09/22/18 documented as of this encounter Additional Source Comments The information contained in this document represents components of the legal health record. It is not the complete legal health record.[facility]
== END 2025-06-15 14:21 | disposition home or self-care (01) ==
LOC: HO.HSMS 13:05
PROVIDERS: PCP Internal Medicine; Visit Provider Nurse Practitioner Family
DX: G47.33 Obstructive sleep apnea (adult) (pediatric) (principal); E66.01 Morbid (severe) obesity due to excess calories; Z68.41 Body mass index [BMI] 40.0-44.9, adult
CPT/HCPCS: 99213

== ENCOUNTER 2025-07-17 07:33 | Outpatient (REF) | payer OTHER, SELFPAY ==
--- OUTSIDE RECORDS SUMMARY | 2022-08-25 19:30 | XMS_ITS | Encounter Summary ---
Author Organization [facility] Address [facility] [employer] [address] [address] Phone Care Team Providers Care Drilling Fluids Specialist Name Role Phone PepitoMadonna sauceda Ban HAYES Primary Care Provider + [phone] David Cuellar MD Unavailable [phone] Encounter Details Date Type Department Care Team (Late st Contact Info) Description 08/25/2022 6:30 PM EST Hospital Encounter [facility] [address] [place] [address] Ronna Hawk CNP [address] [place] [address] [email or web address] Social History Tobacco Use Types Packs/Day Years [...] spine fracture or facet malalignment. Ronna Hawk PIZZA MAKER IMG XR SPINE Final Resul t documented in this encounter Visit Diagnoses Not on filedocumented in this encounter Additional Health Concerns Assessment Noted Time PHQ-2 Depression Total Score: 0 09/08/20 18 3:25 PM EST documented as of this encounter Care Teams Drilling Fluids Specialist Relationship Specialty Start Date End Date Madonna Beyer CNP [address] [place] [address] PCP - General 07/28/17 03/31/23 David Cuellar MD [address] [place] [address] Hematology and Oncology 09/22/18 documented as of this encounter Additional Source Comments The information contained in this document represents components of the legal health record. It is not the complete legal health record.[facility]
--- OUTSIDE RECORDS SUMMARY | 2025-07-17 07:37 | XMS_ITS | Encounter Summary ---
Author Organization [facility] Address [address] [place] [address] Phone Care Team Providers Care Home Health Cna Name Role Phone Madonna Beyer Ban HAYES Primary Care Provider [phone] David Cuellar MD Unavailable [phone] David Pinedo MD Primary Care Provider [phone] Encounter Details Date Type Department Care Team (Late st Contact Info) Description 10/08/2022 Procedure Pass [facility], [address] [id number] Social History Tobacco Use Types Packs/Day Years [...] high school, GED, job training, learning the Welsh language, technical skills, or developing parenting skills)? [...] documented as of this encounter Care Teams Home Health Cna Relationship Specialty Start Date End Date Madonna Beyer CNP [address] [place] [address], [address] [place] [address] [email or web address] PCP - General 07/28/17 03/31/23 David Pinedo MD [address] [place] [address] [place] [address] PCP - General Internal Medicine 04/01/23 David Cuellar MD [address] [place] [address] [email or web address] Hematology and Oncology 09/22/18 documented as of this encounter Additional Source Comments The information contained in this document represents components of the legal health record. It is not the complete legal health record.[facility]
--- OUTSIDE RECORDS SUMMARY | 2025-07-17 07:37 | XMS_ITS | Clinical Summary ---
Author Organization [facility] Address [address] [place] [address] Phone Care Team Providers Care Metal Precision Machine Assembler Name Role Phone David Cuellar MD Unavailable Emmanuel Casanova MD Primary Care Provider [phone] Allergies Active Allergy Reactions Criticality Noted Date [...] Discussed exercise and dietary change. Referred to windows desktop support Assessment & Plan (04/05/2018 11:01 AM EDT): [...] Plan (09/08/2018 8:47 PM EST): Referred to windows desktop support. Today we did discuss bariatric medicine but [...] 12/01/2020, 11/10/2020 SCREENING FOR DIABETES 10/08/2025 10/08/2022, 2018 LIPID PANEL 06/20/2027 06/20/2022, 100 06/2021, 09/23/2018, [...] this topic Medical Devices Implanted Type Area Tax Examiner Device Identifier Shelf Expiration Date Model / [...] Thurston MD - 04/01/2023 9:24 AM EDT [facility] Patient Name: Kenyetta Muñozdisha Attending MD:: COLT THURSTON MD, Procedure Date: 04/01/2023 9:24 AM Date of : 1975 Age: 48 Admit Type: Outpatient Gender: Female Room: [facility] 05 Referring MD: EMMANUEL CASANOVA MD Exam [...] monitored continuously. The Olympus adult variable colonoscope [id number] #[id number] was introduced through the anus and [...] 9:24 AM Procedure Code(s): --- Professional --- 91217, Colonoscopy, flexible; with biopsy, single or multiple --- Technical --- 95305, Colonoscopy, flexible; with biopsy, single or multiple CPT copyright 2021 [employer]. All rights reserved. The codes documented in this report are preliminary and upon picking machine operator reviewmay be revised to meet current compliance requirements. Procedure Date: 04/01/2023 9:24:[address] [place] [address] Emmanuel Casanova MD GI PROCEDURE ORDERABLES [...] EST) SODIUM 138 133 - 146 mmol/L [facility] POTASSIUM 3.4 3.3 - 5.1 mmol/L [facility] CHLORIDE 99 96 - 108 mmol/L [facility] CO2 29 21 - 35 mmol/L [facility] BUN 9 6 - 19 mg/dL [facility] CREATININE 0.40(L) 0.5 - 1.5 mg/dL [facility] GLUCOSE 112(H) 70 - 99 mg/dL [facility] ALBUMIN 4.2 3.9 - 4.8 g/dL [facility] TOTAL PROTEIN 7.5 6.5 - 8.0 g/dL [facility] CALCIUM 9.9 8.4 - 10.3 mg/dL [facility] ALKALINE PHOSPHATASE 72 39 - 117 U/L [facility] TOTAL BILIRUBIN <0.2 0.0 - 1.2 mg/dL [facility] AST 16 0 - 37 U/L [facility] ALT 13 0 - 40 U/L [facility] GLOBULIN 3.3 1 - 4.8 g/dL [facility] EGFR >120 >59 mL/min/1.7 3m2 [facility] Comment:Estimated glomerular filtration rate calculated using the CKD-EPI refit equation. ANION GAP 13 10 - 20 mmol/L [facility] Blood 10/08/2022 3:10 PM EST 10/08/2022 3:17 PM EST Madonna Beyer CNP LAB BLOOD ORDERABLES Final Result [address] [address] * (ABNORMAL) Lipid panel (06/20/2022 7:49 AM EDT) HDL 50 mg/dL [facility] Comment: Interpretation <40 mg/dL: Low HDL cholesterol (major risk factor for CHD) Greater than or equal to 60 mg/dL: High HDL cholesterol ( negative risk factor for CHD) HDL - cholesterol is affected by a number of factors, e.g. smoking, excerise, hormones, sex and age. CHOLESTEROL 206 0 - 240 mg/dL [facility] TRIGLYCERIDES 103 30 - 160 mg/dL [facility] LDL 135(H) 50 - 129 mg/dL [facility] Comment: LDL levels in terms of risk for coronary heart disease: <100 mg/dL: Optimal 100-129 mg/dL: Near or above optimal 130-159 mg/dL: Borderline high 160-189 mg/dL: High >190 mg/dL: Very High CARDIAC RISK RATIO 4.1 3.3 - 4.4 C [facility] Blood 06/20/2022 7:49 AM EDT 06/20/2022 7:53 AM EDT [facility] LAB BLOOD ORDERABLES Final Result Performing Organization Address [facility] Co de Phone Number [address] [address] * Hepatitis C antibody, qualitative (04/01/2021 4:01 PM EDT) HCV NON-REACTIV E NON-REACTI VE [facility] Blood 04/01/2021 4:01 PM EDT 04/01/2021 4:07 PM EDT [facility]LOOD [facility]ABLES Final Result Performing Organization Address City/[facility]/ZIP Co de Phone Number [address] [address] from Last 3 Months or Most Recently Relevant to Health Maintenance Insurance NON NSPG PCP [employer] POS NON NSPG PCP [place] [employer] POS WELLSENSE NON NSPG PCP [employer] WELLSENSE NON NSPG PCP [employer] WE[place] NON NSPG PCP S[employer] POS NON NSPG PCP [place] [employer] [address] [place] [address] NON NSPG PCP [place] [employer] POS ENSE NON NSPG PCP [employer] Member Subscriber Plan / Payer (Ef fective 2020-Present) Name:Soren Poweristin Relation to Subscriber:Self Name:Kenyetta Power Payer ID:[id number] Type:LocBox Address: [address] [place] [address] NON NSPG PCP [employer] POS Care Teams Metal Precision Machine Assembler Relationship Specialty Start Date End Date Emmanuel Casanova MD [address] [place] [address] PCP - General Internal Medicine 04/01/23 David Cuellar MD [address] [place] [address] Hematology and Oncology 09/22/18 Additional Source Comments The information contained in this document represents components of the legal health record. It is not the complete legal health record.[facility]
--- OUTSIDE RECORDS SUMMARY | 2025-07-17 07:37 | XMS_ITS | Encounter Summary ---
Author Organization [facility] Address [address] [place] [address] Phone Care Team Providers Care Purchasing Manager Name Role Phone David Cuellar MD Unavailable [phone] David Pinedo MD Primary Care Provider [phone] Encounter Details Date Type Department Care Team (Late st Contact Info) Description 04/01/2023 Procedure Pass [facility] Endoscopy Admitting Dept Virtual Department [address] [place] [address] Social History Tobacco Use Types Packs/Day Years [...] documented as of this encounter Care Teams Purchasing Manager Relationship Specialty Start Date End Date David Pinedo MD [address] [place] [address] Dr Cantrell [address] [place] [address] PCP - General Internal Medicine 04/01/23 David Cuellar MD [address] [place] [address] Hematology and Oncology 09/22/18 documented as of this encounter Additional Source Comments The information contained in this document represents components of the legal health record. It is not the complete legal health record.[facility]
--- OUTSIDE RECORDS SUMMARY | 2025-07-17 07:37 | XMS_ITS | Clinical Summary ---
Author Organization [address] [facility] Address [address] [place] [address] Phone Care Team Providers Care Ice Cream Van Vendor Name Role Phone David Pinedo MD Primary [...] Health Maintenance Due Date Last Done Comments Colorectal Cancer Screening: Colonoscopy 1975 Hepatitis B Vaccines (1 of 3 - 19+ 3-dose series) 1993 Cervical Cancer Screening: Pap Smear 1995 Pneumococcal Vaccine: 50+ Years (2 of 2 - PCV) 01/05/2024 09/08/2018 Zoster Vaccines (1 of 2) 01/05/2024 HIV Screening 09/28/2024 Lung Cancer Screening (Low [...] 10/20/2034 10/20/2024, 09/08/2018, 02/28/2015, Additional history exists RSV Immunization Adult Patients (1 - 1-dose 75+ series) 2049 Hepatitis C Screening Completed 04/01/2021 HIB Vaccines [...] patient's age to complete this topic Insurance [facility] MEDICAID - [place] Care Teams Ice Cream Van Vendor Relationship Specialty Start Date End Date David Pinedo MD [address] [place] [address] [address] [place], [place] PCP - General Internal Medicine 09/28/24
--- OUTSIDE RECORDS SUMMARY | 2025-07-17 07:37 | XMS_ITS | Encounter Summary ---
Author Organization [facility] Address [address] [place], [place] [phone] Phone Care Team Providers Care Brine Supervisor Name Role Phone Valdo Reddy MD Unavailable Timothy Wyatt MD Unavailable Dane Davis MD Unavailable [phone] Enrrique Raza MD Unavailable [phone] Liliana Ricks MD Unavailable [phone] Flaco Rebolledo MD Unavailable Madonna Beyer CNP Primary Care Provider [phone] Aubrey Delgado DO Unavailable David Cuellar MD Unavailable [phone] David Pinedo MD Primary Care Provider [phone] Encounter Details Date Type Department Care Team (Latest Contact Info) Description 06/29/2019 Transcribe Orders [facility] Laboratory [address] [place] [address] David Cuellar MD [address] [place] [address] Screening for unspecified condition (Primary Dx) Social [...] high school, GED, job training, learning the Micronesian language, technical skills, or developing parenting skills)? [...] documented as of this encounter Care Teams Brine Supervisor Relationship Specialty Start Date End Date Madonna Beyer CNP [address] [place] [address], [address] [place] [address] PCP - General 07/28/17 03/31/23 David Pinedo MD [address] [place] [address] [address] PCP - General Internal Medicine 04/01/23 Valdo Reddy MD [address] [place] [address] [email or web address] Historical LMR Provider 07/27/17 10/19/21 Timothy Wyatt MD [address] [place] [address] Historical LMR Provider 07/27/17 10/19/21 Dane Davis MD [address] [place] [address] Historical LMR Provider 07/27/17 10/19/21 Enrrique Raza MD [address] [place] [address], [address] [place] [address] Historical LMR Provider 07/27/17 10/19/21 Liliana Ricks MD [address] [place] [address] Historical LMR Provider 07/27/17 2 Flaco Rebolledo MD [address] [place] [address] [email or web address] Historical LMR Provider 07/27/17 10/19/21 Aubrey Delgado DO [address] [place] [address] [address] [place] [address] [email or web address] Insurance Assigned Provider 08/14/18 02/15/20 David Cuellar MD [address] [place] [address] [email or web address] Hematology and Oncology 09/22/18 documented as of this encounter Additional Source Comments The information contained in this document represents components of the legal health record. It is not the complete legal health record.[facility]
--- OUTSIDE RECORDS SUMMARY | 2025-07-17 07:37 | XMS_ITS | Encounter Summary ---
Author Organization [facility] Address [address] [place] [address] Phone Care Team Providers Care Grain Inspector Name Role Phone Valdo Reddy MD Unavailable Timothy Wyatt MD Unavailable Dane Davis MD Unavailable Enrrique Raza MD Unavailable [phone] Liliana Ricks MD Unavailable [phone] Flaco Rebolledo MD Unavailable Madonna Beyer CNP Primary Care Provider [phone] Aubrey Delgado DO Unavailable David Cuellar MD Unavailable [phone] David Pinedo MD Primary Care Provider [phone] Encounter Details Date Type Department Care Team (Latest Contact Info) Description 01/17/2019 Transcribe Orders [address] [place] [address] Chu Henriquez MD, PhD [address] [place], [place] [id number] [email or web address] Disease of thyroid gland (Primary Dx) [...] EDT) TSH 1.50 0.27 - 4.20 uIU/mL [facility] Blood 01/17/2019 2:45 PM EDT 01/17/2019 8:05 PM EDT Chu Henriquez MD, PhD LAB BLOOD ORDERABLES Fi nal Result Performing Organization Address [facility] de Phone Number [address] [address] * Free T4 (01/17/2019 2:45 PM EDT) FREE T4 0.9 0.9 - 1.7 ng/dL [facility] Blood 01/17/2019 2:45 PM EDT 01/17/2019 8:05 PM EDT Chu Henriquez MD, PhD LAB BLOOD ORDERABLES Fi nal Result Performing Organization Address [facility] Co de Phone Number [address] [address] documented in this encounter Visit Diagnoses Diagnosis [...] documented as of this encounter Care Teams Grain Inspector Relationship Specialty Start Date End Date Madonna Beyer, ABIGAIL [address] [address] PCP - General 07/28/17 03/31/23 David Pinedo MD [address] [place] [address] [address] PCP - General Internal Medicine 04/01/23 Valdo Reddy MD [address] [place] [address] [email or web address] Historical LMR Provider 07/27/17 10/19/21 Timothy Wyatt MD [address] [address] [email or web address] Historical LMR Provider 07/27/17 10/19/21 Dane Davis MD [address] [address] Historical LMR Provider 07/27/17 10/19/21 Enrrique Raza MD [address] [address] Historical LMR Provider 07/27/17 10/19/21 Liliana Ricks MD [address] [place] [address] Historical LMR Provider 07/27/17 2 Flaco Rebolledo MD [address] [place] [address], [address] [place] [address] [email or web address] Historical LMR Provider 07/27/17 10/19/21 Aubrey Delgado DO [address] [place] [address] [address] [place] [address] [email or web address] Insurance Assigned Provider 08/14/18 02/15/20 David Cuellar MD [address] [place] [address] [email or web address] Hematology and Oncology 09/22/18 documented as of this encounter Additional Source Comments The information contained in this document represents components of the legal health record. It is not the complete legal health record.[facility]
[2025-07-17 07:53] LABS: MANUAL DIFF FLAG NO
[2025-07-17 08:03] LABS: Hematocrit 36.4 % (37.0-47.0); Hemoglobin 12.1 g/dl (12.0-16.0); Imm Gran Abs Auto 0.04 X10*3/uL (0.00-0.03); Imm Gran Pct Auto 0.3 % (0.0-0.4); Lymphocytes Absolute Auto 3.3 X10*3/uL (1.2-4.9); Mean Corpuscular HGB Conc 33.2 g/dl (31.0-35.0); Mean Corpuscular Hemoglobin 29.6 pg (27.0-33.0); Mean Corpuscular Volume 89.0 fL (80.0-98.0); NRBC Abs Auto 0.000 X10*3/uL (0.0-0.012); NRBC Pct Auto 0.0 /100WBC (0.0-0.2); Platelet Count 335 X10*3/uL (160-400); Red Blood Count 4.09 X10*6/uL (4.20-5.50); White Blood Count 12.2 X10*3/uL (4.8-10.8)
[2025-07-17 08:12] LABS: Hemoglobin A1C 128.8472 umol/L
[2025-07-17 08:30] LABS: Alanine Aminotransferase 23 U/L (0-31); Albumin Level 4.2 g/dL (3.5-5.0); Alkaline Phosphatase 70 U/L (39-117); Anion Gap 9 (12-20); Aspartate Amino Transferase 16 U/L (5-31); Blood Urea Nitrogen 15 mg/dL (9-16); Calcium 9.0 mg/dL (8.4-10.2); Carbon Dioxide 31 mmol/L (22-29); Chloride 105 mmol/L (96-108); Cholesterol 219 mg/dL (<200); Estimated Glomerular Filt Rate > 60; HDL Cholesterol 58 mg/dL (>40); Potassium 3.9 mmol/L (3.3-5.1); Sodium 141 mmol/L (135-145); Total Protein 7.1 g/dL (6.5-8.0); Triglycerides 63 mg/dL (<150)
[2025-07-17 08:42] LABS: Appearance Urine Hazy; Glucose Urine UA Negative (Negative); PH 6.0 (5.0-9.0); Specific Gravity - Urine 1.025 (1.005-1.025)
== END 2025-07-17 07:34 | disposition home or self-care (01) ==
LOC: HO.LAB 07:33
PROVIDERS: PCP Internal Medicine; Visit Provider Internal Medicine
DX: R73.01 Impaired fasting glucose (principal); R30.0 Dysuria; D64.9 Anemia, unspecified; E78.00 Pure hypercholesterolemia, unspecified; E55.9 Vitamin D deficiency, unspecified
CPT/HCPCS: 36415; 80053; 80061; 81003; 82306; 83036; 84443; 85025

== ENCOUNTER 2025-07-20 15:35 | Outpatient (AMB) | payer OTHER, SELFPAY ==
[2025-07-20 15:59] VITALS: BP 102/60; PULSE 69; RESP 18; TEMP 36.3; O2SAT 97; BMI 46.3
--- NOTE | 2025-07-20 15:59 | A.OFFPC_ITS ---
Vital Signs 07/20/25 15:59 Height 4 ft 11 in Weight 229 lb 4 oz BMI 46.3 BP 102/60 Blood Pressure Location Lt brachial Position Sitting Respiration 18 Pulse 69 Pulse Source Pulse Oximeter Temp 97.3 F Temp Source Temporal Artery Scan Pulse Oximetry (%) 97 Oxygen Delivery Method Room Air Intake Visit Reasons: hyperlipidemia, IFG, HTN Acute Dialysis Registered Nurse Required: No Accompanied by: Self / Same As Patient Allergies Seasonal Allergies Allergy (Mild, Verified 07/20/25 17:46) Sneezing sertraline (From Zoloft) Allergy (Mild, Verified 07/20/25 17:46) Insomnia tramadol Adverse Reaction (Intermediate, Verified 07/20/25 17:46) made blood pressure go up very high Medication List - Last Reconciled 07/20/25 by KEREN Robles baclofen 20 mg PO TID PRN 30 days citalopram 40 mg PO DAILY famotidine 20 mg PO BID ferrous gluconate (Ferate) 240 mg PO DAILY hydrochlorothiazide 25 mg PO DAILY meloxicam 15 mg PO DAILY multivitamin 1 tab PO DAILY pravastatin 20 mg PO BEDTIME vitamin B complex (B Complex-Vitamin B12 tablet) 1 tab PO DAILY Tobacco use date assessed: 07/20/25 Dental Screening Dental Screen Date: 07/20/25 Did you have a dental visit in the last 12 months?: No Did you have a dental problem in the last 6 months where you did not have access to dental care?: No Was dental information given to patient?: No HPI hyperlipidemia, IFG, HTN HPI Details The patient is a 50-year-old female presenting for a follow-up appointment to review blood work and manage ongoing health conditions. The patient has a history of hyperlipidemia and is currently on pravastatin, although there was an issue with prescription refill approval. Her cholesterol levels have increased, and there is a consideration to increase the pravastatin dosage. The patient reports a history of anemia, for which she takes 260 mg of iron, yet remains slightly anemic. She experiences fatigue, which may be related to her anemia. Menopausal symptoms, including significant hot flashes, are reported by the patient. She has undergone a partial hysterectomy, making it difficult to assess menopausal status through menstrual changes. The patient has plantar fasciitis, with associated heel spurs causing significant pain. She is under the care of a surgeon and has received various treatments including physical therapy and injections. The patient uses a CPAP machine for sleep apnea and denies experiencing heartburn. Her A1c level is 5.8, indicating prediabetes, and she has experienced weight gain since discontinuing a weight management injection due to insurance issues. [facility] Medical History Bilateral knee pain Impaired fasting glucose Morbid obesity with BMI of 40.0-44.9, adult GERD without esophagitis Pure hypercholesterolemia Essential hypertension Diabetes mellitus Iron deficiency anemia Surgical History History of appendectomy Status post left foot surgery Hx of hernia repair History of partial hysterectomy (~2000) Family History Father COPD (chronic obstructive pulmonary disease) Mother Hyperthyroidism Alcohol abuse Social History Household Members: Spouse Housing: House Alcohol intake: current Alcohol intake frequency: holidays/special occasions only Alcohol type: beer and wine Patient Tobacco Use Status: Former Tobacco user e-Cigarette/Vaping Use: Never Used service: No Current occupational status: employed Current occupation: [employer] Current occupational exposures/hazards: No Cognitive needs: No Hearing needs: No Vision needs: Yes Questionnaire Thrive Questionnaire Date Thrive assessed: 02/20/25 I am a: Patient What is your living situation today?: I have a steady place to live Within the past 12 months, did the food you bought not last and you didn't have the money to get more?: Never true Within the past 12 months, did you worry whether your food would run out before you got money to buy more?: Never true Do you have trouble paying for medicines?: No Do you have trouble getting transportation to medical appointments?: No Do you have trouble paying your heating and electricity bill?: No Do you have trouble taking care of your child, family member or friend?: No Do you have trouble with day-to-day activities such as bathing, preparing meals, shopping, managing finances, etc.?: No Are you currently unemployed and looking for a job?: No Are you interested in more education?: No Please select the resources that you would like help with: None Currently or been in a relationship where the following occur: No concerns reported THRIVE Score: 0 LETTY-7 AMB Questionnaire LETTY-7 Date LETTY - 7 assessed: 02/20/25 Source: Developed by Drs. Cyril Cortes, Arabella Morin, Cedric Garcia and colleagues, with an educational dari from [employer]. Review of Systems Const Denies body aches, Denies chills, Denies fever(s), Denies headache(s) and Denies poor appetite Eyes Reports no additional complaints ENT Denies dysphagia, Denies dizziness, Denies headache(s) and Denies odynophagia Card Denies chest pain, Denies syncope, Denies edema, Denies irregular heart rhythm, Denies lightheadedness and Denies dyspnea Resp Denies cough and Denies dyspnea GI Denies abdominal pain, Denies constipation, Denies dysphagia, Denies diarrhea, Denies nausea, Denies odynophagia and Denies vomiting Reports no additional complaints Musc Reports back pain, Reports arthralgias (Bilateral knees) and Reports other (BLE trace edema) Skin/Breast Reports system reviewed and no additional complaints, except as documented Neuro Denies dizziness, Denies syncope and Denies headache(s) Psych Reports no additional complaints Physical exam (Primary Care) Vital Signs: Last Vital Signs Temp 97.3 F 07/20/25 15:59 Pulse 69 07/20/25 15:59 Resp 18 07/20/25 15:59 BP 102/60 07/20/25 15:59 Pulse Ox 97 07/20/25 15:59 Oxygen Delivery Method Room Air 07/20/25 15:59 BMI result Body Mass Index 46.3 Tobacco/Smoking Status: Tobacco use Status Tobacco use date assessed 07/20/25 07/20/25 16:10 Patient Tobacco Use Status Former Tobacco user 07/20/25 16:10 e-Cigarette/Vaping Use Never Used 07/20/25 16:10 Thrive Assessment: Date of Thrive Assessment Date Thrive assessed 02/20/25 07/20/25 16:10 Currently or been in a relationship where the following occur: No concerns reported Const General: cooperative, healthy appearing, comfortable and no acute distress Orientation/consciousness: patient oriented x3 HENMT Head: Yes normocephalic Ears: hearing grossly normal bilaterally General nose exam: Normal external nose present Eyes General: appearance normal, both eyes and all related structures Conjunctivae: conjunctivae normal Neck Neck: Yes full ROM and Yes no lymphadenopathy Resp Effort & Inspection: normal respiratory effort Auscultation: clear to auscultation bilaterally, no crackles, no rales, no rhonchi and no wheezes Cardio Rate: regular rate Rhythm: regular rhythm General: Yes no CVA tenderness Back/Spine/Pelvis Back: no CVA tenderness Thoracic/Lumbar Spine: No lumbar spinal tenderness Skin General skin exam: no rashes or lesions noted Neuro General: patient oriented x3 Gait exam (Neuro): Normal gait present Extrem General: Yes normal to inspection, Yes full ROM and No edema Right upper extremity: full ROM Left upper extremity: full ROM Right lower extremity: full ROM, edema Details: pitting and 1+ and knee Details: tenderness Location: of the pre-patellar area; no swelling Left lower extremity: full ROM, edema Details: pitting and 1+ and knee Details: tenderness Location: of the pre-patellar area; no swelling Psych Affect: normal affect Attitude: cooperative Insight: Good insight present (Psych) Judgement: Good judgement present (Psych) Office Procedures Flu Questionnaire Does the patient have a severe egg allergy?: No Does the patient have severe life threatening allergies?: No Does the patient have a fever or illness today?: No Has the patient ever had Guillain-Shelby Syndrome?: No Has the patient ever had any past reaction to a flu shot?: No Immunizations Fluarix [id number] (PF) 45 mcg (15 mcg x 3)/0.5 mL IM syringe Performing Provider: KEREN Robles [facility] Administered by: BLAKE Wong on 07/20/25 16:27 Dose Route Admin Location Dispensed Lot Number Expiration Date [facility] Health Information Coder 0.5 mL IM Left Deltoid 0.5 mL [id number] 04/10/26 [id number] [employer] VIS Given Date VIS Provided VIS Publication Date 07/20/25 Single Vaccine 24 Eligibility Eligibility Date Funding Source Not [facility] Eligible 07/20/25 Private Results Reviewed Results Reviewed: Laboratory Tests 07/17/25 07/17/25 07:40 07:50 WBC 12.2 H RBC 4.09 L Hgb 12.1 Hct 36.4 L MCV 89.0 MCH 29.6 MCHC 33.2 RDW 14.2 Plt Count 335 MPV 9.4 Sodium 141 Potassium 3.9 Chloride 105 Carbon Dioxide 31 H Anion Gap 9 L BUN 15 Creatinine 0.59 Estimated GFR > 60 Fasting Glucose 97 Estimat Average Glucose 120 Hemoglobin A1c % 5.8 Calcium 9.0 Total Bilirubin 0.3 AST 16 ALT 23 Alkaline Phosphatase 70 Total Protein 7.1 Albumin 4.2 Triglycerides 63 Cholesterol 219 H LDL Cholesterol, Calc 149 H HDL Cholesterol 58 25-OH Vitamin D Total 36.3 TSH 2.08 Urine Color Yellow Urine Appearance Hazy Urine pH 6.0 Ur Specific [place] 1.025 Urine Protein Negative Urine Glucose (UA) Negative Urine Ketones Negative Urine Blood Negative Urine Nitrite Negative Ur Leukocyte Esterase Negative Coding Level of Care Code Est Pt Level 4 (20696) Diagnoses Pure hypercholesterolemia E78.00 Impaired fasting glucose R73.01 Essential hypertension I10 DANILO on CPAP G47.33 GERD without esophagitis K21.9 Iron deficiency anemia, unspecified iron deficiency anemia type D50.9 Iron deficiency anemia type: unspecified iron deficiency Pain in both knees, unspecified chronicity M25.561; M25.562 Chronicity: unspecified Anxiety F41.9 Morbid obesity with BMI of 40.0-44.9, adult E66.01; Z68.41 Time Spent (min) 39 Assessment & Plan Assessment & Plan (1) Pure hypercholesterolemia: Code(s): E78.00 - Pure hypercholesterolemia, unspecified Category: Medical Plan: triglycerides 63, total cholesterol 219, LDL 149, HDL 58 Patient LDL increased from previous. Reinforced low-cholesterol diet and activity as tolerated Pravastatin increased to 20 mg p.o. bedtime We will rechecked lipid panel in 4 months (2) Impaired fasting glucose: Code(s): R73.01 - Impaired fasting glucose Category: Medical Plan: The patient's A1c level is 5.8%, indicating prediabetes. She has experienced weight gain since discontinuing a Mounjaro due to insurance issues, and it was discussed that her prediabetes status does not currently qualify her for certain medications under her insurance plan. Reports that she is seeing weight management who will be trying to get her approve for zepbound. We will repeat fasting glucose and A1c in 4 months (3) Essential hypertension: Code(s): I10 - Essential (primary) hypertension Category: Medical Plan: Reinforced low sodium diet - goal is systolic BP of at least 120 mm or less Continue HCTZ 25 mg QD (4) DANILO on CPAP: Code(s): G47.33 - Obstructive sleep apnea (adult) (pediatric) Category: Medical Plan: She was previously referred to Sleep Medicine for reassessment as she needed to get a new CPAP device as her old unit is worn down Reports compliance with CPAP nightly Follow up with Sleep Medicine as scheduled (5) GERD without esophagitis: Code(s): K21.9 - Gastro-esophageal reflux disease without esophagitis Category: Medical Plan: Dietary restrictions reinforced Continue Famotidine 20 mg BID (6) Iron deficiency anemia: Code(s): D50.9 - Iron deficiency anemia, unspecified Category: Medical Qualifiers: Iron deficiency anemia type: unspecified iron deficiency Qualified Code(s): D50.9 - Iron deficiency anemia, unspecified Plan: Mild anemia Continue Ferrous gluconate 240 mg QD Will recheck her CBC in 4 months for follow up (7) Bilateral knee pain: Code(s): M25.561 - Pain in right knee; M25.562 - Pain in left knee Category: Medical Qualifiers: Chronicity: unspecified Qualified Code(s): M25.561 - Pain in right knee; M25.562 - Pain in left knee Plan: X-rays of both knees done last month revealed (+) mild to moderate medial compartment osteoarthrosis in both knees Follow up with orthopedics as scheduled (8) Anxiety: Code(s): F41.9 - Anxiety disorder, unspecified Category: Medical Plan: Encouraged CBT Continue Citalopram 40 mg QD Denies SI/HI (9) Morbid obesity with BMI of 40.0-44.9, adult: Code(s): E66.01 - Morbid (severe) obesity due to excess calories; Z68.41 - Body mass index [BMI] 40.0-44.9, adult Category: Medical Plan: Reinforced diet/exercise as tolerated/lose weight Plan Follow up in 4 months Orders: Orders UA CC w/rflx Micro + Cult 3 Months D50.9 - Iron deficiency anemia, unspecified, E11.9 - Type 2 diabetes mellitus without complications, E53.9 - Vitamin B deficiency, unspecified, E66.01 - Morbid (severe) obesity due to excess calories, E78.00 - Pure hypercholesterolemia, unspecified, F41.9 - Anxiety disorder, unspecified, G47.33 - Obstructive sleep apnea (adult) (pediatric), I10 - Essential (primary) hypertension, K21.9 - Gastro-esophageal reflux disease without esophagitis, Z68.41 - Body mass index [BMI] 40.0-44.9, adult, Z78.0 - Asymptomatic menopausal state TSH reflex Free T4 3 Months D50.9 - Iron deficiency anemia, unspecified, E11.9 - Type 2 diabetes mellitus without complications, E53.9 - Vitamin B deficiency, unspecified, E66.01 - Morbid (severe) obesity due to excess calories, E78.00 - Pure hypercholesterolemia, unspecified, F41.9 - Anxiety disorder, unspecified, G47.33 - Obstructive sleep apnea (adult) (pediatric), I10 - Essential (primary) hypertension, K21.9 - Gastro-esophageal reflux disease without esophagitis, Z68.41 - Body mass index [BMI] 40.0-44.9, adult, Z78.0 - Asymptomatic menopausal state Follicle Stimulating Hormone 3 Months D50.9 - Iron deficiency anemia, unspecified, E11.9 - Type 2 diabetes mellitus without complications, E53.9 - Vitamin B deficiency, unspecified, E66.01 - Morbid (severe) obesity due to excess calories, E78.00 - Pure hypercholesterolemia, unspecified, F41.9 - Anxiety disorder, unspecified, G47.33 - Obstructive sleep apnea (adult) (pediatric), I10 - Essential (primary) hypertension, K21.9 - Gastro-esophageal reflux disease without esophagitis, Z68.41 - Body mass index [BMI] 40.0-44.9, adult, Z78.0 - Asymptomatic menopausal state Lutenizing Hormone 3 Months D50.9 - Iron deficiency anemia, unspecified, E11.9 - Type 2 diabetes mellitus without complications, E53.9 - Vitamin B deficiency, unspecified, E66.01 - Morbid (severe) obesity due to excess calories, E78.00 - Pure hypercholesterolemia, unspecified, F41.9 - Anxiety disorder, unspecified, G47.33 - Obstructive sleep apnea (adult) (pediatric), I10 - Essential (primary) hypertension, K21.9 - Gastro-esophageal reflux disease without esophagitis, Z68.41 - Body mass index [BMI] 40.0-44.9, adult, Z78.0 - Asymptomatic menopausal state Influenza [id number] Immunization Today Z23 - Encounter for immunization Comprehensive [place]. Panel Fast 3 Months D50.9 - Iron deficiency anemia, unspecified, E11.9 - Type 2 diabetes mellitus without complications, E53.9 - Vitamin B deficiency, unspecified, E66.01 - Morbid (severe) obesity due to excess calories, E78.00 - Pure hypercholesterolemia, unspecified, F41.9 - Anxiety disorder, unspecified, G47.33 - Obstructive sleep apnea (adult) (pediatric), I10 - Essential (primary) hypertension, K21.9 - Gastro-esophageal reflux disease without esophagitis, Z68.41 - Body mass index [BMI] 40.0-44.9, adult, Z78.0 - Asymptomatic menopausal state Complete Blood Count Auto Diff 3 Months D50.9 - Iron deficiency anemia, unspecified, E11.9 - Type 2 diabetes mellitus without complications, E53.9 - Vitamin B deficiency, unspecified, E66.01 - Morbid (severe) obesity due to excess calories, E78.00 - Pure hypercholesterolemia, unspecified, F41.9 - Anxiety disorder, unspecified, G47.33 - Obstructive sleep apnea (adult) (pediatric), I10 - Essential (primary) hypertension, K21.9 - Gastro-esophageal reflux disease without esophagitis, Z68.41 - Body mass index [BMI] 40.0-44.9, adult, Z78.0 - Asymptomatic menopausal state Lipid Panel 3 Months D50.9 - Iron deficiency anemia, unspecified, E11.9 - Type 2 diabetes mellitus without complications, E53.9 - Vitamin B deficiency, unspecified, E66.01 - Morbid (severe) obesity due to excess calories, E78.00 - Pure hypercholesterolemia, unspecified, F41.9 - Anxiety disorder, unspecified, G47.33 - Obstructive sleep apnea (adult) (pediatric), I10 - Essential (primary) hypertension, K21.9 - Gastro-esophageal reflux disease without esophagitis, Z68.41 - Body mass index [BMI] 40.0-44.9, adult, Z78.0 - Asymptomatic menopausal state Vitamin D 25-OH Total 3 Months D50.9 - Iron deficiency anemia, unspecified, E11.9 - Type 2 diabetes mellitus without complications, E53.9 - Vitamin B deficiency, unspecified, E66.01 - Morbid (severe) obesity due to excess calories, E78.00 - Pure hypercholesterolemia, unspecified, F41.9 - Anxiety disorder, unspecified, G47.33 - Obstructive sleep apnea (adult) (pediatric), I10 - Essential (primary) hypertension, K21.9 - Gastro-esophageal reflux disease without esophagitis, Z68.41 - Body mass index [BMI] 40.0-44.9, adult, Z78.0 - Asymptomatic menopausal state Estradiol Ultra Sensitive 3 Months D50.9 - Iron deficiency anemia, unspecified, E11.9 - Type 2 diabetes mellitus without complications, E53.9 - Vitamin B deficiency, unspecified, E66.01 - Morbid (severe) obesity due to excess calories, E78.00 - Pure hypercholesterolemia, unspecified, F41.9 - Anxiety disorder, unspecified, G47.33 - Obstructive sleep apnea (adult) (pediatric), I10 - Essential (primary) hypertension, K21.9 - Gastro-esophageal reflux disease without esophagitis, Z68.41 - Body mass index [BMI] 40.0-44.9, adult, Z78.0 - Asymptomatic menopausal state DHEA Sulfate 3 Months D50.9 - Iron deficiency anemia, unspecified, E11.9 - Type 2 diabetes mellitus without complications, E53.9 - Vitamin B deficiency, uns pecified, E66.01 - Morbid (severe) obesity due to excess calories, E78.00 - Pure hypercholesterolemia, unspecified, F41.9 - Anxiety disorder, unspecified, G47.33 - Obstructive sleep apnea (adult) (pediatric), I10 - Essential (primary) hypertension, K21.9 - Gastro-esophageal reflux disease without esophagitis, Z68.41 - Body mass index [BMI] 40.0-44.9, adult, Z78.0 - Asymptomatic menopausal state Medications: New pravastatin 20 mg PO BEDTIME 90 tabs 1RF
== END 2025-07-20 17:15 | disposition home or self-care (01) ==
LOC: HO.HMCH 15:36
PROVIDERS: PCP Internal Medicine
DX: E78.00 Pure hypercholesterolemia, unspecified (principal); R73.01 Impaired fasting glucose; E66.01 Morbid (severe) obesity due to excess calories; Z68.41 Body mass index [BMI] 40.0-44.9, adult; I10 Essential (primary) hypertension; G47.33 Obstructive sleep apnea (adult) (pediatric); K21.9 Gastro-esophageal reflux disease without esophagitis; D50.9 Iron deficiency anemia, unspecified; M25.561 Pain in right knee; M25.562 Pain in left knee; F41.9 Anxiety disorder, unspecified; Z23 Encounter for immunization

== ENCOUNTER → 2025-07-20 15:35 | Outpatient (BNVA) | payer OTHER, SELFPAY | PROVIDERS: PCP Internal Medicine | DX: R73.03 Prediabetes (principal); R73.01 Impaired fasting glucose; I10 Essential (primary) hypertension; E78.5 Hyperlipidemia, unspecified; N95.1 Menopausal and female climacteric states; R23.2 Flushing; M72.2 Plantar fascial fibromatosis; G47.33 Obstructive sleep apnea (adult) (pediatric); K21.9 Gastro-esophageal reflux disease without esophagitis; D50.9 Iron deficiency anemia, unspecified; M25.561 Pain in right knee; M25.562 Pain in left knee; F41.9 Anxiety disorder, unspecified; E66.01 Morbid (severe) obesity due to excess calories; Z68.41 Body mass index [BMI] 40.0-44.9, adult; Z23 Encounter for immunization; Z99.89 Dependence on other enabling machines and devices | CPT/HCPCS: 90471; 90656 ==

== ENCOUNTER 2025-08-21 15:54 | Emergency (ER) | payer OTHER, SELFPAY ==
--- OUTSIDE RECORDS SUMMARY | 2022-08-25 18:30 | XMS_ITS | Encounter Summary ---
Author Organization [facility] Address Pending sale to [facility] [employer] [address] [address] Phone Care Team Providers Care Licensed Mental Health Professional Name Role Phone PepitoMadonna sauceda Ban HAYES Primary Care Provider + [phone] David Cuellar MD Unavailable [phone] Encounter Details Date Type Department Care Team (Late st Contact Info) Description 08/25/2022 6:30 PM EST Hospital Encounter [facility] [address] [place] [address] Ronna Hawk CNP [address] [place] [address] [email or web address] Social History Tobacco Use Types Packs/Day Years [...] spine fracture or facet malalignment. Ronna Hawk MORTGAGE SPECIALIST IMG XR SPINE Final Resul t documented in this encounter Visit Diagnoses Not on filedocumented in this encounter Additional Health Concerns Assessment Noted Time PHQ-2 Depression Total Score: 0 09/08/20 18 3:25 PM EST documented as of this encounter Care Teams Licensed Mental Health Professional Relationship Specialty Start Date End Date Madonna Beyer CNP [address] [place] [phone] PCP - General 07/28/17 03/31/23 David Cuellar MD [address] [place] [address] Hematology and Oncology 09/22/18 documented as of this encounter Additional Source Comments The information contained in this document represents components of the legal health record. It is not the complete legal health record.[facility]
[2025-08-21 16:01] VITALS: BP 165/77; PULSE 86; RESP 16; TEMP 36.1; O2SAT 94; BMI 47.2
--- NOTE | 2025-08-21 16:01 | ED_ITS ---
HPI - General Adult General Chief complaint: Weakness Stated complaint: Back Pain Time Seen by Provider: 08/21/25 18:45 Source: patient Mode of arrival: ambulatory Limitations: no limitations History of Present Illness ED Provider: Mireille Turk PA-C HPI narrative: Patient is a 50 year old assigned female at with a history of DM, HTN, anxiety, GERD, and DANILO presenting to the emergency department today with weakness, numbness, and feeling generally unwell. Patient states that she has been having whole body weakness, lightheadedness, and dizziness. Patient states that this has happened before and at that time, they called it anxiety. Patient denies any other complaints at this time. Related Data Home Medications ?Medication ?Instructions ?Recorded ?Confirmed multivitamin 1 tab PO DAILY 04/06/2307/06 vitamin B complex (B 1 tab PO DAILY 04/06/2307/06 Complex-Vitamin B12 tablet) Previous Rx's ?Medication ?Instructions ?Recorded ferrous gluconate 240 mg (27 mg 240 mg PO DAILY #90 ta bs 04/23/23 iron) tablet (Ferate) famotidine 20 mg tablet 20 mg PO BID #180 tabs 10/24 citalopram 40 mg tablet 40 mg PO DAILY #90 tabs 03/12 baclofen 20 mg tablet 20 mg PO TID PRN Muscular pa in and 03/30/25 spasticity 30 days #90 tabs hydrochlorothiazide 25 mg tablet 25 mg PO DAILY #90 ta bs 06/10/25 meloxicam 15 mg tablet 15 mg PO DAILY #30 tabs 06/12 05/05 pravastatin 20 mg tablet 20 mg PO BEDTIME #90 tabs Allergies Allergy/AdvReac Type Severity Reaction Status Date / Time Seasonal Allergies Allergy Mild Sneezing Verified 08/21/25 16:04 sertraline (From Zoloft) Allergy Mild Insomnia Verified 08/21/25 16:04 tramadol AdvReac Intermediate made blood Verified 08/21/25 16:04 pressure go up very high Review of Systems 2 Constitutional: Constitutional: Reports as per HPI Eyes: Eyes: Reports as per HPI ENT: Reports as per HPI Cardiovascular: Cardiovascular: Reports as per HPI Respiratory: Respiratory: Reports as per HPI Gastrointestinal: Gastrointestinal: Reports as per HPI Genitourinary: Genitourinary: Reports as per HPI Musculoskeletal: Musculoskeletal: Reports as per HPI Integumentary/Breasts: Skin/Breast: Reports as per HPI Neurologic: Reports as per HPI Psychiatric: Psychiatric: Reports as per HPI Endocrine: Endocrine: Reports as per HPI Hematologic/Lymphatic: Hematologic/Lymphatic: Reports as per HPI Allergic/Immunologic: Allergic/Immunologic: Reports as per HPI [facility] Past Medical History Attestation statement: The following information was validated with the patient. Source: old records reviewed and nursing notes reviewed Medical History (Reviewed 08/21/25 @ 19: by TRISTIAN Warren) Bilateral knee pain Impaired fasting glucose Morbid obesity with BMI of 40.0-44.9, adult GERD without esophagitis Pure hypercholesterolemia Essential hypertension Diabetes mellitus Iron deficiency anemia Surgical History (Reviewed 08/21/25 @ 19: by TRISTIAN Warren) History of appendectomy Status post left foot surgery Hx of hernia repair History of partial hysterectomy (~2000) Family History Family History (Reviewed 08/21/25 @ 19: by TRISTIAN Warren) Father COPD (chronic obstructive pulmonary disease) Mother Hyperthyroidism Alcohol abuse Social History Social History Household Members: Spouse Housing: House Alcohol intake: current Alcohol intake frequency: holidays/special occasions only Alcohol type: beer and wine Patient Tobacco Use Status: Former Tobacco user e-Cigarette/Vaping Use: Never Used Advance Directives: No Advance Directives Information Provided: No Do you have a plan to hurt others: No Plan service: No Current occupational status: employed 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 [employer] Current occupational exposures/hazards: No Cognitive needs: No Hearing needs: No Vision needs: Yes Physical Exam ED Vital Signs: Vital Signs - 24 hr 08/21/25 16:01 08/21/25 18:53 08/21/25 18:55 Temperature 97.0 F 98.4 F 98.4 F Pulse Rate 86 70 70 Respiratory Rate 16 20 20 Blood Pressure 165/77 H 136/76 136/76 Pulse Oximetry 94 95 95 Oxygen Delivery Method Room Air Room Air Room Air BMI result Body Mass Index 47.2 Const General: cooperative, no acute distress, alert and awake Nutritional Appearance: well nourished Orientation/consciousness: patient oriented x3 HENMT Head: Yes normal to inspection and Yes atraumatic Ears: hearing grossly normal bilaterally and external ears normal General nose exam: Normal external nose present, no nasal discharge noted and no epistaxis Face and sinus: Yes normal facial exam, No abrasion and No laceration Mouth: Normal oral and palatal mucosa present, no drooling and no muffled voice Eyes General: appearance normal, both eyes and all related structures Periorbital: periorbital findings normal Eyelids: Yes eyelids normal Conjunctivae: conjunctivae normal Pupils: Equal, round and reactive pupils present EOM: EOMs intact bilaterally Neck Neck: Yes normal visual inspection and Yes full ROM Resp Effort & Inspection: normal respiratory effort and able to speak in complete sentences Neuro General: patient oriented x3, moves all extremities and CN's II-XI intact bilaterally Cranial nerves: Yes Equal, round and reactive pupils present Cognition (Neuro): normal cognition Extrem General: Yes normal to inspection, Yes full ROM and Yes capillary refill normal Psych Appearance: grossly normal Mental Status: mental status grossly normal Affect: normal affect Attitude: cooperative Thought process: Normal thought process present Thought content: Normal thought content present Insight: Good insight present (Psych) Course Course Course Narrative: Rapid medical examination performed in triage by Mireille Turk PA-C: Patient is a 50 year old assigned female at presenting to the emergency department with full body numbness / feeling generally unwell. Patient states that the last time this happened she was told this was anxiety. Detailed physical exam and review of systems are deferred to the razor sharpener. EKG, labs, and swabs ordered. Patient placed back in the waiting room pending room availability and results. Medical Decision Making Medical Decision Making MDM Narrative: Patient is a 50 year old assigned female at with a history of DM, HTN, anxiety, GERD, and DANILO presenting to the emergency department today with weakness, numbness, and feeling generally unwell. Patient's physical exam was as noted in the physical exam portion of this note. Patient's blood work showed a WBC count of 13.8. Patient's WBC count appears to be chronically elevated. Patient's COVID-19, influenza, and RSV testing was negative. Patient's EKG was unremarkable. I explained my physical exam findings as well as all test results to the patient. I answered all questions asked by the patient. Patient requested to be discharged with no additional testing or treatment. I stressed the importance of the patient taking her medication as directed (either prescribed or as the over the counter packaging recommends). I stressed the importance of the patient following up with her primary care provider. I stressed the importance of the patient returning to the emergency department immediately if her symptoms were to worsen or if she were to develop any dizziness, shortness of breath, difficulty breathing, chest pain, blurry vision, loss of vision, nausea, vomiting, abdominal pain, fever, chills, back pain, or any other complaints. Patient verbalized agreement and understanding with this treatment plan and discharge. Differential Diagnosis Differential Diagnoses: The differential diagnosis associated with the presentation includes Weakness Anxiety Fatigue Admission/Observation Consideration of admission/observation: Escalation of care including admission/observation considered Patient would have been admitted to the hospital had her work up had any findings where hospital admission was appropriate and her clinical presentation warranted hospital admission. Lab Data [facility] Lab Attestation statement: I reviewed the patient's lab results. My interpretation of these results are in the [facility] Rationale portion of this note. 08/21/25 16:15 08/21/25 16:15 Labs: Lab Results 08/21/25 Range/Units 16:15 WBC 13.8 H (4.8-10.8) X10*3/uL RBC 4.18 L (4.20-5.50) X10*6/uL Hgb 12.5 (12.0-16.0) g/dl Hct 36.9 L (37.0-47.0) % MCV 88.3 (80.0-98.0) fL MCH 29.9 (27.0-33.0) pg MCHC 33.9 (31.0-35.0) g/dl RDW 14.1 (11.0-16.0) % Plt Count 329 (160-400) X10*3/uL MPV 9.4 (9.4-12.3) fL Immature Gran % (Auto) 0.5 H (0.0-0.4) % Neut % (Auto) 67.2 (45-73) % Lymph % (Auto) 24.6 (20-40) % [place] % (Auto) 5.1 (2-11) % Eos % (Auto) 1.9 (0-4) % Baso % (Auto) 0.7 (0-2) % Lymph # (Auto) 3.4 (1.2-4.9) X10*3/uL [place] # (Auto) 0.7 (0.1-1.2) X10*3/uL Eos # (Auto) 0.3 (0.0-0.4) X10*3/uL Baso # (Auto) 0.1 (0.0-0.2) X10*3/uL Abs Immat Gran (auto) 0.07 H (0.00-0.03) X10*3/uL Absolute Neuts (auto) 9.2 H (2.0-8.3) x10*3/uL Absolute Nucleated RBC 0.000 (0.0-0.012) X10*3/uL Nucleated RBC % (auto) 0.0 (0.0-0.2) /100WBC Sodium 140 (135-145) mmol/L Potassium 3.6 (3.3-5.1) mmol/L Chloride 103 (96-108) mmol/L Carbon Dioxide 29 (22-29) mmol/L Anion Gap 12 (12-20) BUN 7 L (9-16) mg/dL Creatinine 0.55 (0.5-1.4) mg/dL Estim Creat Clear Calc 130.6 Estimated GFR > 60 Random Glucose 111 (60-115) mg/dL Calcium 9.4 (8.4-10.2) mg/dL Magnesium 2.2 (1.6-2.6) mg/dL Total Bilirubin 0.2 (0.0-1.0) mg/dL AST 19 (5-31) U/L ALT 21 (0-31) U/L Alkaline Phosphatase 87 (39-117) U/L Troponin I High Sens < 2.7 (<3.5-17.0) ng/L Total Protein 7.6 (6.5-8.0) g/dL Albumin 4.4 (3.5-5.0) g/dL Influenza Type A (PCR) NEGATIVE (Negative) Influenza Type B (PCR) NEGATIVE (Negative) RSV RNA Qual (PCR) NEGATIVE (Negative) SARS-CoV-2 RNA (RT-PCR) NEGATIVE (Negative) Independent Interpretation I performed an independent interpretation of an: EKG Interpretation: I independently interpreted this EKG and am in agreement with the below findings: Vent. Rate: 76 BPM Atrial Rate: 76 BPM P-R Int: 134 ms QRS Dur: 74 ms QT Int: 408 ms P-R-T Axes: 60 29 66 degrees QTcB Int: 459 ms Normal sinus rhythm with sinus arrhythmia No previous ECGs available DD/ 1609 Discharge Plan Discharge Clinical Impression: Weakness Patient Disposition: Home, Self-Care Instructions: Weakness (ED) Additional Instructions: Your work up today is reassuring there is no EMERGENT cause for your symptoms. IF you are prescribed home medications and/or you are taking over the counter medications at home - it is very important you continue to do so as prescribed / directed unless told otherwise. Follow up with a primary care provider. Return to the emergency department immediately if your symptoms worsen or if you develop any numbness, tingling, dizziness, shortness of breath, difficulty breathing, chest pain, blurry vision, loss of vision, nausea, vomiting, abdominal pain, fever, chills, back pain, or any other complaints. Please see the information below about our Patient Portal. If you are not yet enrolled in the [facility] Patient Portal, you will receive an enrollment email invitation following your visit to any [facility] setting. You may also self-enroll in the Patient Portal by visiting our website: [email or web address] The following information is required to access the Patient Portal: - Your [facility] Medical Record Number - Your personal home email address (must match what is in your electronic medical record, Registration staff can assist with this) - Name - Date of Capabilities of the Patient Portal: - Message some providers - View upcoming appointments - Access your health summary, medical history, and visit history - View current conditions and allergies - View procedure and lab results - View your medications, including guidelines, side effects, and precautions - Complete pre-appointment questionnaires requested by your provider - Ready summary reports of your office visits and procedures To access the Patient Portal Mobile Nader, follow these directions: - Search [employer] in the Nader Store or [employer] Software Store - Download the Nader - Search for [facility] - Enter your login/password Prescriptions: No Action ferrous gluconate [Ferate] 240 mg (27 mg iron) tablet 240 mg PO DAILY Qty: 90 0RF famotidine 20 mg tablet 20 mg PO BID Qty: 180 2RF citalopram 40 mg tablet 40 mg PO DAILY Qty: 90 3RF hydrochlorothiazide 25 mg tablet 25 mg PO DAILY Qty: 90 0RF meloxicam 15 mg tablet 15 mg PO DAILY Qty: 30 3RF multivitamin Tablet 1 tab PO DAILY vitamin B complex [B Complex-Vitamin B12] Tablet 1 tab PO DAILY pravastatin 20 mg tablet 20 mg PO BEDTIME Qty: 90 1RF baclofen 20 mg tablet 20 mg PO TID PRN (Reason: Muscular pain and spasticity) 30 Days Qty: 90 8RF Referrals: David Pinedo MD [Primary Care Provider, Internal Medicine] Interventions: ED Discharge Assessment Last Done: 08/21/25 18:55 Discharge Date/Time: 08/21/25 19:10 Print Language: Montserratian
--- NOTE | 2025-08-21 16:02 | ECG_ITS ---
Test Reason : WEAKNESS Blood Pressure : */* mmHG Vent. Rate : 76 BPM Atrial Rate : 76 BPM P-R Int : 134 ms QRS Dur : 74 ms QT Int : 408 ms P-R-T Axes : 60 29 66 degrees QTcB Int : 459 ms Normal sinus rhythm with sinus arrhythmia Nonspecific ST abnormality Abnormal ECG No previous ECGs available Referred By: Mireille Turk Electronically Signed By: CAITLYN LAKE MD
[2025-08-21 16:20] LABS: MANUAL DIFF FLAG NO
[2025-08-21 16:22] LABS: Hematocrit 36.9 % (37.0-47.0); Hemoglobin 12.5 g/dl (12.0-16.0); Imm Gran Abs Auto 0.07 X10*3/uL (0.00-0.03); Imm Gran Pct Auto 0.5 % (0.0-0.4); Lymphocytes Absolute Auto 3.4 X10*3/uL (1.2-4.9); Mean Corpuscular HGB Conc 33.9 g/dl (31.0-35.0); Mean Corpuscular Hemoglobin 29.9 pg (27.0-33.0); Mean Corpuscular Volume 88.3 fL (80.0-98.0); NRBC Abs Auto 0.000 X10*3/uL (0.0-0.012); NRBC Pct Auto 0.0 /100WBC (0.0-0.2); Platelet Count 329 X10*3/uL (160-400); Red Blood Count 4.18 X10*6/uL (4.20-5.50); White Blood Count 13.8 X10*3/uL (4.8-10.8)
[2025-08-21 16:34] LABS: Alanine Aminotransferase 21 U/L (0-31); Albumin Level 4.4 g/dL (3.5-5.0); Alkaline Phosphatase 87 U/L (39-117); Anion Gap 12 (12-20); Aspartate Amino Transferase 19 U/L (5-31); Blood Urea Nitrogen 7 mg/dL (9-16); Calcium 9.4 mg/dL (8.4-10.2); Carbon Dioxide 29 mmol/L (22-29); Chloride 103 mmol/L (96-108); Creatinine Clr Calc Pharmacy 130.6; Estimated Glomerular Filt Rate > 60; Magnesium 2.2 mg/dL (1.6-2.6); Potassium 3.6 mmol/L (3.3-5.1); Sodium 140 mmol/L (135-145); Total Protein 7.6 g/dL (6.5-8.0)
[2025-08-21 16:41] LABS: Troponin-I High Sensitivity < 2.7 ng/L (<3.5-17.0)
[2025-08-21 17:09] LABS: Resp Syncy Virus RNA Qual PCR NEGATIVE (Negative); SARS COV2 PCR INHOUSE NEGATIVE (Negative)
[2025-08-21 18:53] VITALS: BP 136/76; PULSE 70; RESP 20; TEMP 36.9; O2SAT 95
[2025-08-21 18:55] VITALS: BP 136/76; PULSE 70; RESP 20; TEMP 36.9; O2SAT 95
--- OUTSIDE RECORDS SUMMARY | 2025-08-21 19:11 | XMS_ITS | Clinical Summary ---
Author Organization [facility] Address [address] [place] [address] Phone Care Team Providers Care Automatic Presser Name Role Phone David Pinedo MD Primary Care Provider [phone] Social History Tobacco Use Types Packs/Day Years [...] (2 of 2 - PCV) 01/05/2024 09/08/2018 RSV Immunization Adult Patients (1 - Risk 50-74 years 1-dose series) 01/05/2024 Zoster Vaccines (1 of 2) 01/05/2024 HIV Screening 09/28/2024 Lung Cancer Screening (Low Dose CT) 09/28/2024 Social Influencers of Health Screening 09/28/2024 Depression Screening 10/12/2024 Breast Cancer Screening 10/28/2024 10/28/2022 Hypertension/CHF/CAD Annual BMP Blood Test 11/24/2024 10/08/2022, 12/12/2021, 04/01/2021, Additional history exists COVID-19 Vaccine ( season) 2025 09/10/2021, 12/01/2020, 11/10/2020 Influenza Vaccine (#1) 2025 , 08/01/2023, 08/26/2022, Additional history exists Cholesterol Screening [...] patient's age to complete this topic Insurance [facility] MEDICAID - [place] Care Teams Automatic Presser Relationship Specialty Start Date End Date David Pinedo MD [address] [place] [address] [address] [place], [place] PCP - General Internal Medicine 09/28/24
--- OUTSIDE RECORDS SUMMARY | 2025-08-21 19:11 | XMS_ITS | Encounter Summary ---
Author Organization [facility] Address [address] [place] [phone] Phone Care Team Providers Care Insulator Apprentice Name Role Phone David Cuellar MD Unavailable [phone] David Pinedo MD Primary Care Provider [phone] Encounter Details Date Type Department Care Team (Late st Contact Info) Description 04/01/2023 Procedure Pass [facility] Endoscopy Admitting Dept Virtual Department [address] [place] [address] Social History Tobacco Use Types Packs/Day Years [...] documented as of this encounter Care Teams Insulator Apprentice Relationship Specialty Start Date End Date David Pinedo MD [address] [place] [address] Dr Cantrell [address] [place] [id number] PCP - General Internal Medicine 04/01/23 David Cuellar MD [address] [place] [address] Hematology and Oncology 09/22/18 documented as of this encounter Additional Source Comments The information contained in this document represents components of the legal health record. It is not the complete legal health record.[facility]
--- OUTSIDE RECORDS SUMMARY | 2025-08-21 19:11 | XMS_ITS | Encounter Summary ---
Author Organization [facility] Address [address] [place], [place] [id number] Phone Care Team Providers Care Gas Combustion Engineer Name Role Phone Valdo Reddy MD Unavailable Timothy Wyatt MD Unavailable Dane Davis MD Unavailable [phone] Enrrique Raza MD Unavailable Liliana Ricks MD Unavailable [phone] Flaco Rebolledo MD Unavailable [phone] Madonna Beyer INTERNATIONAL TRADE ANALYST Primary Care Provider [phone] Aubrey Delgado DO Unavailable David Cuellar MD Unavailable [phone] David Pinedo MD Primary Care Provider [phone] Encounter Details Date Type Department Care Team (Latest Contact Info) Description 06/29/2019 Transcribe Orders [facility] Phleb [facility] [address] [place], [place] [id number] David Cuellar MD [address] [place] [address] Screening for unspecified condition (Primary [...] high school, GED, job training, learning the [place] language, technical skills, or developing parenting skills)? [...] documented as of this encounter Care Teams Gas Combustion Engineer Relationship Specialty Start Date End Date Madonna Beyer CNP [address] [place] [address] PCP - General 07/28/17 03/31/23 David Pinedo MD [address] [place] [address] PCP - General Internal Medicine 04/01/23 Valdo Reddy MD [address] [place] [address] [email or web address] Historical LMR Provider 07/27/17 10/19/21 Timothy Wyatt MD [address] [place] [address] Historical LMR Provider 07/27/17 10/19/21 Dane Davis MD [address] [place] [address] Historical LMR Provider 07/27/17 10/19/21 Enrrique Raza MD [address] [place] [address], [address] [place] [address] Historical LMR Provider 07/27/17 10/19/21 Liliana Ricks MD [address] [place] [address] Historical LMR Provider 07/27/17 2 Flaco Rebolledo MD [address] [place] [address] [email or web address] Historical LMR Provider 07/27/17 10/19/21 Aubrey Delgado DO [address] [place] [address] [address] [place] [address] [email or web address] Insurance Assigned Provider 08/14/18 02/15/20 David Cuellar MD [address] [place] [address] [email or web address] Hematology and Oncology 09/22/18 documented as of this encounter Additional Source Comments The information contained in this document represents components of the legal health record. It is not the complete legal health record.[facility]
--- OUTSIDE RECORDS SUMMARY | 2025-08-21 19:11 | XMS_ITS | Clinical Summary ---
Author Organization [facility] Address [address] [place] [address] Phone Care Team Providers Care Intel Recruiter Name Role Phone David Cuellar MD Unavailable [phone] Emmanuel Casanova MD Primary Care Provider [phone] Allergies Active Allergy Reactions Criticality Noted Date [...] Discussed exercise and dietary change. Referred to practical nurse Assessment & Plan (04/05/2018 11:01 AM EDT): [...] Plan (09/08/2018 8:47 PM EST): Referred to practical nurse. Today we did discuss bariatric medicine but [...] of 2 - PCV) 01/05/2024 09/08/2018 RSV VACCINE (1 - Risk 50-74 years 1-dose series) 01/05/2024 ZOSTER VACCINES (1 of 2) 01/05/2024 BLOOD PRESSURE 04/19/2025 10/20/2024 INFLUENZA VACCINE (#1) 2025 , 08/26/2022, 07/01/2021, Additional history exists COVID-19 VACCINE (4 - season) 2025 09/10/2021, 12/01/2020, 11/10/2020 SCREENING FOR DIABETES 10/08/2025 10/08/2022, 2018 LIPID PANEL 06/20/2027 06/20/2022, 10/0 06/2021, 09/23/2018, Additional history exists SMOKING STATUS [...] this topic Medical Devices Implanted Type Area Armor Reconnaissance Vehicle Driver Device Identifier Shelf Expiration Date Model / Serial / Lot Left Foot Procedures Procedure Name Priority Date/Time Associated Diagnosis Comments ENDOSCOPY, COLON 04/01/2023 9:24 AM EDT BI MAMMOGRAM SCREENING WITH TOMOSYNTHESIS WITH CAD (BILATERAL) Routine 10/28/2022 1:24 PM EST Encounter for screening mammogram for malignant neoplasm of breast COMPREHENSIVE METABOLIC PANEL (CMP) Routine 10/08/2022 3:10 PM EST Essential hypertension LIPID PANEL Routine 06/20/2022 7:49 AM EDT Prediabetes HEPATITIS C ANTIBODY, QUALITATIVE Routine 04/01/2021 4:01 PM EDT Encounter for hepatitis C screening test for low risk patient from Last 3 Months or Most Recently Relevant to Health Maintenance Results * ENDOSCOPY, COLON (04/01/2023 9:24 AM EDT) Narrative Transcriptions Colt Thurston MD - 04/01/2023 9:24 AM EDT [facility] Patient Name: Kenyetta Power Attending MD:: COLT THURSTON MD, Procedure Date: 04/01/2023 9:24 AM Date of : 1975 Age: 48 Admit Type: Outpatient Gender: Female Room: [facility] Referring MD: EMMANUEL CASANOVA MD Exam Type: [...] monitored continuously. The Olympus adult variable colonoscope [id number] #1 was introduced through the anus and [...] 9:24 AM Procedure Code(s): --- Professional --- 75597, Colonoscopy, flexible; with biopsy, single or multiple --- Technical --- 71244, Colonoscopy, flexible; with biopsy, single or multiple CPT copyright 2021 [employer]. All rights reserved. The codes documented in this report are preliminary and upon director of patient care reviewmay be revised to meet current compliance requirements. Procedure Date: 04/01/2023 9:24:[address] [place] [address] Emmanuel Casanova MD GI PROCEDURE ORDERABLES [...] There are scattered fibroglandular densities. Madonna Beyer PIPE FITTER MAINTENANCE IMG MG EXAMS Final Resu lt * (ABNORMAL) Comprehensive metabolic panel (10/08/2022 3:10 PM EST) SODIUM 138 133 - 146 mmol/L [facility] POTASSIUM 3.4 3.3 - 5.1 mmol/L [facility] CHLORIDE 99 96 - 108 mmol/L [facility] CO2 29 21 - 35 mmol/L [facility] BUN 9 6 - 19 mg/dL [facility] CREATININE 0.40(L) 0.5 - 1.5 mg/dL [facility] GLUCOSE 112(H) 70 - 99 mg/dL [facility] ALBUMIN 4.2 3.9 - 4.8 g/dL [facility] TOTAL PROTEIN 7.5 6.5 - 8.0 g/dL [facility] CALCIUM 9.9 8.4 - 10.3 mg/dL [facility] ALKALINE PHOSPHATASE 72 39 - 117 U/L [facility] TOTAL BILIRUBIN <0.2 0.0 - 1.2 mg/dL [facility] AST 16 0 - 37 U/L [facility] ALT 13 0 - 40 U/L [facility] GLOBULIN 3.3 1 - 4.8 g/dL [facility] EGFR >120 >59 mL/min/1.7 3m2 [facility] Comment:Estimated glomerular filtration rate calculated using the CKD-EPI refit equation. ANION GAP 13 10 - 20 mmol/L [facility] Blood 10/08/2022 3:10 PM EST 10/08/2022 3:17 PM EST us Madonna Ban [facility] LAB BLOOD BKR ORDERABLES F inal Result Performing Organization Address [facility] Co de Phone Number [address] [address] * (ABNORMAL) Lipid panel (06/20/2022 7:49 AM EDT) HDL 50 mg/dL [facility] Comment: Interpretation <40 mg/dL: Low HDL cholesterol (major risk factor for CHD) Greater than or equal to 60 mg/dL: High HDL cholesterol ( negative risk factor for CHD) HDL - cholesterol is affected by a number of factors, e.g. smoking, excerise, hormones, sex and age. CHOLESTEROL 206 0 - 240 mg/dL [facility] TRIGLYCERIDES 103 30 - 160 mg/dL [facility] LDL 135(H) 50 - 129 mg/dL [facility] Comment: LDL levels in terms of risk for coronary heart disease: <100 mg/dL: Optimal 100-129 mg/dL: Near or above optimal 130-159 mg/dL: Borderline high 160-189 mg/dL: High >190 mg/dL: Very High CARDIAC RISK RATIO 4.1 3.3 - 4.4 [facility] Blood 06/20/2022 7:49 AM EDT 06/20/2022 7:53 AM EDT Madonna [place] [facility] LAB BLOOD BKR ORDERABLES F inal Result Performing Organization Address [facility] Co de Phone Number [address] [address] * Hepatitis C antibody, qualitative (04/01/2021 4:01 PM EDT) HCV NON-REACTIV E NON-REACTI VE [facility] Blood 04/01/2021 4:01 PM EDT 04/01/2021 4:07 PM EDT [facility] BLOOD BKR ORDERABLES F inal Result Performing Organization Address City/State/[facility] Co de Phone Number [address] [address] from Last 3 Months or Most Recently Relevant to Health Maintenance Insurance [employer] NON NSPG PCP S[employer]VER [employer]ITY CONNECTORCARE POS [employer] NON NSPG PCP S[employer]ITY CONNECTORCARE POS NON NSPG PCP SILVER CLARITY CONNECTORC[place] [address] [address] NON NSPG PCP S[employer] NON NSPG PCP [employer] Member Subscriber Plan / Payer (Ef fective 2020-Present) Name:Kenyetta Power Relation to Subscriber:Self Name:Kenyetta Power Payer ID:[id number] Type:HMO Address: [address] POS NON NSPG PCP [employer] CONNECTORCARE NON NSPG PCP S[employer]CTORCARE POS NON NSPG PCP [employer] CONNECTORCARE Member Subscriber Plan / Payer (Ef fective 2020-Present) Name:Kenyetta Power Relation to Subscriber:Self Name:Kenyetta Power Payer ID:[id number] Type:[employer] Address: [address] [facility] NON NSPG PCP [place] [employer] CONNECTORCARE STOW POS Care Teams Intel Recruiter Relationship Specialty Start Date End Date Emmanuel Casanova MD [address] [place] [address] [place] [address] PCP - General Internal Medicine 04/01/23 David Cuellar MD [address] [place] [address] Hematology and Oncology 09/22/18 Additional Source Comments The information contained in this document represents components of the legal health record. It is not the complete legal health record.[facility]
--- OUTSIDE RECORDS SUMMARY | 2025-08-21 19:12 | XMS_ITS | Encounter Summary ---
Author Organization [facility] Address [address] [place] [address] Phone Care Team Providers Care Print Press Operator Name Role Phone Madonna Beyer Ban HAYES Primary Care Provider [phone] David Cuellar MD Unavailable [phone] David Pinedo MD Primary Care Provider [phone] Encounter Details Date Type Department Care Team (Late st Contact Info) Description 10/08/2022 Procedure Pass [facility], [address] [id number] Social History Tobacco Use Types Packs/Day Years [...] high school, GED, job training, learning the Chinese language, technical skills, or developing parenting skills)? [...] documented as of this encounter Care Teams Print Press Operator Relationship Specialty Start Date End Date Madonna Beyer CNP [address] [place] [address], [address] [place] [address] [email or web address] PCP - General 07/28/17 03/31/23 David Pinedo MD [address] [place] [address] [place] [address] PCP - General Internal Medicine 04/01/23 David Cuellar MD [address] [place] [address] [email or web address] Hematology and Oncology 09/22/18 documented as of this encounter Additional Source Comments The information contained in this document represents components of the legal health record. It is not the complete legal health record.[facility]
--- OUTSIDE RECORDS SUMMARY | 2025-08-21 19:12 | XMS_ITS | Encounter Summary ---
Author Organization [facility] Address [address] [place] [address] Phone Care Team Providers Care Veterinary Practitioner Name Role Phone Valdo Reddy MD Unavailable Timothy Wyatt MD Unavailable Dane Davis MD Unavailable Enrrique Raza MD Unavailable Liliana Ricks MD Unavailable [phone] Flaco Rebolledo MD Unavailable Madonna Beyer AUDITOR Primary Care Provider [phone] Aubrey Delgado DO Unavailable David Cuellar MD Unavailable [phone] David Pinedo MD Primary Care Provider [phone] Encounter Details Date Type Department Care Team (Latest Contact Info) Description 01/17/2019 Transcribe Orders [address] [place] [address] Chu Henriquez MD, PhD [address] [place] [address] [address] [place] [address] [email or web address] Disease of thyroid gland (Primary Dx) Social [...] EDT) TSH 1.50 0.27 - 4.20 uIU/mL [facility] Blood 01/17/2019 2:45 PM EDT 01/17/2019 8:05 PM EDT Chu Henriquez MD, PhD LAB BLOOD BKR ORDERABLE S Final Result Performing Organization Address [facility] Co de Phone Number [address] [address] * Free T4 (01/17/2019 2:45 PM EDT) FREE T4 0.9 0.9 - 1.7 ng/dL [facility] Blood 01/17/2019 2:45 PM EDT 01/17/2019 8:05 PM EDT Chu Henriquez MD, PhD LAB BLOOD BKR ORDERABLE S Final Result Performing Organization Address [facility] Co de Phone Number [address] [address] documented in this encounter Visit Diagnoses Diagnosis [...] documented as of this encounter Care Teams Veterinary Practitioner Relationship Specialty Start Date End Date Madonna Beyer CNP [facility], [address] [place] [address] PCP - General 07/28/17 03/31/23 David Pinedo MD [address] [place] [address] [address] PCP - General Internal Medicine 04/01/23 Valdo Reddy MD [address] [place] [address] [email or web address] Historical LMR Provider 07/27/17 10/19/21 Timothy Wyatt MD [address] [address] Historical LMR Provider 07/27/17 10/19/21 Dane Davis MD [address] [address] Historical LMR Provider 07/27/17 10/19/21 Enrrique Raza MD [address] [address] Historical LMR Provider 07/27/17 10/19/21 Liliana Ricks MD [address] [place] [address] Historical LMR Provider 07/27/17 2 Flaco Rebolledo MD [address] [facility], [address] [place] [address] [email or web address] Historical LMR Provider 07/27/17 10/19/21 Aubrey Delgado DO [address] [place] [address] [address] [place] [address] [email or web address] Insurance Assigned Provider 08/14/18 02/15/20 David Cuellar MD [address] [place] [address] [email or web address] Hematology and Oncology 09/22/18 documented as of this encounter Additional Source Comments The information contained in this document represents components of the legal health record. It is not the complete legal health record.[facility]
== END 2025-08-21 19:10 | disposition home or self-care (01) ==
LOC: HO.ED 19:08
PROVIDERS: Physician Assistant Medical; Emergency Provider Emergency Medicine; PCP Internal Medicine
DX: R53.1 Weakness (principal); M54.50 Low back pain, unspecified; Z03.818 Encounter for observation for suspected exposure to other biological agents ruled out; R94.31 Abnormal electrocardiogram [ECG] [EKG]; I10 Essential (primary) hypertension; E11.9 Type 2 diabetes mellitus without complications; F41.9 Anxiety disorder, unspecified; K21.9 Gastro-esophageal reflux disease without esophagitis; G47.33 Obstructive sleep apnea (adult) (pediatric); Z87.891 Personal history of nicotine dependence
CPT/HCPCS: 80053; 83735; 84484; 85025; 87637; 93005; 99283

== ENCOUNTER → 2025-08-21 16:02 | Outpatient (BNV) | payer OTHER, SELFPAY | PROVIDERS: Emergency Provider Emergency Medicine; PCP Internal Medicine; Visit Provider Internal Medicine Cardiovascular Disease | DX: I49.9 Cardiac arrhythmia, unspecified (principal) | CPT/HCPCS: 93010 ==

== ENCOUNTER 2025-08-24 08:24 | Outpatient (AMB) | payer OTHER, SELFPAY ==
--- OUTSIDE RECORDS SUMMARY | 2022-08-25 18:30 | XMS_ITS | Encounter Summary ---
Author Organization [facility] Address [facility] [employer] [address] [address] Phone Care Team Providers Care Lumber Piler Name Role Phone PepitoMadonna sauceda Ban HAYES Primary Care Provider + [phone] David Cuellar MD Unavailable [phone] Encounter Details Date Type Department Care Team (Late st Contact Info) Description 08/25/2022 6:30 PM EST Hospital Encounter [facility] [address] [place] [address] Ronna Hakw CNP [address] [place] [address] [email or web address] Social History Tobacco Use Types Packs/Day Years [...] spine fracture or facet malalignment. Ronna Hawk BOOSTER OPERATOR IMG XR SPINE Final Resul t documented in this encounter Visit Diagnoses Not on filedocumented in this encounter Additional Health Concerns Assessment Noted Time PHQ-2 Depression Total Score: 0 09/08/20 18 3:25 PM EST documented as of this encounter Care Teams Lumber Piler Relationship Specialty Start Date End Date Madonna Beyer CNP [address] [place] [address] PCP - General 07/28/17 03/31/23 David Cuellar MD [address] [place] [address] Hematology and Oncology 09/22/18 documented as of this encounter Additional Source Comments The information contained in this document represents components of the legal health record. It is not the complete legal health record.[facility]
--- OUTSIDE RECORDS SUMMARY | 2025-08-24 08:43 | XMS_ITS | Encounter Summary ---
Author Organization [facility] Address [address] [place], [place] [phone] Phone Care Team Providers Care Strategic Consultant Name Role Phone Valdo Reddy MD Unavailable Timothy Wyatt MD Unavailable Dane Davis MD Unavailable [phone] Enrrique Raza MD Unavailable [phone] Liliana Ricks MD Unavailable [phone] Flaco Rebolledo MD Unavailable [phone] Madonna Beyer SENIOR MATERIALS SCIENTIST Primary Care Provider [phone] Aubrey Delgado DO Unavailable David Cuellar MD Unavailable [phone] David Pinedo MD Primary Care Provider [phone] Encounter Details Date Type Department Care Team (Latest Contact Info) Description 06/29/2019 Transcribe Orders [facility] [address] [place], [place] [phone] David Cuellar MD [address] [place] [address] Screening for unspecified condition (Primary [...] high school, GED, job training, learning the [place] language, technical skills, or developing parenting skills)? [...] documented as of this encounter Care Teams Strategic Consultant Relationship Specialty Start Date End Date Madonna Beyer CNP [address] [place] [address] PCP - General 07/28/17 03/31/23 David Pinedo MD [address] [place] [address] PCP - General Internal Medicine 04/01/23 Valdo Reddy MD 22 [place] [address] [email or web address] Historical LMR Provider 07/27/17 10/19/21 Timothy Wyatt MD [address] [place] [address] Historical LMR Provider 07/27/17 10/19/21 Dane Davis MD [address] [place] [address] Historical LMR Provider 07/27/17 10/19/21 Enrrique Raza MD [address] [place] [address], [address] [place] [address] Historical LMR Provider 07/27/17 10/19/21 Liliana Ricks MD [address] [place] [address] Historical LMR Provider 07/27/17 2 Flaco Rebolledo MD [address] [place] [address] [email or web address] Historical LMR Provider 07/27/17 10/19/21 Aubrey Delgado DO [address] [place] [address] [address] [place] [address] [email or web address] Insurance Assigned Provider 08/14/18 02/15/20 David Cuellar MD [address] [place] [address] [email or web address] Hematology and Oncology 09/22/18 documented as of this encounter Additional Source Comments The information contained in this document represents components of the legal health record. It is not the complete legal health record.[facility]
--- OUTSIDE RECORDS SUMMARY | 2025-08-24 08:43 | XMS_ITS | Encounter Summary ---
Author Organization [facility] Address [address] [place] [address] Phone Care Team Providers Care Outreach Specialist Name Role Phone Madonna Beyer Ban HAYES Primary Care Provider [phone] David Cuellar MD Unavailable [phone] David Pinedo MD Primary Care Provider [phone] Encounter Details Date Type Department Care Team (Late st Contact Info) Description 10/08/2022 Procedure Pass [facility], [address] [phone] Social History Tobacco Use Types Packs/Day Years [...] high school, GED, job training, learning the Mauritian language, technical skills, or developing parenting skills)? [...] documented as of this encounter Care Teams Outreach Specialist Relationship Specialty Start Date End Date Madonna Beyer CNP [address] [place] [address], [address] [place] [address] [email or web address] PCP - General 07/28/17 03/31/23 David Pinedo MD [address] [place] [address] [place] [address] PCP - General Internal Medicine 04/01/23 David Cuellar MD [address] [place] [address] [email or web address] Hematology and Oncology 09/22/18 documented as of this encounter Additional Source Comments The information contained in this document represents components of the legal health record. It is not the complete legal health record.[facility]
--- OUTSIDE RECORDS SUMMARY | 2025-08-24 08:43 | XMS_ITS | Clinical Summary ---
Author Organization [facility] Address [address] [place] [address] Phone Care Team Providers Care Grease Buffer Name Role Phone David Pinedo MD Primary [...] patient's age to complete this topic Insurance [facility] MEDICAID - [place] Care Teams Grease Buffer Relationship Specialty Start Date End Date David Pinedo MD [address] [place] [address] [address] [place], [place] PCP - General Internal Medicine 09/28/24
--- OUTSIDE RECORDS SUMMARY | 2025-08-24 08:43 | XMS_ITS | Clinical Summary ---
Author Organization [facility] Address [address] [place] [address] Phone Care Team Providers Care Editor Farm Journal Name Role Phone David Cuellar MD Unavailable Emmanuel Casanova MD Primary Care Provider [phone] Allergies Active Allergy Reactions Criticality Noted Date [...] Discussed exercise and dietary change. Referred to elevator starter Assessment & Plan (04/05/2018 11:01 AM EDT): [...] Plan (09/08/2018 8:47 PM EST): Referred to elevator starter. Today we did discuss bariatric medicine but [...] FOBT 2019 SIGMOIDOSCOPY 2019 VIRTUAL COLONOSCOPY 2019 PNEUMOCOCCAL VACCINES (50+ years) (2 of 2 - PCV) 09/08/2019 09/08/2018 POTASSIUM LEVEL 10/08/2023 10/08/2022, 090 06/2022, 12/12/2021, Additional history exists MAMMOGRAM 10/28/2023 10/28/2022, 06/20/2014 DEPRESSION SCREENING 01/02/2024 01/01/2023 LUNG CANCER SCREENING (LDCT Only) 01/05/2024 RSV VACCINE (1 - Risk 50-74 years 1-dose series) 01/05/2024 ZOSTER VACCINES (1 of 2) 01/05/2024 BLOOD PRESSURE 04/19/2025 10/20/2024 INFLUENZA VACCINE (#1) 2025 , 08/26/2022, 07/01/2021, Additional history exists COVID-19 VACCINE ( - 2024- season) 2025 09/10/2021, 12/01/2020, 11/10/2020 [...] patient's age to complete this topic IPV VACCINES Aged Out No longer eligi ble based on patient's age to complete this topic MENINGOCOCCAL VACCINES (ACWY) Aged Out No longer eligible based on patient's age to complete this topic MENINGOCOCCAL VACCINES (B) Aged Out N o longer eligible based on patient's age to complete this topic Medical Devices Implanted Type Area Flower Stripper Device Identifier Shelf Expiration Date Model / [...] Thurston MD - 04/01/2023 9:24 AM EDT [facility] Patient Name: Kenyetta Power Attending MD:: COLT THURSTON MD, Procedure Date: 04/01/2023 9:24 AM Date of : 1975 Age: 48 Admit Type: Outpatient Gender: Female Room: [facility] Referring MD: EMMANUEL CAASNOVA MD Exam Type: Colonoscopy Indications: Screening for [...] monitored continuously. The Olympus adult variable colonoscope [id number] #1 was introduced through the anus and [...] 9:24 AM Procedure Code(s): --- Professional --- 44059, Colonoscopy, flexible; with biopsy, single or multiple --- Technical --- 22250, Colonoscopy, flexible; with biopsy, single or multiple CPT copyright 2021 [employer]. All rights reserved. The codes documented in this report are preliminary and upon doctor of osteopathy reviewmay be revised to meet current compliance requirements. Procedure Date: 04/01/2023 9:24:[address] [place], [place] [id number] Emmanuel Casanova MD GI PROCEDURE ORDERABLES F [...] Negative. DENSITY: There are scattered fibroglandular densities. us Madonna Beyer BEAM DEPARTMENT SUPERVISOR IMG MG EXAMS Final Resu lt * (ABNORMAL) Comprehensive metabolic panel (10/08/2022 3:10 PM EST) SODIUM 138 133 - 146 mmol/L [facility] POTASSIUM 3.4 3.3 - 5.1 mmol/L [facility] CHLORIDE 99 96 - 108 mmol/L [facility] CO2 29 21 - 35 mmol/L [facility] BUN 9 6 - 19 mg/dL [facility] CREATININE 0.40(L) 0.5 - 1.5 mg/dL [facility] GLUCOSE 112(H) 70 - 99 mg/dL [facility] ALBUMIN 4.2 3.9 - 4.8 g/dL [facility] TOTAL PROTEIN 7.5 6.5 - 8.0 g/dL [facility] CALCIUM 9.9 8.4 - 10.3 mg/dL [facility] ALKALINE PHOSPHATASE 72 39 - 117 U/L [facility] TOTAL BILIRUBIN <0.2 0.0 - 1.2 mg/dL [facility] AST 16 0 - 37 U/L [facility] ALT 13 0 - 40 U/L [facility] GLOBULIN 3.3 1 - 4.8 g/dL [facility] EGFR >120 >59 mL/min/1.7 3m2 [facility] Comment:Estimated glomerular filtration rate calculated using the CKD-EPI refit equation. ANION GAP 13 10 - 20 mmol/L [facility] Blood 10/08/2022 3:10 PM EST 10/08/2022 3:17 PM EST Madonna Cevallos [facility] LAB BLOOD BKR ORDERABLES F inal Result Performing Organization Address City/[facility] Co de Phone Number [address] [address] * (ABNORMAL) Lipid panel (06/20/2022 7:49 AM EDT) HDL 50 mg/dL [facility] Comment: Interpretation <40 mg/dL: Low HDL cholesterol (major risk factor for CHD) Greater than or equal to 60 mg/dL: High HDL cholesterol ( negative risk factor for CHD) HDL - cholesterol is affected by a number of factors, e.g. smoking, excerise, hormones, sex and age. CHOLESTEROL 206 0 - 240 mg/dL [facility] TRIGLYCERIDES 103 30 - 160 mg/dL [facility] LDL 135(H) 50 - 129 mg/dL [facility] Comment: LDL levels in terms of risk for coronary heart disease: <100 mg/dL: Optimal 100-129 mg/dL: Near or above optimal 130-159 mg/dL: Borderline high 160-189 mg/dL: High >190 mg/dL: Very High CARDIAC RISK RATIO 4.1 3.3 - 4.4 [facility] Blood 06/20/2022 7:49 AM EDT 06/20/2022 7:53 AM EDT Madonna Cevallos [facility] LAB BLOOD BKR ORDERABLES F inal Result Performing Organization Address City/[facility]/ZIP Co de Phone Number [address] [address] * Hepatitis C antibody, qualitative (04/01/2021 4:01 PM EDT) HCV NON-REACTIV E NON-REACTI VE [facility] Blood 04/01/2021 4:01 PM EDT 04/01/2021 4:07 PM EDT [facility] Ban Mora BEAM DEPARTMENT SUPERVISOR LAB BLOOD BKR ORDERABLES F inal Result [facility] [address], [place] [phone] from Last 3 Months or Most Recently Relevant to Health Maintenance Insurance [facility] NON NSPG PCP SILVER CLARITY CONNECTORCARE POS [facility] NON NSPG PCP SILVER CLARITY CONNECTORCARE POS [place] NON NSPG PCP SILVER CLARITY [place] [address] [place] [address] NON NSPG PCP S[employer] [place] [address] [place] [address] NON NSPG PCP SIL[employer]ITY CONNECTORCARE NON NSPG PCP S[employer] [place] [address] [address] [place] [address] NON NSPG PCP [employer]IL[employer]ITY CONNECTORCARE NSPG PCP S[employer]VER [employer]ITY CONNECTORCARE POS NSPG PCP SILVER CLARITY CONNECTORCARE VADER POS Care Teams Editor Farm Journal Relationship Specialty Start Date End Date Emmanuel Casanova MD [address] [place] [address] [place] [address] PCP - General Internal Medicine 04/01/23 David Cuellar MD [address] [place] [address] [email or web address] Hematology and Oncology 09/22/18 Additional Source Comments The information contained in this document represents components of the legal health record. It is not the complete legal health record.[facility]
--- OUTSIDE RECORDS SUMMARY | 2025-08-24 08:43 | XMS_ITS | Encounter Summary ---
Author Organization [facility] Address [address] [place] [address] Phone Care Team Providers Care Manual Lathe Machinist Name Role Phone David Cuellar MD Unavailable [phone] David Pinedo MD Primary Care Provider [phone] Encounter Details Date Type Department Care Team (Late st Contact Info) Description 04/01/2023 Procedure Pass [facility] Endoscopy Admitting Dept Virtual Department [address] [place] [address] Social History Tobacco Use Types Packs/Day Years [...] documented as of this encounter Care Teams Manual Lathe Machinist Relationship Specialty Start Date End Date David Pinedo MD [address] [place] [address] Dr Cantrell [address] [place] [id number] PCP - General Internal Medicine 04/01/23 David Cuellar MD [address] [place] [address] Hematology and Oncology 09/22/18 documented as of this encounter Additional Source Comments The information contained in this document represents components of the legal health record. It is not the complete legal health record.[facility]
--- OUTSIDE RECORDS SUMMARY | 2025-08-24 08:44 | XMS_ITS | Encounter Summary ---
Author Organization [facility] Address [address] [place] [address] Phone Care Team Providers Care Raw Mill Operator Name Role Phone Valdo Reddy MD Unavailable Timothy Wyatt MD Unavailable Dane Dvais MD Unavailable Enrrique Raza MD Unavailable Liliana Ricks MD Unavailable [phone] Flaco Rebolledo MD Unavailable Madonna Beyer PROVIDER NETWORK MANAGER Primary Care Provider [phone] Aubrey Delgado DO Unavailable David Cuellar MD Unavailable [phone] David Pinedo MD Primary Care Provider [phone] Encounter Details Date Type Department Care Team (Latest Contact Info) Description 01/17/2019 Transcribe Orders [address] [place] [address] Chu Henriquez MD, PhD [address] [place] [address] [address] [place] [address] [email or web address] Disease of thyroid gland (Primary Dx) Social [...] EDT) TSH 1.50 0.27 - 4.20 uIU/mL [facility] Blood 01/17/2019 2:45 PM EDT 01/17/2019 8:05 PM EDT Chu Henriquez MD, PhD LAB BLOOD BKR ORDERABLE S Final Result Performing Organization Address [facility] Co de Phone Number [address] [address] * Free T4 (01/17/2019 2:45 PM EDT) FREE T4 0.9 0.9 - 1.7 ng/dL [facility] Blood 01/17/2019 2:45 PM EDT 01/17/2019 8:05 PM EDT Chu Henriquez MD, PhD LAB BLOOD BKR ORDERABLE S Final Result Performing Organization Address [facility] Co de Phone Number [address] [address] documented in this encounter Visit Diagnoses Diagnosis [...] documented as of this encounter Care Teams Raw Mill Operator Relationship Specialty Start Date End Date Madonna Beyer CNP [address] [facility], [address] [place] [id number] PCP - General 07/28/17 03/31/23 David Pinedo MD [address] [place] [address] [address] PCP - General Internal Medicine 04/01/23 Valdo Reddy MD [address] [place] [address] [email or web address] Historical LMR Provider 07/27/17 10/19/21 Timothy Wyatt MD [address] [address] Historical LMR Provider 07/27/17 10/19/21 Dane Davis MD [address] [address] Historical LMR Provider 07/27/17 10/19/21 Enrrique Raza MD [address] [address] Historical LMR Provider 07/27/17 10/19/21 Liliana Ricks MD [address] [place] [address] Historical LMR Provider 07/27/17 2 Flaco Rebolledo MD [address] [facility], [address] [place] [address] [email or web address] Historical LMR Provider 07/27/17 10/19/21 Aubrey Delgado DO [address] [place] [address] [address] [place] [address] [email or web address] Insurance Assigned Provider 08/14/18 02/15/20 David Cuellar MD [address] [place] [address] [email or web address] Hematology and Oncology 09/22/18 documented as of this encounter Additional Source Comments The information contained in this document represents components of the legal health record. It is not the complete legal health record.[facility]
--- NOTE | 2025-08-24 10:18 | A.OFFVIS_ITS ---
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 BMI 46.3 Allergies Seasonal Allergies Allergy (Mild, Verified 08/24/25 10:18) Sneezing sertraline (From Zoloft) Allergy (Mild, Verified 08/24/25 10:18) Insomnia tramadol Adverse Reaction (Intermediate, Verified 08/24/25 10:18) made blood pressure go up very high Medication List - Last Reconciled 08/24/25 by Dexter Parikh MD baclofen 20 mg PO TID PRN 30 days citalopram 40 mg PO DAILY famotidine 20 mg PO BID ferrous gluconate (Ferate) 240 mg PO DAILY hydrochlorothiazide 25 mg PO DAILY meloxicam 15 mg PO DAILY multivitamin 1 tab PO DAILY pravastatin 20 mg PO BEDTIME vitamin B complex (B Complex-Vitamin B12 tablet) 1 tab PO DAILY HPI HPI 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 BMI 46.3: Details: Start time: 10.15am, End time: 10.50am ?I spent 30 minutes speaking with the patient on the phone plus an additional 5 minutes reviewing and updating records for a total of 35 minutes HPI Comments Details: Previous weight loss efforts: exercise, Moeuneliel (lost 15lbs in 1 year) Wakes up: 7am, Sleeps: 11pm Breakfast: 9am (eggs) Lunch: not always, at 12pm (soups) Dinner: 5pm (sandwich) Snacks: 7pm (crackers) Exercise: had home treadmill (inclines and tracks calories) and stationary bike (tracks calories) Beverages: Coffee (12-18oz/d with splenda, anabell mix and milk), Tea: none, Soda: Dr. Kline (1-2/wk), Juice: none, ETOH: rarely PFSH Medical History (Updated 08/22/25 @ 00:01 by Background Jhoan) Bilateral knee pain Impaired fasting glucose Morbid obesity with BMI of 40.0-44.9, adult GERD without esophagitis Pure hypercholesterolemia Essential hypertension Diabetes mellitus Iron deficiency anemia Surgical History History of appendectomy Status post left foot surgery Hx of hernia repair History of partial hysterectomy (~2000) Family History Father COPD (chronic obstructive pulmonary disease) Mother Hyperthyroidism Alcohol abuse Social History Household Members: Spouse Housing: House Alcohol intake: current Alcohol intake frequency: holidays/special occasions only Alcohol type: beer and wine Patient Tobacco Use Status: Former Tobacco user e-Cigarette/Vaping Use: Never Used service: No Current occupational status: employed 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 Current occupational exposures/hazards: No Cognitive needs: No Hearing needs: No Vision needs: Yes Telehealth Telehealth Telehealth Platform: Telephone Location of provider rendering services: practice address Location of patient: address on file Patient Identification confirmed using: Name, : Yes Telehealth method: voice only Patient verbally consented to treatment: Yes Patient verbally consented to billing insurance company: Yes Patient informed of any privacy concerns related to visit: Yes Minutes spent on Phone/Video with Pt.: 35 Assessment & Plan Assessment & Plan (1) Morbid obesity with BMI of 40.0-44.9, adult: Code(s): E66.01 - Morbid (severe) obesity due to excess calories; Z68.41 - Body mass index [BMI] 40.0-44.9, adult Category: Medical Plan: 1. As we discussed, based on your present BMI you are approximately 130lbs overweight. In my opinion, for any weight loss strategy to be successful should have a high probability to help you lose at least 110lbs out of 130lbs of the extra weight you carry. We discussed in detail the available therapeutic options: 1) our lifestyle intervention program that has an average weight loss of 10% in 3 months, about 23lbs for you.?Some patients continue it for longer and have lost over 50lbs but this is not common. Our lifestyle program can be provided by me. I will provide you with a link to use the shahab if you choose to do so. We use protein shakes and protein bars to replace some of the meals of the day and cover your appetite better. We will decide together the exact combination. 2) Weight loss medications: these can be used in conjunction with our lifestyle program or you may choose to use them without following a lifestyle program from my program but your own. As we discussed, your insurance does not cover weight loss medications. There is an ild medication, the Phentermine pill but can raise your blood pressure and youhave already that problem. It is well tolerated and most common side effects include blood pressure elevation, dry mouth, difficulty sleeping and heart palpitations. You can also self pay for the weight loss injections and the cost is $249 for the first month and $499 for any other month thereafter. These payments go to the drug company directly and not to us. As we discussed, this is not a group home solution, as most patients put all the weight back once they are off the medication. 3) We also discussed about the lap sleeve gastrectomy. In my opinion this is the best option to solve your problem based on your situation and should be used in conjunction with the two previous options. A good strategy to make this decision to proceed with surgery, as soon as you achieve a specific goal with the lifestyle intervention and medication options: to lose least 10% of your initial weight in 3 months. ?I emphasized the importance of close follow-up, adherence to instructions and good communication. The surgery does not replace the need to change your lifestlyle which is the cause of the obesity problem. The surgery provides the motivation to try again to change your lifestyle, it reduces the appetite and make the transition to a better lifestyle easier and doubles the amount of weight you would lose compared to doing the lifestyle change without the surgery. You will need to be on a liquid diet with protein shakes for 2 weeks before surgery to maximize weight loss and boost your nutritional status to recover better from surgery and also for the first two weeks after surgery to let the stomach heal before we introduce other foods. After the first 2 weeks we will introduce protein bars and soft foods like scrambled eggs, cottage cheese and yogurt and after the 6th week will introduce meat, fish and cooked vegetables in small amounts. Over time you should be able to eat everything in small amounts. Side effects like nausea, vomiting, heartburn or abdominal pain are not common in the practice unless you are not following in the practice. This operation requires lifetime commitment to following in our practice and communication with me. You will much less weight and experience side effects if you don?t communicate or not following in the practice. Complications are rare and in our practice is about 1/10 of the national average.
[2025-08-24 10:31] VITALS: BMI 46.2
== END 2025-08-24 10:50 | disposition home or self-care (01) ==
LOC: HO.HBS 08:24
PROVIDERS: PCP Internal Medicine; Visit Provider Surgery
DX: E66.01 Morbid (severe) obesity due to excess calories (principal); Z68.42 Body mass index [BMI] 45.0-49.9, adult
CPT/HCPCS: 99203

== ENCOUNTER 2025-09-12 10:47 | Outpatient (AMB) | payer OTHER, SELFPAY ==
--- OUTSIDE RECORDS SUMMARY | 2022-08-25 18:30 | XMS_ITS | Encounter Summary ---
Author Organization [facility] Address [facility] [address] [address] Phone Care Team Providers Care Oil Well Cable Tool Driller Name Role Phone BronxMadonna sauceda Ban HAYES Primary Care Provider + [phone] David Cuellar MD Unavailable [phone] Encounter Details Date Type Department Care Team (Late st Contact Info) Description 08/25/2022 6:30 PM EST Hospital Encounter [facility] [address] [place] [address] Ronna Hawk CNP [address] [place] [address] [email or web address] Social History Tobacco Use Types Packs/Day Years Used Date Smoking Tobacco: Former Cigarettes 1 27.5 0 07/01/1987 - 12/28/2014 Smokeless Tobacco: Never Comments:quit 2014 Alcohol Use Standard Drinks/Week Comments Yes 0 (1 standard drink = 0.6 oz pur e alcohol) very occasional Child or Family Care Answer Date Record ed Do you have problems with on e of the following making it difficult for you to work, study, or receive health care? No 02/17/2019 Education Answer Date Recorded Are you interested in more education? Not on jaison e 02/06/2023 Are you concerned about learning? Not on file 02/06/2023 No 02/06/2023 No 02/06/2023 Food Answer Date Recorded Within the past 6 months we worried whether our food would run out before we got money to buy more. Never True 02/17/2019 Within the past 6 months the food we bought just didn't last and we didn't have enough money to get more. Never True 9 Paying for Meds Answer Date Recorded Do you have trouble paying for medicines? No 02/17/2019 Paying Utility Bills Answer Date Record ed Do you have trouble paying your heating or elect ricity bill? No 02/17/2019 Transportation Answer Date Recorded Has the lack of transportati on kept you from medical appointments or from getting medications? No 02/17/2019 Digital Access Answer Date Recorded No 03/09/2023 No 03/09/2023 Reliable internet access at home? Not on file 03/09/2023 Device with a working camera? Not on file Comments No Sex and Gender Information Value Date Recorded Sex Assigned at Female 12/07/2017 4:37 PM EST Legal Sex Female 9:31 PM EDT Gender Identity Female 10/19/2017 9:38 AM EST Sexual Orientation Not on file documented as of this encounter Plan of Treatment Not on file documented as of this encounter Procedures Procedure Name Priority Date/Time Associated Diagnosis Comments XR CERVICAL SPINE 4-5 VIEWS Urgent/patient waiting 08/25/2022 6:42 PM EST Radiculopathy of arm documented in this encounter Results * XR CERVICAL SPINE 4-5 VIEWS (08/25/2022 6:42 PM EST) Anatomical Region Laterality Modality C-spine Computed Radiogr aphy 08/25/2022 6:45 PM EST Impressions 08/25/2022 6:48 PM EST No acute cervical spine fracture or facet malalignment. Narrative 08/25/2022 6:48 PM EST XR CERVICAL SPINE 4-5 VIEWS COMPARISON: XR CERVICAL SPINE 4-5 VIEWS FINDINGS: There is mild straightening of the normal cervical lordosis. There is no acute facet malalignment. There is no acute fracture. Vertebral body heights are maintained. There is no prevertebral soft tissue thickening. Intervertebral disc spaces are preserved. Procedure Note Anne Hawkins MD - 08/25/2022 XR CERVICAL SPINE 4-5 VIEWS COMPARISON: XR CERVICAL SPINE 4-5 VIEWS FINDINGS: There is mild straightening of the normal cervical lordosis. There is noacute facet malalignment. There is no acute fracture. Vertebral body heights are maintained. There is no prevertebral soft tissue thickening. Intervertebral disc spaces are preserved. IMPRESSION: No acute cervical spine fracture or facet malalignment. Ronna Hawk WARP TESTER IMG XR SPINE Final Resul t documented in this encounter Visit Diagnoses Not on filedocumented in this encounter Additional Health Concerns Assessment Noted Time PHQ-2 Depression Total Score: 0 09/08/20 18 3:25 PM EST documented as of this encounter Care Teams Oil Well Cable Tool Driller Relationship Specialty Start Date End Date Madonna Beyer CNP [address] [place] [phone] PCP - General 07/28/17 03/31/23 David Cuellar MD [address] [place] [address] Hematology and Oncology 09/22/18 documented as of this encounter Additional Source Comments The information contained in this document represents components of the legal health record. It is not the complete legal health record.[facility]
--- NOTE | 2025-09-12 10:52 | A.OFFPC_ITS ---
Vital Signs 09/12/25 10:53 Height 4 ft 11 in Weight 230 lb 4 oz BMI 46.5 BP 128/80 Blood Pressure Location Lt brachial Position Sitting Pulse 78 Pulse Source Pulse Oximeter Pulse Oximetry (%) 96 Oxygen Delivery Method Room Air Intake Visit Reasons: follow up Buying Intern Required: No Accompanied by: Self / Same As Patient Allergies Seasonal Allergies Allergy (Mild, Verified 09/12/25 11:16) Sneezing sertraline (From Zoloft) Allergy (Mild, Verified 09/12/25 11:16) Insomnia tramadol Adverse Reaction (Intermediate, Verified 09/12/25 11:16) made blood pressure go up very high Medication List - Last Reconciled 09/12/25 by David Pinedo MD baclofen 20 mg PO TID PRN 30 days citalopram 40 mg PO DAILY famotidine 20 mg PO BID ferrous gluconate (Ferate) 240 mg PO DAILY hydrochlorothiazide 25 mg PO DAILY meloxicam 15 mg PO DAILY multivitamin 1 tab PO DAILY pravastatin 20 mg PO BEDTIME vitamin B complex (B Complex-Vitamin B12 tablet) 1 tab PO DAILY Tobacco use date assessed: 09/12/25 Dental Screening Dental Screen Date: 09/12/25 Did you have a dental visit in the last 12 months?: No Did you have a dental problem in the last 6 months where you did not have access to dental care?: No Was dental information given to patient?: No HPI follow up HPI Details - The patient is a 50 year old individua l presenting for a follow-up visit and to review lab work. - The patient's recent lab work shows a total cholesterol of 219, up from 195, and LDL cholesterol of 149, up from 125. - The patient's hemoglobin A1c is now 5. 8, having increased from previous values of 5.0 and 5.2, placing the patient at the borderline for prediabetes. - The patient reports menopausal symptom s, including night sweats, hot flashes, and difficulty sleeping. - The patient reports bilateral ear disc omfort with diminished hearing, sinus issues, and congestion. - The patient reports being in a lot of pain and has a history of back problems, previously seeing Dr. Rome for pain management. - The patient is considering bariatric s urgery as recommended by Dr. Briones from weight management, as diet pills were contraindicated due to anxiety. - Past medical history includes an EKG a nd an echocardiogram at the hospital, and kidney function was noted to be normal. [facility] Medical History Bilateral knee pain Impaired fasting glucose Morbid obesity with BMI of 40.0-44.9, adult GERD without esophagitis Pure hypercholesterolemia Essential hypertension Diabetes mellitus Iron deficiency anemia Surgical History History of appendectomy Status post left foot surgery Hx of hernia repair History of partial hysterectomy (~2000) Family History Father COPD (chronic obstructive pulmonary disease) Mother Hyperthyroidism Alcohol abuse Social History Household Members: Spouse Housing: House Alcohol intake: current Alcohol intake frequency: holidays/special occasions only Alcohol type: beer and wine Patient Tobacco Use Status: Former Tobacco user e-Cigarette/Vaping Use: Never Used service: No Current occupational status: employed 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 1. Little interest or pleasure in doing things: not at all 2. Feeling down, depressed, or hopeless: not at all 3. Trouble falling or staying asleep, or sleeping too much: not at all 4. Feeling tired or having little energy: not at all 5. Poor appetite or overeating: not at all 6. Feeling bad about yourself - or that you are a failure or have let yourself or your family down: not at all 7. Trouble concentrating on things, such as reading the newspaper or watching television: not at all 8. Moving or speaking so slowly that other people could have noticed. Or the opposite - being so fidgety or restless that you have been moving around a lot more than usual: not at all 9. Thoughts that you would be better off or of hurting yourself in some way: not at all Total score: 0 Depression Screening Interpretation: Negative Depression Screening Done: Yes 40651 - PHQ-9 Billing: Yes Source: Developed by Drs. Cyril Cortes, Arabella Morin, Cedric Garcia and colleagues, with an educational dari from [employer]. Thrive Questionnaire Date Thrive assessed: 09/12/25 I am a: Patient What is your living situation today?: I have a steady place to live Within the past 12 months, did the food you bought not last and you didn't have the money to get more?: Never true Within the past 12 months, did you worry whether your food would run out before you got money to buy more?: Never true Do you have trouble paying for medicines?: No Do you have trouble getting transportation to medical appointments?: No Do you have trouble paying your heating and electricity bill?: No Do you have trouble taking care of your child, family member or friend?: No Do you have trouble with day-to-day activities such as bathing, preparing meals, shopping, managing finances, etc.?: No Are you currently unemployed and looking for a job?: No Are you interested in more education?: No Please select the resources that you would like help with: None Currently or been in a relationship where the following occur: No concerns reported THRIVE Score: 0 AUDIT C Alcohol Use Questionnaire (AUDIT-C) 1. How often do you have a drink containing alcohol?: Monthly or less 2. How many drinks containing alcohol do you have on a typical day when you are drinking?: 1 or 2 3. How often do you have six or more drinks on one occasion?: Never Total Score: 1 Score Reviewed/Action Taken: Yes LETTY-7 AMB Questionnaire LETTY-7 Date LETTY - 7 assessed: 09/12/25 Feeling nervous, anxious, or on edge: 0 = Not at all Not being able to stop or control worryin = Not at all Worrying too much about different things: 0 = Not at all Trouble relaxin = Not at all Being so restless that it is hard to sit still: 0 = Not at all Becoming easily annoyed or irritable: 0 = Not at all Feeling afraid as if something awful might happen: 0 = Not at all Total LETTY-7 score (0-4 normal; 5-9 mild; 10-14 moderate; 15-21 severe): 0 Source: Developed by Drs. Cyril Cortes, Arabella Morin, Cedric Garcia and colleagues, with an educational dari from [employer]. Review of Systems Const Denies chills, Denies fatigue, Denies fever(s) and Denies headache(s) ENT Denies dysphagia, Denies dizziness, Denies otalgia, Denies headache(s), Denies neck pain, Denies odynophagia and Denies sore throat Card Denies chest pain, Denies rapid heart rate, Denies irregular heart rhythm, Denies palpitations and Denies dyspnea Resp Denies chest congestion, Denies cough, Denies dyspnea and Denies wheezing GI Denies abdominal pain, Denies constipation, Denies dysphagia, Denies heartburn, Denies diarrhea, Denies nausea, Denies odynophagia and Denies vomiting Denies hematuria, Denies urinary frequency, Denies dysuria and Denies urinary incontinence Musc Reports back pain (on and off, chronic), Reports arthralgias (in both knees, increasing lately; R>L) and Denies neck pain Skin/Breast Denies rash Neuro Denies dizziness, Denies headache(s) and Denies paresthesias Psych Denies anxiety and Denies depression Endo Denies fatigue and Denies palpitations Lavell/Lymph Denies easy bruising Aller/Immun Denies wheezing Physical exam (Primary Care) Vital Signs: Last Vital Signs Pulse 78 09/12/25 10:53 BP 128/80 09/12/25 10:53 Pulse Ox 96 09/12/25 10:53 Oxygen Delivery Method Room Air 09/12/25 10:53 BMI result Body Mass Index 46.5 Tobacco/Smoking Status: Tobacco use Status Tobacco use date assessed 09/12/25 09/12/25 10:55 Patient Tobacco Use Status Former Tobacco user 09/12/25 10:55 e-Cigarette/Vaping Use Never Used 09/12/25 10:55 PHQ-9: PHQ-9 Score PHQ-9: Total score 0 09/12/25 11:19 Depression Screening Interpretation: Negative Thrive Assessment: Date of Thrive Assessment Date Thrive assessed 09/12/25 09/12/25 10:55 Currently or been in a relationship where the following occur: No concerns reported Const General: no acute distress and alert HENMT Ears: TM's normal bilaterally and EAC's normal Throat: Yes posterior oropharynx normal and Yes tonsils normal (no TP congestion) Neck Neck: Yes supple and No lymphadenopathy Thyroid: Thyroid normal Resp Auscultation: clear to auscultation bilaterally, no rales and no wheezes Cardio Rate: regular rate Rhythm: regular rhythm Heart sounds: no murmurs GI Palpation (GI): Soft to palpation and nontender Auscultation: normal bowel sounds General: Yes no CVA tenderness Back/Spine/Pelvis Back: no CVA tenderness Thoracic/Lumbar Spine: lumbar spinal tenderness Skin Rashes: no rashes Extrem General: Yes no clubbing, cyanosis or edema Right lower extremity: knee Details: tenderness Location: of the pre-patellar area and of the infrapatellar area; no swelling Left lower extremity: knee Details: tenderness Location: of the pre-patellar area and of the infrapatellar area; no swelling Results Reviewed Results Reviewed: Laboratory Tests 07/17/25 07/17/25 08/21/25 07:40 07:50 16:15 WBC 13.8 H Hgb 12.5 Hct 36.9 L Plt Count 329 Sodium 140 Potassium 3.6 Creatinine 0.55 Estimated GFR > 60 Fasting Glucose 97 Hemoglobin A1c % 5.8 Calcium 9.4 Magnesium 2.2 AST 19 ALT 21 Triglycerides 63 Cholesterol 219 H LDL Cholesterol, Calc 149 H HDL Cholesterol 58 25-OH Vitamin D Total 36.3 TSH 2.08 Ur Specific [place] 1.025 Urine Protein Negative Urine Glucose (UA) Negative Urine Blood Negative Urine Nitrite Negative Ur Leukocyte Esterase Negative Coding Level of Care Code Est Pt Level 4 (87780) Diagnoses Pure hypercholesterolemia E78.00 Impaired fasting glucose R73.01 Essential hypertension I10 DANILO on CPAP G47.33 GERD without esophagitis K21.9 Iron deficiency anemia, unspecified iron deficiency anemia type D50.9 Iron deficiency anemia type: unspecified iron deficiency Pain in both knees, unspecified chronicity M25.561; M25.562 Chronicity: unspecified Anxiety F41.9 Morbid obesity with BMI of 40.0-44.9, adult E66.01; Z68.41 Additional Codes PHQ-9 - 42120 - PHQ-9 Billing: Yes ([id number]) Assessment & Plan Assessment & Plan (1) Pure hypercholesterolemia: Code(s): E78.00 - Pure hypercholesterolemia, unspecified Category: Medical Plan: Results of her labs done a few weeks ago reviewed and discussed with patient - her cholesterol levels have again increased from previous and her LDL cholesterol is now at 149 mg/dl Reinforced low cholesterol diet - goal is LDL cholesterol of at least <100 mg/dl and preferably < 70 mg/dl due to her comorbidities Will increase her Pravastatin from 10 mg to 20 mg QD Will recheck her labs and fasting lipids in a few months for follow up (2) Impaired fasting glucose: Code(s): R73.01 - Impaired fasting glucose Category: Medical Plan: Her HgbA1c was at 5.8% a few weeks ago; in-office HgbA1c was previously at 5.7% a few months ago Reinforced low calorie/low carb diet She is currently on Mounjaro 5 mg SQ once a week and seems to be doing well on the medication with no apparent side effects - to continue on current Rx for now She was previously on Trulicity 1.5 mg SQ once a week but was able to get it for months due to its unavailability at the pharmacy (3) Essential hypertension: Code(s): I10 - Essential (primary) hypertension Category: Medical Plan: Reinforced low sodium diet - goal is systolic BP of at least 120 mm or less Continue HCTZ 25 mg QD (4) DANILO on CPAP: Code(s): G47.33 - Obstructive sleep apnea (adult) (pediatric) Category: Medical Plan: She was previously referred to Sleep Medicine for reassessment as she needed to get a new CPAP device as her old unit is worn down Follow up with Sleep Medicine as scheduled (5) GERD without esophagitis: Code(s): K21.9 - Gastro-esophageal reflux disease without esophagitis Category: Medical Plan: Dietary restrictions reinforced Continue Famotidine 20 mg BID (6) Iron deficiency anemia: Code(s): D50.9 - Iron deficiency anemia, unspecified Category: Medical Qualifiers: Iron deficiency anemia type: unspecified iron deficiency Qualified Code(s): D50.9 - Iron deficiency anemia, unspecified Plan: Corrected Continue Ferrous gluconate 240 mg QD Will recheck her CBC in 4 months for follow up (7) Bilateral knee pain: Code(s): M25.561 - Pain in right knee; M25.562 - Pain in left knee Category: Medical Qualifiers: Chronicity: unspecified Qualified Code(s): M25.561 - Pain in right knee; M25.562 - Pain in left knee Plan: X-rays of both knees done last month revealed (+) mild to moderate medial compartment osteoarthrosis in both knees Follow up with orthopedics as scheduled (8) Anxiety: Code(s): F41.9 - Anxiety disorder, unspecified Category: Medical Plan: Continue Citalopram 40 mg QD (9) Morbid obesity with BMI of 40.0-44.9, adult: Code(s): E66.01 - Morbid (severe) obesity due to excess calories; Z68.41 - Body mass index [BMI] 40.0-44.9, adult Category: Medical Plan: Reinforced diet/exercise as tolerated/lose weight Plan Follow up as scheduled in November 2025 Orders: Orders Lipid Panel 11/06/25 E78.00 - Pure hypercholesterolemia, unspecified Microalbumin, Random (w Creat) 11/06/25 E11.9 - Type 2 diabetes mellitus without complications Vitamin D 25-OH Total 11/06/25 E55.9 - Vitamin D deficiency, unspecified NT Pro B Type Natriuretic Pept 11/06/25 R06.09 - Other forms of dyspnea Complete Blood Count Auto Diff 11/06/25 D64.9 - Anemia, unspecified Comprehensive [place]. Panel Fast 11/06/25 E78.00 - Pure hypercholesterolemia, unspecified Hemoglobin A1c 11/06/25 E11.9 - Type 2 diabetes mellitus without complications TSH reflex Free T4 11/06/25 E78.00 - Pure hypercholesterolemia, unspecified UA CC w/rflx Micro + Cult 11/06/25 R30.0 - Dysuria
[2025-09-12 10:53] VITALS: BP 128/80; PULSE 78; O2SAT 96; BMI 46.5
--- OUTSIDE RECORDS SUMMARY | 2025-09-12 12:37 | XMS_ITS | Clinical Summary ---
Author Organization [facility] Address [address] [place] [address] Phone Care Team Providers Care Furnace Loader Name Role Phone David Cuellar MD Unavailable [phone] Emmanuel Casanova MD Primary Care Provider [phone] Allergies Active Allergy Reactions Criticality Noted Date Comments Sertraline 08/25/2017 Medications MULTIVIT WITH MINERALS/LUTEIN (MULTIVITAMIN 50 PLUS ORAL) Active b complex vitamins capsule Take 1 capsule by mouth daily. Active iron bis-gly/FA/C/B12 /Ca/succ (IRON-150 ORAL) Take by mouth. Active TRULICITY 1.5 mg/0.5 mL subcutaneous injectionIndicat ions:Medication refill INJECT 0.5 ML (1.5 MG TOTAL) UNDER THE SKIN EVERY 7 DAYS 2 mL 3 12/12/19 Active Additional Information Patient not taking.Reported on [...] Discussed exercise and dietary change. Referred to chemical research engineer Assessment & Plan (04/05/2018 11:01 AM EDT): [...] Plan (09/08/2018 8:47 PM EST): Referred to chemical research engineer. Today we did discuss bariatric medicine but [...] VIRTUAL COLONOSCOPY 2019 POTASSIUM LEVEL 10/08/2023 10/08/2022, 0906/2022, 12/12/2021, Additional history exists MAMMOGRAM 10/28/2023 10/28/2022, [...] topic Medical Devices Implanted Type Area Utility Tender Carding Device Identifier Shelf Expiration Date Model / [...] Thurston MD - 04/01/2023 9:24 AM EDT [employer] Patient Name: Kenyetta Dahl MD:: COLT THURSTON MD, Procedure Date: 04/01/2023 9:24 AM Date of : 1975 Age: 48 Admit Type: Outpatient Gender: Female Room: [facility] Referring MD: EMMANUEL CASANOVA MD Exam [...] monitored continuously. The Olympus adult variable colonoscope [id number] #1 was introduced through the anus and [...] 9:24 AM Procedure Code(s): --- Professional --- 75375, Colonoscopy, flexible; with biopsy, single or multiple --- Technical --- 06859, Colonoscopy, flexible; with biopsy, single or multiple CPT copyright 2021 [employer]. All rights reserved. The codes documented in this report are preliminary and upon marketing intelligence manager reviewmay be revised to meet current compliance requirements. Procedure Date: 04/01/2023 9:24:[address] [place] [address] Emmanuel Casanova MD GI PROCEDURE ORDERABLES [...] There are scattered fibroglandular densities. Madonna Beyer REVENUE AUDIT CLERK IMG MG EXAMS Final Resu lt * (ABNORMAL) Comprehensive metabolic panel (10/08/2022 3:10 PM EST) SODIUM 138 133 - 146 mmol/L [facility] POTASSIUM 3.4 3.3 - 5.1 mmol/L [facility] CHLORIDE 99 96 - 108 mmol/L [facility] CO2 29 21 - 35 mmol/L [facility] BUN 9 6 - 19 mg/dL [facility] CREATININE 0.40(L) 0.5 - 1.5 mg/dL [facility] GLUCOSE 112(H) 70 - 99 mg/dL [facility] ALBUMIN 4.2 3.9 - 4.8 g/dL [facility] TOTAL PROTEIN 7.5 6.5 - 8.0 g/dL [facility] CALCIUM 9.9 8.4 - 10.3 mg/dL [facility] ALKALINE PHOSPHATASE 72 39 - 117 U/L [facility] TOTAL BILIRUBIN <0.2 0.0 - 1.2 mg/dL [facility] AST 16 0 - 37 U/L [facility] ALT 13 0 - 40 U/L [facility] GLOBULIN 3.3 1 - 4.8 g/dL [facility] EGFR >120 >59 mL/min/1.7 3m2 [facility] Comment:Estimated glomerular filtration rate calculated using the CKD-EPI refit equation. ANION GAP 13 10 - 20 mmol/L [facility] Blood 10/08/2022 3:10 PM EST 10/08/2022 3:17 PM EST [facility] LAB BLOOD BKR ORDERABLES F inal Result Performing Organization Address [facility] Co de Phone Number [address] [phone] * (ABNORMAL) Lipid panel (06/20/2022 7:49 AM EDT) HDL 50 mg/dL [facility] Comment: Interpretation <40 mg/dL: Low HDL cholesterol (major risk factor for CHD) Greater than or equal to 60 mg/dL: High HDL cholesterol ( negative risk factor for CHD) HDL - cholesterol is affected by a number of factors, e.g. smoking, excerise, hormones, sex and age. CHOLESTEROL 206 0 - 240 mg/dL [facility] TRIGLYCERIDES 103 30 - 160 mg/dL [facility] LDL 135(H) 50 - 129 mg/dL [facility] Comment: LDL levels in terms of risk for coronary heart disease: <100 mg/dL: Optimal 100-129 mg/dL: Near or above optimal 130-159 mg/dL: Borderline high 160-189 mg/dL: High >190 mg/dL: Very High CARDIAC RISK RATIO 4.1 3.3 - 4.4 C [facility] Blood 06/20/2022 7:49 AM EDT 06/20/2022 7:53 AM EDT [facility] LAB BLOOD BKR ORDERABLES F inal Result Performing Organization Address [facility] Co de Phone Number [address] [address] * Hepatitis C antibody, qualitative (04/01/2021 4:01 PM EDT) HCV NON-REACTIV E NON-REACTI VE [facility] Blood 04/01/2021 4:01 PM EDT 04/01/2021 4:07 PM EDT [facility] LAB BLOOD BKR ORDERABLES F inal Result Performing Organization Address City/[facility]/ZIP Co de Phone Number [address] [address] from Last 3 Months or Most Recently Relevant to Health Maintenance Insurance WELLSENSE NON NSPG PCP [employer] POS [employer]FF[employer] NON NSPG PCP S[employer] POS NON NSPG PCP [employer] [place] [address] [place] [address] NON NSPG PCP S[employer] [facility] [address] [place] [address] NON NSPG PCP [employer] Member Subscriber Plan / Payer (Ef fective 2020-Present) Name:Kenyetta Power Relation to Subscriber:Self Name:Kenyetta Power Payer ID:[id number] Type:HMO Address: [address] POS NON NSPG PCP [employer] [place] [address] [place] [address] NON NSPG PCP S[employer] POS [facility] NON NSPG PCP [employer] Member Subscriber Plan / Payer (Ef fective 2020-Present) Name:Kenyetta Power Relation to Subscriber:Self Name:Kenyetta Power Payer ID:[id number] Type:[place]O Address: [address] [facility] NON NSPG PCP [place] [employer] [place] POS Care Teams Furnace Loader Relationship Specialty Start Date End Date Emmanuel Casanova MD [address] [place] [address] [place] [address] PCP - General Internal Medicine 04/01/23 David Cuellar MD [address] [place] [id number] Hematology and Oncology 09/22/18 Additional Source Comments The information contained in this document represents components of the legal health record. It is not the complete legal health record.[facility]
--- OUTSIDE RECORDS SUMMARY | 2025-09-12 12:37 | XMS_ITS | Encounter Summary ---
Author Organization [facility] Address [address] [place] [address] Phone Care Team Providers Care Kennel Manager Dog Track Name Role Phone David Cuellar MD Unavailable [phone] David Pinedo MD Primary Care Provider [phone] Encounter Details Date Type Department Care Team (Late st Contact Info) Description 04/01/2023 Procedure Pass [facility] Endoscopy Admitting Dept Virtual Department [address] [place] [address] Social History Tobacco Use Types Packs/Day Years [...] documented as of this encounter Care Teams Kennel Manager Dog Track Relationship Specialty Start Date End Date David Pinedo MD [address] [place] [address] Dr Cantrell [address] [place] [address] PCP - General Internal Medicine 04/01/23 David Cuellar MD [address] [place] [phone] Hematology and Oncology 09/22/18 documented as of this encounter Additional Source Comments The information contained in this document represents components of the legal health record. It is not the complete legal health record.[facility]
--- OUTSIDE RECORDS SUMMARY | 2025-09-12 12:37 | XMS_ITS | Clinical Summary ---
Author Organization [facility] Address [address] [place] [address] Phone Care Team Providers Care Senior Compensation Consultant Name Role Phone David Pinedo MD Primary [...] patient's age to complete this topic Insurance [facility] MEDICAID - [place] Care Teams Senior Compensation Consultant Relationship Specialty Start Date End Date David Pinedo MD [address] [place] [address] [address] [place], [place] PCP - General Internal Medicine 09/28/24
--- OUTSIDE RECORDS SUMMARY | 2025-09-12 12:37 | XMS_ITS | Encounter Summary ---
Author Organization [facility] Address [address] [place] [address] Phone Care Team Providers Care Coach Builder Name Role Phone Madonna Beyer Ban HAYES Primary Care Provider [phone] David Cuellar MD Unavailable [phone] David Pinedo MD Primary Care Provider [phone] Encounter Details Date Type Department Care Team (Late st Contact Info) Description 10/08/2022 Procedure Pass [facility], [address] [phone] Social History Tobacco Use Types Packs/Day Years [...] high school, GED, job training, learning the [place] language, technical skills, or developing parenting skills)? [...] documented as of this encounter Care Teams Coach Builder Relationship Specialty Start Date End Date Madonna Beyer CNP [address] [place] [address], [address] [place] [address] PCP - General 07/28/17 03/31/23 David Pinedo MD [address] [place] [address] [place] [address] PCP - General Internal Medicine 04/01/23 David Cuellar MD [address] [place] [phone] [email or web address] Hematology and Oncology 09/22/18 documented as of this encounter Additional Source Comments The information contained in this document represents components of the legal health record. It is not the complete legal health record.[facility]
--- OUTSIDE RECORDS SUMMARY | 2025-09-12 12:38 | XMS_ITS | Encounter Summary ---
Author Organization [facility] Address [address] [place] [id number] Phone Care Team Providers Care Systems Management Consultant Name Role Phone Valdo Reddy MD Unavailable Timothy Wyatt MD Unavailable Dane Davis MD Unavailable Enrrique Raza MD Unavailable [phone] Liliana Ricks MD Unavailable [phone] Flaco Rebolledo MD Unavailable Madonna Beyer OPTICAL INSTRUMENT INSPECTOR Primary Care Provider [phone] Aubrey Delgado DO Unavailable David Cuellar MD Unavailable [phone] David Pinedo MD Primary Care Provider [phone] Encounter Details Date Type Department Care Team (Latest Contact Info) Description 01/17/2019 Transcribe Orders [address] [place] [address] Chu Henriquez MD, PhD [address] [place] [address] [address] [place] [address] [email or web address] Disease of thyroid gland (Primary Dx) Social [...] EDT) TSH 1.50 0.27 - 4.20 uIU/mL [facility] Blood 01/17/2019 2:45 PM EDT 01/17/2019 8:05 PM EDT Chu Henriquez MD, PhD LAB BLOOD BKR ORDERABLE S Final Result Performing Organization Address [facility] de Phone Number [address] [address] * Free T4 (01/17/2019 2:45 PM EDT) FREE T4 0.9 0.9 - 1.7 ng/dL [facility] Blood 01/17/2019 2:45 PM EDT 01/17/2019 8:05 PM EDT Chu Henriquez MD, PhD LAB BLOOD BKR ORDERABLE S Final Result Performing Organization Address [facility] Co de Phone Number [address] [address] documented in this encounter Visit Diagnoses Diagnosis [...] documented as of this encounter Care Teams Systems Management Consultant Relationship Specialty Start Date End Date Madonna Beyer ABIGAIL [address] [address] PCP - General 07/28/17 03/31/23 David Pinedo MD [address] [place] [address] [address] PCP - General Internal Medicine 04/01/23 Valdo Reddy MD [address] [place] [address] [email or web address] Historical LMR Provider 07/27/17 10/19/21 Timothy Wyatt MD [address] [address] Historical LMR Provider 07/27/17 10/19/21 Dane Davis MD [address] [address] Historical LMR Provider 07/27/17 10/19/21 Enrrique Raza MD [address] [address] Historical LMR Provider 07/27/17 10/19/21 Liliana Ricks MD [address] [place] [address] Historical LMR Provider 07/27/17 Flaco Bond MD 22 [facility], [address] [place] [address] [email or web address] Historical LMR Provider 07/27/17 10/19/21 Aubrey Delgado DO [address] [place] [address], [address] [place] [address] [email or web address] Insurance Assigned Provider 08/14/18 02/15/20 David Cuellar MD [address] [place] [phone] [email or web address] Hematology and Oncology 09/22/18 documented as of this encounter Additional Source Comments The information contained in this document represents components of the legal health record. It is not the complete legal health record.[facility]
== END 2025-09-12 11:27 | disposition home or self-care (01) ==
LOC: HO.HMCH 10:48
PROVIDERS: PCP Internal Medicine; Visit Provider Internal Medicine
DX: I10 Essential (primary) hypertension (principal); E78.00 Pure hypercholesterolemia, unspecified; E66.01 Morbid (severe) obesity due to excess calories; Z68.41 Body mass index [BMI] 40.0-44.9, adult; R73.01 Impaired fasting glucose; G47.33 Obstructive sleep apnea (adult) (pediatric); K21.9 Gastro-esophageal reflux disease without esophagitis; D50.9 Iron deficiency anemia, unspecified; M25.561 Pain in right knee; M25.562 Pain in left knee; F41.9 Anxiety disorder, unspecified

== ENCOUNTER → 2025-09-12 10:47 | Outpatient (BNVA) | payer OTHER, SELFPAY | PROVIDERS: PCP Internal Medicine; Visit Provider Internal Medicine | DX: E78.00 Pure hypercholesterolemia, unspecified (principal); R73.01 Impaired fasting glucose; I10 Essential (primary) hypertension; G47.33 Obstructive sleep apnea (adult) (pediatric); Z99.89 Dependence on other enabling machines and devices; K21.9 Gastro-esophageal reflux disease without esophagitis; D50.9 Iron deficiency anemia, unspecified; M25.561 Pain in right knee; M25.562 Pain in left knee; F41.9 Anxiety disorder, unspecified; E66.01 Morbid (severe) obesity due to excess calories; Z68.41 Body mass index [BMI] 40.0-44.9, adult; Z13.31 Encounter for screening for depression | CPT/HCPCS: 96127 ==